=== PATIENT | female | born 2000 | race Caucasian/White ===

== ENCOUNTER 2020-08-06 13:05 | Outpatient (REF) | payer OTHER, SELFPAY ==
[2020-08-06 13:33] LABS: COVID-19 Test Negative (Negative)
== END 2020-08-06 13:06 | disposition home or self-care (01) ==
LOC: HO.LAB 13:05
PROVIDERS: Visit Provider Internal Medicine
DX: Z20.822 Contact with and (suspected) exposure to COVID-19 (principal)
CPT/HCPCS: 36415; 87635; C9803

== ENCOUNTER 2021-03-29 12:24 | Emergency (ER) | payer OTHER, MEDICAID, SELFPAY ==
[2021-03-29 12:41] VITALS: BP 119/76; PULSE 93; RESP 18; TEMP 36.1; O2SAT 98; BMI 22.8
--- NOTE | 2021-03-29 13:44 | ED.EYEPROB ---
HPI - Eye Problem General Chief complaint: Eye Problems Stated complaint: Dermatitis Time Seen by Provider: 03/29/21 13:37 History of Present Illness HPI Narrative: Patient complains of right upper lid redness from a dermatitis She had it more extensively went to a doctor was given prednisone and the redness immediately disappeared then when the prednisone ended it is starting to get a little red and itchy again no fever no pain no eye pain no vision changes Related Data Previous Rx's Medication Instructions Recorded hydrocortisone 1 % topical cream 1 appl TOPICAL TID PRN #28.35 g 03/29/21 mupirocin 2 % topical ointment 1 appl TOPICAL TID 5 Days #15 g 03/29/21 prednisone 20 mg tablet 40 mg PO DAILY 2 Days #4 tab 03/29/21 Allergies Allergy/AdvReac Type Severity Reaction Status Date / Time walnut Allergy Swelling Verified 03/29/21 12:45 Review of Systems Review of Systems: Complaint of right eyelid redness and burning and itching of eyelid Negatives are no fever no chills no dizziness no weakness no eye pain no eye discharge no blurry vision no loss of vision no photophobia no headache no neck pain no stiff neck no difficulty breathing no vomiting Yes all other systems are reviewed and are negative [facility] Past Medical History Source: nursing notes reviewed Medical History (Updated 03/30/21 @ 00:01 by Jarrell Porras) No known health problems Social History Social History Advance Directives: No Advance Directives Information Provided: No Physical Exam Vital Signs: Vital Signs: Last Vital Signs Temp 97.0 F 03/29/21 12:41 Pulse 93 03/29/21 12:41 Resp 18 03/29/21 12:41 BP 119/76 03/29/21 12:41 Pulse Ox 98 03/29/21 12:41 BMI result Body Mass Index 22.8 General appearance is no distress Head is normocephalic atraumatic Eyes visual acuity is 2020 bilateral, pupils equal round reactive to light, extraocular motions intact The right eyelid is red and and it is not tender to the touch it is not warm, conjunctiva are normal no redness or exudate, no photophobia The face there is no other erythema except for the right eyelid, there is no other swelling The neck is supple Respiratory no distress Extremities full range of motion x4 Course Course Course Narrative: Patient has had this before and it cleared up with a very short course of steroids but then came back, there is no pain no fever no surrounding cellulitis no vision changes no eye pain so patient is treated with another course of steroids and some creams and is discharged to follow with primary care Discharge Plan Discharge Clinical Impression: Dermatitis Patient Disposition: Home, Self-Care Additional Instructions: Because steroids work before for this we are doing 3 days a steroids, you got your 1st dose here in the next 2 days are in her prescription from the pharmacy Also apply hydrocortisone cream to the upper lid but not into the eye Just in case it is an infection if it is not improving you could apply mupirocin antibiotic ointment Return any time any worse condition or concerns Prescriptions: New prednisone 20 mg tablet 40 mg PO DAILY 2 Days Qty: 4 RF: 0 hydrocortisone 1 % cream 1 appl topical TID PRN (Reason: rash) Qty: 28.35 RF: 0 mupirocin 2 % ointment 1 appl topical TID 5 Days Qty: 15 RF: 0 Interventions: ED Discharge Assessment Last Done: 03/29/21 14:10 Discharge Date/Time: 03/29/21 14:11
[2021-03-29] MEDS: predniSONE 20 MG TABLET 40 MG PO (14:07)
== END 2021-03-29 14:11 | disposition home or self-care (01) ==
PROVIDERS: Emergency Provider Emergency Medicine
DX: H01.9 Unspecified inflammation of eyelid (principal)
CPT/HCPCS: 99283

== ENCOUNTER 2021-05-22 11:55 | Emergency (ER) | payer OTHER, MEDICAID, SELFPAY ==
--- NOTE | ~2021-05-22 | US_ITS ---
EXAMINATION: US PELVIS TRANSVAGINAL CLINICAL INFORMATION: Left lower quadrant pain. Question ovarian cyst. COMPARISON: None. TECHNIQUE: Transcutaneous and transvaginal pelvic ultrasound. Transvaginal scanning was performed after voiding to better evaluate the endometrium and adnexa. FINDINGS: The uterus measures 8.0 x 3.2 x 5.2 cm. The uterus is anteverted. No suspicious abnormalities region of the cervix. Nabothian cysts present. The uterine contour is smooth. The endometrium measures 0.7 cm. There is fluid seen within the endometrial canal. No abnormal endometrial mass is appreciated. No focal abnormalities within the myometrium. The right ovary measures approximately 3.3 x 2.5 x 2.8 cm. The calculated right ovarian volume is approximately 12.2 mL. There is a 2.2 x 1.9 x 2.2 cm simple appearing cyst. No suspicious adnexal mass. Normal vascular flow. The left ovary measures 2.8 x 1.1 x 1.3 cm. The calculated left ovarian volume is approximately 2.1 mL. No abnormal left adnexal findings. No significant free pelvic fluid. US/US pelvic and transvaginal IMPRESSION: 2.2 cm right ovarian cyst. Some fluid is seen within the endometrial canal.
--- NOTE | ~2021-05-22 | US_ITS ---
EXAMINATION: US RETROPERITONEAL LIMITED (RENAL ONLY) CLINICAL INFORMATION: Left lower quadrant pain, rule out kidney stone. COMPARISON: CT abdomen and pelvis without contrast dated 11/28/2016. TECHNIQUE: Real-time imaging of the kidneys. FINDINGS: RIGHT KIDNEY: 11.8 x 5.9 x 5.0 cm (SAG x AP x TRV). The kidney is normal in size, contour, and echogenicity. Renal cortical thickness is normal. No calculi or focal parenchymal lesions. No hydronephrosis. LEFT KIDNEY: 10.9 x 5.7 x 5.5 cm (SAG x AP x TRV). The kidney is normal in size, contour, and echogenicity. Renal cortical thickness is normal. No calculi or focal parenchymal lesions. No hydronephrosis. US/US renal BI IMPRESSION: Unremarkable renal ultrasound.
--- NOTE | 2021-05-22 13:09 | ED_ITS ---
HPI - Abdominal Pain General Chief Complaint: Abdominal Pain Stated Complaint: Kidney stone Time Seen by Provider: 05/22/21 13:02 Source: patient Mode of arrival: ambulatory Limitations: no limitations History of Present Illness HPI narrative: Patient with history of kidney stone last stone was 10 years ago noticed pain in bilateral lower quadrant for last 2 days got better again got worse today associated with nausea patient has a left-sided no urinary symptoms no hematuria no fever no chills no flank pain Related Data Previous Rx's Medication Instructions Recorded hydrocortisone 1 % topical cream 1 appl TOPICAL TID PRN #28.35 g 03/29/21 mupirocin 2 % topical ointment 1 appl TOPICAL TID 5 Days #15 g 03/29/21 prednisone 20 mg tablet 40 mg PO DAILY 2 Days #4 tab 03/29/21 ibuprofen 600 mg tablet 600 mg PO Q6H PRN #20 tab 05/22/21 Allergies Allergy/AdvReac Type Severity Reaction Status Date / Time walnut Allergy Swelling Verified 03/29/21 12:45 Review of Systems Review of Systems Yes all other systems are reviewed and are negative [facility] Past Medical History Medical History No known health problems Social History Social History Advance Directives: No Advance Directives Information Provided: No Patient : No Physical Exam ED Vital Signs: Vital Signs - 24 hr 05/22/21 13:12 05/22/21 15:40 Temperature 97.9 F 98.0 F Pulse Rate 81 82 Respiratory Rate 16 16 Blood Pressure 125/78 109/58 L Pulse Oximetry 100 100 BMI result Body Mass Index 22.6 Appearance: Alert. Oriented X3. In mild distress ENT: Pharynx normal. Oral Mucosa moist Neck: Normal inspection. Neck supple. CVS: Normal heart rate and rhythm. Pulses normal. Respiratory: No respiratory distress. Equal air entry bilateral, no wheezing/rales/rhonchi Abdomen: Soft dependent at bilateral lower quadrants R>L Bowel sounds are pr esent, no mass palpable, no CVA tenderness Skin: Skin warm and dry. Normal skin color. Normal skin turgor. Extremities: No lower extremity edema. No calf tenderness Neuro: Oriented X 3. MDM - Abdominal Pain MDM Narrative Medical decision making narrative: Patient with right ovarian cyst likely the cause of the pain CBC counts normal UA negative no kidney stone. Discharge patient home on ibuprofen patient felt much better after Toradol Lab Data Attestation: I reviewed the patient's lab results. Result diagrams: 05/22/21 13:30 05/22/21 15:14 Labs: Lab Results 05/22/21 05/22/21 05/22/21 Range/Units 13:30 13:31 13:31 WBC 4.3 L (4.8-10.8) X10*3/uL RBC 4.99 (4.20-5.50) X10*6/uL Hgb 14.5 (12.0-16.0) g/dl Hct 42.9 (37.0-47.0) % MCV 86.0 (80.0-98.0) fL MCH 29.1 (27.0-33.0) pg MCHC 33.8 (31.0-35.0) g/dl RDW 13.0 (11.0-16.0) % Plt Count 245 (160-400) X10*3/uL MPV 9.6 (9.4-12.3) fL Immature Gran % (Auto) 0.0 (0.0-0.4) % Neut % (Auto) 50.8 (45-73) % Lymph % (Auto) 39.2 (20-40) % [place] % (Auto) 7.9 (2-11) % Eos % (Auto) 1.9 (0-4) % Baso % (Auto) 0.2 (0-2) % Lymph # (Auto) 1.7 (1.2-4.9) X10*3/uL [place] # (Auto) 0.3 (0.1-1.2) X10*3/uL Eos # (Auto) 0.1 (0.0-0.4) X10*3/uL Baso # (Auto) 0.0 (0.0-0.2) X10*3/uL Abs Immat Gran (auto) 0.00 (0.00-0.03) X10*3/uL Absolute Neuts (auto) 2.2 (2.0-8.3) x10*3/uL Absolute Nucleated RBC 0.000 (0.0-0.012) X10*3/uL Nucleated RBC % (auto) 0.0 (0.0-0.2) /100WBC Sodium (135-145) mmol/L Potassium (3.3-5.1) mmol/L Chloride (96-108) mmol/L Carbon Dioxide (22-29) mmol/L Anion Gap (12-20) BUN (9-16) mg/dL Creatinine (0.5-1.4) mg/dL Estim Creat Clear Calc Estimated GFR Random Glucose (60-115) mg/dL Calcium (8.4-10.2) mg/dL Urine Color YELLOW Urine Appearance HAZY Urine pH 8.5 H (5.0-8.0) Ur Specific [place] 1.015 (1.005-1.025) Urine Protein NEG (NEG-TRACE) MG/DL Urine Glucose (UA) NEG (NEG) MG/DL Urine Ketones NEG (NEG) MG/DL Urine Blood NEG (NEG) Urine Nitrite NEG (NEG) Ur Leukocyte Esterase NEG (NEG) Urine Test NEGATIVE (NEGATIVE) 05/22/21 Range/Units 15:14 WBC (4.8-10.8) X10*3/uL RBC (4.20-5.50) X10*6/uL Hgb (12.0-16.0) g/dl Hct (37.0-47.0) % MCV (80.0-98.0) fL MCH (27.0-33.0) pg MCHC (31.0-35.0) g/dl RDW (11.0-16.0) % Plt Count (160-400) X10*3/uL MPV (9.4-12.3) fL Immature Gran % (Auto) (0.0-0.4) % Neut % (Auto) (45-73) % Lymph % (Auto) (20-40) % [place] % (Auto) (2-11) % Eos % (Auto) (0-4) % Baso % (Auto) (0-2) % Lymph # (Auto) (1.2-4.9) X10*3/uL [place] # (Auto) (0.1-1.2) X10*3/uL Eos # (Auto) (0.0-0.4) X10*3/uL Baso # (Auto) (0.0-0.2) X10*3/uL Abs Immat Gran (auto) (0.00-0.03) X10*3/uL Absolute Neuts (auto) (2.0-8.3) x10*3/uL Absolute Nucleated RBC (0.0-0.012) X10*3/uL Nucleated RBC % (auto) (0.0-0.2) /100WBC Sodium 141 (135-145) mmol/L Potassium 4.0 (3.3-5.1) mmol/L Chloride 105 (96-108) mmol/L Carbon Dioxide 25 (22-29) mmol/L Anion Gap 15 (12-20) BUN 6 L (9-16) mg/dL Creatinine 0.70 (0.5-1.4) mg/dL Estim Creat Clear Calc 118.0 Estimated GFR > 60 Random Glucose 87 (60-115) mg/dL Calcium 9.4 (8.4-10.2) mg/dL Urine Color Urine Appearance Urine pH (5.0-8.0) Ur Specific [place] (1.005-1.025) Urine Protein (NEG-TRACE) MG/DL Urine Glucose (UA) (NEG) MG/DL Urine Ketones (NEG) MG/DL Urine Blood (NEG) Urine Nitrite (NEG) Ur Leukocyte Esterase (NEG) Urine Test (NEGATIVE) Discharge Plan Discharge Clinical Impression: Ovarian cyst Patient Disposition: Home, Self-Care Instructions: Ovarian Cyst (ED) Additional Instructions: Take ibuprofen for pain 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
[2021-05-22 13:12] VITALS: BP 125/78; PULSE 81; RESP 16; TEMP 36.6; O2SAT 100; BMI 22.6
[2021-05-22] MEDS: 0.9 % Sodium Chloride 1,000 ML 999 ML IV (13:35)
[2021-05-22] MEDS: ondansetron HCL 4 MG/2 ML VIAL IVPUSH (13:37)
[2021-05-22 13:39] LABS: MANUAL DIFF FLAG NO
[2021-05-22] MEDS: Ketorolac Tromethamine 30 MG/ML VIAL IVPUSH (13:39)
[2021-05-22 13:44] LABS: Basophils Percent Auto 0.2 % (0-2); Eosinophils Absolute Auto 0.1 X10*3/uL (0.0-0.4); Eosinophils Percent Auto 1.9 % (0-4); Hematocrit 42.9 % (37.0-47.0); Hemoglobin 14.5 g/dl (12.0-16.0); Lymphocytes Absolute Auto 1.7 X10*3/uL (1.2-4.9); Lymphocytes Percent Auto 39.2 % (20-40); Mean Corpuscular HGB Conc 33.8 g/dl (31.0-35.0); Mean Corpuscular Hemoglobin 29.1 pg (27.0-33.0); Mean Platelet Volume 9.6 fL (9.4-12.3); Monocytes Absolute Auto 0.3 X10*3/uL (0.1-1.2); Monocytes Percent Auto 7.9 % (2-11); Neutrophils Absolute Auto 2.2 x10*3/uL (2.0-8.3); Neutrophils Percent Auto 50.8 % (45-73); Platelet Count 245 X10*3/uL (160-400); Red Blood Count 4.99 X10*6/uL (4.20-5.50); White Blood Count 4.3 X10*3/uL (4.8-10.8)
[2021-05-22 13:44] LABS: Appearance Urine HAZY; Color Urine YELLOW; Glucose Urine UA NEG (NEG); Leukocyte Esterase Urine NEG (NEG); Nitrite Urine NEG (NEG); PH 8.5 (5.0-8.0); Specific Gravity - Urine 1.015 (1.005-1.025); Urine Blood NEG (NEG); Urine Ketones NEG (NEG); Urine Protein NEG (NEG-TRACE)
[2021-05-22 13:46] LABS: UPreg QC Valid YES; Urine Pregnancy NEGATIVE (NEGATIVE)
[2021-05-22 15:33] LABS: Anion Gap 15 (12-20); Blood Urea Nitrogen 6 mg/dL (9-16); Calcium 9.4 mg/dL (8.4-10.2); Carbon Dioxide 25 mmol/L (22-29); Chloride 105 mmol/L (96-108); Estimated Glomerular Filt Rate > 60; Glucose Random 87 mg/dL (60-115); Sodium 141 mmol/L (135-145)
[2021-05-22 15:40] VITALS: BP 109/58; PULSE 82; RESP 16; TEMP 36.7; O2SAT 100
== END 2021-05-22 16:27 | disposition home or self-care (01) ==
PROVIDERS: Emergency Provider Internal Medicine
DX: N83.291 Other ovarian cyst, right side (principal); R10.30 Lower abdominal pain, unspecified
CPT/HCPCS: 36415; 76775; 76830; 76856; 80048; 81003; 81025; 85025; 96361; 96374; 96375; 99284; J1885; J2405

== ENCOUNTER 2023-05-12 08:45 | Emergency (ER) | payer OTHER, MEDICAID, SELFPAY ==
[2023-05-12 08:57] VITALS: BP 135/80; PULSE 78; RESP 18; TEMP 36.4; O2SAT 100; BMI 22.0
[2023-05-12 09:28] LABS: MANUAL DIFF FLAG NO
[2023-05-12 09:29] LABS: Basophils Percent Auto 1.1 % (0-2); Eosinophils Absolute Auto 0.2 X10*3/uL (0.0-0.4); Eosinophils Percent Auto 4.3 % (0-4); Hematocrit 44.1 % (37.0-47.0); Hemoglobin 15.1 g/dl (12.0-16.0); Lymphocytes Absolute Auto 1.6 X10*3/uL (1.2-4.9); Mean Corpuscular HGB Conc 34.2 g/dl (31.0-35.0); Mean Corpuscular Hemoglobin 29.7 pg (27.0-33.0); Mean Corpuscular Volume 86.8 fL (80.0-98.0); Mean Platelet Volume 9.5 fL (9.4-12.3); Monocytes Absolute Auto 0.4 X10*3/uL (0.1-1.2); Monocytes Percent Auto 10.2 % (2-11); Neutrophils Absolute Auto 1.5 x10*3/uL (2.0-8.3); Neutrophils Percent Auto 40.4 % (45-73); Platelet Count 235 X10*3/uL (160-400); Red Blood Count 5.08 X10*6/uL (4.20-5.50); Red Cell Distribution Width 12.6 % (11.0-16.0); White Blood Count 3.7 X10*3/uL (4.8-10.8)
[2023-05-12 09:34] LABS: UPreg QC Valid YES; Urine Pregnancy NEGATIVE (NEGATIVE)
[2023-05-12 09:35] LABS: Appearance Urine Clear; Color Urine Yellow; Glucose Urine UA Negative (Negative); Leukocyte Esterase Urine Negative (Negative); Nitrite Urine Negative (Negative); Urine Blood Negative (Negative); Urine Ketones Negative (Negative); Urine Protein Negative (Neg-Trace)
[2023-05-12 09:52] LABS: Alanine Aminotransferase 7 U/L (0-31); Albumin Level 4.7 g/dL (3.5-5.0); Alkaline Phosphatase 44 U/L (39-117); Anion Gap 13 (12-20); Aspartate Amino Transferase 13 U/L (5-31); Bilirubin Direct 0.4 mg/dL (0.0-0.5); Bilirubin Total 0.8 mg/dL (0.0-1.0); Blood Urea Nitrogen 10 mg/dL (9-16); Calcium 9.5 mg/dL (8.4-10.2); Carbon Dioxide 27 mmol/L (22-29); Chloride 105 mmol/L (96-108); Creatinine Clr Calc Pharmacy 115.9; Estimated Glomerular Filt Rate > 60; Glucose Random 75 mg/dL (60-115); Lipase 15 U/L (8-78); Potassium 3.8 mmol/L (3.3-5.1); Sodium 141 mmol/L (135-145); Total Protein 7.8 g/dL (6.5-8.0)
[2023-05-12 11:50] VITALS: BP 137/76; PULSE 65; RESP 18; TEMP 36.4; O2SAT 98
--- NOTE | 2023-05-12 11:54 | ED_ITS ---
HPI - General Adult General Chief complaint: Abdominal Pain Stated complaint: Blood in urine-kidney problems History of Present Illness HPI narrative: Patient complains of dysuria that has been going on for awhile, she saw her urologist at [facility] and was placed on Macrobid She continues to have some urinary frequency and occasional burning, no fever no abdominal pain no vomiting and is here today because she wants to be rechecked for UTI and make sure her kidneys are functioning Related Data Previous Rx's Medication Instructions Recorded hydrocortisone 1 % topical cream 1 appl topical TID PRN rash #28.35 03/29/21 grams mupirocin 2 % topical ointment 1 appl topical TID 5 days #15 grams 03/29/21 prednisone 20 mg tablet 40 mg (2 x 20 mg) PO DAILY 2 days 03/29/21 #4 tabs ibuprofen 600 mg tablet 600 mg PO Q6H PRN pain #20 tabs 05/22/21 phenazopyridine 200 mg tablet 200 mg PO TID PRN Dysuria 6 doses 05/12/23 (Pyridium) #6 tabs Allergies Allergy/AdvReac Type Severity Reaction Status Date / Time almond Allergy Anaphylaxis Verified 05/12/23 09:02 walnut Allergy Swelling Verified 03/29/21 12:45 [facility] Past Medical History Source: nursing notes reviewed Medical History No known health problems Social History Social History Advance Directives: No Advance Directives Information Provided: No Physical Exam ED Vital Signs: Vital Signs - 24 hr 05/12/23 08:57 05/12/23 11:50 Temperature 97.6 F 97.6 F Pulse Rate 78 65 Respiratory Rate 18 18 Blood Pressure 135/80 137/76 Pulse Oximetry 100 98 Oxygen Delivery Method Room Air Room Air BMI result Body Mass Index 22.0 General appearance is comfortable no acute distress The pharynx clear mucous membranes moist no redness or swelling Neck is supple Respiratory no distress Abdomen soft and nontender The back no CVA tenderness Legs no swelling Course Course Course Narrative: Patient who came today as she continues to have intermittent urinary frequency and sometimes discomfort with urination who was recently treated with Macrobid wanted to be rechecked She has no nausea no vomiting no fever tolerates p.o. Urinalysis negative test negative blood work no acute findings renal function normal Well-appearing patient is discharged and has good follow-up with urologist and primary care Medical Decision Making Lab Data 05/12/23 09:19 05/12/23 09:19 Labs: Lab Results 05/12/23 Range/Units 09:19 WBC 3.7 L (4.8-10.8) X10*3/uL RBC 5.08 (4.20-5.50) X10*6/uL Hgb 15.1 (12.0-16.0) g/dl Hct 44.1 (37.0-47.0) % MCV 86.8 (80.0-98.0) fL MCH 29.7 (27.0-33.0) pg MCHC 34.2 (31.0-35.0) g/dl RDW 12.6 (11.0-16.0) % Plt Count 235 (160-400) X10*3/uL MPV 9.5 (9.4-12.3) fL Immature Gran % (Auto) 0.0 (0.0-0.4) % Neut % (Auto) 40.4 L (45-73) % Lymph % (Auto) 44.0 H (20-40) % [place] % (Auto) 10.2 (2-11) % Eos % (Auto) 4.3 H (0-4) % Baso % (Auto) 1.1 (0-2) % Lymph # (Auto) 1.6 (1.2-4.9) X10*3/uL [place] # (Auto) 0.4 (0.1-1.2) X10*3/uL Eos # (Auto) 0.2 (0.0-0.4) X10*3/uL Baso # (Auto) 0.0 (0.0-0.2) X10*3/uL Abs Immat Gran (auto) 0.00 (0.00-0.03) X10*3/uL Absolute Neuts (auto) 1.5 L (2.0-8.3) x10*3/uL Absolute Nucleated RBC 0.000 (0.0-0.012) X10*3/uL Nucleated RBC % (auto) 0.0 (0.0-0.2) /100WBC Sodium 141 (135-145) mmol/L Potassium 3.8 (3.3-5.1) mmol/L Chloride 105 (96-108) mmol/L Carbon Dioxide 27 (22-29) mmol/L Anion Gap 13 (12-20) BUN 10 (9-16) mg/dL Creatinine 0.70 (0.5-1.4) mg/dL Estim Creat Clear Calc 115.9 Estimated GFR > 60 Random Glucose 75 (60-115) mg/dL Calcium 9.5 (8.4-10.2) mg/dL Total Bilirubin 0.8 (0.0-1.0) mg/dL Direct Bilirubin 0.4 (0.0-0.5) mg/dL AST 13 (5-31) U/L ALT 7 (0-31) U/L Alkaline Phosphatase 44 (39-117) U/L Total Protein 7.8 (6.5-8.0) g/dL Albumin 4.7 (3.5-5.0) g/dL Lipase 15 (8-78) U/L Urine Color Yellow Urine Appearance Clear Urine pH 7.0 (5.0-9.0) Ur Specific [place] 1.020 (1.005-1.025) Urine Protein Negative (Neg-Trace) mg/dL Urine Glucose (UA) Negative (Negative) mg/dL Urine Ketones Negative (Negative) mg/dL Urine Blood Negative (Negative) Urine Nitrite Negative (Negative) Ur Leukocyte Esterase Negative (Negative) Urine Test NEGATIVE (NEGATIVE) Discharge Plan Discharge Clinical Impression: Dysuria Patient Disposition: Home, Self-Care Additional Instructions: Your blood work vital signs and physical exam were all normal No sign of any dangerous or worrisome condition now Follow closely with her doctor and urologist Return any time any worse condition or any concerns Prescriptions: New phenazopyridine [Pyridium] 200 mg tablet 200 mg PO TID PRN (Reason: Dysuria) Qty: 6 0RF No Action prednisone 20 mg tablet 40 mg PO DAILY 2 Days Qty: 4 0RF hydrocortisone 1 % cream 1 appl topical TID PRN (Reason: rash) Qty: 28.35 0RF mupirocin 2 % ointment 1 appl topical TID 5 Days Qty: 15 0RF ibuprofen 600 mg tablet 600 mg PO Q6H PRN (Reason: pain) Qty: 20 0RF Stand Alone Forms: Work/School Release Interventions: ED Discharge Assessment Last Done: 05/12/23 12:17 Discharge Date/Time: 05/12/23 12:18
== END 2023-05-12 12:18 | disposition home or self-care (01) ==
PROVIDERS: Emergency Provider Emergency Medicine Emergency Medical Services
DX: R30.0 Dysuria (principal); R35.0 Frequency of micturition; Z79.899 Other long term (current) drug therapy
CPT/HCPCS: 36415; 80048; 80076; 81003; 81025; 83690; 85025; 99282; 99283

== ENCOUNTER 2023-08-31 15:23 | Outpatient (AMB) | payer OTHER, MEDICAID, SELFPAY ==
--- NOTE | 2023-08-31 15:26 | A.OFFPC_ITS ---
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 Pt is currently . She is in the process of transferring to a different OBGYN. Pt has a hx of asthma. She reports that this is well-controlled with proair. Pt has a hx of PTSD, mood disorder, and anxiety. She is on the waiting list for a therapist. Pt wants to get through her and then discuss meds. Denies any SI and HI. Pt is smoking 4 cigarettes per day. Highly encouraged quitting. REPLACED BY [facility] Medical History No known health problems Surgical History Hx of hernia repair Social History Housing: Apartment Patient Tobacco Use Status: Current everyday Tobacco user Current occupational status: employed Current occupational exposures/hazards: No Cognitive needs: No Hearing needs: No Vision needs: No Questionnaire PHQ-9 Over the last 2 weeks, how often have you been bothered by any of the following problems? 1. Little interest or pleasure in doing things: not at all 2. Feeling down, depressed, or hopeless: not at all 3. Trouble falling or staying asleep, or sleeping too much: several days 4. Feeling tired or having little energy: not at all 5. Poor appetite or overeating: not at all 6. Feeling bad about yourself - or that you are a failure or have let yourself or your family down: not at all 7. Trouble concentrating on things, such as reading the newspaper or watching television: not at all 8. Moving or speaking so slowly that other people could have noticed. Or the opposite - being so fidgety or restless that you have been moving around a lot more than usual: not at all 9. Thoughts that you would be better off or of hurting yourself in some way: not at all Total score: 1 Depression Screening Interpretation: Negative Depression Screening Done: Yes 39945 - PHQ-9 Billing: Yes Source: Developed by Drs. Checo Cheung, Lona Traore, Jose Ramos and colleagues, with an educational harvey from [employer]. Thrive Questionnaire Date Thrive assessed: 08/31/23 I am a: Patient What is your living situation today?: I have a steady place to live Within the past 12 months, did the food you bought not last and you didn't have the money to get more?: Never true Within the past 12 months, did you worry whether your food would run out before you got money to buy more?: Never true Do you have trouble paying for medicines?: No Do you have trouble getting transportation to medical appointments?: No Do you have trouble paying your heating and electricity bill?: No Do you have trouble taking care of your child, family member or friend?: No Do you have trouble with day-to-day activities such as bathing, preparing meals, shopping, managing finances, etc.?: No Are you currently unemployed and looking for a job?: No Are you interested in more education?: No Currently or been in a relationship where the following occur: I choose not to answer this question THRIVE Score: 0 AUDIT C Alcohol Use Questionnaire (AUDIT-C) 1. How often do you have a drink containing alcohol?: Never 3. How often do you have six or more drinks on one occasion?: Never Total Score: 0 Score Reviewed/Action Taken: No GALINA-7 AMB Questionnaire GALINA-7 Date GALINA - 7 assessed: 08/31/23 Feeling nervous, anxious, or on edge: 2 = More than half the days Not being able to stop or control worryin = Nearly every day Worrying too much about different things: 3 = Nearly every day Trouble relaxin = More than half the days Being so restless that it is hard to sit still: 1 = Several days Becoming easily annoyed or irritable: 3 = Nearly every day Feeling afraid as if something awful might happen: 2 = More than half the days Total GALINA-7 score (0-4 normal; 5-9 mild; 10-14 moderate; 15-21 severe): 16 Source: Developed by Drs. Checo Cheung, Lona Traore, Jose Ramos and colleagues, with an educational harvey from [employer]. GALINA-7 Assessment Billing GALINA-7 Assessment Tool: GALINA-7 Assessment [id number] (on waiting list for [facility], denies any si or hi) Review of Systems Const Reports as per HPI Physical exam (Primary Care) Vital Signs: Last Vital Signs Pulse 77 08/31/23 15:35 BP 100/60 08/31/23 15:35 Pulse Ox 100 08/31/23 15:35 Oxygen Delivery Method Room Air 08/31/23 15:35 BMI result Body Mass Index 22.3 Tobacco/Smoking Status: Tobacco use Status Tobacco use date assessed 08/31/23 08/31/23 15:41 Patient Tobacco Use Status Current everyday Tobacco 08/31/23 15:41 PHQ-9: PHQ-9 Score PHQ-9: Total score 1 08/31/23 15:43 Depression Screening Interpretation: Negative Thrive Assessment: Date of Thrive Assessment Date Thrive assessed 08/31/23 08/31/23 15:43 Currently or been in a relationship where the following occur: I choose not to answer this question Const General: cooperative Orientation/consciousness: patient oriented x3 Resp Effort & Inspection: normal respiratory effort Auscultation: clear to auscultation bilaterally Cardio Rate: regular rate Rhythm: regular rhythm Heart sounds: S1 normal heart sound present, S2 normal heart sound present and no murmurs Neuro General: patient oriented x3 Psych Appearance: grossly normal Mental Status: mental status grossly normal Speech and movement: Normal speech and movement present Affect: normal affect Attitude: cooperative Thought process: Normal thought process present Thought content: Normal thought content present Insight: Good insight present (Psych) Judgement: Good judgement present (Psych) Assessment and Plan Assessment & Plan (1) Asthma: Code(s): J45.909 - Unspecified asthma, uncomplicated Plan: using albuterol prn (2) PTSD (post-traumatic stress disorder): Code(s): F43.10 - Post-traumatic stress disorder, unspecified Plan: managed (3) Anxiety: Code(s): F41.9 - Anxiety disorder, unspecified Plan: stable currently (4) Mood disorder: Code(s): F39 - Unspecified mood [affective] disorder Plan: stable currently (5) Smoker: Code(s): F17.200 - Nicotine dependence, unspecified, uncomplicated Plan: encouraged quitting, down to 4 cigs a day currently. Plan The patient agreed to the use of a medical staff credentialing coordinator for this encounter. Scribed for YADIRA Melendez by Diana Ham medical staff credentialing coordinator, on 08/31/2023 at 15:45 EST. Medications: Discontinued hydrocortisone 1% Discontinued Reason: Patient Completed Course 1 appl topical TID PRN 28.35 grams 0RF rash prednisone Discontinued Reason: Patient no longer taking 40 mg (2 x 20 mg) PO DAILY 2 days 4 tabs 0RF ibuprofen Discontinued Reason: Patient no longer taking 600 mg PO Q6H PRN 20 tabs 0RF pain mupirocin 2% Discontinued Reason: Patient no longer taking 1 appl topical TID 5 days 15 grams 0RF phenazopyridine (Pyridium) Discontinued Reason: Patient no longer taking 200 mg PO TID PRN 6 tabs 0RF Dysuria Coding Level of Care Code Est Pt Level 3 (35468) Diagnoses Asthma J45.909 PTSD (post-traumatic stress disorder) F43.10 Anxiety F41.9 Mood disorder F39 Smoker F17.200 Additional Codes GALINA-7 Assessment Billing - GALINA-7 Assessment Tool: GALINA-7 Assessment [id number] ([id number])
[2023-08-31 15:35] VITALS: BP 100/60; PULSE 77; O2SAT 100; BMI 22.3
== END 2023-08-31 16:11 | disposition home or self-care (01) ==
PROVIDERS: Visit Provider Nurse Practitioner Family
DX: J45.909 Unspecified asthma, uncomplicated (principal); F39 Unspecified mood [affective] disorder; F43.10 Post-traumatic stress disorder, unspecified; F41.9 Anxiety disorder, unspecified; F17.200 Nicotine dependence, unspecified, uncomplicated
CPT/HCPCS: 99213

== ENCOUNTER 2023-09-30 11:39 | Outpatient (AMB) | payer OTHER, MEDICAID, SELFPAY ==
--- NOTE | 2023-09-30 12:08 | MHC.OFFWIV ---
Intake Vital Signs 09/30/23 12:09 Height 5 ft 6 in BP 102/66 Blood Pressure Location Rt brachial Position Sitting Pulse 73 Pulse Source Pulse Oximeter Temp 98.0 F Temp Source Oral Pulse Oximetry (%) 98 Intake Visit Reasons: EP ?Strep throat Intake Note: pt is here for swollen tonsils with white spots for 2 days Patient Tobacco Use Status: Current everyday Tobacco user Allergies almond Allergy (Verified 09/30/23 12:13) Anaphylaxis walnut Allergy (Verified 09/30/23 12:13) Swelling Do you need a note to return to daycare/school/sports/work: No HPI HPI Comments History of Present Illness Details Patient is a 23-year-old female of 23 weeks gestation complaining of throat pain x2 days. She states she can see white spots in the back of her throat and it is extremely painful when she swallows and she feels like her neck is swollen. She denies any fevers, cough, ear pain, sinus pain or head congestion or any sick contacts. [facility] Medical History No known health problems Surgical History Hx of hernia repair Social History Housing: Apartment Patient Tobacco Use Status: Current everyday Tobacco user Current occupational status: employed Current occupational exposures/hazards: No Cognitive needs: No Hearing needs: No Vision needs: No Review of Systems Const All systems reviewed & are unremarkable except as noted in HPI and below Physical Exam Vital Signs: Last Vital Signs Temp 98.0 F 09/30/23 12:09 Pulse 73 09/30/23 12:09 BP 102/66 09/30/23 12:09 Pulse Ox 98 09/30/23 12:09 Const General: cooperative, healthy appearing, comfortable and no acute distress Orientation/consciousness: patient oriented x3 Limitations: no limitations HEENT Head: Yes normal to inspection Ears: hearing grossly normal bilaterally, external ears normal and TM's normal bilaterally General nose exam: Normal external nose present, Normal nares present and No nasal discharge present Face and sinus: Yes normal facial exam Mouth: Normal oral and palatal mucosa present and moist mucous membranes Throat: Yes tonsils normal, Yes uvula midline and Yes posterior oropharynx abnormal (Erythema and exudates present) Eyes General: appearance normal, both eyes and all related structures Neck Neck: Yes normal visual inspection Resp Effort & Inspection: normal respiratory effort and able to speak in complete sentences Skin General skin exam: no rashes or lesions noted Neuro General: patient oriented x3 Extrem General: Yes normal to inspection and Yes no clubbing, cyanosis or edema Assessment & Plan Assessment & Plan (1) Strep pharyngitis: Code(s): J02.0 - Streptococcal pharyngitis Plan: We will treat based on presence of exudates and Centor score of 3, patient asked for liquid amoxicillin which I sent to the pharmacy. Plan See above Orders: Orders AMB Rapid Strep Screen Today Z13.9 - Encounter for screening, unspecified Medications: New amoxicillin 500 mg (10 mL) PO BID 200 mL 0RF Coding Level of Care Code Est Pt Level 3 (57773) Diagnoses Strep pharyngitis J02.0
[2023-09-30 12:09] VITALS: BP 102/66; PULSE 73; TEMP 36.7; O2SAT 98
== END 2023-09-30 13:11 | disposition home or self-care (01) ==
PROVIDERS: PCP Nurse Practitioner Primary Care; Visit Provider Physician Assistant
DX: J02.0 Streptococcal pharyngitis (principal)
CPT/HCPCS: 87880; 99213

== ENCOUNTER 2024-02-04 08:17 | Outpatient (AMB) | payer OTHER, MEDICAID, SELFPAY ==
[2024-02-04 08:20] VITALS: BP 96/62; PULSE 90; O2SAT 99; BMI 28.6
--- NOTE | 2024-02-04 08:20 | A.OFFPC_ITS ---
Vital Signs 02/04/24 08:20 Height 5 ft 6 in Weight 177 lb BMI 28.6 BP 96/62 Blood Pressure Location Rt brachial Position Sitting Pulse 90 Pulse Source Pulse Oximeter Pulse Oximetry (%) 99 Oxygen Delivery Method Room Air Intake Visit Reasons: Annual PE Intake Note: Pt is here today for PE. Allergies almond Allergy (Verified 02/04/24 08:23) Anaphylaxis walnut Allergy (Verified 02/04/24 08:23) Swelling Medication List - Last Reviewed 02/04/24 by Em Kidd MA albuterol sulfate 90 mcg/actuation 2 puffs inhalation Q4-6H PRN ferrous sulfate 325 mg PO BID fluticasone propionate 50 mcg/actuation (Flonase Allergy Relief) 1 spray intranasal DAILY hydrocortisone 2.5% appl topical tacrolimus 0.1% 1 appl topical BID tretinoin 0.025% 1 appl topical BEDTIME Tobacco use date assessed: 02/04/24 Dental Screening Dental Screen Date: 02/04/24 Did you have a dental visit in the last 12 months?: Yes Did you have a dental problem in the last 6 months where you did not have access to dental care?: No Was dental information given to patient?: Patient has dentist HPI HPI Comments History of Present Illness0 Details 23 y/o female patient who presents to [facility] for PE. Patient of Lamont Regalado. Pmhx significant for Anemia, Seasonal allergies, PTSD, Anxiety, Mild Asthma and Smoker. Pt just had a baby boy 01/28/24. The was complicated with Placenta retention and Low Hgb and Hypotension. She needed Blood transfusions while in the hospital. Today reports feeling Anxious but denies SI or SA. Discussed medications, but patient wants to think about it. She still smokes 4 cig a day. Discussed Wellbutrin. Currently has UTI and taking Levofloxacin. Pt reports taking medication creams that she needs refills - but does not remember the dosing. [facility] Medical History (Updated 02/04/24 @ 09:43 by Bre Fuller NP) Eczema Iron deficiency anemia No known health problems Surgical History Hx of hernia repair Family History (Updated 02/04/24 @ 08:26 by Gely Hnitecki, RMA) Father No problems noted. Mother No problems noted. Social History Housing: Apartment Patient Tobacco Use Status: Current everyday Tobacco user Current occupational status: employed Current occupational exposures/hazards: No Cognitive needs: No Hearing needs: No Vision needs: No Questionnaire PHQ-9 Over the last 2 weeks, how often have you been bothered by any of the following problems? 1. Little interest or pleasure in doing things: not at all 2. Feeling down, depressed, or hopeless: not at all 3. Trouble falling or staying asleep, or sleeping too much: not at all 4. Feeling tired or having little energy: not at all 5. Poor appetite or overeating: not at all 6. Feeling bad about yourself - or that you are a failure or have let yourself or your family down: not at all 7. Trouble concentrating on things, such as reading the newspaper or watching television: not at all 8. Moving or speaking so slowly that other people could have noticed. Or the opposite - being so fidgety or restless that you have been moving around a lot more than usual: not at all 9. Thoughts that you would be better off or of hurting yourself in some way: not at all Total score: 0 Depression Screening Interpretation: Negative Depression Screening Done: Yes 45680 - PHQ-9 Billing: Yes Source: Developed by Drs. Checo Cheung, Lona Traore, Jose Ramos and colleagues, with an educational harvey from [employer]. Thrive Questionnaire Date Thrive assessed: 02/04/24 I am a: Patient What is your living situation today?: I have a steady place to live Within the past 12 months, did the food you bought not last and you didn't have the money to get more?: Never true Within the past 12 months, did you worry whether your food would run out before you got money to buy more?: Never true Do you have trouble paying for medicines?: No Do you have trouble getting transportation to medical appointments?: No Do you have trouble paying your heating and electricity bill?: No Do you have trouble taking care of your child, family member or friend?: No Do you have trouble with day-to-day activities such as bathing, preparing meals, shopping, managing finances, etc.?: No Are you currently unemployed and looking for a job?: No Are you interested in more education?: I choose not to answer this question Please select the resources that you would like help with: None Currently or been in a relationship where the following occur: No concerns reported THRIVE Score: 0 AUDIT C Alcohol Use Questionnaire (AUDIT-C) 1. How often do you have a drink containing alcohol?: Never 3. How often do you have six or more drinks on one occasion?: Never Total Score: 0 GALINA-7 AMB Questionnaire GALINA-7 Date GALINA - 7 assessed: 02/04/24 Feeling nervous, anxious, or on edge: 0 = Not at all Not being able to stop or control worryin = Not at all Worrying too much about different things: 0 = Not at all Trouble relaxin = Not at all Being so restless that it is hard to sit still: 0 = Not at all Becoming easily annoyed or irritable: 0 = Not at all Feeling afraid as if something awful might happen: 0 = Not at all Total GALINA-7 score (0-4 normal; 5-9 mild; 10-14 moderate; 15-21 severe): 0 Source: Developed by Drs. Checo Cheung, Lona Traore, Jose Ramos and colleagues, with an educational harvey from [employer]. GALINA-7 Assessment Billing GALINA-7 Assessment Tool: GALINA-7 Assessment 49520 Review of Systems Const All systems reviewed & are unremarkable except as noted in HPI and below Physical exam (Primary Care) Vital Signs: Last Vital Signs Pulse 90 02/04/24 08:20 BP 96/62 02/04/24 08:20 Pulse Ox 99 02/04/24 08:20 Oxygen Delivery Method Room Air 02/04/24 08:20 BMI result Body Mass Index 28.6 Tobacco/Smoking Status: Tobacco use Status Tobacco use date assessed 02/04/24 02/04/24 08:26 Patient Tobacco Use Status Current everyday Tobacco 02/04/24 08:26 PHQ-9: PHQ-9 Score PHQ-9: Total score 0 02/04/24 09:16 Depression Screening Interpretation: Negative Thrive Assessment: Date of Thrive Assessment Date Thrive assessed 02/04/24 02/04/24 08:26 Currently or been in a relationship where the following occur: No concerns reported Const General: comfortable and no acute distress Orientation/consciousness: patient oriented x3 HENMT Head: Yes normocephalic Ears: external ears normal and TM's normal bilaterally General nose exam: Normal external nose present Face and sinus: Yes sinuses nontender Mouth: moist mucous membranes Throat: Yes tonsils normal and Yes uvula midline Eyes Pupils: Equal, round and reactive pupils present EOM: EOMs intact bilaterally Direct Ophthalmoscopy: normal light reflex Neck Neck: Yes full ROM and Yes no lymphadenopathy Thyroid: Thyroid normal Resp Effort & Inspection: normal respiratory effort and able to speak in complete sentences Auscultation: clear to auscultation bilaterally, no crackles, no rales, no rhonchi and no wheezes Cardio Heart sounds: S1 normal heart sound present and S2 normal heart sound present GI Inspection: Yes normal to inspection Palpation (GI): Soft to palpation, not firm, nontender, no guarding, not rigid and No hepatosplenomegaly present Percussion: Yes normal to percussion Auscultation: normal bowel sounds Rectal Exam - Female: deferred General: Yes no CVA tenderness and Yes deferred Back/Spine/Pelvis Back: no CVA tenderness Skin General skin exam: no rashes or lesions noted Neuro General: patient oriented x3, gait normal and moves all extremities Cranial nerves: Yes Equal, round and reactive pupils present Motor exam (neuro): 5/5 motor strength present throughout Extrem General: Yes full ROM and Yes capillary refill normal Psych Speech and movement: Normal speech and movement present Coding Level of Care Code Est Pt Prev Care 18-39y(72082) Diagnoses Encounter for routine adult health examination without abnormal findings Z00.00 Smoker F17.200 Anxiety F41.9 Mild intermittent asthma without complication J45.20 Asthma complication type: uncomplicated Asthma persistence: intermittent Asthma severity: mild Other iron deficiency anemia D50.8 Iron deficiency anemia type: other iron deficiency Eczema, unspecified type L30.9 Eczema type: unspecified Additional Codes GALINA-7 Assessment Billing - GALINA-7 Assessment Tool: GALINA-7 Assessment 43171 ([id number]) PHQ-9 - 87037 - PHQ-9 Billing: Yes ([id number]) Assessment & Plan Assessment & Plan (1) Encounter for routine adult health examination without abnormal findings: Code(s): Z00.00 - Encounter for general adult medical examination without abnormal findings Plan: Exam Normal. (2) Smoker: Code(s): F17.200 - Nicotine dependence, unspecified, uncomplicated Category: Social Hx Plan: Discussed Smoking Cessation Discussed starting Wellbutrin (3) Anxiety: Code(s): F41.9 - Anxiety disorder, unspecified Category: Medical Plan: Discussed starting medications today. Pt wants to think about it before starting. (4) Asthma: Code(s): J45.909 - Unspecified asthma, uncomplicated Category: Medical Qualifiers: Asthma complication type: uncomplicated Asthma persistence: intermittent Asthma severity: mild Qualified Code(s): J45.20 - Mild intermittent asthma, uncomplicated Plan: Well managed and controlled on Albuterol PRN (5) Iron deficiency anemia: Code(s): D50.9 - Iron deficiency anemia, unspecified Category: Medical Qualifiers: Iron deficiency anemia type: other iron deficiency Qualified Code(s): D50.8 - Other iron deficiency anemias Plan: Ordered Ferrous Sulfate (6) Eczema: Code(s): L30.9 - Dermatitis, unspecified Category: Medical Qualifiers: Eczema type: unspecified Qualified Code(s): L30.9 - Dermatitis, unspecified Plan: Refilled her medication creams. Medications: New ferrous sulfate 325 mg PO BID 90 tabs 1RF D50.9 - Iron deficiency anemia, unspecified hydrocortisone 2.5% 1 appl topical BID 20 grams 0RF L30.9 - Dermatitis, unspecified tacrolimus 0.1% 1 appl topical BID 30 grams 0RF L30.9 - Dermatitis, unspecified tretinoin 0.025% 1 appl topical BEDTIME 20 grams 0RF L30.9 - Dermatitis, unspecified albuterol sulfate 90 mcg/actuation 2 puffs inhalation Q4-6H PRN 8.5 grams 1RF shortness of breath or wheezing J45.909 - Unspecified asthma, uncomplicated fluticasone propionate 50 mcg/actuation (Flonase Allergy Relief) administer into each nostril 1 spray intranasal DAILY 16 grams 1RF J30.2 - Other seasonal allergic rhinitis Discontinued amoxicillin Discontinued Reason: Patient Completed Course 500 mg (10 mL) PO BID 200 mL 0RF
== END 2024-02-04 11:54 | disposition home or self-care (01) ==
LOC: HO.HMCC 08:18
PROVIDERS: PCP Nurse Practitioner Primary Care; Visit Provider Nurse Practitioner Family
DX: Z00.00 Encounter for general adult medical examination without abnormal findings (principal); F17.200 Nicotine dependence, unspecified, uncomplicated; F41.9 Anxiety disorder, unspecified; J45.20 Mild intermittent asthma, uncomplicated; D50.8 Other iron deficiency anemias; L30.9 Dermatitis, unspecified

== ENCOUNTER → 2024-02-04 08:17 | Outpatient (BNVA) | payer OTHER, MEDICAID, SELFPAY | PROVIDERS: PCP Nurse Practitioner Primary Care; Visit Provider Nurse Practitioner Family | DX: Z00.00 Encounter for general adult medical examination without abnormal findings (principal); F41.9 Anxiety disorder, unspecified; J45.20 Mild intermittent asthma, uncomplicated; D50.8 Other iron deficiency anemias; L30.9 Dermatitis, unspecified; F17.210 Nicotine dependence, cigarettes, uncomplicated | CPT/HCPCS: 96127 ==

== ENCOUNTER 2024-03-15 08:53 | Outpatient (AMB) | payer OTHER, MEDICAID, SELFPAY ==
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
== END 2024-03-15 08:54 | disposition home or self-care (01) ==
LOC: HO.HMCC 08:53
PROVIDERS: PCP Nurse Practitioner Family; Visit Provider Nurse Practitioner Family
DX: F41.9 Anxiety disorder, unspecified (principal); B35.3 Tinea pedis

== ENCOUNTER → 2024-03-15 08:53 | Outpatient (BNVA) | payer OTHER, MEDICAID, SELFPAY | PROVIDERS: PCP Nurse Practitioner Family; Visit Provider Nurse Practitioner Family | DX: F41.9 Anxiety disorder, unspecified (principal); L30.9 Dermatitis, unspecified; B35.3 Tinea pedis ==

== ENCOUNTER 2024-05-25 09:00 | Outpatient (AMB) | payer OTHER, MEDICAID, SELFPAY ==
[2024-05-25 09:14] VITALS: BP 120/80; PULSE 89; TEMP 36.7; O2SAT 97; BMI 25.7
--- NOTE | 2024-05-25 09:14 | MHC.PC.OV ---
Vital Signs 05/25/24 09:14 Height 5 ft 6 in Weight 159 lb 6 oz BMI 25.7 BP 120/80 Blood Pressure Location Lt brachial Position Sitting Pulse 89 Pulse Source Pulse Oximeter Temp 98.1 F Temp Source Oral Pulse Oximetry (%) 97 Oxygen Delivery Method Room Air Intake Visit Reasons: [facility]/Tachycardia Intake Note: Pt is here today for ED follow up from [facility]. Allergies almond Allergy (Verified 05/25/24 09:14) Anaphylaxis walnut Allergy (Verified 05/25/24 09:14) Swelling Medication List - Last Reconciled 05/25/24 by Lamont Regalado [facility] albuterol sulfate 90 mcg/actuation 2 puffs inhalation Q4-6H PRN benzoyl peroxide 10% 1 appl topical DAILY buspirone 15 mg PO BID 30 days ferrous sulfate 325 mg PO BID fluticasone propionate 50 mcg/actuation (Flonase Allergy Relief) 1 spray intranasal DAILY hydrocortisone 2.5% 1 appl topical BID ketoconazole 2% 1 appl topical 2XW ketoconazole 2% 1 appl topical DAILY 14 days tacrolimus 0.1% 1 appl topical BID tretinoin 0.025% 1 appl topical BEDTIME Tobacco use date assessed: 05/25/24 Dental Screening Dental Screen Date: 05/25/24 Did you have a dental visit in the last 12 months?: Yes Did you have a dental problem in the last 6 months where you did not have access to dental care?: No Was dental information given to patient?: Patient has dentist HPI [facility]/Tachycardia HPI Details Chief Complaint Persistent cough with intermittent shortness of breath. History of Present Illness The patient is a 24-year-old female presenting to er on 05/16/2024 with persistent cough and intermittent shortness of breath for follow-up after hospital discharge. Her condition began with a cough, difficulty breathing requiring increased nebulizer treatments, congestion, headache, intermittent pleuritic-type chest discomfort, body aches, and chills. With a history significant for severe anxiety and PTSD, the patient also smokes up to six cigarettes per day. Tachycardia was noted upon initial evaluation, resolving over time. Hospital workup revealed a diagnosis of viral illness, Coronavirus ([id number]), likely contributing to symptomology and increasing her anxiety. Negative diagnostic imaging, including cardiac ultrasound, chest x-ray, and CT angiography, ruled out critical conditions. Dehydration was suspected and addressed with IV fluids administered in the hospital. She continues to experience intermittent shortness of breath and chest tightness related to her breathing issues. Her previous use of prednisone-based inhalers resulted in severe yeast infections (even with rinsing). She has a positive disposition towards consulting with a therapist and psychiatrist in the near future, aiming to manage her pronounced anxiety. Social History - Smokes up to 6 cigarettes per day. - History of severe anxiety and PTSD. - Engages with behavioral health services, coordinating follow-up with a therapist and psychiatrist. Health Maintenance - Referral to pulmonology for evaluation due to persistent respiratory symptoms. - Smoking cessation strongly advised for long-term health improvement. - Continuation of psychotherapy and psychiatric evaluation discussed for anxiety management. Review of Systems - Respiratory: Reports persistent cough, intermittent shortness of breath, and chest tightness. denies any fevers or chills, n/v. - General: Reports body aches and chills. - Psychiatric: Reports severe anxiety but denies suicidal or homicidal ideation. Physical Exam General: Cooperative, healthy appearing, comfortable, no acute distress and well developed Orientation: Patient oriented x3 Limitations: No limitations Head: Normal to inspection Ears: Hearing grossly normal bilaterally Nose: Normal external nose present Face and sinus: Normal facial exam Eyes: Appearance normal, both eyes and all related structures Neck: Normal visual inspection and Yes full ROM Respiratory: Scattered wheezes throughout on exam. Able to speak in complete sentences. moving air bilaterally Cardiovascular: Regular rate and rhythm. Normal S1 and S2. Pulse 89 (no chest pain increase with palpation or turning upper torso side to side) GI: Normal to inspection. Soft to palpation and nontender Skin: No rashes or lesions noted Neuro: Patient oriented x3 Extremities: Normal to inspection Results - Labs: D-dimer low. - Diagnostics: Cardiac ultrasound negative, Chest x-ray negative, CT angiography negative. - Positive result for Coronavirus ([id number]). Plan For her active concerns, management of her viral illness and COPD is pursued through ongoing respiratory therapies, while promissory steps for smoking cessation must be reinforced due to its detrimental impact. EKG and chest x-ray reassessments will aid ongoing evaluations of cardiopulmonary function. Referral to pulmonology will provide a detailed obstruction assessment. Her anxiety and PTSD necessitate increased psychotherapeutic consultation, ensuring continuity in her mental health treatment. Risk mitigation involves smoking cessation and continued abstinence from prednisone-based inhalers, given prior adverse outcomes. Evaluating for allergic contributors may provide insight to her respiratory symptoms, and continuous encouragement of her psychiatric follow-up will address her mental health comprehensively. Discussion Notes During the discussion, I explained the viral illness diagnosis and emphasized symptomatic management. Smoking cessation was discussed as an essential measure for health improvement and symptom reduction. I acknowledged the patient's concerns about prednisone inhalers and assured alternative plan considerations for respiratory management. We discussed the roles of the therapist and psychiatrist in her comprehensive care, outlining the benefits of a multidisciplinary approach. Pulmonology referral was agreed upon to refine her respiratory condition management. Additionally, she was informed about the requirement for chest x-ray and EKG for further evaluation. We highlighted the importance of allergy testing to identify potential environmental triggers of her symptoms and discussed the necessity for ongoing psychiatric support. Patient Instructions - Continue respiratory therapies as prescribed. - Avoid smoking entirely to promote respiratory recovery and reduce symptoms. - Follow up with your new therapist and psychiatrist as planned. - Attend referred pulmonology appointment for detailed respiratory evaluation. - Undergo ordered EKG, chest x-ray, echo. - Report any worsened symptoms or new concerns promptly. - Abstain from prednisone inhalers due to yeast infections previously experienced. - Engage in allergy testing to determine additional potential triggers. -go to the er with any worsening symptoms -increasing buspirone from 10mg bid to 15 bid. [facility] Medical History (Updated 05/25/24 @ 10:16 by YADIRA Navarro) Eczema Iron deficiency anemia No known health problems Surgical History Hx of hernia repair Family History (Updated 02/04/24 @ 08:26 by NOHELIA Arroyo) Father No problems noted. Mother No problems noted. Social History Housing: Apartment Patient Tobacco Use Status: Current everyday Tobacco user e-Cigarette/Vaping Use: Never Used Current occupational status: employed Current occupational exposures/hazards: No Cognitive needs: No Hearing needs: No Vision needs: No Questionnaire Thrive Questionnaire Date Thrive assessed: 05/25/24 AUDIT C Alcohol Use Questionnaire (AUDIT-C) 1. How often do you have a drink containing alcohol?: Never 3. How often do you have six or more drinks on one occasion?: Never Total Score: 0 Score Reviewed/Action Taken: Yes GALINA-7 AMB Questionnaire GALINA-7 Date GALINA - 7 assessed: 02/04/24 Source: Developed by Drs. Checo Cheung, Lona Traore, Jose Ramos and colleagues, with an educational harvey from [employer]. Physical exam (Primary Care) Vital Signs: Last Vital Signs Temp 98.1 F 05/25/24 09:14 Pulse 87 05/25/24 09:14 BP 120/80 05/25/24 09:14 Pulse Ox 100 05/25/24 09:14 Oxygen Delivery Method Room Air 05/25/24 09:14 BMI result Body Mass Index 25.7 Tobacco/Smoking Status: Tobacco use Status Tobacco use date assessed 05/25/24 05/25/24 09:15 Patient Tobacco Use Status Current everyday Tobacco 05/25/24 09:15 e-Cigarette/Vaping Use Never Used 05/25/24 09:15 Thrive Assessment: Date of Thrive Assessment Date Thrive assessed 05/25/24 05/25/24 09:15 Coding Level of Care Code Est Pt Level 4 (85996) Diagnoses Mild intermittent asthma without complication J45.20 Asthma severity: mild Asthma persistence: intermittent Asthma complication type: uncomplicated Chest discomfort R07. Anxiety F41.9 Assessment & Plan Assessment & Plan (1) Asthma: Code(s): J45.909 - Unspecified asthma, uncomplicated Category: Medical Qualifiers: Asthma severity: mild Asthma persistence: intermittent Asthma complication type: uncomplicated Qualified Code(s): J45.20 - Mild intermittent asthma, uncomplicated (2) Chest discomfort: Code(s): R07.89 - Other chest pain Category: Medical (3) Chest discomfort: Code(s): R07.89 - Other chest pain Category: Medical (4) Anxiety: Code(s): F41.9 - Anxiety disorder, unspecified Category: Medical Plan . Orders: Orders Resp Allergy Profile Region I Today J45.20 - Mild intermittent asthma, uncomplicated Immunoglobulin E Today J45.20 - Mild intermittent asthma, uncomplicated CA echo transthoracic complete Today R07.89 - Other chest pain XR chest 2V Today R07.89 - Other chest pain AMB EKG-In Office Today R07.89 - Other chest pain Referrals Pulmonology Referral J45.20 - Mild intermittent asthma, uncomplicated Medications: Changed From buspirone 10 mg PO BID 30 days 60 tabs 2RF To buspirone 15 mg PO BID 30 days 60 tabs 2RF
--- OUTSIDE RECORDS SUMMARY | 2024-05-25 09:51 | XMS_ITS | Data Portability ---
Author Organization JAYSON Bautista s, [address] Address [address] [place] [address] Care Team Providers Care Linux Architect Name Role Phone DAVIDEDEBORA AL Primary Care Provider Assessment No assessment recorded. Plan of Treatment Reminders Order Date Submit Date Provider Last Modified By Organization Details Last Modified Time Details Appointments None recorded. Lab culture, urine 2022 023 SALO [facility]), [facility] [place], [address], 3 20:06:19 vaginal pathogens panel, HENRY+probe, vaginal fluid 2022 023 SALEM [facility]), [address] [place] [address], [address], 3 20:06:18 rapid strep group A, throat 2022 023 [email or web address] _shu [facility], [address] [place] [address], [address], 3 09:04:28 urinalysis , dipstick 2022 023 [email or web address] _shu [facility], [facility] [place], [address], 3 09:04:28 test, urine 2022 023 [email or web address] _shu [facility], [facility] [place], [address], 09:04:28 culture, respirator y [address] [facility], [facility], [place], [address], 16:06:41 Referral None recorded. Procedures None recorded. Surgeries None recorded. Imaging None recorded. Medication Orders Diflucan 150 mg tablet 2022 023 [id number], [address] [place], [address], 16:20:37 miconazole nitrate 2 % topical cream 2022 023 [id number], [address] [place], [address], 16:30:47 Patient TargetsNo targets recorded. Patient Instructions Encounter Date Encounter Id Patient Instructions Last Modified By Organization Details Last Modified Time 05/09/2022 [id number] sore throat: car e instructions Not available 05/09/2022 09:04:28 sore throat: car e instructions Not available 05/09/2022 09:04:28 Reason for Referral None Reported. Results Created Date Observation Date Name Description Value Unit Range Abnormal Flag Note LastModifiedBy Organization Detail LastModifiedTime 05/09/1905/10/2022 NUSWA B VAGIN ITIS PLUS (VG+) atopobium vaginae LOW - 0 score Not Available [facility] ([facility]) [address] [facility], [place], [address], 05/11/2022 20:06:18 05/09/1905/10/2022 NUSWA B VAGIN ITIS PLUS (VG+) bvab 2 LOW - 0 score Not Available [facility] ([facility]) [address] [facility], [place], [address], 05/11/2022 20:06:18 05/09/1905/10/2022 NUSWA B VAGIN ITIS PLUS (VG+) megasphaera 1 LOW - 0 score Calcu late total score by hunter paul the 3 indiv idual bacte rial vagin osis (BV) marke r score s toget her. Total score is inter prete d as follo ws: Total score 0-1: Indic ates the absen ce of BV. Total score 2: Indet ermin ate for BV. Addit ional clini bakari data shoul d be evalu ated to estab hans a diagn osis. Total score 3-6: Indic ates the prese nce of BV. This test was devel oped and its perfo rmanc e sarah cteri stics deter mined by [facility]. It has not been clear ed or appro taj by the Food and Drug Admin istra tion. Not Available [facility] ([facility]) [address] [place], [address], 05/11/2022 20:06:18 05/09/19 23 05/10/2022 NUSWA B VAGIN ITIS PLUS (VG+) mickey albicans, HENRY NEGATI VE negati ve Not Available [facility] ([facility]) [address] [place], [address], 05/11/2022 20:06:18 05/09/19 23 05/10/2022 NUSWA B VAGIN ITIS PLUS (VG+) mickey glabrata, HENRY NEGATI VE negati ve Not Available [facility] ([facility]) [address] [place], [address], 05/11/2022 20:06:18 05/09/19 23 05/11/2022 NUSWA B VAGIN ITIS PLUS (VG+) trich vag by HENRY NEGATI VE negati ve Not Available [facility] ([facility]) [address] [place], [address], 05/11/2022 20:06:18 05/09/19 23 05/11/2022 NUSWA B VAGIN ITIS PLUS (VG+) chlamydia trachomatis, HENRY NEGATI VE negati ve Not Available [facility] ([facility]) [address] [place], [address], 05/11/2022 20:06:18 05/09/19 23 05/11/2022 NUSWA B VAGIN ITIS PLUS (VG+) neisseria gonorrhoeae, HENRY NEGATI VE negati ve Not Available [facility] ([facility]) [address] [place], [address], 05/11/2022 20:06:18 05/09/19 23 05/11/2022 URINE CULTU RE, ROUTI NE urine culture, routine FINAL REPORT Not Available [facility] ([facility]) [address] [place], [address], 05/11/2022 20:06:19 05/09/19 23 05/11/2022 URINE CULTU RE, ROUTI NE result 1 NO GROWTH Not Available [facility] ([facility]) [address] [place], [address], 05/11/2022 20:06:19 05/09/19 23 05/12/2022 UPPER RESPI RATOR Y CULTU RE upper respiratory culture FINAL REPORT Not Available [facility] ([facility]) [address] [place], [address], 05/12/2022 16:06:41 05/09/19 23 05/12/2022 UPPER RESPI RATOR Y CULTU RE result 1 COMMEN T Routi ne respi rator y braeden Not Available [facility] ([facility]) [address] [place], [address], 05/12/2022 16:06:41 05/09/19 23 05/09/2022 urina lysis , dipst ick Unknown Analyte Normal = light yellow Not Available [facility] [address] [place] [address], [place], [address], 05/09/2022 08:44:51 05/09/19 23 05/09/2022 urina lysis , dipst ick Unknown Analyte Dark Yellow Not Available 2099laureen lewis [address], [place], [address], 05/09/2022 08:44:51 05/09/19 23 05/09/2022 urina lysis , dipst ick Unknown Analyte Normal = clear Not Available laureen lewis [address], [place], [address], 05/09/2022 08:44:51 05/09/1905/09/2022 urina lysis , dipst ick Unknown Analyte Slight ly Cloudy Not Available laureen lewis [address], [place], [address], 05/09/2022 08:44:51 05/09/19 23 05/09/2022 urina lysis , dipst ick Unknown Analyte Normal = negati ve Not Available laureen lewis [address], [place], [address], 05/09/2022 08:44:51 05/09/19 23 05/09/2022 urina lysis , dipst ick Unknown Analyte Negati ve Not Available laureen lewis [address], [place], [address], 05/09/2022 08:44:51 05/09/19 23 05/09/2022 urina lysis , dipst ick Unknown Analyte Normal = Negati ve Not Available laureen lewis [address], [place], [address], 05/09/2022 08:44:51 05/09/19 23 05/09/2022 urina lysis , dipst ick Unknown Analyte Negati ve Not Available laureen lewis [address], [place], [address], 05/09/2022 08:44:51 05/09/19 23 05/09/2022 urina lysis , dipst ick Unknown Analyte Normal = Negati ve Not Available [facility] [address], [place], [address], 05/09/2022 08:44:51 05/09/19 23 05/09/2022 urina lysis , dipst ick Unknown Analyte Negati ve Not Available [address], [place], [address], 05/09/2022 08:44:51 05/09/19 23 05/09/2022 urina lysis , dipst ick Unknown Analyte Normal = 1.010, 1.015, 1.020 Not Available [address], [place], [address], 05/09/2022 08:44:51 05/09/19 23 05/09/2022 urina lysis , dipst ick Unknown Analyte 1.020 Not Available [address] [place] [address], [place], [address], 05/09/2022 08:44:51 05/09/19 23 05/09/2022 urina lysis , dipst ick Unknown Analyte Normal = Negati ve Not Available [address], [place], [address], 05/09/2022 08:44:51 05/09/19 23 05/09/2022 urina lysis , dipst ick Unknown Analyte Negati ve Not Available [address] [place] [address], [place], [address], 05/09/2022 08:44:51 05/09/19 23 05/09/2022 urina lysis , dipst ick Unknown Analyte Normal = 6.5, 7.0, 7.5, 8.0 Not Available [address] [place] [address], [place], [address], 05/09/2022 08:44:51 05/09/19 23 05/09/2022 urina lysis , dipst ick Unknown Analyte 7.0 Not Available [address] [place] [address], [place], [address], 05/09/2022 08:44:51 05/09/19 23 05/09/2022 urina lysis , dipst ick Unknown Analyte Normal = Negati ve Not Available [address] [place] [address], [place], [address], 05/09/2022 08:44:51 05/09/19 23 05/09/2022 urina lysis , dipst ick Unknown Analyte Trace Not Available [address] [place] [address], [place], [address], 05/09/2022 08:44:51 05/09/19 23 05/09/2022 urina lysis , dipst ick Unknown Analyte Normal = 0.2, 1.0 Not Available [address] [place] [address], [place], [address], 05/09/2022 08:44:51 05/09/19 23 05/09/2022 urina lysis , dipst ick Unknown Analyte 0.2 E.U./d L Not Available [address] [place] [address], [place], [address], 05/09/2022 08:44:51 05/09/19 23 05/09/2022 urina lysis , dipst ick Unknown Analyte Normal = Negati ve Not Available [address] [place] [address], [place], [address], 05/09/2022 08:44:51 05/09/19 23 05/09/2022 urina lysis , dipst ick Unknown Analyte Negati ve Not Available [address] [place] [address], [place], [address], 05/09/2022 08:44:51 05/09/19 23 05/09/2022 urina lysis , dipst ick Unknown Analyte Normal = Negati ve Not Available [address], [place], [address], 05/09/2022 08:44:51 05/09/1905/09/2022 urina lysis , dipst ick Unknown Analyte Negati ve Not Available [address], [place], [place], [address], 05/09/2022 08:44:51 05/09/19 23 05/09/2022 pregn karo test, urine Unknown Analyte Normal = Negati ve Not Available [address], [place], [address], 05/09/2022 08:44:59 05/09/19 23 05/09/2022 pregn karo test, urine Unknown Analyte negati ve Not Available [address], [place], [address], 05/09/2022 08:44:59 05/09/19 23 05/09/2022 rapid strep group A, throa t Unknown Analyte Normal = Negati ve Not Available [address] [place] [address], [place], [address], 05/09/2022 08:39:39 05/09/19 23 05/09/2022 rapid strep group A, throa t Unknown Analyte negati ve Not Available [address] [place] [address], [place], [address], 05/09/2022 08:39:39 Result Notes None recorded. Problems Name Problem SNOMED Code Status Onset Date Resolution Date Notes Provider Name and Address Organization Details Recorded Time Eczema 24860006 Active 023 Keri jane PA - [facility] 05/09/2022 08:43:40 Anxiety 26146041 Active 023 Keri jane PA - [facility] 05/09/2022 08:44:26 Problem Notes None recorded. Procedures Surgical History Date Name Laterality Status Provider Name and Address Organization Details Recorded Time hernia repair completed Keri Nova PA - [facility] 05/09/2022 08:44:43 Imaging Results None recorded. Procedure Notes None recorded. Medical Equipment None Reported. Allergies No known drug allergies Medications Name Sig Start Date Stop Date Status Note LastModified by Organization Details LastModified Time nystatin 100,000 unit/mL oral suspension SWISH 4 ML OF SOLUTION IN MOUTH FOR A FEW MINUTES, THEN SWALLOW. DO THIS 4 X DAY FOR 14 DAYS. 05/09 completed Not Available Not Available Not Available ketoconazol e 2 % shampoo PLEASE SEE ATTACHED FOR DETAILED DIRECTION S 05/09 completed Not Available Not Available Not Available miconazole nitrate 2 % topical cream APPLY TO THE AFFECTED AREA(S) BY TOPICAL ROUTE 2 TIMES PER DAY IN THEMORNIN G AND EVENING 2022 active Not Available Not Available Not Avai lable tretinoin 0.025 % topical cream PLEASE SEE ATTACHED FOR DETAILED DIRECTION S active Not Available Not Available No t Available ondansetron HCl 4 mg tablet TAKE 1 TABLET BY MOUTH EVERY 8 HOURS 05/09 completed Not Available Not Available Not Available terconazole 0.8 % vaginal cream INSERT 1 APPLICATO RFUL VAGINALLY AT BEDTIME FOR 3 DAYS 05/09 completed Not Available Not Available Not Available Diflucan 150 mg tablet Take 1 tablet by oral route for 1 day. 2022 active Not Available Not Available Not Avai lable tramadol 50 mg tablet TAKE ONE TABLET EVERY FOUR TO SIX HOURS NEEDED FOR PAIN 05/09 completed Not Available Not Available Not Available methenamine hippurate 1 gram tablet TAKE 1 TABLET BY MOUTH AFTER SEXUAL INTERCOUR SE/PERIOD NEEDED active Not Available Not Available No t Available tacrolimus 0.1 % topical ointment APPLY TWICE DAILY TO EYELID DERMATITI S NEEDED 05/09 completed Not Available Not Available Not Available clotrimazol e-betametha sone 1 %-0.05 % topical cream PLEASE SEE ATTACHED FOR DETAILED DIRECTION S 05/09 completed Not Available Not Available Not Available misoprostol 200 mcg tablet PLEASE SEE ATTACHED FOR DETAILED DIRECTION S active Not Available Not Available No t Available clindamycin phosphate 1 % topical swab APPLY TO AFFECTED AREAS ON FACE ONCE EVERY MORNING 05/09 completed Not Available Not Available Not Available betamethaso ne dipropionat e 0.05 % topical cream PLEASE SEE ATTACHED FOR DETAILED DIRECTION S 05/09 completed Not Available Not Available Not Available Senna Laxative 8.6 mg tablet TAKE 2 TABLETS BY MOUTH NIGHTLY FOR 3 DAYS. active Not Available Not Available No t Available hydrocortis one 2.5 % topical cream APPLY TWICE DAILY TO DERMATITI S ON FACE UP TO 2 WEEKS THEN 1 WEEK OFF REPEAT NEEDED active Not Available Not Available No t Available hydroxyzine HCl 25 mg tablet TAKE 1 TABLET BY MOUTH 3 TIMES A DAY NEEDED FOR ANXIETY FOR UP TO 10 DAYS. active Not Available Not Available No t Available triamcinolo ne acetonide 0.1 % lotion PLEASE SEE ATTACHED FOR DETAILED DIRECTION S 05/09 completed Not Available Not Available Not Available ibuprofen 600 mg tablet TAKE 1 TABLET BY MOUTH EVERY 8 HOURS 05/09 completed Not Available Not Available Not Available albuterol sulfate HFA 90 mcg/actuati on aerosol inhaler INHALE 2 PUFFS EVERY 4 HOURS NEEDED FOR WHEEZING OR SHORTNESS OF BREATH active Not Available Not Available No t Available hydrocortis one 2.5 % topical ointment APPLY TOPICALLY TWICE DAILY FOR 1 WEEK,THEN OFF FOR 1 WEEK,THEN USE NEEDED FOR REDNESS/S MORTEZA/ITCH 05/09 completed Not Available Not Available Not Available fluticasone propionate 50 mcg/actuati on nasal spray,suspe nsion SPRAY 1 SPRAY INTO EACH NOSTRIL EVERY DAY active Not Available Not Available No t Available oxycodone 5 mg tablet TAKE 1 TABLET BY MOUTH EVERY 6 HOURS NEEDED FOR PAIN 05/09 completed Not Available Not Available Not Available cyclobenzap rine 5 mg tablet TAKE 1 TABLET BY MOUTH NIGHTLY 05/09 completed Not Available Not Available Not Available Flovent HFA 110 mcg/actuati on aerosol inhaler INHALE 1 PUFF 2 (TWO) TIMES A DAY FOR 14 DAYS. RINSE MOUTH WITH WATER AFTER USE, DO NOT SWALLOW. active Not Available Not Available No t Available Purelax 17 gram/dose oral powder PLEASE SEE ATTACHED FOR DETAILED DIRECTION S 05/09 completed Not Available Not Available Not Available Aftera 1.5 mg tablet TAKE 1 TABLET BY MOUTH ONCE FOR 1 DOSE. 05/09 completed Not Available Not Available Not Available Phexxi 1.8 %-1 %-0.4 % vaginal gel APPLY 1 APPLICATO R VAGINALLY ONCE,BEFO RE OR UP TO 1 HOUR BEFORE INTERCOUR SE 05/09 completed Not Available Not Available Not Available Vitals Date Recorded Body weight Body mass index (BMI) Body height Oxygen saturation Oxygen saturation in Arterial blood by Pulse oximetry Pain severity - 0-10 verbal numeric rating [Score] - Reported Heart rate Respiratory rate Body temperature Systolic blood pressure Diastolic blood pressure Provider Name and Address Organization Details Last Updated DateTime 3 61361.1 9 g 21.3 kg/m2 167.64 cm 96 % 96 % 0 67 /min 18 /min 98.5 [degF] 102 mm[Hg] 64 mm[Hg] Keri Hart [employer] 08:47:05 Social History Question Answer Notes LastModified by Organizat ion Details LastModified Time Tobacco Smoking Status Current Every Day Smoker JAYSON Solis [facility] 05/09/2022 08:44:22 What Is Your Level Of Alcohol Consumption? None Information not available 05/09/2022 Have You Had Direct Contact, Or Contact During Intimacy, With Monkeypox Rash, Scabs, Or Body Fluids From A Person With Monkeypox? No Information not available 05/09/2022 How Much Tobacco Do You Smoke? 0.5 PPD Information not available 05/09/2022 Do You Use Any Illicit Or Recreational Drugs? No Information not available 05/09/2022 Have You Recently Traveled Abroad? No Information not available 05/09/2022 Do You Or Have You Ever Used Any Other Forms Of Tobacco Or Nicotine? No Information not available 05/09/2022 Sex: Unknown Functional Status None recorded. Mental Status None recorded. Family History Relationship Description Onset Age of this Age Resolved Age Notes LastModified by Organization Details LastModified Time Father No current problems or disability Not available 05/09 08:44:13 Mother No current problems or disability Not available 05/09 08:44:13 Medical History No medical history recorded. Gynecological HistoryNo gynecological history recorded. Obstetrics History GPAL:G 0 P 0 0 0 0 Past Encounters Encounter ID Performer Location Encounter Start Date Encounter Closed Date Diagnosis/Indication Diagnosis SNOMED-CT Code Diagnosis ICD10 Code Diagnosis Note [id number] Chun_Ruben Treadwellny carlinr [address] [place] [address] 02/14/2018 13:47:21 02/14/2018 15:00:37 [id number] [address]Ruddy_Ruben gordon[address] [address] 11/25/2018 15:21:28 11/25/2018 16:11:32 [id number] [address] [address] [address] 12/26/2018 15:03:32 12/26/2018 15:29:42 [id number] [facility] [address] [place] [address] 08/29/2020 08:03:19 08/29/2020 08:56:19 [id number] Paolo Bosch DO [facility] [address] [place] [address] 05/09/2022 08:21:02 05/09/2022 09:18:35 Acute pharyngitis 265788097 J02.9 Rapid strep NEGATIVE Likely viral etiology Recommend fluids and restHumidi fied airibu/tyl enol prn pain/fever Salt water gargles recommend that they change toothbrush sterilize anything else that touches their mouth Will send a throat culture and contact patient if culture is positive Patient advised to follow up as needed for worsening symptoms or no improvemen t. Discussed concerning red flags with patient and reasons to follow up in the Emergency Department urgently. Dysuria 90154777 R30.0 UA unrevealin Joelle wnlwill check urine Cx and GC/Chlamyd ia, BV/mickey swab recommend avoid soaps in genital arearecomm end push fluids, water, cranberry juiceavoid holding urinepract ice postcoital urination Patient advised to follow up as needed for worsening symptoms or no improvemen t. Discussed concerning red flags with patient and reasons to follow up in the Emergency Department urgently. Candidiasis of vagina 72 406346 B37.31 Signs, symptoms and PE consistent with candidaRx diflucan and topical antifungal avoid unprotecte d sextreatme nt discussed with patientche ck GC/Chlamyd ia probe and vaginal swabPatien t advised to follow up as needed for worsening symptoms or no improvemen t. Health Concerns Section Related Observation LastModified by Organization Detai ls LastModified Time None Recorded Concern Status LastModified by Organization Details LastModified Time None Recorded Advance Directives Directive None Recorded Payers Encounter Date Sequence Insurance Name Policy Number Policy Clancy Covered Member ID Clancy Member ID Guarantor Name 05/09/2022 1 [facility] [id number] Janett Villagomez [id number] Janett Villagomez 05/09/2022 2 [place]: [facility] Janett Villagomez [id number] Janett Villagomez Notes Date Note Type Note Provider Name and Address Organization Details Recorded Time 05/09/2022 text/html Sore throatRepor krzysztof bypatient.Notes:22 yo female c/o sore throat x 1 d No feverNo chillsNo coughNo difficulty breathing or respiratory distressNo CPNo congestionNo ear painNo sore throatNo Abdominal painNo nauseaNo vomitingNp diarrheaNo myalgiaNo fatigueNo rashNo HANo dizzinessNo recent travelNo known sick contacts Also c/o redness/itchy vaginal area,Has a h/o yeast infections, had gotten fluconazole from scheduling analyst, symptoms not improved+ dysuriano VBno known STD exposureno sores on genitalsno increased frequencyno increased urgencyno incontinenceno pressureno malodorno blood in her urineno back painno rashno feverno nausea or vomitingno MS change Paolo Bosch, DO [address] [place], [address], PA - [facility] 05/09/2022 09:18:05 OBGyn Episode No OBEpisode recorded.
== END 2024-05-25 10:30 | disposition home or self-care (01) ==
PROVIDERS: PCP Nurse Practitioner Family; Visit Provider Nurse Practitioner Family
DX: J45.20 Mild intermittent asthma, uncomplicated (principal); R07.89 Other chest pain; F41.9 Anxiety disorder, unspecified

== ENCOUNTER 2024-06-04 08:08 | Outpatient (REF) | payer OTHER, MEDICAID, SELFPAY ==
--- OUTSIDE RECORDS SUMMARY | 2024-06-04 08:11 | XMS_ITS | Encounter Summary ---
Author Organization [facility] Address [address] [place] [address] Phone Care Team Providers Care Recoating Machine Operator Name Role Phone Elana Ayala NP Primary Care Provider [phone] Encounter Details Date Type Department Care Team (Late st Contact Info) Description 04/27/2014 Conversion Encounter [facility] [address] [place] [address] [place] [address] Social History Tobacco Use Types Packs/Day Years Used Date Smoking Tobacco: Never Assessed Comments Unknown Sex and Gender Information Value Date Recorded Sex Assigned at Not on file Legal Sex Female 6:13 PM EDT Gender Identity Not on file Sexual Orientation Not on file documented as of this encounter Plan of Treatment Not on file documented as of this encounter Visit Diagnoses Not on filedocumented in this encounter Care Teams Recoating Machine Operator Relationship Specialty Start Date End Date Elaan Ayala NP [address] [place] [address] [place] [address] PCP - General Pediatrics 09/17/22 documented as of this encounter
--- OUTSIDE RECORDS SUMMARY | 2024-06-04 08:11 | XMS_ITS | Encounter Summary ---
Author Organization [facility] Address [address] [place] [address] Phone Care Team Providers Care Market Research Coordinator Name Role Phone Elana Ayala NP Primary Care Provider [phone] Reason for Visit * Reason Comments Med Refill Encounter Details Date Type Department Care Team (Late st Contact Info) Description 03/21/2018 Refill [facility] [address] [place] [address] [place] [address] Lizzette Becker DO Anxiety and depression Social History Tobacco Use Types Packs/Day Years Used Date Smoking Tobacco: Every Day Smokeless Tobacco: Never Alcohol Use Standard Drinks/Week Comments No 0 (1 standard drink = 0.6 oz pur e alcohol) Comments No Sex and Gender Information Value Date Recorded Sex Assigned at Not on file Legal Sex Female 6:13 PM EDT Gender Identity Not on file Sexual Orientation Not on file documented as of this encounter Miscellaneous Notes * Telephone Encounter - Nilda Lopez MA - 03/25/2018 9:57 AM EST Patient is on 20mg. No longer on 10mg documented in this encounter Plan of Treatment Not on file documented as of this encounter Visit Diagnoses Diagnosis Anxiety and depression documented in this encounter Care Teams Market Research Coordinator Relationship Specialty Start Date End Date Elana Ayala NP [address] [place] [address] [place] [address] PCP - General Pediatrics 09/17/22 documented as of this encounter
--- OUTSIDE RECORDS SUMMARY | 2024-06-04 08:11 | XMS_ITS | Clinical Summary ---
Author Organization [facility] Address [address] [place] [address] Phone Care Team Providers Care Ldr Nurse Name Role Phone Travis Ayalaica ANGELICA Primary Care Provider [phone] Allergies Active Allergy Reactions Criticality Noted Date Comments [place] (Diagnostic) Food 09/23/2017 [place] Medications mometasone 0.1 % creamIndications :Other atopic dermatitis APPLY TOPICALLY TWICE A DAY NEEDED FOR ECZEMA FLARE. 45 g 1 1 Active clindamycin 1 % lotion 2 Active hydrocortisone 2.5 % ointment APPLY TOPICALLY TWICE DAILY FOR 1 WEEK,THEN OFF FOR 1 WEEK,THEN USE NEEDED FOR REDNESS/SCALE/I TCH 2 Active tretinoin 0.025 % cream 2 Active triamcinolone 0.1 % lotion PLEASE SEE ATTACHED FOR DETAILED DIRECTIONS 2 Active betamethasone dipropionate 0.05 % cream PLEASE SEE ATTACHED FOR DETAILED DIRECTIONS 2 Active fluticasone (Flonase) 50 MCG/ACT nasal sprayIndications :Acute non-recurrent frontal sinusitis Administer 1 spray into each nostril daily. 1 Units 5 3 Active [facility] Purelax 17 GM/SCOOP powder PLEASE SEE ATTACHED FOR DETAILED DIRECTIONS 2 Active tacrolimus 0.1 % ointment APPLY TWICE DAILY TO EYELID DERMATITIS NEEDED 2 Active fluticasone HFA (Flovent HFA) 110 MCG/ACT inhalerIndicatio ns:Moderate persistent extrinsic asthma without complication INHALE 1 PUFF BY MOUTH 2 TIMES A DAY FOR 14 DAYS. RINSE MOUTH WITH WATER AFTER USE, DO NOT SWALLOW. 1 Units 3 Active Benzoyl Peroxide ( Benzoyl Peroxide Wash) 10 % liquidIndication s:Other acne Apply 1 application topically daily. 142 g 3 Active hydrOXYzine 25 MG tabletIndication s:Anxiety Take 1 tablet (25 mg total) by mouth 3 (three) times a day as needed for anxiety for up to 10 days. 20 tablet 3 Active Acetaminophen (Tylenol) 325 MG capsule See Instructions, PRN as needed for pain, 2 capsule (650 mg) taken By Mouth Every 4 hours not to exceed 4000 mg/day, # 60 capsule, 0 Refills, Maintenance, 12/17/22 11:56:00 EDT, Capsule, [facility]/pharmacy #[id number], Partial fill upon patient request if the pr... 3 Active azithromycin 500 MG tablet TAKE 2 TABLETS BY MOUTH FOR 1 DAY, THEN 1 TABLET BY MOUTH DAILY AFTER 3 Active cyclobenzaprine 5 MG tabletIndication s:Acute bilateral low back pain with bilateral sciatica Take 1 tablet (5 mg total) by mouth 2 (two) times a day as needed for muscle spasms for up to 10 days. 20 tablet 3 Active ibuprofen 600 MG tabletIndication s:Acute bilateral low back pain with bilateral sciatica Take 1 tablet (600 mg total) by mouth every 6 (six) hours as needed for mild pain. 100 tablet 3 Active albuterol HFA 108 (90 Base) MCG/ACT inhalerIndicatio ns:Asthma, unspecified asthma severity, unspecified whether complicated, unspecified whether persistent INHALE 2 PUFFS EVERY 4 HOURS NEEDED FOR WHEEZING OR SHORTNESS OF BREATH 6.7 g 4 Active Active Problems Problem Noted Date Diagnosed Date Acute bilateral low back pain with bilateral sci atica 01/12/2023 Assessment & Plan (01/12/2023 8:56 PM EDT): Concerning history. Will treat lower back discomfort with ibuprofen and cyclobenzaprine. She is set up for physical therapy next week. Strain of lumbar region 01/06/2023 Assessment & Plan (01/06/2023 11:29 AM EDT): Begin physical therapy for back and neck pain Need for vaccination 09/17/2022 Assessment & Plan (09/17/2022 4:33 PM EDT): Due for Tdap Unsure if she received this through OB during She will be seeing them next week Can schedule for [place] visit to receive if needed Marijuana dependence 09/17/2022 Assessment & Plan (09/17/2022 4:39 PM EDT): Using daily to manage anxiety Discussed risks and quitting Cigarette nicotine dependence without complicati on 09/17/2022 Assessment & Plan (09/17/2022 4:39 PM EDT): Discussed health risks She is not interested in quitting at this time Strongly encourage she seek medical support when she is ready to quit Sciatic nerve pain 09/17/2022 Assessment & Plan (09/17/2022 4:41 PM EDT): New onset sciatic pain Reviewed etiology No injury Pt given exercises she can do at home Will also refer to PT Scripts provided for topical lidocaine, heating pad, and wipes Suggest scheduling f/u with new PCP Seborrheic dermatitis 05/17/2022 Other acne 07/31/2021 Overview (07/31/2021): Sees Derm. Assessment & Plan (09/17/2022 4:32 PM EDT): Using topical creams as prescribed by derm Abnormal Pap smear of cervix 07/31/2021 Overview (07/31/2021): Seeing Manager [employer] History of recurrent UTIs 07/31/2021 Overview (07/31/2021): Sees Urology Influenza vaccine refused 07/02/2021 Generalized anxiety disorder 08/03/2017 Overview (09/26/2020): Anxiety (300.02) Onset: 08/03/2017 Added by: Lizzette Becker 09/26/2020 review of chart - Appears that patient is seen by an outside office for this and treated with amitriptyline Assessment & Plan (01/06/2023 11:30 AM EDT): Continue hydroxyzine as needed for panic attacks Refer to [facility] to discuss trauma and anxiety response Aware that is short term and given information for penitentiary therapy Assessment & Plan (09/17/2022 4:34 PM EDT): Managing well No medications currently Assessment & Plan (02/15/2018 11:21 AM EST): Started Celexa 10 mg last month. No change in anxiety. Having some headaches but would like to increase to 20 mg. Follow up in 3 weeks. Assessment & Plan (01/02/2018 8:38 PM EDT): Currently taking Lexapro 5 mg. Feels like that dose is ok and does not want an increase at this time. Extrinsic asthma 06/02/2016 Overview (09/26/2020): Asthma (493.00) Onset: 06/02/2016 Added by: Lizzette Becker 09/26/2020 review - PRN albuterol, no controller medications Assessment & Plan (09/17/2022 4:34 PM EDT): Daily flonase, prn albuterol Flared by URI and weather changes Well controlled Other atopic dermatitis 06/02/2016 Overview (01/02/2018): Atopic dermatitis, other (691.8) Onset: 06/02/2016 Added by: Lizzette Becker Assessment & Plan (09/17/2022 4:32 PM EDT): Using topical creams as prescribed by derm Resolved Problems Problem Noted Date Diagnosed Date Resolved Date Concussion with unknown loss of consciousness status 01/06/2023 01/12/2023 Assessment & Plan (01/12/2023 8:57 PM EDT): No further concussion symptoms. Cleared from concussion concerns. OK to return to work. Assessment & Plan (01/06/2023 11:29 AM EDT): Possible concussion vs trauma response Negative CT is reassuring Begin brain rest Follow up in one week or sooner if needed Acute non-recurrent frontal sinusitis 08/30/2020 09/17/2022 Overview (09/26/2020): 09/26/2020 review - Flonase for allergy and sinus issues. Ingrown toenail of left foot 09/27/2019 11/26/2019 Assessment & Plan (09/27/2019 1:46 PM EDT): No concern for current infection of skin. Exam consistent with an ingrown toe nail and irritation of this area with break in skin. Discussed natural history of this issue. Packed with cotton. Recommended soaking foot and repacking regularly. Calculus of kidney 12/04/2016 Overview (01/02/2018): Kidney stone (592.0) Onset: 12/04/2016 Added by: Anna Corona Encounters Date Type Department Care Team Description 05/16/2024 8:26 AM EST - 05/16/2024 4:44 PM [facility] Hospital Encounter [facility] - Patient Ping from Last 3 Months Immunizations Immunization Administration Dates Next Due DTaP 5 05/16/2004, 1,1999, 000,1999 HPV 03/30/2016 HPV Vaccine 9 Valent 06/02/2016 HPV, Quadrivalent 02/02/2014 Hep A, ped/adol 10/04/2015,02/16/2015 Hep B 1999 Hep B, ped/adol 11/12/2003,1999,1999 Hib (PRP-T) 08/05/2000, 0,1999, 000 IPV 05/16/2004, 1,1999, 000 Influenza, injectable, trivalent 05/28/2019 MMR 08/29/2019, 5,08/05/2000, 001 Meningococcal Conj (Menactra) MCV4P 06/02/2016 PPD Test 04/03/2021,05/18/2018 Pneumococcal Conjugate 08/05/2000,04/21/2000, Tdap 02/02/2012 Varicella 02/02/2012,04/21/2000 Family History Medical History Relation Name Comments No Known Problems Father Josh No Known Problems Maternal Grandfather No Known Problems Maternal Grandmother No Known Problems Mother Lashawn Other cancer Paternal Grandfather Breast cancer Paternal Grandmother Relation Name Status Comments Brother Pako Alive Father Josh Alive Maternal Grandfather Maternal Grandmother Mother Lashawn Alive Paternal Grandfather Paternal Grandmother Social History Tobacco Use Types Packs/Day Years Used Date Smoking Tobacco: Every Day Cigarettes 0.5 8 Smokeless Tobacco: Never Tobacco Cessation:Counseling Given: Yes Alcohol Use Standard Drinks/Week Comments No 0 (1 standard drink = 0.6 oz pur e alcohol) Hunger/Food Answer Date Recorded In the last 12 months, did y ou or your family ever eat less than you felt you should because there wasn't enough money for food? No 09/17/2022 Stable Housing Answer Date Recorded Are you worried that in the next 2 months you may not have stable housing? No 09/17/2022 Transportation Concerns Answer Date Rec orded In the last 12 months, have you or your family ever had to go without healthcare because you didn't have a way to get there? No 09/17/2022 Hazards in Home Answer Date Recorded Think about the place you li ve. Do you have problems with any of the following? Pests (mice or roaches), mold, no/not working smoke detectors, water leaks, no window guards. No 2022 Financing Utilities Answer Date Recorde d In the last 12 months, has t he electric, gas, oil, or water company threatened to shut off your services in your home? No 09/17/2022 Safety at Home Answer Date Recorded Are you or your family worried about feeling saf e in your home? No 09/17/2022 Outside Support Answer Date Recorded Do you feel that you need mo re support from other people or programs to help you care for yourself or your family? No 09/17/2022 Understanding Health Concerns Answer Da te Recorded Do you need help understandi ng your or your child's healthcare needs (diagnosis, medications, plan, etc.)? No 09/17/2022 Financing Health Concerns Answer Date R ecorded In the last 12 months, was t here a time when your child needed to see a doctor or get medications or supplies but could not because of cost? No 09/17/2022 Missing School or Work Answer Date Jony rded Did you or your child miss s chool or work because of a health problem that could have been avoided? No 09/17/2022 Comments No Sex and Gender Information Value Date Recorded Sex Assigned at Not on file Legal Sex Female 6:13 PM EDT Gender Identity Not on file Sexual Orientation Not on file Last Filed Vital Signs Vital Sign Reading Time Taken Comments Blood Pressure 116/64 09/17/2022 2:56 PM EDT Pulse 78 02/18/2022 2:46 PM EST Temperature 36.5 ??C (97.7 ??F) 01/12/2023 1:48 PM ED T Respiratory Rate - - Oxygen Saturation - - Inhaled Oxygen Concentration - - Weight 62.9 kg (138 lb 9.6 oz) 01/12/2023 1:48 P M EDT Height 167 cm (5' 5.75 ) 09/17/2022 2:56 PM EDT Body Mass Index 22.54 09/17/2022 2:56 PM EDT Plan of Treatment Health Maintenance Due Date Last Done Comments Varicella Vaccines (2 of 2 - 2-dose childhood series) 09/26/2019 02/02/2012, 04/21/2000 DTaP,Tdap,and Td Vaccines (7 - Td or Tdap) 02/01/2022 02/02/2012, 05/16/2004, 11/11/2000, Additional history exists Influenza Vaccines (#1) 2023 05/28/2019 COVID-19 Vaccine ( - season) 2023 HIB Vaccines Completed 08/05/2000, 09/28, 1999, Additional history exists Pneumococcal Vaccine Completed 08/05/2000, 04/21/2000, 01/20/2000 Hepatitis B Vaccines Completed 11/12/2003, 1999, 1999, Additional history exists IPV Vaccines Completed 05/16/2004, 10/28, 1999, Additional history exists Hepatitis A Vaccines Completed 10/04/2015, 02/17/20 15 HPV Vaccines Completed 06/02/2016, 03/2016, 02/02/2014 Meningococcal Vaccine Completed 06/02/2016 MMR Vaccines Completed 08/29/2019, 04/30, 08/05/2000, Additional history exists Men B Vaccine Aged Out No longer elig ible based on patient's age to complete this topic Procedures * Due to [facility] law, this organization might not be sharing sensitive test results. Procedure Name Priority Date/Time Associated Diagnosis Comments SURESWAB (ADV) VAGINITIS PLUS, TMA Routine 01/05/2023 3:38 PM EDT Vaginal discharge from Last 3 Months or Most Recently Relevant to Health Maintenance Results * Due to [facility] law, this organization might not be sharing sensitive test results. * (ABNORMAL) SureSwab Advanced (TMA)- BV, CT/NG, CV, TV (01/05/2023 3:38 PM EDT) BACTERIAL VAGINOSIS TEST POSITIVE(A) (NEG) [facility] Comment: Bacterial vaginosis targets by PCR detected in this patient's sample. ?? Note: This assay uses real time investment recovery technician-mediated amplification (TMA) for detection and quantification of ribosomal RNA from bacteria associated with bacterial vaginosis (BV), including Lactobacillus (L. gasseri, L. crispatus, and L. jensenii), Gardnerella vaginalis, and Atopobium vaginae. Mickey Species NEGATIVE (NEG) [facility] Comment: No mickey species group (C. albicans, C. tropicalis, C. parapsilosis, C. dubliniensis) targets by PCR detected in this patient's sample. Mickey Glabrata, HENRY NEGATIVE (NEG) [facility] Comment:No Mickey glabrata targets by PCR detected in this patient's sample. SureSwab, T.vaginalis RNA NEGATIVE (NEG) [facility] Comment: No Trichomonas vaginalis targets by PCR detected in this patient's sample. ?? Note: This assay uses real time investment recovery technician-mediated amplification (TMA) for detection and quantification of ribosomal RNA from organisms associated with Mickey species group (C. albicans, C. tropicalis, C. parapsilosis, C. dubliniensis), Mickey glabrata, and Trichomonas vaginalis. Chlamydia Trachomatis, Amplified NEGATIVE (NEG) [facility] Comment: No Chlamydia Trachomatis RNA detected in this patient's sample ? (REFERENCE RANGE/NORMAL VALUE: NOT DETECTED) ? Note: This test uses investment recovery technician- mediated amplification method to detect rRNA from C. Trachomatis N.GONORRHOEAE AMP PROBE NEGATIVE (NEG) [facility] Comment: No Neisseria Gonorrhoeae RNA detected in this patient's sample ? (REFERENCE RANGE/NORMAL VALUE: NOT DETECTED) ? NOTE: This test uses investment recovery technician-mediated amplification method to detect rRNA from N.Gonorrhoeae. A negative result does not preclude infection. In the case of a negative urine result, testing of an endocervical(female) or urethral (male) specimen is recommended if there is high clinical suspicion of infection. Due to very high sensitivity of Nucleic Acid Amplification Test, false positive results may occur. Therefore, specimen handling is extremely important. In patients in whom the disease is unlikely, additional sample for testing should be considered after an initial positive result. The performance characteristics of this test have not been evaluated in children. The Aptima Combo2 assay is not intended for the evaluation of suspected sexual abuse or for other medico-legal indications. The ordering provider should assess if the patient had consensual sex without risk of sexual abuse. Consult the [facility] if needed. Contact phone number . Therapeutic failure or success cannot be determined with the Aptima Combo2 assay since nucleic acid may persist following appropriate antimicrobial therapy. The Centers for Disease Control and Prevention (CDC) recommends confirmatory retesting using culture or a different nucleic acid amplification test when positive results occur, if indicated. Testing performed or reported by [facility], a Service of [facility], [address] [place] [address] Roberto Quinn MD, Carpet Sewing Machine Operator [facility]# [id number] Swab (Vagina) 01/05/2023 3:3 8 PM EDT 01/05/2023 11:10 PM EDT Ban Wendi DELIVERY PROFESSIONAL LAB MICROBIOLOGY - GENERAL ORD ERABLES Final Result AKASH from Last 3 Months or Most Recently Relevant to Health Maintenance Insurance [facility] Address: [address] [place] [address] [phone] [place] [address] NON [facility] [employer] Care Teams Ldr Nurse Relationship Specialty Start Date End Date Elana Ayala NP [address] [place] [address] [place] [address] PCP - General Pediatrics 09/17/22
--- OUTSIDE RECORDS SUMMARY | 2024-06-04 08:12 | XMS_ITS | Encounter Summary ---
Author Organization [facility] Address [address] [place] [phone] Phone Care Team Providers Care Clinical Dietetic Technician Name Role Phone Elana Ayala INSTRUMENT MECHANICS SUPERVISOR Primary Care Provider [phone] Reason for Visit * Reason Onset Date Comments Med Refill 12/24/2022 Encounter Details Date Type Department Care Team (Late st Contact Info) Description 12/24/2022 Refill [facility] [address] [place] [address] [place] [address] Elana Ayala NP [address] [place] [address] [place] [address] Anxiety; Asthma, unspecified asthma severity, unspecified whether complicated, unspecified whether persistent; Acute non-recurrent frontal sinusitis; 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 Its all set now.MQ * Telephone Encounter - Hoa Sorto [place] - 12/25/2022 8:57 AM EDT Pt is in the process of transferring out. Filled out release in last couple weeks. Pt has appt withadult pcp in February but wants to make sure she has enough until seen by new PCP. The creams are for eczema and psoriasis. Pt was seeing Derm but states we took over prescribing because Derm didn't take her MH insurance. MQ * Telephone Encounter - Hoa Sorto [place] - 12/24/2022 3:55 PM EDT Last [facility] with EM 09/17/22 Pt has requested all these meds through [facility] [employer]. 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
--- OUTSIDE RECORDS SUMMARY | 2024-06-04 08:12 | XMS_ITS | Encounter Summary ---
Author Organization [facility] Address [address] [place] [phone] Phone Care Team Providers Care Byproduct Engineer Name Role Phone Elana Ayala NP Primary Care Provider [phone] Reason for Visit * Reason Comments Med Refill Encounter Details Date Type Department Care Team (Late st Contact Info) Description 07/23/2018 Refill [facility] [address] [place] [address] [place] [address] Lizzette Becker, Amenorrhea Social History Tobacco Use Types Packs/Day Years [...] as of this encounter Visit Diagnoses Diagnosis Amenorrhea Absence of menstruation documented in this encounter Care Teams Byproduct Engineer Relationship Specialty Start Date End Date Elana Ayala NP [address] [place] [address] [place] [address] PCP - General Pediatrics 09/17/22 documented as of this encounter
--- OUTSIDE RECORDS SUMMARY | 2024-06-04 08:12 | XMS_ITS | Encounter Summary ---
Author Organization [facility] Address [address] [place] [address] Phone Care Team Providers Care Beef Tagger Name Role Phone Elana Ayala NP Primary Care Provider Reason for Visit * Reason Comments Med Refill Encounter Details Date Type Department Care Team (Late st Contact Info) Description 09/15/2018 Refill [facility] [address] [place] [address] [place] [address] Lizzette Becker, DO Anxiety Social History Tobacco Use Types Packs/Day Years [...] Visit Diagnoses Diagnosis Anxiety Anxiety state, unspecified documented in this encounter Care Teams Beef Tagger Relationship Specialty Start Date End Date Elana Ayala NP [address] [place] [address] [place] [address] PCP - General Pediatrics 09/17/22 documented as of this encounter
--- OUTSIDE RECORDS SUMMARY | 2024-06-04 08:12 | XMS_ITS | Encounter Summary ---
Author Organization [facility] Address [address] [place] [phone] Phone Care Team Providers Care Camp Advisor Name Role Phone Travis Ayalaica ANGELICA Primary Care Provider [phone] Reason for Visit * Reason Comments ED Admission Encounter Details Date Type Department Care Team (Late st Contact Info) Description 05/16/2024 8:26 AM EST - 05/16/2024 4:44 PM [facility] Hospital Encounter [facility] - Patient Ping Social History Tobacco Use Types Packs/Day Years [...] on file documented as of this encounter Medications at Time of Discharge Acetaminophen (Tylenol) 325 MG capsule See Instructions, PRN as needed for pain, 2 capsule (650 mg) taken By Mouth Every 4 hours not to exceed 4000 mg/day, # 60 capsule, 0 Refills, Maintenance, 12/17/22 11:56:00 EDT, Capsule, [id number] Partial fill upon patient request if the pr... 12/17/2022 albuterol HFA 108 (90 Base) MCG/ACT inhalerIndications :Asthma, unspecified asthma severity, unspecified whether complicated, unspecified whether persistent INHALE 2 PUFFS EVERY 4 HOURS NEEDED FOR WHEEZING OR SHORTNESS OF BREATH 6.7 g 04/15/2023 azithromycin 500 MG tablet TAKE 2 TABLETS BY MOUTH FOR 1 DAY, THEN 1 TABLET BY MOUTH DAILY AFTER 10/29/2022 Benzoyl Peroxide ( Benzoyl Peroxide Wash) 10 % liquidIndications: Other acne Apply 1 application topically daily. 142 g 01/05/2023 betamethasone dipropionate 0.05 % cream PLEASE SEE ATTACHED FOR DETAILED DIRECTIONS 08/08/2021 clindamycin 1 % lotion 07/01/2021 [facility] Purelax 17 GM/SCOOP powder PLEASE SEE ATTACHED FOR DETAILED DIRECTIONS 01/01/2022 fluticasone HFA (Flovent HFA) 110 MCG/ACT inhalerIndications :Moderate persistent extrinsic asthma without complication INHALE 1 PUFF BY MOUTH 2 TIMES A DAY FOR 14 DAYS. RINSE MOUTH WITH WATER AFTER USE, DO NOT SWALLOW. 1 Units 09/12/2022 hydrocortisone 2.5 % ointment APPLY TOPICALLY TWICE DAILY FOR 1 WEEK,THEN OFF FOR 1 WEEK,THEN USE NEEDED FOR REDNESS/SCALE/IT CH 05/09/2021 ibuprofen 600 MG tabletIndications: Acute bilateral low back pain with bilateral sciatica Take 1 tablet (600 mg total) by mouth every 6 (six) hours as needed for mild pain. 100 tablet 01/12/2023 mometasone 0.1 % creamIndications:O ther atopic dermatitis APPLY TOPICALLY TWICE A DAY NEEDED FOR ECZEMA FLARE. 45 g 1 04/07/2020 tacrolimus 0.1 % ointment APPLY TWICE DAILY TO EYELID DERMATITIS NEEDED 12/23/2021 tretinoin 0.025 % cream 07/01/2021 triamcinolone 0.1 % lotion PLEASE SEE ATTACHED FOR DETAILED DIRECTIONS 05/09/2021 documented as of this encounter Plan of Treatment Not on file documented as of this encounter Visit Diagnoses Not on filedocumented in this encounter Care Teams Camp Advisor Relationship Specialty Start Date End Date Elana Ayala NP [facility] [facility] [place] [address] PCP - General Pediatrics 09/17/22 documented as of this encounter
--- OUTSIDE RECORDS SUMMARY | 2024-06-04 08:12 | XMS_ITS | Encounter Summary ---
Author Organization [facility] Address [address] [place] [address] Phone Care Team Providers Care Bilingual Instructor Name Role Phone Elana Ayala NP Primary Care Provider [phone] Reason for Visit * Reason Comments Med Refill Encounter Details Date Type Department Care Team (Late st Contact Info) Description 09/11/2018 Refill [facility] [address] [place] [address] [place] [address] Lizzette Becker, Amenorrhea Social History Tobacco Use [...] menstruation documented in this encounter Care Teams Bilingual Instructor Relationship Specialty Start Date End Date Elana Ayala NP [address] [place] [address] [place] [address] PCP - General Pediatrics 09/17/22 documented as of this encounter
--- OUTSIDE RECORDS SUMMARY | 2024-06-04 08:12 | XMS_ITS | Data Portability ---
Author Organization JAYSON Bautista [facility], [facility] Address [address] [place] [address] Care Team Providers Care Engineering Analyst Name Role Phone DAVIDEDEBORA AL Primary Care Provider [phone] Assessment No assessment recorded. Plan of Treatment Reminders Order Date Submit Date Provider Last Modified By Organization Details Last Modified Time Details Appointments None recorded. Lab culture, urine 2022 023 SALO [facility]), [facility] [place], [address], 3 20:06:19 vaginal pathogens panel, HENRY+probe, vaginal fluid 2022 023 HARVEY [facility]), [address] [place] [address], [address], 3 20:06:18 rapid strep group A, throat 2022 023 [email or web address] [facility], [address] [place] [address], [address], 3 09:04:28 urinalysis , dipstick 2022 023 [email or web address] [facility], [facility] [place], [address], 3 09:04:28 test, urine 2022 023 [email or web address] _[facility], [facility] [place], [address], 09:04:28 culture, respirator y [address] [facility], [facility], [place], [address], 16:06:41 Referral None recorded. Procedures None recorded. Surgeries None recorded. Imaging None recorded. Medication Orders Diflucan 150 mg tablet 2022 023 [id number], [address] [place], [address], 16:20:37 miconazole nitrate 2 % topical cream 2022 023 [id number], [address] [place], [address], 16:30:47 Patient TargetsNo targets recorded. Patient Instructions Encounter Date Encounter Id Patient Instructions Last Modified By Organization Details Last Modified Time 05/09/2022 [id number] sore throat: car e instructions Not available 05/09/2022 09:04:28 sore throat: car e instructions Not available 05/09/2022 09:04:28 Reason for Referral None Reported. Results Created Date Observation Date Name Description Value Unit Range Abnormal Flag Note LastModifiedBy Organization Detail LastModifiedTime 05/09/1905/10/2022 NUSWA B VAGIN ITIS PLUS (VG+) atopobium vaginae LOW - 0 score Not Available [facility] ([facility]) [address] [facility], [place], [address], 05/11/2022 20:06:18 05/09/1905/10/2022 NUSWA B VAGIN ITIS PLUS (VG+) bvab 2 LOW - 0 score Not Available [facility] ([facility]) [address] [facility], [place], [address], 05/11/2022 20:06:18 05/09/1905/10/2022 NUSWA B VAGIN ITIS [...] Drug Admin istra tion. Not Available [facility] ([facility]) [address] [place], [address], 05/11/2022 20:06:18 05/09/19 23 05/10/2022 NUSWA B VAGIN ITIS PLUS (VG+) mickey albicans, HENRY NEGATI VE negati ve Not Available [facility] ([facility]) [address] [place], [address], 05/11/2022 20:06:18 05/09/19 23 05/10/2022 NUSWA B VAGIN ITIS PLUS (VG+) mickey glabrata, HENRY NEGATI VE negati ve Not Available [facility] ([facility]) [address] [place], [address], 05/11/2022 20:06:18 05/09/19 23 05/11/2022 NUSWA B VAGIN ITIS PLUS (VG+) trich vag by HENRY NEGATI VE negati ve Not Available [facility] ([facility]) [address] [place], [address], 05/11/2022 20:06:18 05/09/19 23 05/11/2022 NUSWA B VAGIN ITIS PLUS (VG+) chlamydia trachomatis, HENRY NEGATI VE negati ve Not Available [facility] ([facility]) [address] [place], [address], 05/11/2022 20:06:18 05/09/19 23 05/11/2022 NUSWA B VAGIN ITIS PLUS (VG+) neisseria gonorrhoeae, HENRY NEGATI VE negati ve Not Available [facility] ([facility]) [address] [place], [address], 05/11/2022 20:06:18 05/09/19 23 05/11/2022 URINE CULTU RE, ROUTI NE urine culture, routine FINAL REPORT Not Available [facility] ([facility]) [address] [place], [address], 05/11/2022 20:06:19 05/09/19 23 05/11/2022 URINE CULTU RE, ROUTI NE result 1 NO GROWTH Not Available [facility] ([facility]) [address] [place], [address], 05/11/2022 20:06:19 05/09/19 23 05/12/2022 UPPER RESPI RATOR Y CULTU RE upper respiratory culture FINAL REPORT Not Available [facility] ([facility]) [address] [place], [address], 05/12/2022 16:06:41 05/09/19 23 05/12/2022 UPPER RESPI RATOR Y CULTU RE result 1 COMMEN T Routi ne respi rator y braeden Not Available [facility] ([facility]) [address] [place], [address], 05/12/2022 16:06:41 05/09/19 23 05/09/2022 urina lysis , dipst ick Unknown Analyte Normal = light yellow Not Available [facility] [address] [place] [address], [place], [address], 05/09/2022 08:44:51 05/09/19 23 05/09/2022 urina lysis , dipst ick Unknown Analyte Dark Yellow Not Available 2099laureen lewis [address], [place], [address], 05/09/2022 08:44:51 05/09/19 23 05/09/2022 urina lysis , dipst ick Unknown Analyte Normal = clear Not Available laureen lewis [address], [place], [address], 05/09/2022 08:44:51 05/09/1905/09/2022 urina lysis , dipst ick Unknown Analyte Slight ly Cloudy Not Available laureen lewis [address], [place], [address], 05/09/2022 08:44:51 05/09/19 23 05/09/2022 urina lysis , dipst ick Unknown Analyte Normal = negati ve Not Available laureen lewis [address], [place], [address], 05/09/2022 08:44:51 05/09/19 23 05/09/2022 urina lysis , dipst ick Unknown Analyte Negati ve Not Available laureen lewis [address], [place], [address], 05/09/2022 08:44:51 05/09/19 23 05/09/2022 urina lysis , dipst ick Unknown Analyte Normal = Negati ve Not Available laureen lewis [address], [place], [address], 05/09/2022 08:44:51 05/09/19 23 05/09/2022 urina lysis , dipst ick Unknown Analyte Negati ve Not Available laureen lewis [address], [place], [address], 05/09/2022 08:44:51 05/09/19 23 05/09/2022 urina lysis , dipst ick Unknown Analyte Normal = Negati ve Not Available [facility] [address], [place], [address], 05/09/2022 08:44:51 05/09/19 23 05/09/2022 urina lysis , dipst ick Unknown Analyte Negati ve Not Available [address], [place], [address], 05/09/2022 08:44:51 05/09/19 23 05/09/2022 urina lysis , dipst ick Unknown Analyte Normal = 1.010, 1.015, 1.020 Not Available [address], [place], [address], 05/09/2022 08:44:51 05/09/19 23 05/09/2022 urina lysis , dipst ick Unknown Analyte 1.020 Not Available [address] [place] [address], [place], [address], 05/09/2022 08:44:51 05/09/19 23 05/09/2022 urina lysis , dipst ick Unknown Analyte Normal = Negati ve Not Available [address], [place], [address], 05/09/2022 08:44:51 05/09/19 23 05/09/2022 urina lysis , dipst ick Unknown Analyte Negati ve Not Available [address] [place] [address], [place], [address], 05/09/2022 08:44:51 05/09/19 23 05/09/2022 urina lysis , dipst ick Unknown Analyte Normal = 6.5, 7.0, 7.5, 8.0 Not Available [address] [place] [address], [place], [address], 05/09/2022 08:44:51 05/09/19 23 05/09/2022 urina lysis , dipst ick Unknown Analyte 7.0 Not Available [address] [place] [address], [place], [address], 05/09/2022 08:44:51 05/09/19 23 05/09/2022 urina lysis , dipst ick Unknown Analyte Normal = Negati ve Not Available [address] [place] [address], [place], [address], 05/09/2022 08:44:51 05/09/19 23 05/09/2022 urina lysis , dipst ick Unknown Analyte Trace Not Available [address] [place] [address], [place], [address], 05/09/2022 08:44:51 05/09/19 23 05/09/2022 urina lysis , dipst ick Unknown Analyte Normal = 0.2, 1.0 Not Available [address] [place] [address], [place], [address], 05/09/2022 08:44:51 05/09/19 23 05/09/2022 urina lysis , dipst ick Unknown Analyte 0.2 E.U./d L Not Available [address] [place] [address], [place], [address], 05/09/2022 08:44:51 05/09/19 23 05/09/2022 urina lysis , dipst ick Unknown Analyte Normal = Negati ve Not Available [address] [place] [address], [place], [address], 05/09/2022 08:44:51 05/09/19 23 05/09/2022 urina lysis , dipst ick Unknown Analyte Negati ve Not Available [address] [place] [address], [place], [address], 05/09/2022 08:44:51 05/09/19 23 05/09/2022 urina lysis , dipst ick Unknown Analyte Normal = Negati ve Not Available [address], [place], [address], 05/09/2022 08:44:51 05/09/1905/09/2022 urina lysis , dipst ick Unknown Analyte Negati ve Not Available [address], [place], [place], [address], 05/09/2022 08:44:51 05/09/19 23 05/09/2022 pregn karo test, urine Unknown Analyte Normal = Negati ve Not Available [address], [place], [address], 05/09/2022 08:44:59 05/09/19 23 05/09/2022 pregn karo test, urine Unknown Analyte negati ve Not Available [address], [place], [address], 05/09/2022 08:44:59 05/09/19 23 05/09/2022 rapid strep group A, throa t Unknown Analyte Normal = Negati ve Not Available [address] [place] [address], [place], [address], 05/09/2022 08:39:39 05/09/19 23 05/09/2022 rapid strep group A, throa t Unknown Analyte negati ve Not Available [address] [place] [address], [place], [address], 05/09/2022 08:39:39 Result Notes None recorded. Problems Name Problem SNOMED Code Status Onset Date Resolution Date Notes Provider Name and Address Organization Details Recorded Time Eczema 47244344 Active 023 Keri jane PA - [facility] 05/09/2022 08:43:40 Anxiety 89173377 Active 023 Keri jane [facility] - [facility] [...] Address Organization Details Last Updated DateTime 3 18133.1 9 g 21.3 kg/m2 167.64 cm 96 % 96 % 0 67 /min 18 /min 98.5 [degF] 102 mm[Hg] 64 mm[Hg] Keri Hart [facility] 08:47:05 Social History Question Answer Notes LastModified [...] SNOMED-CT Code Diagnosis ICD10 Code Diagnosis Note [id number] Chun_Ruben Treadwellnj carlinr [address] [place] [address] 02/14/2018 13:47:21 02/14/2018 15:00:37 [id number] 2100Ruddy_Ruben gordon[address] [address] 11/25/2018 15:21:28 11/25/2018 16:11:32 [id number] 2[facility] [address] [address] 12/26/2018 15:03:32 12/26/2018 15:29:42 [id number] [facility] [address] [place] [address] 08/29/2020 08:03:19 08/29/2020 08:56:19 [id number] Paolo Bosch DO [facility] [address] [place] [address] 05/09/2022 08:21:02 05/09/2022 09:18:35 Acute pharyngitis 445946790 J02.9 Rapid strep NEGATIVE Likely viral etiology [...] up in the Emergency Department urgently. Dysuria 54541053 R30.0 UA unrevealin Joelle wnlwill check urine [...] Emergency Department urgently. Candidiasis of vagina 72 348245 B37.31 Signs, symptoms and PE consistent with [...] Clancy Member ID Guarantor Name 05/09/2022 1 [facility] ([facility] [id number] Janett Villagomez [id number] Janett Villagomez 05/09/2022 2 MEDICAID-[place]: [facility] Janett Villagomez [id number] Janett Villagomez Notes Date Note Type Note [...] h/o yeast infections, had gotten fluconazole from support service tech, symptoms not improved+ dysuriano VBno known STD exposureno sores on genitalsno increased frequencyno increased urgencyno incontinenceno pressureno malodorno blood in her urineno back painno rashno feverno nausea or vomitingno MS change Paolo Bosch, DO [address] [place], [address], PA - [facility] 05/09/2022 09:18:05 OBGyn Episode No OBEpisode recorded.
--- OUTSIDE RECORDS SUMMARY | 2024-06-04 08:12 | XMS_ITS | Encounter Summary ---
Author Organization [facility] Address [address] [place] [address] Phone Care Team Providers Care Tile Shader Name Role Phone Elana Ayala BUTTER WRAPPER Primary Care Provider [phone] Reason for Visit * Reason Onset Date Comments Med Refill 12/24/2022 Encounter Details Date Type Department Care Team (Late st Contact Info) Description 12/24/2022 Refill [facility] [address] [place] [address] [place] [address] Elana Ayala NP [facility] [facility] [place] [address] Social History Tobacco Use Types Packs/Day Years [...] on filedocumented in this encounter Care Teams Tile Shader Relationship Specialty Start Date End Date Elana Ayala NP [address] [facility] [place] [address] PCP - General Pediatrics 09/17/22 documented as of this encounter
--- OUTSIDE RECORDS SUMMARY | 2024-06-04 08:12 | XMS_ITS | Encounter Summary ---
Author Organization [facility] Address [address] [place] [address] Phone Care Team Providers Care Pbx Technician Name Role Phone Elana Ayala NP Primary Care Provider [phone] Reason for Visit * Reason Onset Date Comments Med Refill Med Refill 07/02/2018 Encounter Details Date Type Department Care Team (Late st Contact Info) Description 06/22/2018 Refill [facility] [address] [place] [address] [place] [address] Lizzette Becker DO Social History Tobacco Use Types Packs/Day Years [...] on filedocumented in this encounter Care Teams Pbx Technician Relationship Specialty Start Date End Date Elana Ayala NP [address] [place] [address] [place] [address] PCP - General Pediatrics 09/17/22 documented as of this encounter
--- OUTSIDE RECORDS SUMMARY | 2024-06-04 08:12 | XMS_ITS | Encounter Summary ---
Author Organization [facility] Address [address] [place] [address] Phone Care Team Providers Care Enrollment Clerk Name Role Phone Elana Ayala NP Primary Care Provider [phone] Reason for Visit * Reason Comments Med Refill Encounter Details Date Type Department Care Team (Late st Contact Info) Description 07/29/2019 Refill [facility] [address] [place] [address] Dr [place] [phone] Lizzette Becker DO Other atopic dermatitis Social History Tobacco Use Types Packs/Day Years Used Date Smoking Tobacco: Every Day Smokeless Tobacco: Never Alcohol Use Standard Drinks/Week Comments No 0 (1 standard drink = 0.6 oz pur e alcohol) Hunger/Food Answer Date Recorded No 08/01/2019 Stable Housing Answer Date Recorded No 08/01/2019 Transportation Concerns Answer Date Rec orded No 08/01/2019 Hazards in Home Answer Date Recorded No 08/01/2019 Financing Utilities Answer Date Recorde d No 08/01/2019 Safety at Home Answer Date Recorded No 08/01/2019 Outside Support Answer Date Recorded No 08/01/2019 Understanding Health Concerns Answer Da te Recorded No 08/01/2019 Financing Health Concerns Answer Date R ecorded No 08/01/2019 Missing School or Work Answer Date Jony rded No 08/01/2019 Comments Yes Sex and Gender Information Value Date Recorded Sex Assigned at Not on file Legal Sex Female 6:13 PM EDT Gender Identity Not on file Sexual Orientation Not on file documented as of this encounter Plan of Treatment Not on file documented as of this encounter Visit Diagnoses Diagnosis Other atopic dermatitis documented in this encounter Care Teams Enrollment Clerk Relationship Specialty Start Date End Date Elana Ayala NP [address] [place] [address] [place] [address] PCP - General Pediatrics 09/17/22 documented as of this encounter
[2024-06-04 11:53] LABS: MANUAL DIFF FLAG NO
[2024-06-04 11:58] LABS: Appearance Urine Clear; Color Urine Yellow; Glucose Urine UA Negative (Negative); Leukocyte Esterase Urine Negative (Negative); Nitrite Urine Negative (Negative); PH 6.5 (5.0-9.0); Urine Blood Negative (Negative); Urine Ketones Negative (Negative); Urine Protein Negative (Neg-Trace)
[2024-06-04 11:59] LABS: Basophils Percent Auto 0.6 % (0-2); Eosinophils Absolute Auto 0.1 X10*3/uL (0.0-0.4); Eosinophils Percent Auto 2.6 % (0-4); Hematocrit 38.6 % (37.0-47.0); Lymphocytes Absolute Auto 1.4 X10*3/uL (1.2-4.9); Lymphocytes Percent Auto 39.7 % (20-40); Mean Corpuscular HGB Conc 33.7 g/dl (31.0-35.0); Mean Corpuscular Hemoglobin 26.5 pg (27.0-33.0); Mean Corpuscular Volume 78.8 fL (80.0-98.0); Monocytes Absolute Auto 0.3 X10*3/uL (0.1-1.2); Monocytes Percent Auto 9.2 % (2-11); Neutrophils Absolute Auto 1.7 x10*3/uL (2.0-8.3); Neutrophils Percent Auto 47.9 % (45-73); Platelet Count 249 X10*3/uL (160-400); Red Cell Distribution Width 14.8 % (11.0-16.0); White Blood Count 3.5 X10*3/uL (4.8-10.8)
[2024-06-04 12:18] LABS: Alanine Aminotransferase 12 U/L (0-31); Albumin Level 4.4 g/dL (3.5-5.0); Alkaline Phosphatase 51 U/L (39-117); Anion Gap 11 (12-20); Aspartate Amino Transferase 17 U/L (5-31); Blood Urea Nitrogen 7 mg/dL (9-16); Calcium 9.4 mg/dL (8.4-10.2); Carbon Dioxide 26 mmol/L (22-29); Chloride 107 mmol/L (96-108); Cholesterol 155 mg/dL (<200); Estimated Glomerular Filt Rate > 60; Glucose Fasting 78 mg/dL (60-99); HDL Cholesterol 54 mg/dL (>40); LDL Cholesterol Calculated 86 mg/dL (<100); Potassium 3.8 mmol/L (3.3-5.1); Sodium 140 mmol/L (135-145); Total Protein 7.7 g/dL (6.5-8.0); Triglycerides 76 mg/dL (<150)
[2024-06-04 12:45] LABS: TSH reflex Free T4 1.27 uIU/mL (0.32-4.0)
[2024-06-15 19:58] LABS: Immunoglobulin E 233 kU/L (<OR=114)
== END 2024-06-04 08:09 | disposition home or self-care (01) ==
LOC: HO.HMGCLDS 08:08
PROVIDERS: PCP Nurse Practitioner Family; Visit Provider Nurse Practitioner Family
DX: F41.9 Anxiety disorder, unspecified (principal); J45.20 Mild intermittent asthma, uncomplicated; Z13.6 Encounter for screening for cardiovascular disorders
CPT/HCPCS: 36415; 80053; 80061; 81003; 82785; 84443; 85025

== ENCOUNTER → 2024-06-08 14:55 | Outpatient (REF) | payer OTHER, MEDICAID, SELFPAY ==
--- NOTE | 2024-06-08 14:57 | CA_ITS ---
Transthoracic Echocardiogram Patient (Last, First, Middle): Janett Villagomez E Gender: Female Date of : 2000 Age: 24 Procedure Date: 06/08/2024 Procedure Type: Transthoracic Echocardiogram Location: OP Height: 167.64 cm Weight: 68.04 kg BSA: 1.77 m2 Heart Rate: bpm BP: 122 / 70 mmHg Welding Machine Operator Electroslag: TO Referring MD: Lamont Regalado [facility] Symptoms: R07.89 - Other chest pain Study Quality: Adequate ECG Rhythm: Sinus Conclusions: - The left ventricular systolic function is normal. The calculated ejection fraction is 56% by biplane method. - No obvious valvular pathology seen on this study. Findings Left Ventricle Normal left ventricular cavity size. There is normal left ventricular wall thickness. The left ventricular systolic function is normal. The calculated ejection fraction is 56% by biplane method. There is no evidence of regional wall motion abnormalities. Diastolic function is normal for age. Right Ventricle Normal right ventricular cavity size and systolic function. Atria Both atria are normal in size. Aortic Valve There is a normal trileaflet aortic valve. There is no aortic valve stenosis. There is no aortic valve regurgitation. Mitral Valve The mitral valve appears normal. There is no mitral valve regurgitation. There is no mitral valve stenosis. Pulmonic Valve The pulmonic valve is likely normal. Tricuspid Valve There is trace tricuspid valve regurgitation. There is no evidence of pulmonary hypertension. Great Vessels The asc aorta is normal in size. Venous The inferior vena cava is mildly dilated and collapses greater than 50% with inspiration. Pericardium/Pleural There is no evidence of pericardial effusion. Prior Study Comparison No prior study available for comparison. Recommendations, Care & Conclusions No obvious valvular pathology seen on this study. Measurements 2D Linear Measurements IVSd: 0.66 0.6-0.9/0.6-1.0 cm LVIDd: 4.65 3.9-5.3/4.2-5.9 cm LVIDd Index: 2.63 2.4-3.2/2.2-3.1 cm/m2 LVIDs: 3.17 2.0-3.6 cm LVPWd: 0.63 0.7-1.1 cm LA Diam: 2.80 2.7-3.8/3.0-4.0 cm LAIDs Index: 1.58 1.5-2.3 cm/m2 LV Mass: 113.62 67-162/88-224 g LV Mass Index: 64.19 43-95/49-115 g/m2 LVOT Diam: 2.20 3.0+(-)1.3 cm 2D Systolic Function EF 4C: 50.60 >55% EF 2C: 60.70 >55% EF BiP: 56.10 >55% Mitral Valve MV Pk E: 0.66 MV PK A: 0.35 MV Decel Time: 232.00 E/A: 1.90 E'Lateral: 13.60 E'Medial: 12.00 E/E' Med: 5.50 E/E' Lat: 4.90 PHT: 68.00 MVA PHT: 3.24 Decel [place]: 2.84 Aortic Valve AoV Pk [place]: 1.31 AoV Mn [place]: 0.79 AoV VTI: 0.23 AoV Pk Grad: 7.00 Aov Mn Grad: 3.00 JAZMIN Cont.VTI: 3.28 LVOT LVOT Pk [place]: 1.02 LVOT Mn [place]: 0.68 LVOT VTI: 0.20 LVOT Pk Grad: 4.00 LVOT Mn Grad: 2.00 LVOT Diam: 2.20 LVOT Area: 3.80 Diastolic Function MV Pk E: 0.66 MV Pk A: 0.35 E/A: 1.90 E'Medial: 12.00 E/E' Med: 5.50 E' Laterial: 13.60 E/E' Lat: 4.90 Right Ventricle TAPSE (mm): 18.80 TVS' Semyour: 11.10 Tricuspid Valve RA Press: 8.00 Great Vessels Aorta Sinus of Valsalva: 2.60 2.0-3.5 cm Ao Asc: 2.30 2.1-3.4 cm Updated in Other Vendor System with Status of Final Nick Zhu MD electronically signed on 06/09/2024 10:03:00 AM with status of Final
--- OUTSIDE RECORDS SUMMARY | 2024-06-08 17:32 | XMS_ITS | Encounter Summary ---
Author Organization [facility] Address [address] [place] [address] Phone Care Team Providers Care Internetworking Technician Name Role Phone Elana Ayala NP Primary Care Provider [phone] Encounter Details Date Type Department Care Team (Late st Contact Info) Description 04/27/2014 Conversion Encounter [facility] [address] [place] [address] [place] [address] Social History Tobacco Use Types Packs/Day Years [...] on filedocumented in this encounter Care Teams Internetworking Technician Relationship Specialty Start Date End Date Elana Ayala NP [address] [place] [address] [place] [address] PCP - General Pediatrics 09/17/22 documented as of this encounter
--- OUTSIDE RECORDS SUMMARY | 2024-06-08 17:32 | XMS_ITS | Encounter Summary ---
Author Organization [facility] Address [address] [place] [address] Phone Care Team Providers Care Fingerprint Expert Name Role Phone Elana Ayala NP Primary Care Provider [phone] Reason for Visit * Reason Onset Date Comments Med Refill Med Refill 07/02/2018 Encounter Details Date Type Department Care Team (Late st Contact Info) Description 06/22/2018 Refill [facility] [address] [place] [address] [place] [address] Lizzette Becker DO Social History Tobacco Use [...] on filedocumented in this encounter Care Teams Fingerprint Expert Relationship Specialty Start Date End Date Elana Ayala NP [address] [place] [address] [place] [address] PCP - General Pediatrics 09/17/22 documented as of this encounter
--- OUTSIDE RECORDS SUMMARY | 2024-06-08 17:32 | XMS_ITS | Encounter Summary ---
Author Organization [facility] Address [address] [place] [address] Phone Care Team Providers Care Photoengraving Finisher Name Role Phone Elana Ayala NP Primary Care Provider [phone] Reason for Visit * Reason Comments Med Refill Encounter Details Date Type Department Care Team (Late st Contact Info) Description 03/21/2018 Refill [facility] [address] [place] [address] [place] [address] Lizzette Becker DO Anxiety and depression Social [...] depression documented in this encounter Care Teams Photoengraving Finisher Relationship Specialty Start Date End Date Elana Ayala NP [address] [place] [address] [place] [address] PCP - General Pediatrics 09/17/22 documented as of this encounter
--- OUTSIDE RECORDS SUMMARY | 2024-06-08 17:32 | XMS_ITS | Encounter Summary ---
Author Organization [facility] Address [address] [place] [address] Phone Care Team Providers Care Control System Computer Scientist Name Role Phone Elana Ayala NP Primary Care Provider [phone] Reason for Visit * Reason Comments Med Refill Encounter Details Date Type Department Care Team (Late st Contact Info) Description 07/23/2018 Refill [facility] [address] [place] [address] [place] [address] Lizzette Becker, Amenorrhea Social History Tobacco Use [...] menstruation documented in this encounter Care Teams Control System Computer Scientist Relationship Specialty Start Date End Date Elana Ayala NP [address] [place] [address] [place] [address] PCP - General Pediatrics 09/17/22 documented as of this encounter
--- OUTSIDE RECORDS SUMMARY | 2024-06-08 17:32 | XMS_ITS | Data Portability ---
Author Organization JAYSON Bautista s, [address] Address [address] [place] [address] Care Team Providers Care Agency Sales Development Associate Name Role Phone DAVIDEDEBORA AL Primary Care Provider Assessment No assessment recorded. Plan of Treatment Reminders Order Date Submit Date Provider Last Modified By Organization Details Last Modified Time Details Appointments None recorded. Lab culture, urine 2022 023 SALO [facility]), [facility] [place], [address], 3 20:06:19 vaginal pathogens panel, HENRY+probe, vaginal fluid 2022 023 LAWSON [facility]), [address] [place] [address], [address], 3 20:06:18 rapid strep group A, throat [email or web address], [address] [place] [address], [address], 3 09:04:28 urinalysis , dipstick [email or web address] [facility], [facility] [place], [address], 3 09:04:28 test, urine [email or web address] [facility], [facility] [place], [address], 09:04:28 culture, respirator y 2022 023 [facility], [facility]7 [facility], [place], [address], 16:06:41 Referral None recorded. Procedures None recorded. Surgeries None recorded. Imaging None recorded. Medication Orders Diflucan 150 mg tablet 2022 023 [facility][id number], [address] [place], [address], 16:20:37 miconazole nitrate 2 % topical cream 2022 023 [facility][id number], [address] [place], [address], 16:30:47 Patient TargetsNo targets recorded. Patient Instructions Encounter Date Encounter Id Patient Instructions Last Modified By Organization Details Last Modified Time 05/09/2022 [id number] sore throat: car e instructions Not available 05/09/2022 09:04:28 sore throat: car e instructions Not available 05/09/2022 09:04:28 Reason for Referral None Reported. Results Created Date Observation Date Name Description Value Unit Range Abnormal Flag Note LastModifiedBy Organization Detail LastModifiedTime 05/09/1905/10/2022 NUSWA B VAGIN ITIS PLUS (VG+) atopobium vaginae LOW - 0 score Not Available [facility] ([facility]) [address] [facility], [place], [address], 05/11/2022 20:06:18 05/09/1905/10/2022 NUSWA B VAGIN ITIS PLUS (VG+) bvab 2 LOW - 0 score Not Available [facility] ([facility]) [address] [facility], [place], [address], 05/11/2022 20:06:18 05/09/1905/10/2022 NUSWA B VAGIN ITIS [...] tion. Not Available [facility] ([facility]) [address] [place], [address], 05/11/2022 20:06:18 05/09/19 23 05/10/2022 NUSWA B VAGIN ITIS PLUS (VG+) mickey albicans, HENRY NEGATI VE negati ve Not Available [facility] ([facility]) [address] [place], [address], 05/11/2022 20:06:18 05/09/19 23 05/10/2022 NUSWA B VAGIN ITIS PLUS (VG+) mickey glabrata, HENRY NEGATI VE negati ve Not Available [facility] ([facility]) [address] [place], [address], 05/11/2022 20:06:18 05/09/19 23 05/11/2022 NUSWA B VAGIN ITIS PLUS (VG+) trich vag by HENRY NEGATI VE negati ve Not Available [facility] ([facility]) [address] [place], [address], 05/11/2022 20:06:18 05/09/19 23 05/11/2022 NUSWA B VAGIN ITIS PLUS (VG+) chlamydia trachomatis, HENRY NEGATI VE negati ve Not Available [facility] ([facility]) [address] [place], [address], 05/11/2022 20:06:18 05/09/19 23 05/11/2022 NUSWA B VAGIN ITIS PLUS (VG+) neisseria gonorrhoeae, HENRY NEGATI VE negati ve Not Available [facility] ([facility]) [address] [place], [address], 05/11/2022 20:06:18 05/09/19 23 05/11/2022 URINE CULTU RE, ROUTI NE urine culture, routine FINAL REPORT Not Available [facility] ([facility]) [address] [place], [address], 05/11/2022 20:06:19 05/09/19 23 05/11/2022 URINE CULTU RE, ROUTI NE result 1 NO GROWTH Not Available [facility] ([facility]) [address] [place], [address], 05/11/2022 20:06:19 05/09/19 23 05/12/2022 UPPER RESPI RATOR Y CULTU RE upper respiratory culture FINAL REPORT Not Available [facility] ([facility]) [address] [place], [address], 05/12/2022 16:06:41 05/09/19 23 05/12/2022 UPPER RESPI RATOR Y CULTU RE result 1 COMMEN T Routi ne respi rator y braeden Not Available [facility] ([facility]) [address] [place], [address], 05/12/2022 16:06:41 05/09/19 23 05/09/2022 urina lysis , dipst ick Unknown Analyte Normal = light yellow Not Available [facility] [address] [place] [address], [place], [address], 05/09/2022 08:44:51 05/09/19 23 05/09/2022 urina lysis , dipst ick Unknown Analyte Dark Yellow Not Available 2099laureen lewis [address], [place], [address], 05/09/2022 08:44:51 05/09/19 23 05/09/2022 urina lysis , dipst ick Unknown Analyte Normal = clear Not Available laureen lewis [address], [place], [address], 05/09/2022 08:44:51 05/09/1905/09/2022 urina lysis , dipst ick Unknown Analyte Slight ly Cloudy Not Available laureen lewis [address], [place], [address], 05/09/2022 08:44:51 05/09/19 23 05/09/2022 urina lysis , dipst ick Unknown Analyte Normal = negati ve Not Available laureen lewis [address], [place], [address], 05/09/2022 08:44:51 05/09/19 23 05/09/2022 urina lysis , dipst ick Unknown Analyte Negati ve Not Available laureen lewis [address], [place], [address], 05/09/2022 08:44:51 05/09/19 23 05/09/2022 urina lysis , dipst ick Unknown Analyte Normal = Negati ve Not Available laureen lewis [address], [place], [address], 05/09/2022 08:44:51 05/09/19 23 05/09/2022 urina lysis , dipst ick Unknown Analyte Negati ve Not Available laureen lewis [address], [place], [address], 05/09/2022 08:44:51 05/09/19 23 05/09/2022 urina lysis , dipst ick Unknown Analyte Normal = Negati ve Not [facility] [address], [place], [address], 05/09/2022 08:44:51 05/09/19 23 05/09/2022 urina lysis , dipst ick Unknown Analyte Negati ve Not Available [address], [place], [address], 05/09/2022 08:44:51 05/09/19 23 05/09/2022 urina lysis , dipst ick Unknown Analyte Normal = 1.010, 1.015, 1.020 Not Available [address], [place], [address], 05/09/2022 08:44:51 05/09/19 23 05/09/2022 urina lysis , dipst ick Unknown Analyte 1.020 Not Available [address] [place] [address], [place], [address], 05/09/2022 08:44:51 05/09/19 23 05/09/2022 urina lysis , dipst ick Unknown Analyte Normal = Negati ve Not Available [address], [place], [address], 05/09/2022 08:44:51 05/09/19 23 05/09/2022 urina lysis , dipst ick Unknown Analyte Negati ve Not Available [address] [place] [address], [place], [address], 05/09/2022 08:44:51 05/09/19 23 05/09/2022 urina lysis , dipst ick Unknown Analyte Normal = 6.5, 7.0, 7.5, 8.0 Not Available [address] [place] [address], [place], [address], 05/09/2022 08:44:51 05/09/19 23 05/09/2022 urina lysis , dipst ick Unknown Analyte 7.0 Not Available [address] [place] [address], [place], [address], 05/09/2022 08:44:51 05/09/19 23 05/09/2022 urina lysis , dipst ick Unknown Analyte Normal = Negati ve Not Available [address] [place] [address], [place], [address], 05/09/2022 08:44:51 05/09/19 23 05/09/2022 urina lysis , dipst ick Unknown Analyte Trace Not Available [address] [place] [address], [place], [address], 05/09/2022 08:44:51 05/09/19 23 05/09/2022 urina lysis , dipst ick Unknown Analyte Normal = 0.2, 1.0 Not Available [address] [place] [address], [place], [address], 05/09/2022 08:44:51 05/09/19 23 05/09/2022 urina lysis , dipst ick Unknown Analyte 0.2 E.U./d L Not Available [address] [place] [address], [place], [address], 05/09/2022 08:44:51 05/09/19 23 05/09/2022 urina lysis , dipst ick Unknown Analyte Normal = Negati ve Not Available [address] [place] [address], [place], [address], 05/09/2022 08:44:51 05/09/19 23 05/09/2022 urina lysis , dipst ick Unknown Analyte Negati ve Not Available [address] [place] [address], [place], [address], 05/09/2022 08:44:51 05/09/19 23 05/09/2022 urina lysis , dipst ick Unknown Analyte Normal = Negati ve Not Available [address], [place], [address], 05/09/2022 08:44:51 05/09/1905/09/2022 urina lysis , dipst ick Unknown Analyte Negati ve Not Available [address], [place], [place], [address], 05/09/2022 08:44:51 05/09/19 23 05/09/2022 pregn karo test, urine Unknown Analyte Normal = Negati ve Not Available [address], [place], [address], 05/09/2022 08:44:59 05/09/19 23 05/09/2022 pregn karo test, urine Unknown Analyte negati ve Not Available [address], [place], [address], 05/09/2022 08:44:59 05/09/19 23 05/09/2022 rapid strep group A, throa t Unknown Analyte Normal = Negati ve Not Available [address] [place] [address], [place], [address], 05/09/2022 08:39:39 05/09/19 23 05/09/2022 rapid strep group A, throa t Unknown Analyte negati ve Not Available [address] [place] [address], [place], [address], 05/09/2022 08:39:39 Result Notes None recorded. Problems Name Problem SNOMED Code Status Onset Date Resolution Date Notes Provider Name and Address Organization Details Recorded Time Eczema 75042860 Active 023 Keri jane PA - [facility] 05/09/2022 08:43:40 Anxiety 05830167 Active 023 Keri jane [facility] - [facility] [...] Address Organization Details Last Updated DateTime 3 63798.1 9 g 21.3 kg/m2 167.64 cm 96 % 96 % 0 67 /min 18 /min 98.5 [degF] 102 mm[Hg] 64 mm[Hg] Keri Hart [employer] 08:47:05 Social History Question Answer Notes LastModified [...] SNOMED-CT Code Diagnosis ICD10 Code Diagnosis Note [id number] Chun_Ruben Treadwellal carlinr [address] [place] [address] 02/14/2018 13:47:21 02/14/2018 15:00:37 [id number] 2100Ruddy_Ruben gordon[address] [address] 11/25/2018 15:21:28 11/25/2018 16:11:32 [id number] 2[facility] heidi[address] [address] 12/26/2018 15:03:32 12/26/2018 15:29:42 [id number] [facility] [address] [place] [address] 08/29/2020 08:03:19 08/29/2020 08:56:19 [id number] Paolo Bosch DO [facility] [address] [place] [address] 05/09/2022 08:21:02 05/09/2022 09:18:35 Acute pharyngitis 687882508 J02.9 Rapid strep NEGATIVE Likely viral etiology [...] up in the Emergency Department urgently. Dysuria 87668367 R30.0 UA unrevealin Joelle wnlwill check urine [...] Emergency Department urgently. Candidiasis of vagina 72 107527 B37.31 Signs, symptoms and PE consistent with [...] Clancy Member ID Guarantor Name 05/09/2022 1 [facility]) [id number] Janett Villagomez [id number] Janett Villagomez 05/09/2022 2 MEDICAID-[place]: [facility] Janett Villagomez [id number] Janett Villagomez Notes Date Note Type Note [...] h/o yeast infections, had gotten fluconazole from history tutor, symptoms not improved+ dysuriano VBno known STD exposureno sores on genitalsno increased frequencyno increased urgencyno incontinenceno pressureno malodorno blood in her urineno back painno rashno feverno nausea or vomitingno MS change Paolo Bosch, DO [address] [place], [address], PA - [facility] 05/09/2022 09:18:05 OBGyn Episode No OBEpisode recorded.
--- OUTSIDE RECORDS SUMMARY | 2024-06-08 17:32 | XMS_ITS | Encounter Summary ---
Author Organization [facility] Address [address] [place] [address] Phone Care Team Providers Care Compliance Professional Name Role Phone Elana Ayala NP Primary Care Provider [phone] Reason for Visit * Reason Comments Med Refill Encounter Details Date Type Department Care Team (Late st Contact Info) Description 09/15/2018 Refill [facility] [address] [place] [address] [place] [address] Lizzette Becker, DO Anxiety Social History Tobacco [...] unspecified documented in this encounter Care Teams Compliance Professional Relationship Specialty Start Date End Date Elana Ayala NP [address] [place] [address] [place] [address] PCP - General Pediatrics 09/17/22 documented as of this encounter
--- OUTSIDE RECORDS SUMMARY | 2024-06-08 17:32 | XMS_ITS | Clinical Summary ---
Author Organization [facility] Address [address] [place] [address] Phone Care Team Providers Care Mechanical Commissioning Engineer Name Role Phone Travis Ayalaica ANGELICA Primary Care Provider [phone] Allergies Active Allergy Reactions Criticality Noted Date Comments [place] (Diagnostic) Food 09/23/2017 [place] Medications mometasone 0.1 % creamIndications :Other atopic [...] 0 Refills, Maintenance, 12/17/22 11:56:00 EDT, Capsule, [facility] #[id number], Partial fill upon patient request if the [...] smear of cervix 07/31/2021 Overview (07/31/2021): Seeing Accounting Specialist History of recurrent UTIs 07/31/2021 Overview (07/31/2021): Sees Urology Influenza vaccine refused 07/02/2021 Generalized anxiety disorder 08/03/2017 Overview (09/26/2020): Anxiety (300.02) Onset: 08/03/2017 Added by: Lizzette Becker 09/26/2020 review of chart - Appears that patient is seen by an outside office for this and treated with amitriptyline Assessment & Plan (01/06/2023 11:30 AM EDT): Continue hydroxyzine as needed for panic attacks Refer to [facility] to discuss trauma and anxiety response Aware that is short term and given information for snf therapy Assessment & Plan (09/17/2022 4:34 PM [...] 8:26 AM EST - 05/16/2024 4:44 PM [facility] Hospital Encounter [facility] - Patient Ping from Last 3 Months [...] complete this topic Procedures * Due to [facility] law, this organization might not be sharing sensitive test results. Procedure Name Priority Date/Time Associated Diagnosis Comments SURESWAB (ADV) VAGINITIS PLUS, TMA Routine 01/05/2023 3:38 PM EDT Vaginal discharge from Last 3 Months or Most Recently Relevant to Health Maintenance Results * Due to [facility] law, this organization might not be sharing sensitive test results. * (ABNORMAL) SureSwab Advanced (TMA)- BV, CT/NG, CV, TV (01/05/2023 3:38 PM EDT) BACTERIAL VAGINOSIS TEST POSITIVE(A) (NEG) [facility] Comment: Bacterial vaginosis targets by PCR detected in this patient's sample. ?? Note: This assay uses real time public health nutritionist-mediated amplification (TMA) for detection and quantification of ribosomal RNA from bacteria associated with bacterial vaginosis (BV), including Lactobacillus (L. gasseri, L. crispatus, and L. jensenii), Gardnerella vaginalis, and Atopobium vaginae. Mickey Species NEGATIVE (NEG) [facility] Comment: No mickey species group (C. albicans, C. tropicalis, C. parapsilosis, C. dubliniensis) targets by PCR detected in this patient's sample. Mickye Glabrata, HENRY NEGATIVE (NEG) [facility] Comment:No Mickey glabrata targets by PCR detected in this patient's sample. SureSwab, T.vaginalis RNA NEGATIVE (NEG) [facility] Comment: No Trichomonas vaginalis targets by PCR detected in this patient's sample. ?? Note: This assay uses real time public health nutritionist-mediated amplification (TMA) for detection and quantification of ribosomal RNA from organisms associated with Mickey species group (C. albicans, C. tropicalis, C. parapsilosis, C. dubliniensis), Mickey glabrata, and Trichomonas vaginalis. Chlamydia Trachomatis, Amplified NEGATIVE (NEG) [facility] Comment: No Chlamydia Trachomatis RNA detected in this patient's sample ? (REFERENCE RANGE/NORMAL VALUE: NOT DETECTED) ? Note: This test uses public health nutritionist- mediated amplification method to detect rRNA from C. Trachomatis N.GONORRHOEAE AMP PROBE NEGATIVE (NEG) [facility] Comment: No Neisseria Gonorrhoeae RNA detected in this patient's sample ? (REFERENCE RANGE/NORMAL VALUE: NOT DETECTED) ? NOTE: This test uses public health nutritionist-mediated amplification method to detect rRNA from N.Gonorrhoeae. [...] without risk of sexual abuse. Consult the [facility] if needed. Contact phone number . Therapeutic failure or success cannot be determined with the Aptima Combo2 assay since nucleic acid may persist following appropriate antimicrobial therapy. The Centers for Disease Control and Prevention (CDC) recommends confirmatory retesting using culture or a different nucleic acid amplification test when positive results occur, if indicated. Testing performed or reported by [facility], a Service of [facility], [address] [place] [address] Roberto Quinn MD, Manager Valuation [facility]# [id number] Swab (Vagina) 01/05/2023 3:3 8 PM EDT 01/05/2023 11:10 PM EDT Ban Wendi DEALER ACCOUNT MANAGER LAB MICROBIOLOGY - GENERAL ORD ERABLES Final Result AKASH from Last 3 Months or Most Recently Relevant to Health Maintenance Insurance [facility] Address: [address] [place] [address] [id number] [place] [address] NON [facility] [employer] Care Teams Mechanical Commissioning Engineer Relationship Specialty Start Date End Date Elana Ayala NP [address] [place] [address] [place] [address] PCP - General Pediatrics 09/17/22
--- OUTSIDE RECORDS SUMMARY | 2024-06-08 17:32 | XMS_ITS | Encounter Summary ---
Author Organization [facility] Address [address] [place] [address] Phone Care Team Providers Care Heel Trimmer Name Role Phone Elana Ayala NP Primary Care Provider [phone] Reason for Visit * Reason Comments Med Refill Encounter Details Date Type Department Care Team (Late st Contact Info) Description 07/29/2019 Refill [facility] [address] [place] [address] [address] [place] [phone] Lizzette Becker DO Other atopic dermatitis Social [...] dermatitis documented in this encounter Care Teams Heel Trimmer Relationship Specialty Start Date End Date Elana Ayala NP [address] [place] [address] [place] [address] PCP - General Pediatrics 09/17/22 documented as of this encounter
--- OUTSIDE RECORDS SUMMARY | 2024-06-08 17:32 | XMS_ITS | Encounter Summary ---
Author Organization [facility] Address [address] [place] [address] Phone Care Team Providers Care Brake Lining Driller Name Role Phone Elana Ayala COOK HOUSE LABORER Primary Care Provider [phone] Reason for Visit * Reason Onset Date Comments Med Refill 12/24/2022 Encounter Details Date Type Department Care Team (Late st Contact Info) Description 12/24/2022 Refill [facility] [address] [place] [address] [place] [address] Elana Ayala NP [facility] [facility] [place] [address] Social History Tobacco Use Types Packs/Day Years [...] on filedocumented in this encounter Care Teams Brake Lining Driller Relationship Specialty Start Date End Date Elana Ayala NP [address] [facility] [place] [address] PCP - General Pediatrics 09/17/22 documented as of this encounter
--- OUTSIDE RECORDS SUMMARY | 2024-06-08 17:32 | XMS_ITS | Encounter Summary ---
Author Organization [facility] Address [address] [place] [address] Phone Care Team Providers Care Elevator Operator Name Role Phone Elana Ayala NP Primary Care Provider [phone] Reason for Visit * Reason Comments Med Refill Encounter Details Date Type Department Care Team (Late st Contact Info) Description 09/11/2018 Refill [facility] [address] [place] [address] [place] [address] Lizzette Becker, Amenorrhea Social History Tobacco Use [...] menstruation documented in this encounter Care Teams Elevator Operator Relationship Specialty Start Date End Date Elana Ayala NP [address] [place] [address] [place] [address] PCP - General Pediatrics 09/17/22 documented as of this encounter
--- OUTSIDE RECORDS SUMMARY | 2024-06-08 17:33 | XMS_ITS | Encounter Summary ---
Author Organization [facility] Address [address] [place] [address] Phone Care Team Providers Care Division Operations Manager Name Role Phone Travis Ayalaica ANGELICA Primary Care Provider [phone] Reason for Visit * Reason Comments ED Admission Encounter Details Date Type Department Care Team (Late st Contact Info) Description 05/16/2024 8:26 AM EST - 05/16/2024 4:44 PM [facility] Hospital Encounter [facility] - Patient Ping Social History Tobacco [...] Refills, Maintenance, 12/17/22 11:56:00 EDT, Capsule, [id number], Partial fill upon patient request if the [...] on filedocumented in this encounter Care Teams Division Operations Manager Relationship Specialty Start Date End Date Elana Ayala NP [facility] [place] [address] PCP - General Pediatrics 09/17/22 documented as of this encounter
--- OUTSIDE RECORDS SUMMARY | 2024-06-08 17:33 | XMS_ITS | Encounter Summary ---
Author Organization [facility] Address [address] [place] [address] Phone Care Team Providers Care Director [employer] Aging Name Role Phone Elana Ayala MEDICAL EDUCATION SPECIALIST Primary Care Provider [phone] Reason for Visit * Reason Onset Date Comments Med Refill 12/24/2022 Encounter Details Date Type Department Care Team (Late st Contact Info) Description 12/24/2022 Refill [facility] [address] [place] [address] [place] [address] Elana Ayala NP [address] [place] [address] [place] [address] Anxiety; Asthma, unspecified asthma severity, unspecified whether [...] MH insurance. MQ * Telephone Encounter - oHa Sorto [place] - 12/24/2022 3:55 PM EDT Last [facility] with EM 09/17/22 Pt has requested all these meds through [employer]. MQ documented in this encounter Plan of Treatment Not on file documented as of this encounter Visit Diagnoses Diagnosis Anxiety Anxiety state, unspecified Asthma, unspecified asthma severity, unspecified whether complicated, unspecified whether persistent Acute non-recurrent frontal sinusitis Moderate persistent extrinsic asthma without complication documented in this encounter Care Teams Director [employer] Aging Relationship Specialty Start Date End Date Elana Ayala NP [address] [facility] [place] [address] PCP - General Pediatrics 09/17/22 documented as of this encounter
== END ==
LOC: HO.CARD 14:55
PROVIDERS: PCP Nurse Practitioner Family; Visit Provider Nurse Practitioner Family
DX: R07.89 Other chest pain (principal)
CPT/HCPCS: 93306

== ENCOUNTER → 2024-06-08 14:57 | Outpatient (BNV) | payer OTHER, MEDICAID, SELFPAY | PROVIDERS: PCP Nurse Practitioner Family; Visit Provider Internal Medicine | DX: R07.9 Chest pain, unspecified (principal) | CPT/HCPCS: 93306 ==

== ENCOUNTER 2024-06-09 08:05 | Outpatient (AMB) | payer OTHER, MEDICAID, SELFPAY ==
--- NOTE | 2024-06-09 08:06 | AM.OFFWIN_ITS ---
Intake Vital Signs 3 06/09/24 08:07 Height 5 ft 6 in Weight 157 lb BMI 25.3 BP 110/70 Blood Pressure Location Rt brachial Position Sitting Pulse 99 Pulse Source Pulse Oximeter Pulse Oximetry (%) 99 Oxygen Delivery Method Room Air Intake Visit Reasons: EP-rt big toe infection Intake Note: Patient here for right big toe infection that has been present for about 2 days, she states she is having difficulty walking and putting pressure on ot. Patient Tobacco Use Status: Current everyday Tobacco user Allergies almond Allergy (Verified 06/09/24 08:17) Anaphylaxis walnut Allergy (Verified 06/09/24 08:17) Swelling Do you need a note to return to daycare/school/sports/work: No HPI HPI Comments 2 History of Present Illness0 Details 24 y/o female patient who presents to hospital for special surgery walk in clinic with c/o right Big Toe pain and infection for 2 days now. Reports yellowish discharge from the Nail, redness and pain. She has been soaking in Epson Salt bath and using Topical Abx for 2 days with minimal relief. Denies fevers, chills, nausea or vomiting. [facility] Medical History (Updated 06/09/24 @ 08:44 by Bre Fuller NP) Paronychia of great toe, right Eczema Iron deficiency anemia No known health problems Surgical History Hx of hernia repair Family History (Updated 02/04/24 @ 08:26 by NOHELIA Arroyo) Father No problems noted. Mother No problems noted. Social History Housing: Apartment Patient Tobacco Use Status: Current everyday Tobacco user e-Cigarette/Vaping Use: Never Used Current occupational status: employed Current occupational exposures/hazards: No Cognitive needs: No Hearing needs: No Vision needs: No Review of Systems Const All systems reviewed & are unremarkable except as noted in HPI and below Physical Exam Vital Signs: Last Vital Signs Pulse 99 06/09/24 08:07 BP 110/70 06/09/24 08:07 Pulse Ox 99 06/09/24 08:07 Oxygen Delivery Method Room Air 06/09/24 08:07 BMI result Body Mass Index 25.3 Const General: cooperative and no acute distress Orientation/consciousness: patient oriented x3 Neuro General: patient oriented x3 Extrem Right lower extremity: foot Details: toes with normal ROM Ankle/foot/toe images: 2 1. Yellowish/Purulent discharge, swelling, redness and TTP right Great Toe Nail. Assessment & Plan Assessment & Plan (1) Paronychia of great toe, right: Code(s): L03.031 - Cellulitis of right toe Plan: Ordered Keflex Continue soaking with warm Epson Salt Bath Medications: New 2 cephalexin 500 mg PO BID 5 days 10 caps 0RF L03.031 - Cellulitis of right toe Coding Level of Care Code Est Pt Level 4 (37817) Diagnoses Paronychia of great toe, right L03.031 Time Spent (min) 20
[2024-06-09 08:07] VITALS: BP 110/70; PULSE 99; O2SAT 99; BMI 25.3
--- OUTSIDE RECORDS SUMMARY | 2024-06-09 08:12 | XMS_ITS | Encounter Summary ---
Author Organization [facility] Address [address] [place] [address] Phone Care Team Providers Care Vocational Horticulture Instructor Name Role Phone Elana Ayala NP Primary Care Provider [phone] Reason for Visit * Reason Comments Med Refill Encounter Details Date Type Department Care Team (Late st Contact Info) Description 03/21/2018 Refill [facility] [address] [place] [address] [place] [address] Lizzette Becker DO Anxiety and depression Social [...] depression documented in this encounter Care Teams Vocational Horticulture Instructor Relationship Specialty Start Date End Date Elana Ayala NP [address] [place] [address] [place] [address] PCP - General Pediatrics 09/17/22 documented as of this encounter
--- OUTSIDE RECORDS SUMMARY | 2024-06-09 08:12 | XMS_ITS | Encounter Summary ---
Author Organization [facility] Address [address] [place] [address] Phone Care Team Providers Care Self Contained Behavior Unit Teacher Name Role Phone Elana Ayala NP Primary Care Provider [phone] Encounter Details Date Type Department Care Team (Late st Contact Info) Description 04/27/2014 Conversion Encounter [facility] [address] [place] [address] [place] [address] Social History Tobacco Use Types Packs/Day Years [...] on filedocumented in this encounter Care Teams Self Contained Behavior Unit Teacher Relationship Specialty Start Date End Date Elana Ayala NP [address] [place] [address] [place] [address] PCP - General Pediatrics 09/17/22 documented as of this encounter
--- OUTSIDE RECORDS SUMMARY | 2024-06-09 08:13 | XMS_ITS | Encounter Summary ---
Author Organization [facility] Address [address] [place] [address] Phone Care Team Providers Care Certified Alcohol And Drug Counselor Name Role Phone Elana Ayala NP Primary Care Provider Reason for Visit * Reason Comments Med Refill Encounter Details Date Type Department Care Team (Late st Contact Info) Description 07/23/2018 Refill [facility] [address] [place] [address] [place] [address] Lizzette Becker, Amenorrhea Social History Tobacco Use [...] menstruation documented in this encounter Care Teams Certified Alcohol And Drug Counselor Relationship Specialty Start Date End Date Ealna Ayala NP [address] [place] [address] [place] [address] PCP - General Pediatrics 09/17/22 documented as of this encounter
--- OUTSIDE RECORDS SUMMARY | 2024-06-09 08:13 | XMS_ITS | Encounter Summary ---
Author Organization [facility] Address [address] [place] [address] Phone Care Team Providers Care Group Counselor Name Role Phone Elana Ayala NP Primary Care Provider [phone] Reason for Visit * Reason Comments Med Refill Encounter Details Date Type Department Care Team (Late st Contact Info) Description 09/11/2018 Refill [facility] [address] [place] [address] [place] [address] Lizzette Becker, Amenorrhea Social History Tobacco Use [...] menstruation documented in this encounter Care Teams Group Counselor Relationship Specialty Start Date End Date Elana Ayala NP [address] [place] [address] [place] [address] PCP - General Pediatrics 09/17/22 documented as of this encounter
--- OUTSIDE RECORDS SUMMARY | 2024-06-09 08:13 | XMS_ITS | Encounter Summary ---
Author Organization [facility] Address [address] [place] [address] Phone Care Team Providers Care Hat Blocking Operator Name Role Phone Elana Ayala WAX PUMPER Primary Care Provider [phone] Reason for Visit * Reason Onset Date Comments Med Refill 12/24/2022 Encounter Details Date Type Department Care Team (Late st Contact Info) Description 12/24/2022 Refill [facility] [address] [place] [address] [place] [address] Elana Ayala NP [facility] [facility] [place] [address] Social History Tobacco Use Types Packs/Day Years [...] on filedocumented in this encounter Care Teams Hat Blocking Operator Relationship Specialty Start Date End Date Elana Ayala NP [address] [facility] [place] [address] PCP - General Pediatrics 09/17/22 documented as of this encounter
--- OUTSIDE RECORDS SUMMARY | 2024-06-09 08:13 | XMS_ITS | Encounter Summary ---
Author Organization [facility] Address [address] [place] [address] Phone Care Team Providers Care Division Director Name Role Phone Elana Ayala NP Primary Care Provider [phone] Reason for Visit * Reason Comments Med Refill Encounter Details Date Type Department Care Team (Late st Contact Info) Description 07/29/2019 Refill [facility] [address] [place] [address] Dr [place] [phone] Lizzette Becker DO Other atopic dermatitis Social [...] dermatitis documented in this encounter Care Teams Division Director Relationship Specialty Start Date End Date Elana Ayala NP [address] [place] [address] [place] [address] PCP - General Pediatrics 09/17/22 documented as of this encounter
--- OUTSIDE RECORDS SUMMARY | 2024-06-09 08:13 | XMS_ITS | Encounter Summary ---
Author Organization [facility] Address [address] [place] [address] Phone Care Team Providers Care Cash Specialist Name Role Phone Elana Ayala NP Primary Care Provider [phone] Reason for Visit * Reason Onset Date Comments Med Refill Med Refill 07/02/2018 Encounter Details Date Type Department Care Team (Late st Contact Info) Description 06/22/2018 Refill [facility] [address] [place] [address] [place] [address] Lizzette Becker DO Social History Tobacco Use [...] on filedocumented in this encounter Care Teams Cash Specialist Relationship Specialty Start Date End Date Elana Ayala NP [address] [place] [address] [place] [address] PCP - General Pediatrics 09/17/22 documented as of this encounter
--- OUTSIDE RECORDS SUMMARY | 2024-06-09 08:13 | XMS_ITS | Clinical Summary ---
Author Organization [facility] Address [address] [place] [address] Phone Care Team Providers Care Client Onboarding Analyst Name Role Phone Travis Ayalaica ANGELICA Primary Care Provider [phone] Allergies Active Allergy Reactions Criticality Noted Date Comments [place] (Diagnostic) Food 09/23/2017 [place] Medications mometasone 0.1 % creamIndications :Other atopic [...] 0 Refills, Maintenance, 12/17/22 11:56:00 EDT, Capsule, [id number], Partial fill upon patient request if the [...] smear of cervix 07/31/2021 Overview (07/31/2021): Seeing Router Tender History of recurrent UTIs 07/31/2021 Overview (07/31/2021): Sees Urology Influenza vaccine refused 07/02/2021 Generalized anxiety disorder 08/03/2017 Overview (09/26/2020): Anxiety (300.02) Onset: 08/03/2017 Added by: Lizzette Becker 09/26/2020 review of chart - Appears that patient is seen by an outside office for this and treated with amitriptyline Assessment & Plan (01/06/2023 11:30 AM EDT): Continue hydroxyzine as needed for panic attacks Refer to [facility] to discuss trauma and anxiety response Aware that is short term and given information for residential therapy Assessment & Plan (09/17/2022 4:34 PM [...] 8:26 AM EST - 05/16/2024 4:44 PM [facility] Hospital Encounter [facility] - Patient Ping from Last [...] complete this topic Procedures * Due to [facility] law, this organization might not be sharing sensitive test results. Procedure Name Priority Date/Time Associated Diagnosis Comments SURESWAB (ADV) VAGINITIS PLUS, TMA Routine 01/05/2023 3:38 PM EDT Vaginal discharge from Last 3 Months or Most Recently Relevant to Health Maintenance Results * Due to [facility] law, this organization might not be sharing sensitive test results. * (ABNORMAL) SureSwab Advanced (TMA)- BV, CT/NG, CV, TV (01/05/2023 3:38 PM EDT) BACTERIAL VAGINOSIS TEST POSITIVE(A) (NEG) [facility] Comment: Bacterial vaginosis targets by PCR detected in this patient's sample. ?? Note: This assay uses real time sheep rancher-mediated amplification (TMA) for detection and quantification of ribosomal RNA from bacteria associated with bacterial vaginosis (BV), including Lactobacillus (L. gasseri, L. crispatus, and L. jensenii), Gardnerella vaginalis, and Atopobium vaginae. Mickey Species NEGATIVE (NEG) [facility] Comment: No mickey species group (C. albicans, C. tropicalis, C. parapsilosis, C. dubliniensis) targets by PCR detected in this patient's sample. Mickey Glabrata, HENRY NEGATIVE (NEG) [facility] Comment:No Mickey glabrata targets by PCR detected in this patient's sample. SureSwab, T.vaginalis RNA NEGATIVE (NEG) [facility] Comment: No Trichomonas vaginalis targets by PCR detected in this patient's sample. ?? Note: This assay uses real time sheep rancher-mediated amplification (TMA) for detection and quantification of ribosomal RNA from organisms associated with Mickey species group (C. albicans, C. tropicalis, C. parapsilosis, C. dubliniensis), Mickey glabrata, and Trichomonas vaginalis. Chlamydia Trachomatis, Amplified NEGATIVE (NEG) [facility] Comment: No Chlamydia Trachomatis RNA detected in this patient's sample ? (REFERENCE RANGE/NORMAL VALUE: NOT DETECTED) ? Note: This test uses sheep rancher- mediated amplification method to detect rRNA from C. Trachomatis N.GONORRHOEAE AMP PROBE NEGATIVE (NEG) [facility] Comment: No Neisseria Gonorrhoeae RNA detected in this patient's sample ? (REFERENCE RANGE/NORMAL VALUE: NOT DETECTED) ? NOTE: This test uses sheep rancher-mediated amplification method to detect rRNA from N.Gonorrhoeae. [...] without risk of sexual abuse. Consult the [facility] if needed. Contact phone number . Therapeutic failure or success cannot be determined with the Aptima Combo2 assay since nucleic acid may persist following appropriate antimicrobial therapy. The Centers for Disease Control and Prevention (CDC) recommends confirmatory retesting using culture or a different nucleic acid amplification test when positive results occur, if indicated. Testing performed or reported by [facility], a Service of [facility], [address] [place] [address] Roberto Quinn MD, Auditor Appraiser [facility]# [id number] Swab (Vagina) 01/05/2023 3:3 8 PM EDT 01/05/2023 11:10 PM EDT Ban Wendi MEDICAL REVIEW COORDINATOR LAB MICROBIOLOGY - GENERAL ORD ERABLES Final Result AKASH from Last 3 Months or Most Recently Relevant to Health Maintenance Insurance [facility] [id number] [place] [address] NON [facility] [employer] Care Teams Client Onboarding Analyst Relationship Specialty Start Date End Date Elana Ayala NP [address] [place] [address] [place] [address] PCP - General Pediatrics 09/17/22
--- OUTSIDE RECORDS SUMMARY | 2024-06-09 08:13 | XMS_ITS | Encounter Summary ---
Author Organization [facility] Address [address] [place] [address] Phone Care Team Providers Care Casting Machine Operator Automatic Name Role Phone Elana Ayala NP Primary Care Provider [phone] Reason for Visit * Reason Comments Med Refill Encounter Details Date Type Department Care Team (Late st Contact Info) Description 09/15/2018 Refill [facility] [address] [place] [address] [place] [address] Lizzette Becker, DO Anxiety Social History Tobacco [...] unspecified documented in this encounter Care Teams Casting Machine Operator Automatic Relationship Specialty Start Date End Date Elana Ayala NP [address] [place] [address] [place] [address] PCP - General Pediatrics 09/17/22 documented as of this encounter
--- OUTSIDE RECORDS SUMMARY | 2024-06-09 08:13 | XMS_ITS | Patient Health Record ---
Author Organization [facility] Address [address] [facility] [place] [address] Care Team Providers Care Automobile Mechanic Name Role Phone Lamont Vieira Primary Care Provider [place] Kennedy Daniels Unavailable [phone] Eugenio DOLizzette Unavailable Unavailable Reason For Referral No Information Medications Medication SIG (Take, Route, Fr equency, Duration) Notes Start Date End Date Status Cephalexin 500 MG 1 tablet Orally Twic e a day for 10 day(s) Active Social History Tobacco Use: Social History Observation Description Date Details (start date - stop date) Current Smoker NA - NA Tobacco Use/Smoking Question Answer Notes Are you a: current smoker Alcohol Screen Question Answer Notes Did you have a drink contain ing alcohol in the past year? Yes How often did you have a dri nk containing alcohol in the past year? Monthly or less (1 point) Points 1 Interpretation Negative Tobacco use other than smoking: Question Answer Notes Are you an other tobacco user? No Plan Of Treatment Pending Test Test Name Order Date 24123 I&D ABSCESS- SIMPLE,SINGLE 020 Next Appt Details Provider Name:Kennedy Daniels , 06/10/2024 12:30:00 PM, [address] [facility], [place], [address], Insurance Providers Payer Name Payer Address Payer Phone Subscriber Number Group Number Insured Name Patient Relationship to Insured Coverage Start Date Coverage End Date [facility] [address] [facility] [place]THE[place] zimmerman [id number] [employer] [place] Child - Insured does not have Financial Responsibility (includes legally adopted child) Medical (General) History Medical History History ICD Code Anxiety asthma Depression Surgical History Surgery Date(Month/Year) Hospitalization History Reason Date(Month/Year) 08/2019
--- OUTSIDE RECORDS SUMMARY | 2024-06-09 08:14 | XMS_ITS | Encounter Summary ---
Author Organization [facility] Address [address] [place] [address] Phone Care Team Providers Care Basin Tender Name Role Phone Travis Ayalaica ANGELICA Primary Care Provider [phone] Reason for Visit * Reason Comments ED Admission Encounter Details Date Type Department Care Team (Late st Contact Info) Description 05/16/2024 8:26 AM EST - 05/16/2024 4:44 PM [facility] Hospital Encounter [facility] - Patient Ping Social History Tobacco [...] Refills, Maintenance, 12/17/22 11:56:00 EDT, Capsule, [id number], Partial fill upon patient request if the [...] on filedocumented in this encounter Care Teams Basin Tender Relationship Specialty Start Date End Date Elana Ayala NP [facility] [facility] [place] [address] PCP - General Pediatrics 09/17/22 documented as of this encounter
--- OUTSIDE RECORDS SUMMARY | 2024-06-09 08:14 | XMS_ITS | Encounter Summary ---
Author Organization [facility] Address [address] [place] [address] Phone Care Team Providers Care Classification Officer Name Role Phone Elana Ayala DOOR TO DOOR SALESMAN Primary Care Provider [phone] Reason for Visit * Reason Onset Date Comments Med Refill 12/24/2022 Encounter Details Date Type Department Care Team (Late st Contact Info) Description 12/24/2022 Refill [facility] [address] [place] [address] [place] [address] Elana Ayala NP [address] [place] [address] [place] [address] Anxiety; Asthma, unspecified asthma severity, unspecified whether [...] [place] - 12/24/2022 3:[address] [facility] with EM 09/17/22 Pt has requested all these meds through [facility] 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 [place] [address] PCP - General Pediatrics 09/17/22 documented as of this encounter
== END 2024-06-09 08:50 | disposition home or self-care (01) ==
PROVIDERS: PCP Nurse Practitioner Family; Visit Provider Nurse Practitioner Family
DX: L03.031 Cellulitis of right toe (principal)

== ENCOUNTER 2024-06-10 21:01 | Emergency (ER) | payer OTHER, MEDICAID, SELFPAY ==
[2024-06-10 21:05] VITALS: BP 124/65; PULSE 86; RESP 16; TEMP 36.8; O2SAT 100; BMI 24.9
[2024-06-10 21:24] LABS: MANUAL DIFF FLAG NO
[2024-06-10 21:25] LABS: Basophils Percent Auto 0.4 % (0-2); Eosinophils Absolute Auto 0.2 X10*3/uL (0.0-0.4); Eosinophils Percent Auto 3.1 % (0-4); Hematocrit 34.1 % (37.0-47.0); Hemoglobin 11.7 g/dl (12.0-16.0); Lymphocytes Absolute Auto 2.3 X10*3/uL (1.2-4.9); Lymphocytes Percent Auto 46.8 % (20-40); Mean Corpuscular HGB Conc 34.3 g/dl (31.0-35.0); Mean Corpuscular Hemoglobin 26.6 pg (27.0-33.0); Mean Corpuscular Volume 77.5 fL (80.0-98.0); Mean Platelet Volume 9.9 fL (9.4-12.3); Monocytes Absolute Auto 0.5 X10*3/uL (0.1-1.2); Monocytes Percent Auto 9.8 % (2-11); Neutrophils Absolute Auto 1.9 x10*3/uL (2.0-8.3); Neutrophils Percent Auto 39.9 % (45-73); Platelet Count 241 X10*3/uL (160-400); Red Cell Distribution Width 15.9 % (11.0-16.0); White Blood Count 4.8 X10*3/uL (4.8-10.8)
[2024-06-10 21:45] LABS: Alanine Aminotransferase 11 U/L (0-31); Albumin Level 4.4 g/dL (3.5-5.0); Alkaline Phosphatase 49 U/L (39-117); Anion Gap 12 (12-20); Aspartate Amino Transferase 17 U/L (5-31); Bilirubin Total 0.8 mg/dL (0.0-1.0); Blood Urea Nitrogen 9 mg/dL (9-16); Calcium 9.2 mg/dL (8.4-10.2); Carbon Dioxide 24 mmol/L (22-29); Chloride 107 mmol/L (96-108); Estimated Glomerular Filt Rate > 60; Glucose Random 101 mg/dL (60-115); Lipase 16 U/L (8-78); Potassium 3.7 mmol/L (3.3-5.1); Sodium 139 mmol/L (135-145); Total Protein 7.7 g/dL (6.5-8.0)
[2024-06-10 22:07] LABS: HCG Quantitative 860 mIU/mL
--- OUTSIDE RECORDS SUMMARY | 2024-06-10 22:39 | XMS_ITS | Encounter Summary ---
Author Organization [facility] Address [address] [place] [address] Phone Care Team Providers Care Cotton Inspector Name Role Phone Elana Ayala NP Primary Care Provider [phone] Encounter Details Date Type Department Care Team (Late st Contact Info) Description 04/27/2014 Conversion Encounter [facility] [address] [address] [place] [address] Social History Tobacco Use Types Packs/Day Years [...] on filedocumented in this encounter Care Teams Cotton Inspector Relationship Specialty Start Date End Date Elana Ayala NP [address] [place] [address] [place] [address] PCP - General Pediatrics 09/17/22 documented as of this encounter
--- OUTSIDE RECORDS SUMMARY | 2024-06-10 22:39 | XMS_ITS | Clinical Summary ---
Author Organization [facility] Address [address] [place] [address] Phone Care Team Providers Care Grain Trimmer Name Role Phone Travis Ayalaica ANGELICA Primary Care Provider [phone] Allergies Active Allergy Reactions Criticality Noted Date Comments [place] (Diagnostic) Food 09/23/2017 [place] Medications mometasone 0.1 % creamIndications :Other atopic [...] 0 Refills, Maintenance, 12/17/22 11:56:00 EDT, Capsule, [id number], Partial fill upon patient request if the [...] smear of cervix 07/31/2021 Overview (07/31/2021): Seeing Porcelain Enamel Sprayer History of recurrent UTIs 07/31/2021 Overview (07/31/2021): Sees Urology Influenza vaccine refused 07/02/2021 Generalized anxiety disorder 08/03/2017 Overview (09/26/2020): Anxiety (300.02) Onset: 08/03/2017 Added by: Lizzette Becker 09/26/2020 review of chart - Appears that patient is seen by an outside office for this and treated with amitriptyline Assessment & Plan (01/06/2023 11:30 AM EDT): Continue hydroxyzine as needed for panic attacks Refer to [facility] to discuss trauma and anxiety response Aware that is short term and given information for [place] [facility] Assessment & Plan (09/17/2022 4:34 PM [...] Encounters Date Type Department Care Team Description 06/10/2024 9:01 PM EDT - Present Hospital Encounter [facility] - Patient Ping 05/16/2024 8:26 AM EST - 05/16/2024 4:44 PM EST Hospital Encounter [facility] - Patient Ping from Last 3 Months [...] Vaccines (#1) 2023 05/28/2019 COVID-19 Vaccine ( season) 2023 HIB Vaccines Completed 08/05/2000, 09/28, [...] age to complete this topic Procedures * The patient is currently admitted. The information in this section might not be complete until the patient is discharged.Due to [facility] law, this organization might not be sharing sensitive test results. Procedure Name Priority Date/Time Associated Diagnosis Comments SURESWAB (ADV) VAGINITIS PLUS, TMA Routine 01/05/2023 3:38 PM EDT Vaginal discharge from Last 3 Months or Most Recently Relevant to Health Maintenance Results * Due to [place] [employer] law, this organization might not be sharing sensitive test results. * (ABNORMAL) SureSwab Advanced (TMA)- BV, CT/NG, CV, TV (01/05/2023 3:38 PM EDT) BACTERIAL VAGINOSIS TEST POSITIVE(A) (NEG) [facility] Comment: Bacterial vaginosis targets by PCR detected in this patient's sample. ?? Note: This assay uses real time railway signalling engineer-mediated amplification (TMA) for detection and quantification of ribosomal RNA from bacteria associated with bacterial vaginosis (BV), including Lactobacillus (L. gasseri, L. crispatus, and L. jensenii), Gardnerella vaginalis, and Atopobium vaginae. Mickey Species NEGATIVE (NEG) [facility] Comment: No mickey species group (C. albicans, C. tropicalis, C. parapsilosis, C. dubliniensis) targets by PCR detected in this patient's sample. Mickey Glabrata, HENRY NEGATIVE (NEG) [facility] Comment:No Mickey glabrata targets by PCR detected in this patient's sample. SureMaryab, T.vaginalis RNA NEGATIVE (NEG) [facility] Comment: No Trichomonas vaginalis targets by PCR detected in this patient's sample. ?? Note: This assay uses real time railway signalling engineer-mediated amplification (TMA) for detection and quantification of ribosomal RNA from organisms associated with Mickey species group (C. albicans, C. tropicalis, C. parapsilosis, C. dubliniensis), Mickey glabrata, and Trichomonas vaginalis. Chlamydia Trachomatis, Amplified NEGATIVE (NEG) [facility] Comment: No Chlamydia Trachomatis RNA detected in this patient's sample ? (REFERENCE RANGE/NORMAL VALUE: NOT DETECTED) ? Note: This test uses railway signalling engineer- mediated amplification method to detect rRNA from C. Trachomatis N.GONORRHOEAE AMP PROBE NEGATIVE (NEG) [facility] Comment: No Neisseria Gonorrhoeae RNA detected in this patient's sample ? (REFERENCE RANGE/NORMAL VALUE: NOT DETECTED) ? NOTE: This test uses railway signalling engineer-mediated amplification method to detect rRNA from N.Gonorrhoeae. [...] without risk of sexual abuse. Consult the [facility] if needed. Contact phone number . Therapeutic failure or success cannot be determined with the Aptima Combo2 assay since nucleic acid may persist following appropriate antimicrobial therapy. The Centers for Disease Control and Prevention (CDC) recommends confirmatory retesting using culture or a different nucleic acid amplification test when positive results occur, if indicated. Testing performed or reported by [facility], a Service of [facility], [address] [place] [address] Roberto Quinn MD, Auto Body Repair Teacher EMILY# [id number] Swab (Vagina) 01/05/2023 3:3 8 PM EDT 01/05/2023 11:10 PM EDT Ban Fosterprafulluisito [facility] MICROBIOLOGY - GENERAL ORD ERABLES Final Result [facility] from Last 3 Months or Most Recently Relevant to Health Maintenance Insurance [facility] [employer] [place] [id number] Care Teams Grain Trimmer Relationship Specialty Start Date End Date Elana Ayala NP [facility] [place] [address] PCP - General Pediatrics 09/17/22
--- OUTSIDE RECORDS SUMMARY | 2024-06-10 22:39 | XMS_ITS | Encounter Summary ---
Author Organization [facility] Address [address] [place] [address] Phone Care Team Providers Care Axle Polisher Name Role Phone Elana Ayala NP Primary Care Provider [phone] Reason for Visit * Reason Comments Med Refill Encounter Details Date Type Department Care Team (Late st Contact Info) Description 03/21/2018 Refill [facility] [address] [place] [address] [place] [address] Lizzette Becker DO Anxiety and depression Social [...] depression documented in this encounter Care Teams Axle Polisher Relationship Specialty Start Date End Date Elana Ayala NP [address] [place] [address] [place] [address] PCP - General Pediatrics 09/17/22 documented as of this encounter
--- OUTSIDE RECORDS SUMMARY | 2024-06-10 22:39 | XMS_ITS | Encounter Summary ---
Author Organization [facility] Address [address] [place] [address] Phone Care Team Providers Care Sales Exhibitor Name Role Phone Elana Ayala NP Primary Care Provider [phone] Reason for Visit * Reason Comments Med Refill Encounter Details Date Type Department Care Team (Late st Contact Info) Description 09/11/2018 Refill [facility] [address] [place] [address] [place] [address] Lizzette Becker, Amenorrhea Social History Tobacco Use [...] menstruation documented in this encounter Care Teams Sales Exhibitor Relationship Specialty Start Date End Date Elana Ayala NP [address] [place] [address] [place] [address] PCP - General Pediatrics 09/17/22 documented as of this encounter
--- OUTSIDE RECORDS SUMMARY | 2024-06-10 22:39 | XMS_ITS | Encounter Summary ---
Author Organization [facility] Address [address] [place] [address] Phone Care Team Providers Care Rivet Machine Operator Name Role Phone Elana Ayala INSIDE SALES DIRECTOR Primary Care Provider [phone] Reason for Visit * Reason Onset Date Comments Med Refill 12/24/2022 Encounter Details Date Type Department Care Team (Late st Contact Info) Description 12/24/2022 Refill [facility] [address] [place] [address] [place] [address] Elana Ayala NP [facility] [place] [address] Social History Tobacco Use Types Packs/Day Years [...] on filedocumented in this encounter Care Teams Rivet Machine Operator Relationship Specialty Start Date End Date Elana Ayala NP [address] [facility] [place] [address] PCP - General Pediatrics 09/17/22 documented as of this encounter
--- OUTSIDE RECORDS SUMMARY | 2024-06-10 22:39 | XMS_ITS | Encounter Summary ---
Author Organization [facility] Address [address] [place] [address] Phone Care Team Providers Care Playground Attendant Name Role Phone Elana Ayala NP Primary Care Provider [phone] Reason for Visit * Reason Comments Med Refill Encounter Details Date Type Department Care Team (Late st Contact Info) Description 07/23/2018 Refill [facility] [address] [place] [address] [place] [address] Lizzette Becker, Amenorrhea Social History Tobacco Use [...] menstruation documented in this encounter Care Teams Playground Attendant Relationship Specialty Start Date End Date Elana Ayala NP [address] [place] [address] [place] [address] PCP - General Pediatrics 09/17/22 documented as of this encounter
--- OUTSIDE RECORDS SUMMARY | 2024-06-10 22:39 | XMS_ITS | Encounter Summary ---
Author Organization [facility] Address [address] [place] [address] Phone Care Team Providers Care Mine Safety Manager Name Role Phone Elana Ayala NP Primary Care Provider [phone] Reason for Visit * Reason Comments Med Refill Encounter Details Date Type Department Care Team (Late st Contact Info) Description 07/29/2019 Refill [facility] [address] [place] [address] [address] [place] [phone] Lizzette Becker DO Other atopic dermatitis Social [...] dermatitis documented in this encounter Care Teams Mine Safety Manager Relationship Specialty Start Date End Date Elana Ayala NP [address] [place] [address] [place] [address] PCP - General Pediatrics 09/17/22 documented as of this encounter
--- OUTSIDE RECORDS SUMMARY | 2024-06-10 22:39 | XMS_ITS | Encounter Summary ---
Author Organization [facility] Address [address] [place] [address] Phone Care Team Providers Care Steward Dishwasher Name Role Phone Elana Ayala NP Primary Care Provider [phone] Reason for Visit * Reason Comments Med Refill Encounter Details Date Type Department Care Team (Late st Contact Info) Description 09/15/2018 Refill [facility] [address] [place] [address] [place] [address] Lizzette Becker, DO Anxiety Social History Tobacco [...] unspecified documented in this encounter Care Teams Steward Dishwasher Relationship Specialty Start Date End Date Elana Ayala NP [address] [place] [address] [place] [address] PCP - General Pediatrics 09/17/22 documented as of this encounter
--- OUTSIDE RECORDS SUMMARY | 2024-06-10 22:39 | XMS_ITS ---
Author [facility] Address [address] [place] [address] Care Team Providers Care Out Of Town Collection Clerk Name Role Phone Lamont Vieira Primary Care Provider Unav ailable Kennedy Daniels Unavailable [phone] Eugenio DO, Lizzette Unavailable Unavailable REASON FOR VISIT ingrown nail with red line Encounters Encounter Location Date Provider Diagnosis [address] [address] 06/09/2024 Kennedy Daniels Plan Of Treatment No Information Progress Notes * Janett VILLAGOMEZ EDOB: [birth year] (24 yo F)Acc No.[id number]:06/09/2024 Patient:?Janett VILLAGOMEZ :2000???Age:24 Y???Sex:Female Address: [place], [address] * true * Date:? Generated for Printi ng/Faleeannag/eTransmitting on:?06/10/2024 10:39 PM EDT
--- OUTSIDE RECORDS SUMMARY | 2024-06-10 22:39 | XMS_ITS | Encounter Summary ---
Author Organization [facility] Address [address] [place] [address] Phone Care Team Providers Care Floor Technician Name Role Phone Elana Ayala NP Primary Care Provider [phone] Reason for Visit * Reason Onset Date Comments Med Refill Med Refill 07/02/2018 Encounter Details Date Type Department Care Team (Late st Contact Info) Description 06/22/2018 Refill [facility] [address] [place] [address] [place] [address] Lizzette Becker DO Social History Tobacco Use [...] on filedocumented in this encounter Care Teams Floor Technician Relationship Specialty Start Date End Date Elana Ayala NP [address] [place] [address] [place] [address] PCP - General Pediatrics 09/17/22 documented as of this encounter
--- OUTSIDE RECORDS SUMMARY | 2024-06-10 22:40 | XMS_ITS ---
Author Organization [facility] Address [address] [place] [address] Care Team Providers Care Corncob Pipes Assembler Name Role Phone Fabricio VILLAVICENCIO, Lamont Primary Care Provider Unav ailable Kennedy Daniels Unavailable [phone] Eugenio DO, Lizzette Unavailable Unavailable Encounters Encounter Location Date Provider Diagnosis [address] [address] 06/10/2024 Kennedy Daniels Plan Of Treatment No Information Progress Notes * Janett VILLAGOMEZ EDOB: [birth year] (24 yo F)Acc No.[id number]:06/10/2024 Progress Notes Patient:?Janett VILLAGOMEZ Provider:?Kennedy Daniels DPM :2000???Age:24 Y???Sex:Female D ate:06/10/2024 Address:[address] [place] [address] [id number] Pcp:SAUD Melendez Subjective: * Chief Complaints: * ??? * Medical History:? Objective: * Vitals:? Assessment: Plan: * Treatment: * Images: * The named appointment provid er may or may not be the originator of this progress note, and it is not deemed complete until electronically signed by the appointment provider. Sign off status: Pending * Provider:?Kennedy Daniels DPM Date:?2024 Generated for Daya knox/Renny/eTransmitting on:?06/10/2024 10:40 PM EDT
--- OUTSIDE RECORDS SUMMARY | 2024-06-10 22:40 | XMS_ITS | Encounter Summary ---
Author Organization [facility] Address [address] [place] [address] Phone Care Team Providers Care Vault Manager Name Role Phone Travis Ayalaica ANGELICA Primary Care Provider [phone] Reason for Visit * Reason Comments ED Admission Encounter Details Date Type Department Care Team (Late st Contact Info) Description 05/16/2024 8:26 AM EST - 05/16/2024 4:44 PM [facility] Hospital Encounter [facility] - Patient Ping Social History Tobacco [...] Refills, Maintenance, 12/17/22 11:56:00 EDT, Capsule, [id number], Partial fill upon patient request if the [...] on filedocumented in this encounter Care Teams Vault Manager Relationship Specialty Start Date End Date Elana Ayala NP [facility] [place] [address] PCP - General Pediatrics 09/17/22 documented as of this encounter
--- OUTSIDE RECORDS SUMMARY | 2024-06-10 22:40 | XMS_ITS | Data Portability ---
Author Organization JAYSON Bautista s, [facility] Address [address] [place] [address] Care Team Providers Care Evaluation Analyst Name Role Phone DAVIDEDEBORA AL Primary Care Provider Assessment No assessment recorded. Plan of Treatment Reminders Order Date Submit Date Provider Last Modified By Organization Details Last Modified Time Details Appointments None recorded. Lab culture, urine 2022 023 SALO [facility]), [facility] [place], [address], 3 20:06:19 vaginal pathogens panel, HENRY+probe, vaginal fluid 2022 023 [place] [facility]), [address] [place] [address], [address], 3 20:06:18 rapid strep group A, throat 2022 023 [email or web address] _shu [facility], [address] [place] [address], [address], 3 09:04:28 urinalysis , dipstick 2022 023 [email or web address] _shu [facility], [facility] [place], [address], 3 09:04:28 test, urine 2022 023 [email or web address] _shu [facility], [facility] [place], [address], 09:04:28 culture, respirator y [address] [facility], [facility], [place], [address], 16:06:41 Referral None recorded. Procedures None recorded. Surgeries None recorded. Imaging None recorded. Medication Orders Diflucan 150 mg tablet 2022 023 [facility][id number], [address] [place], [address], 16:20:37 miconazole nitrate 2 % topical cream 2022 023 [facility] #[id number], [address] [place], [address], 16:30:47 Patient TargetsNo targets recorded. Patient Instructions Encounter Date Encounter Id Patient Instructions Last Modified By Organization Details Last Modified Time 05/09/2022 [id number] sore throat: car e instructions Not available 05/09/2022 09:04:28 sore throat: car e instructions Not available 05/09/2022 09:04:28 Reason for Referral None Reported. Results Created Date Observation Date Name Description Value Unit Range Abnormal Flag Note LastModifiedBy Organization Detail LastModifiedTime 05/09/1905/10/2022 NUSWA B VAGIN ITIS PLUS (VG+) atopobium vaginae LOW - 0 score Not Available [facility] ([facility]) [address] [facility], [place], [address], 05/11/2022 20:06:18 05/09/1905/10/2022 NUSWA B VAGIN ITIS PLUS (VG+) bvab 2 LOW - 0 score Not Available [facility] ([facility]) [address] [facility], [place], [address], 05/11/2022 20:06:18 05/09/1905/10/2022 NUSWA B VAGIN ITIS [...] Drug Admin istra tion. Not Available [facility] ([facility]) [address] [place], [address], 05/11/2022 20:06:18 05/09/19 23 05/10/2022 NUSWA B VAGIN ITIS PLUS (VG+) mickey albicans, HENRY NEGATI VE negati ve Not Available [facility] ([facility]) [address] [place], [address], 05/11/2022 20:06:18 05/09/19 23 05/10/2022 NUSWA B VAGIN ITIS PLUS (VG+) mickey glabrata, HENRY NEGATI VE negati ve Not Available [facility] ([facility]) [address] [place], [address], 05/11/2022 20:06:18 05/09/19 23 05/11/2022 NUSWA B VAGIN ITIS PLUS (VG+) trich vag by HENRY NEGATI VE negati ve Not Available [facility] ([facility]) [address] [place], [address], 05/11/2022 20:06:18 05/09/19 23 05/11/2022 NUSWA B VAGIN ITIS PLUS (VG+) chlamydia trachomatis, HENRY NEGATI VE negati ve Not Available [facility] ([facility]) [address] [place], [address], 05/11/2022 20:06:18 05/09/19 23 05/11/2022 NUSWA B VAGIN ITIS PLUS (VG+) neisseria gonorrhoeae, HENRY NEGATI VE negati ve Not Available [facility] ([facility]) [address] [place], [address], 05/11/2022 20:06:18 05/09/19 23 05/11/2022 URINE CULTU RE, ROUTI NE urine culture, routine FINAL REPORT Not Available [facility] ([facility]) [address] [place], [address], 05/11/2022 20:06:19 05/09/19 23 05/11/2022 URINE CULTU RE, ROUTI NE result 1 NO GROWTH Not Available [facility] ([facility]) [address] [place], [address], 05/11/2022 20:06:19 05/09/19 23 05/12/2022 UPPER RESPI RATOR Y CULTU RE upper respiratory culture FINAL REPORT Not Available [facility] ([facility]) [address] [place], [address], 05/12/2022 16:06:41 05/09/19 23 05/12/2022 UPPER RESPI RATOR Y CULTU RE result 1 COMMEN T Routi ne respi rator y braeden Not Available [facility] ([facility]) [address] [place], [address], 05/12/2022 16:06:41 05/09/19 23 05/09/2022 urina lysis , dipst ick Unknown Analyte Normal = light yellow Not Available [facility] [address] [place] [address], [place], [address], 05/09/2022 08:44:51 05/09/19 23 05/09/2022 urina lysis , dipst ick Unknown Analyte Dark Yellow Not Available 2099laureen lewis [address], [place], [address], 05/09/2022 08:44:51 05/09/19 23 05/09/2022 urina lysis , dipst ick Unknown Analyte Normal = clear Not Available laureen lewis [address], [place], [address], 05/09/2022 08:44:51 05/09/1905/09/2022 urina lysis , dipst ick Unknown Analyte Slight ly Cloudy Not Available laureen lewis [address], [place], [address], 05/09/2022 08:44:51 05/09/19 23 05/09/2022 urina lysis , dipst ick Unknown Analyte Normal = negati ve Not Available laureen lewis [address], [place], [address], 05/09/2022 08:44:51 05/09/19 23 05/09/2022 urina lysis , dipst ick Unknown Analyte Negati ve Not Available laureen lewis [address], [place], [address], 05/09/2022 08:44:51 05/09/19 23 05/09/2022 urina lysis , dipst ick Unknown Analyte Normal = Negati ve Not Available laureen lewis [address], [place], [address], 05/09/2022 08:44:51 05/09/19 23 05/09/2022 urina lysis , dipst ick Unknown Analyte Negati ve Not Available laureen lewis [address], [place], [address], 05/09/2022 08:44:51 05/09/19 23 05/09/2022 urina lysis , dipst ick Unknown Analyte Normal = Negati ve Not [facility] [address], [place], [address], 05/09/2022 08:44:51 05/09/19 23 05/09/2022 urina lysis , dipst ick Unknown Analyte Negati ve Not Available [address], [place], [address], 05/09/2022 08:44:51 05/09/19 23 05/09/2022 urina lysis , dipst ick Unknown Analyte Normal = 1.010, 1.015, 1.020 Not Available [address], [place], [address], 05/09/2022 08:44:51 05/09/19 23 05/09/2022 urina lysis , dipst ick Unknown Analyte 1.020 Not Available [address] [place] [address], [place], [address], 05/09/2022 08:44:51 05/09/19 23 05/09/2022 urina lysis , dipst ick Unknown Analyte Normal = Negati ve Not Available [address], [place], [address], 05/09/2022 08:44:51 05/09/19 23 05/09/2022 urina lysis , dipst ick Unknown Analyte Negati ve Not Available [address] [place] [address], [place], [address], 05/09/2022 08:44:51 05/09/19 23 05/09/2022 urina lysis , dipst ick Unknown Analyte Normal = 6.5, 7.0, 7.5, 8.0 Not Available [address] [place] [address], [place], [address], 05/09/2022 08:44:51 05/09/19 23 05/09/2022 urina lysis , dipst ick Unknown Analyte 7.0 Not Available [address] [place] [address], [place], [address], 05/09/2022 08:44:51 05/09/19 23 05/09/2022 urina lysis , dipst ick Unknown Analyte Normal = Negati ve Not Available [address] [place] [address], [place], [address], 05/09/2022 08:44:51 05/09/19 23 05/09/2022 urina lysis , dipst ick Unknown Analyte Trace Not Available [address] [place] [address], [place], [address], 05/09/2022 08:44:51 05/09/19 23 05/09/2022 urina lysis , dipst ick Unknown Analyte Normal = 0.2, 1.0 Not Available [address] [place] [address], [place], [address], 05/09/2022 08:44:51 05/09/19 23 05/09/2022 urina lysis , dipst ick Unknown Analyte 0.2 E.U./d L Not Available [address] [place] [address], [place], [address], 05/09/2022 08:44:51 05/09/19 23 05/09/2022 urina lysis , dipst ick Unknown Analyte Normal = Negati ve Not Available [address] [place] [address], [place], [address], 05/09/2022 08:44:51 05/09/19 23 05/09/2022 urina lysis , dipst ick Unknown Analyte Negati ve Not Available [address] [place] [address], [place], [address], 05/09/2022 08:44:51 05/09/19 23 05/09/2022 urina lysis , dipst ick Unknown Analyte Normal = Negati ve Not Available [address], [place], [address], 05/09/2022 08:44:51 05/09/1905/09/2022 urina lysis , dipst ick Unknown Analyte Negati ve Not Available [address], [place], [place], [address], 05/09/2022 08:44:51 05/09/19 23 05/09/2022 pregn karo test, urine Unknown Analyte Normal = Negati ve Not Available [address], [place], [address], 05/09/2022 08:44:59 05/09/19 23 05/09/2022 pregn karo test, urine Unknown Analyte negati ve Not Available [address], [place], [address], 05/09/2022 08:44:59 05/09/19 23 05/09/2022 rapid strep group A, throa t Unknown Analyte Normal = Negati ve Not Available [address] [place] [address], [place], [address], 05/09/2022 08:39:39 05/09/19 23 05/09/2022 rapid strep group A, throa t Unknown Analyte negati ve Not Available [address] [place] [address], [place], [address], 05/09/2022 08:39:39 Result Notes None recorded. Problems Name Problem SNOMED Code Status Onset Date Resolution Date Notes Provider Name and Address Organization Details Recorded Time Eczema 45785572 Active 023 Keri jane PA - [facility] 05/09/2022 08:43:40 Anxiety 53789853 Active 023 Keri jane [facility] - [facility] [...] Address Organization Details Last Updated DateTime 3 14603.1 9 g 21.3 kg/m2 167.64 cm 96 % 96 % 0 67 /min 18 /min 98.5 [degF] 102 mm[Hg] 64 mm[Hg] Keri Hart [employer] 08:47:05 Social History Question Answer Notes LastModified [...] SNOMED-CT Code Diagnosis ICD10 Code Diagnosis Note [id number] Chun_Ruben Treadwellco carlinr [address] [place] [address] 02/14/2018 13:47:21 02/14/2018 15:00:37 [id number] 2100Ruddy_Ruben gordon[address] [address] 11/25/2018 15:21:28 11/25/2018 16:11:32 [id number] [facility] heidi[address] [address] 12/26/2018 15:03:32 12/26/2018 15:29:42 [id number] [facility] [address] [place] [address] 08/29/2020 08:03:19 08/29/2020 08:56:19 [id number] Paolo Bosch DO [facility] [address] [place] [address] 05/09/2022 08:21:02 05/09/2022 09:18:35 Acute pharyngitis 499020189 J02.9 Rapid strep NEGATIVE Likely viral etiology [...] up in the Emergency Department urgently. Dysuria [id number] R30.0 UA unrevealin Joelle wnlwill check urine [...] Emergency Department urgently. Candidiasis of vagina 72 [id number] B37.31 Signs, symptoms and PE consistent with [...] Clancy Member ID Guarantor Name 05/09/2022 1 [facility]) [id number] Janett Villagomez [id number] Janett Villagomez 05/09/2022 2 MEDICAID-PA: [facility] Janett Villagomez [id number] Janett Villagomez Notes Date Note Type Note [...] h/o yeast infections, had gotten fluconazole from fund raiser, symptoms not improved+ dysuriano VBno known STD exposureno sores on genitalsno increased frequencyno increased urgencyno incontinenceno pressureno malodorno blood in her urineno back painno rashno feverno nausea or vomitingno MS change Paolo Bosch, DO [address] [place], [address], PA - [facility] 05/09/2022 09:18:05 OBGyn Episode No OBEpisode recorded.
--- OUTSIDE RECORDS SUMMARY | 2024-06-10 22:40 | XMS_ITS | Encounter Summary ---
Author Organization [facility] Address [address] [place] [address] Phone Care Team Providers Care Life Skills Specialist Name Role Phone Travis Ayalaica ANGELICA Primary Care Provider [phone] Reason for Visit * Reason Comments ED Admission Encounter Details Date Type Department Care Team (Late st Contact Info) Description 06/10/2024 9:01 PM EDT - Present Hospital Encounter [facility] - Patient Ping Social History Tobacco Use [...] on filedocumented in this encounter Care Teams Life Skills Specialist Relationship Specialty Start Date End Date Elana Ayala NP [facility] [facility] [place] [address] PCP - General Pediatrics 09/17/22 documented as of this encounter
--- OUTSIDE RECORDS SUMMARY | 2024-06-10 22:40 | XMS_ITS | Encounter Summary ---
Author Organization [facility] Address [address] [place] [address] Phone Care Team Providers Care Tip Bander Name Role Phone Elana Ayala [employer] Primary Care Provider Reason for Visit * Reason Onset Date Comments Med Refill 12/24/2022 Encounter Details Date Type Department Care Team (Late st Contact Info) Description 12/24/2022 Refill [facility] [address] [place] [address] [place] [address] Elana Ayala NP [address] [place] [address] [place] [address] Anxiety; Asthma, unspecified asthma severity, unspecified whether [...] [place] - 12/24/2022 3:55 PM EDT Last [facility] with EM 09/17/22 Pt has requested all these meds through [facility]. MQ documented in this encounter Plan of Treatment Not on file documented as of this encounter Visit Diagnoses Diagnosis Anxiety Anxiety state, unspecified Asthma, unspecified asthma severity, unspecified whether complicated, unspecified whether persistent Acute non-recurrent frontal sinusitis Moderate persistent extrinsic asthma without complication documented in this encounter Care Teams Tip Bander Relationship Specialty Start Date End Date Elana Ayala NP [address] [facility] [place] [address] PCP - General Pediatrics 09/17/22 documented as of this encounter
--- OUTSIDE RECORDS SUMMARY | 2024-06-10 22:40 | XMS_ITS | Patient Health Record ---
Author Organization [facility] Address [address] [facility] [place] [address] Care Team Providers Care Motor Pool Clerk Name Role Phone Lamont Vieira Primary Care Provider Kennedy Thomas Unavailable [phone] Eugenio DOLizzette Unavailable Unavailable Reason For Referral [...] Are you an other tobacco user? No Encounters Encounter Location Date Provider Diagnosis [facility] [address] [place] [address] 06/09/2024 Kennedy Daniels Plan Of Treatment Pending Test Test Name Order Date 87097 I&D ABSCESS- SIMPLE,SINGLE 020 Insurance Providers Payer Name Payer Address Payer Phone Subscriber Number Group Number Insured Name Patient Relationship to Insured Coverage Start Date Coverage End Date [facility] [address] [facility] [place] [id number] [employer] [place] Child - Insured does not have Financial Responsibility (includes legally adopted child) Medical (General) History Medical History History ICD Code Anxiety asthma Depression Surgical History Surgery Date(Month/Year) Hospitalization History Reason Date(Month/Year) 08/2019
[2024-06-10 23:23] VITALS: BP 108/53; PULSE 74; RESP 16; O2SAT 100
[2024-06-10 23:38] LABS: Appearance Urine Clear; Color Urine Dark Yellow; Glucose Urine UA Negative (Negative); Leukocyte Esterase Urine Negative (Negative); Nitrite Urine Negative (Negative); Specific Gravity - Urine >= 1.030 (1.005-1.025); Urine Blood Negative (Negative); Urine Ketones Trace mg/dL (Negative); Urine Protein Trace mg/dL (Neg-Trace)
[2024-06-10 23:43] LABS: Bacteria Urine None Seen (None Seen); Hyaline Casts Urine 0-2 /LPF (0-2); RBC Urine 0-2 /HPF (0-2); WBC Urine 0-5 /HPF (0-5)
--- NOTE | 2024-06-11 00:31 | ED_ITS ---
HPI - Abdominal Pain General Chief Complaint: Abdominal Pain Stated Complaint: abd and back pain Time Seen by Provider: 06/11/24 00:31 Source: patient Mode of arrival: ambulatory Limitations: no limitations History of Present Illness ED Provider: HPI narrative: patient complaining of lower back pain with nausea patient was seen at welfare eligibility interviewer today had a positive test transvaginal ultrasound was done which was negative for IUP patient is not planning to keep the plan for tubal ligation next week patient denied any vaginal discharge or bleed or urinary symptoms Related Data Previous Rx's ?Medication ?Instructions ?Recorded tretinoin 0.025 % topical cream 1 appl topical BEDTIME #20 grams 02/04/24 albuterol sulfate 90 mcg/actuation 2 puff inhalation Q4-6H PRN 03/03/24 aerosol inhaler shortness of breath or wheezing #8.5 grams ferrous sulfate 325 mg (65 mg 325 mg PO BID #90 tabs 03/03/24 iron) tablet,delayed release fluticasone propionate 50 1 spray intranasal DAILY #16 grams 03/03/24 mcg/actuation nasal spray,suspension (Flonase Allergy Relief) hydrocortisone 2.5 % topical cream 1 appl topical BID #20 grams 03/03/24 tacrolimus 0.1 % topical ointment 1 appl topical BID #30 grams 03/03/24 benzoyl peroxide 10 % topical 1 appl topical DAILY #237 grams 03/08/24 cleanser ketoconazole 2 % shampoo 1 appl topical 2XW #120 mL 03/15/24 ketoconazole 2 % topical cream 1 appl topical DAILY 14 days #60 03/15/24 grams buspirone 15 mg tablet 15 mg PO BID 30 days #60 tabs 05/25/24 cephalexin 500 mg capsule 500 mg PO BID 5 days #10 caps 06/09/24 Allergies Allergy/AdvReac Type Severity Reaction Status Date / Time almond Allergy Anaphylaxis Verified 06/10/24 21:08 walnut Allergy Swelling Verified 06/10/24 21:08 Review of Systems Review of Systems Yes all other systems are reviewed and are negative PMFSH Past Medical History Medical History Paronychia of great toe, right Eczema Iron deficiency anemia No known health problems Surgical History Hx of hernia repair Family History Family History Father No problems noted. Mother No problems noted. Social History Social History Housing: Apartment Patient Tobacco Use Status: Current everyday Tobacco user Smoked in Last 30 Days: No e-Cigarette/Vaping Use: Never Used Advance Directives: No Advance Directives Information Provided: No Do you have a plan to hurt others: No Plan Current occupational status: employed Current occupational exposures/hazards: No Cognitive needs: No Hearing needs: No Vision needs: No Physical Exam ED Vital Signs: Vital Signs - 24 hr 06/10/24 23:23 06/11/24 01:22 Temperature 97.9 F Pulse Rate 74 74 Respiratory Rate 16 16 Blood Pressure 108/53 L 108/53 L Pulse Oximetry 100 100 Oxygen Delivery Method Room Air Room Air BMI result Body Mass Index 24.9 Appearance: Alert. Oriented X3. No acute distress. Eyes: PERRLA, No Nystagmus ENT: Pharynx normal. Oral Mucosa moist Neck: Normal inspection. Neck supple. CVS: Normal heart rate and rhythm. Pulses normal. Respiratory: No respiratory distress. Equal air entry bilateral, no wheezing/rales/rhonchi Abdomen: Soft and nontender. Bowel sounds are present, no mass palpable, no CVA tenderness Skin: Skin warm and dry. Normal skin color. Normal skin turgor. Extremities: No lower extremity edema. No calf tenderness back: diffuse tenderness no CVA tenderness Neuro: Oriented X 3. No motor deficit. No sensory deficit.No cerebellar signs , cranial nerves II-XII intact Medical Decision Making Medical Decision Making [facility] Narrative: patient with low back pain with early plan for termination next week no suprapubic pain hCG only 80 60 patient has been be following up welfare eligibility interviewer on Thursday Lab Data [facility] Lab Attestation statement: I reviewed the patient's lab results. 06/10/24 21:14 06/10/24 21:14 Labs: Lab Results 06/10/24 06/10/24 Range/Units 21:14 23:28 WBC 4.8 (4.8-10.8) X10*3/uL RBC 4.40 (4.20-5.50) X10*6/uL Hgb 11.7 L (12.0-16.0) g/dl Hct 34.1 L (37.0-47.0) % MCV 77.5 L (80.0-98.0) fL MCH 26.6 L (27.0-33.0) pg MCHC 34.3 (31.0-35.0) g/dl RDW 15.9 (11.0-16.0) % Plt Count 241 (160-400) X10*3/uL MPV 9.9 (9.4-12.3) fL Immature Gran % (Auto) 0.0 (0.0-0.4) % Neut % (Auto) 39.9 L (45-73) % Lymph % (Auto) 46.8 H (20-40) % [place] % (Auto) 9.8 (2-11) % Eos % (Auto) 3.1 (0-4) % Baso % (Auto) 0.4 (0-2) % Lymph # (Auto) 2.3 (1.2-4.9) X10*3/uL [place] # (Auto) 0.5 (0.1-1.2) X10*3/uL Eos # (Auto) 0.2 (0.0-0.4) X10*3/uL Baso # (Auto) 0.0 (0.0-0.2) X10*3/uL Abs Immat Gran (auto) 0.00 (0.00-0.03) X10*3/uL Absolute Neuts (auto) 1.9 L (2.0-8.3) x10*3/uL Absolute Nucleated RBC 0.000 (0.0-0.012) X10*3/uL Nucleated RBC % (auto) 0.0 (0.0-0.2) /100WBC Sodium 139 (135-145) mmol/L Potassium 3.7 (3.3-5.1) mmol/L Chloride 107 (96-108) mmol/L Carbon Dioxide 24 (22-29) mmol/L Anion Gap 12 (12-20) BUN 9 (9-16) mg/dL Creatinine 0.66 (0.5-1.4) mg/dL Estim Creat Clear Calc 122.0 Estimated GFR > 60 Random Glucose 101 (60-115) mg/dL Calcium 9.2 (8.4-10.2) mg/dL Total Bilirubin 0.8 (0.0-1.0) mg/dL AST 17 (5-31) U/L ALT 11 (0-31) U/L Alkaline Phosphatase 49 (39-117) U/L Total Protein 7.7 (6.5-8.0) g/dL Albumin 4.4 (3.5-5.0) g/dL Lipase 16 (8-78) U/L Beta HCG, Quant 860 mIU/mL Urine Color Dark Yellow Urine Appearance Clear Urine pH 6.0 (5.0-9.0) Ur Specific [place] >= 1.030 H (1.005-1.025) Urine Protein Trace (Neg-Trace) mg/dL Urine Glucose (UA) Negative (Negative) mg/dL Urine Ketones Trace (Negative) mg/dL Urine Blood Negative (Negative) Urine Nitrite Negative (Negative) Ur Leukocyte Esterase Negative (Negative) Urine RBC 0-2 (0-2) /HPF Urine WBC 0-5 (0-5) /HPF Ur Squamous Epith Cells 3-5 (0-2) /HPF Urine Bacteria None Seen (None Seen) Hyaline Casts 0-2 (0-2) /LPF Medications Administered Discontinued Medications Generic Name Dose Route Start Last Admin Trade Name Freq PRN Reason Stop Dose Admin Acetaminophen 650 mg 06/11/24 01:02 06/11/24 01:13 Acetaminophen 325 Mg Tablet PO 06/11/24 01:03 650 mg ONCE ONE Administration Discharge Plan Discharge Clinical Impression: Low back pain, Early stage of Patient Disposition: Home, Self-Care Instructions: (ED), Acute Low Back Pain (ED) Additional Instructions: Drink plenty of fluid Tylenol for pain Follow up with Ob G and as scheduled for repeat hCG level Report to the ER if any pain in the pubic area Prescriptions: No Action albuterol sulfate 90 mcg/actuation HFA aerosol inhaler 2 puff inhalation Q4-6H PRN (Reason: shortness of breath or wheezing) Qty: 8.5 1RF ferrous sulfate 325 mg (65 mg iron) tablet,delayed release (DR/EC) 325 mg PO BID Qty: 90 1RF fluticasone propionate [Flonase Allergy Relief] 50 mcg/actuation spray,suspension 1 spray intranasal DAILY Qty: 16 1RF Rx Instructions: administer into each nostril hydrocortisone 2.5 % cream 1 appl topical BID Qty: 20 0RF tacrolimus 0.1 % ointment 1 appl topical BID Qty: 30 0RF benzoyl peroxide 10 % cleanser 1 appl topical DAILY Qty: 237 5RF Rx Instructions: Apply to the face daily tretinoin 0.025 % cream 1 appl topical BEDTIME Qty: 20 0RF ketoconazole 2 % shampoo 1 appl topical 2XW Qty: 120 5RF Rx Instructions: Apply to scalp twice a week, leave on for 5 min then rinse ketoconazole 2 % cream 1 appl topical DAILY 14 Days Qty: 60 0RF buspirone 15 mg tablet 15 mg PO BID 30 Days Qty: 60 2RF cephalexin 500 mg capsule 500 mg PO BID 5 Days Qty: 10 0RF Interventions: ED Discharge Assessment Last Done: 06/11/24 01:22 Discharge Date/Time: 06/11/24 01:23 Print Language: Armenian
[2024-06-11] MEDS: Acetaminophen 325 MG TABLET 650 MG PO (01:13)
[2024-06-11 01:22] VITALS: BP 108/53; PULSE 74; RESP 16; TEMP 36.6; O2SAT 100
== END 2024-06-11 01:23 | disposition home or self-care (01) ==
PROVIDERS: Emergency Provider Internal Medicine; PCP Nurse Practitioner Family
DX: M54.50 Low back pain, unspecified (principal); R10.2 Pelvic and perineal pain; Z79.899 Other long term (current) drug therapy
CPT/HCPCS: 36415; 80053; 81001; 83690; 84702; 85025; 99283; 99284

== ENCOUNTER 2024-06-17 10:27 | Outpatient (AMB) | payer OTHER, MEDICAID, SELFPAY ==
--- NOTE | 2024-06-17 10:50 | A.OFFVIS_ITS ---
Vital Signs 06/17/24 10:52 Height 5 ft 6 in Weight 158 lb BMI 25.5 BP 110/64 Blood Pressure Location Rt brachial Position Sitting Pulse 91 Pulse Source Pulse Oximeter Pulse Oximetry (%) 99 Oxygen Delivery Method Room Air Intake Visit Reasons: Asthma Pulp Machine Operator Required: No Commissary Worker: Commissary Worker offered & declined Accompanied by: Self / Same As Patient Allergies almond Allergy (Verified 06/17/24 10:56) Anaphylaxis walnut Allergy (Verified 06/17/24 10:56) Swelling Medication List - Last Reconciled 06/17/24 by Consuelo Cleveland LPN albuterol sulfate 90 mcg/actuation 2 puffs inhalation Q4-6H PRN benzoyl peroxide 10% 1 appl topical DAILY buspirone 15 mg PO BID 30 days cephalexin 500 mg PO BID 5 days ferrous sulfate 325 mg PO BID fluticasone propionate 50 mcg/actuation (Flonase Allergy Relief) 1 spray intranasal DAILY gabapentin 300 mg PO BID hydrocortisone 2.5% 1 appl topical BID ketoconazole 2% 1 appl topical 2XW ketoconazole 2% 1 appl topical DAILY 14 days tacrolimus 0.1% 1 appl topical BID tretinoin 0.025% 1 appl topical BEDTIME HPI HPI Asthma: Details: Janett is pleasant 24 year old female, current minimal smoker, with underlying asthma. She was referred by PCP for pulmonary evaluation. She reports worsening asthma symptoms over the last two months with increased wheezing, dyspnea, dry cough and chest tightness. She has been using albuterol MDI multiple times per day with suboptimal effect. Of note, she also reports tachycardia that developed around the same time. CTA negative for PE. She has upcoming Holter and evaluation through cardiology and hematology for persistent leukopenia. She reports asthma dx as a child, never requiring intubation. She reports multiple environmental allergies, previously trialed antihistamines with minimal improvement. She attempted allergen immunotherapy in the past however d/c due to noncompliance. Recent IgE 225. Denies prior use of Singulair. She reports multiple first degree relatives with asthma. She denies any occupational exposures. [facility] Medical History Paronychia of great toe, right Eczema Iron deficiency anemia No known health problems Surgical History Hx of hernia repair Family History Father No problems noted. Mother No problems noted. Social History (Updated 06/17/24 @ 10:58 by Consuelo Cleveland LPN) Housing: Apartment Patient Tobacco Use Status: Current everyday Tobacco user Cigarettes Per Day: 4 e-Cigarette/Vaping Use: Never Used Current occupational status: employed Current occupational exposures/hazards: No Cognitive needs: No Hearing needs: No Vision needs: No Review of Systems Const Denies chills, Denies excessive sweating, Denies fever(s), Denies headache(s) and Denies night sweats Eyes Denies dry eyes, Denies irritation and Reports itchy eyes ENT Reports Normal hearing present, Denies headache(s), Denies nasal congestion, Denies nasal discharge, Denies post nasal drip and Denies sore throat Card Denies chest pain, Denies chest pain at rest, Denies chest pain with activity, Denies claudication, Denies leg edema, Reports dyspnea on exertion, Denies orthopnea and Denies paroxysmal nocturnal dyspnea Resp Denies change in phlegm color, Denies chest congestion, Reports cough, Denies excessive phlegm production, Denies pain on inspiration, Denies pain with cough, Reports dyspnea on exertion, Denies stridor and Reports wheezing Musc Denies myalgias Neuro Reports Normal hearing present and Denies headache(s) Endo Denies excessive sweating Paul/Lymph Denies lymphadenopathy Aller/Immun Reports itchy eyes, Reports seasonal rhinorrhea and Reports wheezing Physical Exam Vital Signs: Last Vital Signs Pulse 91 06/17/24 10:52 BP 110/64 06/17/24 10:52 Pulse Ox 99 06/17/24 10:52 Oxygen Delivery Method Room Air 06/17/24 10:52 BMI result Body Mass Index 25.5 Neuro Cranial nerves: Yes Normal hearing present Assessment & Plan Assessment & Plan (1) Asthma: Code(s): J45.909 - Unspecified asthma, uncomplicated Category: Medical Qualifiers: Asthma severity: moderate Asthma persistence: persistent Asthma complication type: uncomplicated Qualified Code(s): J45.40 - Moderate pers istent asthma, uncomplicated (2) Smoker: Code(s): F17.200 - Nicotine dependence, unspecified, uncomplicated Category: Social Hx (3) Allergic rhinitis: Code(s): J30.9 - Allergic rhinitis, unspecified Category: Medical Plan Janett presents with worsening asthma control. Will empirically send Breo as well as nebulizer for home use, consider singulair in the future. Discussed importance of good oral hygiene. Will send for PFT. All questions were answered and patient is in agreement of plan. Will follow up in 6-8 weeks or sooner if needed. Orders: Orders PFT pulmonary function test Today J45.20 - Mild intermittent asthma, uncomplicated Medications: New fluticasone furoate-vilanterol 100-25 mcg/dose (Breo Ellipta) 1 inh inhalation DAILY 60 ea 3RF albuterol sulfate 2.5 mg (3 mL) inhalation Q4-6H PRN 180 mL 0RF shortness of breath or wheezing Coding Level of Care Code New Pt Level 4 (25235) Diagnoses Moderate persistent asthma without complication J45.40 Asthma severity: moderate Asthma persistence: persistent Asthma complication type: uncomplicated Smoker F17.200 Allergic rhinitis J30.9
[2024-06-17 10:52] VITALS: BP 110/64; PULSE 91; O2SAT 99; BMI 25.5
--- OUTSIDE RECORDS SUMMARY | 2024-06-17 12:30 | XMS_ITS ---
Author Organization [facility] Address [address] [place] [id number] Care Team Providers Care Master Printer Name Role Phone Fabricio VILLAVICENCIO, Lamont Primary Care Provider Unav ailable Kennedy Daniels Unavailable [phone] Eugenio DO, Lizzette Unavailable Unavailable Encounters Encounter Location Date Provider Diagnosis [address] [address] 06/10/2024 Kennedy Daniels Plan Of Treatment No Information Progress Notes * Janett VILLAGOMEZ EDOB: [birth year] (24 yo F)Acc No.[id number]:06/10/2024 Progress Notes Patient:?Janett VILLAGOMEZ Provider:?Kennedy Daniels DPM :2000???Age:24 Y???Sex:Female D ate:06/10/2024 Address:[address] [place] [address] [id number] Pcp:SAUD Melendez Subjective: * Chief Complaints: * ??? * Medical History:? Objective: * Vitals:? Assessment: Plan: * Treatment: * Images: * The named appointment provid er may or may not be the originator of this progress note, and it is not deemed complete until electronically signed by the appointment provider. Sign off status: Pending * Provider:?Kennedy Daniels DPM Date:?2024 Generated for Daya knox/Renny/eTransmitting on:?06/17/2024 12:30 PM EDT
--- OUTSIDE RECORDS SUMMARY | 2024-06-17 12:30 | XMS_ITS | Clinical Summary ---
Author Organization [facility] Address [address] [place] [address] Phone Care Team Providers Care Filling And Packing Supervisor Name Role Phone Travis Ayalaica ANGELICA Primary Care Provider [phone] Allergies Active Allergy Reactions Criticality Noted Date Comments [place] (Diagnostic) Food 09/23/2017 [place] Medications mometasone 0.1 % creamIndications :Other atopic [...] 0 Refills, Maintenance, 12/17/22 11:56:00 EDT, Capsule, [facility]/pharmacy #[id number], Partial fill upon patient request if the [...] smear of cervix 07/31/2021 Overview (07/31/2021): Seeing [facility] History of recurrent UTIs 07/31/2021 Overview (07/31/2021): Sees Urology Influenza vaccine refused 07/02/2021 Generalized anxiety disorder 08/03/2017 Overview (09/26/2020): Anxiety (300.02) Onset: 08/03/2017 Added by: Lizzette Becker 09/26/2020 review of chart - Appears that patient is seen by an outside office for this and treated with amitriptyline Assessment & Plan (01/06/2023 11:30 AM EDT): Continue hydroxyzine as needed for panic attacks Refer to [facility] to discuss trauma and anxiety response Aware that is short term and given information for skilled nursing therapy Assessment & Plan (09/17/2022 4:34 PM [...] Team Description 06/10/2024 9:01 PM EDT - 06/11/2024 1:23 AM EDT Hospital Encounter [facility] - Patient Ping 05/16/2024 8:26 AM EST - 05/16/2024 4:44 PM EST Hospital Encounter [facility] - Patient Ping from Last 3 Months [...] complete this topic Procedures * Due to [place] [employer] law, this organization might not be sharing sensitive test results. Procedure Name Priority Date/Time Associated Diagnosis Comments SURESWAB (ADV) VAGINITIS PLUS, TMA Routine 01/05/2023 3:38 PM EDT Vaginal discharge from Last 3 Months or Most Recently Relevant to Health Maintenance Results * Due to [place] [employer] law, this organization might not be sharing sensitive test results. * (ABNORMAL) SureSwab Advanced (TMA)- BV, CT/NG, CV, TV (01/05/2023 3:38 PM EDT) BACTERIAL VAGINOSIS TEST POSITIVE(A) (NEG) [facility] Comment: Bacterial vaginosis targets by PCR detected in this patient's sample. ?? Note: This assay uses real time green marketing specialist-mediated amplification (TMA) for detection and quantification of ribosomal RNA from bacteria associated with bacterial vaginosis (BV), including Lactobacillus (L. gasseri, L. crispatus, and L. jensenii), Gardnerella vaginalis, and Atopobium vaginae. Mickey Species NEGATIVE (NEG) [facility] Comment: No mickey species group (C. albicans, C. tropicalis, C. parapsilosis, C. dubliniensis) targets by PCR detected in this patient's sample. Mickey Glabrata, HENRY NEGATIVE (NEG) [facility] Comment:No Mickey glabrata targets by PCR detected in this patient's sample. SureSwab, T.vaginalis RNA NEGATIVE (NEG) [facility] Comment: No Trichomonas vaginalis targets by PCR detected in this patient's sample. ?? Note: This assay uses real time green marketing specialist-mediated amplification (TMA) for detection and quantification of ribosomal RNA from organisms associated with Mickey species group (C. albicans, C. tropicalis, C. parapsilosis, C. dubliniensis), Mickey glabrata, and Trichomonas vaginalis. Chlamydia Trachomatis, Amplified NEGATIVE (NEG) [facility] Comment: No Chlamydia Trachomatis RNA detected in this patient's sample ? (REFERENCE RANGE/NORMAL VALUE: NOT DETECTED) ? Note: This test uses green marketing specialist- mediated amplification method to detect rRNA from C. Trachomatis N.GONORRHOEAE AMP PROBE NEGATIVE (NEG) [facility] Comment: No Neisseria Gonorrhoeae RNA detected in this patient's sample ? (REFERENCE RANGE/NORMAL VALUE: NOT DETECTED) ? NOTE: This test uses green marketing specialist-mediated amplification method to detect rRNA from N.Gonorrhoeae. [...] risk of sexual abuse. Consult the [facility] if needed. Contact phone number . Therapeutic failure or success cannot be determined with the Aptima Combo2 assay since nucleic acid may persist following appropriate antimicrobial therapy. The Centers for Disease Control and Prevention (CDC) recommends confirmatory retesting using culture or a different nucleic acid amplification test when positive results occur, if indicated. Testing performed or reported by [facility], a Service of [facility], [facility] [place] [address] Roberto Quinn MD, Shingle Catcher [facility]# [id number] Swab (Vagina) 01/05/2023 3:3 8 PM EDT 01/05/2023 11:10 PM EDT Ban Wendi DISPATCHER [facility] MICROBIOLOGY - GENERAL ORD ERABLES Final Result [facility] from Last 3 Months or Most Recently Relevant to Health Maintenance Insurance [facility] COMMERCIAL [facility] [employer] [place] [id number] Care Teams Filling And Packing Supervisor Relationship Specialty Start Date End Date Elana Ayala NP [address] [place] [address] PCP - General Pediatrics 09/17/22
--- OUTSIDE RECORDS SUMMARY | 2024-06-17 12:30 | XMS_ITS | Encounter Summary ---
Author Organization [facility] Address [address] [place] [address] Phone Care Team Providers Care Mycology Teacher Name Role Phone Elana Ayala NP Primary Care Provider [phone] Reason for Visit * Reason Comments Med Refill Encounter Details Date Type Department Care Team (Late st Contact Info) Description 09/15/2018 Refill [facility] [address] [place] [address] [place] [address] Lizzette Becker, DO Anxiety Social History Tobacco [...] unspecified documented in this encounter Care Teams Mycology Teacher Relationship Specialty Start Date End Date Elana Ayala NP [address] [place] [address] [place] [address] PCP - General Pediatrics 09/17/22 documented as of this encounter
--- OUTSIDE RECORDS SUMMARY | 2024-06-17 12:30 | XMS_ITS | Encounter Summary ---
Author Organization [facility] Address [address] [place] [address] Phone Care Team Providers Care Strip Roller Name Role Phone Travis Ayalaica ANGELICA Primary Care Provider [phone] Reason for Visit * Reason Comments ED Admission Encounter Details Date Type Department Care Team (Late st Contact Info) Description 06/10/2024 9:01 PM EDT - 06/11/2024 1:23 AM EDT Hospital Encounter [facility] - Patient Ping Social History [...] Refills, Maintenance, 12/17/22 11:56:00 EDT, Capsule, [id number], Partial fill upon patient request if the [...] on filedocumented in this encounter Care Teams Strip Roller Relationship Specialty Start Date End Date Elana Ayala NP [address] [place] [address] PCP - General Pediatrics 09/17/22 documented as of this encounter
--- OUTSIDE RECORDS SUMMARY | 2024-06-17 12:30 | XMS_ITS | Encounter Summary ---
Author Organization [facility] Address [address] [place] [address] Phone Care Team Providers Care Coal Washer Name Role Phone Elana Ayala NP Primary Care Provider [phone] Reason for Visit * Reason Comments Med Refill Encounter Details Date Type Department Care Team (Late st Contact Info) Description 09/11/2018 Refill [facility] [address] [place] [address] [place] [address] Lizzette Becker, Amenorrhea Social History Tobacco Use [...] menstruation documented in this encounter Care Teams Coal Washer Relationship Specialty Start Date End Date Elana Ayala NP [address] [place] [address] [place] [address] PCP - General Pediatrics 09/17/22 documented as of this encounter
--- OUTSIDE RECORDS SUMMARY | 2024-06-17 12:30 | XMS_ITS | Encounter Summary ---
Author Organization [facility] Address [address] [place] [address] Phone Care Team Providers Care Wood Machinist Name Role Phone Elana Ayala NP Primary Care Provider [phone] Reason for Visit * Reason Comments Med Refill Encounter Details Date Type Department Care Team (Late st Contact Info) Description 07/29/2019 Refill [facility] [address] [place] [address] [address] [place] [phone] Lizzette Becker DO Other atopic dermatitis Social [...] dermatitis documented in this encounter Care Teams Wood Machinist Relationship Specialty Start Date End Date Elana Ayala NP [address] [place] [address] [place] [address] PCP - General Pediatrics 09/17/22 documented as of this encounter
--- OUTSIDE RECORDS SUMMARY | 2024-06-17 12:30 | XMS_ITS | Encounter Summary ---
Author Organization [facility] Address [address] [place] [address] Phone Care Team Providers Care Security Professionals Name Role Phone Elana Ayala NP Primary Care Provider Reason for Visit * Reason Onset Date Comments Med Refill Med Refill 07/02/2018 Encounter Details Date Type Department Care Team (Late st Contact Info) Description 06/22/2018 Refill [facility] [address] [place] [address] [place] [address] Lizzette Becker DO Social History Tobacco Use [...] on filedocumented in this encounter Care Teams Security Professionals Relationship Specialty Start Date End Date Elana Ayala NP [address] [place] [address] [place] [address] PCP - General Pediatrics 09/17/22 documented as of this encounter
--- OUTSIDE RECORDS SUMMARY | 2024-06-17 12:30 | XMS_ITS | Patient Health Record ---
Author Organization [facility] Address [address] [place] [address] Care Team Providers Care Aircraft Designer Name Role Phone Lamont Vieira Primary Care Provider Kennedy Thomas Unavailable [phone] Eugenio DOLizzette Unavailable Unavailable Reason For Referral [...] No Encounters Encounter Location Date Provider Diagnosis [facility] [address] [place] [address] 06/09/2024 Kennedy Daniels Plan Of Treatment Pending Test Test Name Order Date [address]4030 I&D ABSCESS- SIMPLE,SINGLE 020 Insurance Providers Payer Name Payer Address Payer Phone Subscriber Number Group Number Insured Name Patient Relationship to Insured Coverage Start Date Coverage End Date [facility] [address] [facility] [place] [id number] [employer] [place] Child - Insured does not have Financial Responsibility (includes legally adopted child) Medical (General) History Medical History History ICD Code Anxiety asthma Depression Surgical History Surgery Date(Month/Year) Hospitalization History Reason Date(Month/Year) 08/2019
--- OUTSIDE RECORDS SUMMARY | 2024-06-17 12:30 | XMS_ITS | Data Portability ---
Author Organization JAYSON Bautista s, [facility] Address [address] [place] [address] Care Team Providers Care Swatch Folder Name Role Phone DAVIDEDEBORA AL Primary Care Provider Assessment No assessment recorded. Plan of Treatment Reminders Order Date Submit Date Provider Last Modified By Organization Details Last Modified Time Details Appointments None recorded. Lab culture, urine 2022 023 SALO [facility]), [facility] [place], [address], 3 20:06:19 vaginal pathogens panel, HENRY+probe, vaginal fluid 2022 023 DEPEW [facility]), [address] [place] [address], [address], 3 20:06:18 rapid strep group A, throat 2022 023 [email or web address] [facility], [address] [place] [address], [address], 3 09:04:28 urinalysis , dipstick 2022 023 [email or web address] [facility], [facility] [place], [address], 3 09:04:28 test, urine 2022 023 [email or web address] [facility], [facility] [place], [address], 09:04:28 culture, respirator y 2022 023 [facility], [facility], [place], [address], 16:06:41 Referral None recorded. Procedures None recorded. Surgeries None recorded. Imaging None recorded. Medication Orders Diflucan 150 mg tablet 2022 023 [facility] #[id number], [address] [place], [address], 16:20:37 miconazole nitrate 2 % topical cream 2022 023 [facility] #[id number], [address] [place], [address], 16:30:47 Patient TargetsNo targets recorded. Patient Instructions Encounter Date Encounter Id Patient Instructions Last Modified By Organization Details Last Modified Time 05/09/2022 [id number] sore throat: car e instructions Not available 05/09/2022 09:04:28 sore throat: car e instructions Not available 05/09/2022 09:04:28 Reason for Referral None Reported. Results Created Date Observation Date Name Description Value Unit Range Abnormal Flag Note LastModifiedBy Organization Detail LastModifiedTime 05/09/1905/10/2022 NUSWA B VAGIN ITIS PLUS (VG+) atopobium vaginae LOW - 0 score Not Available [facility] ([facility]) [address] [facility], [place], [address], 05/11/2022 20:06:18 05/09/1905/10/2022 NUSWA B VAGIN ITIS PLUS (VG+) bvab 2 LOW - 0 score Not Available [facility] ([facility]) [address] [facility], [place], [address], 05/11/2022 20:06:18 05/09/1905/10/2022 NUSWA B VAGIN ITIS [...] Drug Admin istra tion. Not Available [facility] ([facility]) [address] [place], [address], 05/11/2022 20:06:18 05/09/19 23 05/10/2022 NUSWA B VAGIN ITIS PLUS (VG+) mickey albicans, HENRY NEGATI VE negati ve Not Available [facility] ([facility]) [address] [place], [address], 05/11/2022 20:06:18 05/09/19 23 05/10/2022 NUSWA B VAGIN ITIS PLUS (VG+) mickey glabrata, HENRY NEGATI VE negati ve Not Available [facility] ([facility]) [address] [place], [address], 05/11/2022 20:06:18 05/09/19 23 05/11/2022 NUSWA B VAGIN ITIS PLUS (VG+) trich vag by HENRY NEGATI VE negati ve Not Available [facility] ([facility]) [address] [place], [address], 05/11/2022 20:06:18 05/09/19 23 05/11/2022 NUSWA B VAGIN ITIS PLUS (VG+) chlamydia trachomatis, HENRY NEGATI VE negati ve Not Available [facility] ([facility]) [address] [place], [address], 05/11/2022 20:06:18 05/09/19 23 05/11/2022 NUSWA B VAGIN ITIS PLUS (VG+) neisseria gonorrhoeae, HENRY NEGATI VE negati ve Not Available [facility] ([facility]) [address] [place], [address], 05/11/2022 20:06:18 05/09/19 23 05/11/2022 URINE CULTU RE, ROUTI NE urine culture, routine FINAL REPORT Not Available [facility] ([facility]) [address] [place], [address], 05/11/2022 20:06:19 05/09/19 23 05/11/2022 URINE CULTU RE, ROUTI NE result 1 NO GROWTH Not Available [facility] ([facility]) [address] [place], [address], 05/11/2022 20:06:19 05/09/19 23 05/12/2022 UPPER RESPI RATOR Y CULTU RE upper respiratory culture FINAL REPORT Not Available [facility] ([facility]) [address] [place], [address], 05/12/2022 16:06:41 05/09/19 23 05/12/2022 UPPER RESPI RATOR Y CULTU RE result 1 COMMEN T Routi ne respi rator y braeden Not Available [facility] ([facility]) [address] [place], [address], 05/12/2022 16:06:41 05/09/19 23 05/09/2022 urina lysis , dipst ick Unknown Analyte Normal = light yellow Not Available [facility] [address] [place] [address], [place], [address], 05/09/2022 08:44:51 05/09/19 23 05/09/2022 urina lysis , dipst ick Unknown Analyte Dark Yellow Not Available 2099laureen lewis [address], [place], [address], 05/09/2022 08:44:51 05/09/19 23 05/09/2022 urina lysis , dipst ick Unknown Analyte Normal = clear Not Available laureen lewis [address], [place], [address], 05/09/2022 08:44:51 05/09/1905/09/2022 urina lysis , dipst ick Unknown Analyte Slight ly Cloudy Not Available laureen lewis [address], [place], [address], 05/09/2022 08:44:51 05/09/19 23 05/09/2022 urina lysis , dipst ick Unknown Analyte Normal = negati ve Not Available laureen lewis [address], [place], [address], 05/09/2022 08:44:51 05/09/19 23 05/09/2022 urina lysis , dipst ick Unknown Analyte Negati ve Not Available laureen lewis [address], [place], [address], 05/09/2022 08:44:51 05/09/19 23 05/09/2022 urina lysis , dipst ick Unknown Analyte Normal = Negati ve Not Available laureen lewis [address], [place], [address], 05/09/2022 08:44:51 05/09/19 23 05/09/2022 urina lysis , dipst ick Unknown Analyte Negati ve Not Available laureen lewis [address], [place], [address], 05/09/2022 08:44:51 05/09/19 23 05/09/2022 urina lysis , dipst ick Unknown Analyte Normal = Negati ve Not Available [facility] [address], [place], [address], 05/09/2022 08:44:51 05/09/19 23 05/09/2022 urina lysis , dipst ick Unknown Analyte Negati ve Not Available [address], [place], [address], 05/09/2022 08:44:51 05/09/19 23 05/09/2022 urina lysis , dipst ick Unknown Analyte Normal = 1.010, 1.015, 1.020 Not Available [address], [place], [address], 05/09/2022 08:44:51 05/09/19 23 05/09/2022 urina lysis , dipst ick Unknown Analyte 1.020 Not Available [address] [place] [address], [place], [address], 05/09/2022 08:44:51 05/09/19 23 05/09/2022 urina lysis , dipst ick Unknown Analyte Normal = Negati ve Not Available [address], [place], [address], 05/09/2022 08:44:51 05/09/19 23 05/09/2022 urina lysis , dipst ick Unknown Analyte Negati ve Not Available [address] [place] [address], [place], [address], 05/09/2022 08:44:51 05/09/19 23 05/09/2022 urina lysis , dipst ick Unknown Analyte Normal = 6.5, 7.0, 7.5, 8.0 Not Available [address] [place] [address], [place], [address], 05/09/2022 08:44:51 05/09/19 23 05/09/2022 urina lysis , dipst ick Unknown Analyte 7.0 Not Available [address] [place] [address], [place], [address], 05/09/2022 08:44:51 05/09/19 23 05/09/2022 urina lysis , dipst ick Unknown Analyte Normal = Negati ve Not Available [address] [place] [address], [place], [address], 05/09/2022 08:44:51 05/09/19 23 05/09/2022 urina lysis , dipst ick Unknown Analyte Trace Not Available [address] [place] [address], [place], [address], 05/09/2022 08:44:51 05/09/19 23 05/09/2022 urina lysis , dipst ick Unknown Analyte Normal = 0.2, 1.0 Not Available [address] [place] [address], [place], [address], 05/09/2022 08:44:51 05/09/19 23 05/09/2022 urina lysis , dipst ick Unknown Analyte 0.2 E.U./d L Not Available [address] [place] [address], [place], [address], 05/09/2022 08:44:51 05/09/19 23 05/09/2022 urina lysis , dipst ick Unknown Analyte Normal = Negati ve Not Available [address] [place] [address], [place], [address], 05/09/2022 08:44:51 05/09/19 23 05/09/2022 urina lysis , dipst ick Unknown Analyte Negati ve Not Available [address] [place] [address], [place], [address], 05/09/2022 08:44:51 05/09/19 23 05/09/2022 urina lysis , dipst ick Unknown Analyte Normal = Negati ve Not Available [address], [place], [address], 05/09/2022 08:44:51 05/09/1905/09/2022 urina lysis , dipst ick Unknown Analyte Negati ve Not Available [address], [place], [place], [address], 05/09/2022 08:44:51 05/09/19 23 05/09/2022 pregn karo test, urine Unknown Analyte Normal = Negati ve Not Available [address], [place], [address], 05/09/2022 08:44:59 05/09/19 23 05/09/2022 pregn karo test, urine Unknown Analyte negati ve Not Available [address], [place], [address], 05/09/2022 08:44:59 05/09/19 23 05/09/2022 rapid strep group A, throa t Unknown Analyte Normal = Negati ve Not Available [address] [place] [address], [place], [address], 05/09/2022 08:39:39 05/09/19 23 05/09/2022 rapid strep group A, throa t Unknown Analyte negati ve Not Available [address] [place] [address], [place], [address], 05/09/2022 08:39:39 Result Notes None recorded. Problems Name Problem SNOMED Code Status Onset Date Resolution Date Notes Provider Name and Address Organization Details Recorded Time Eczema 78032167 Active 023 Keri jane PA - [facility] 05/09/2022 08:43:40 Anxiety 22138378 Active 023 Keri jane [facility] - [facility] [...] Address Organization Details Last Updated DateTime 3 56247.1 9 g 21.3 kg/m2 167.64 cm 96 % 96 % 0 67 /min 18 /min 98.5 [degF] 102 mm[Hg] 64 mm[Hg] Keri Hart [facility] 08:47:05 Social History Question Answer Notes LastModified [...] SNOMED-CT Code Diagnosis ICD10 Code Diagnosis Note [id number] [facility] [address] [place] [address] 02/14/2018 13:47:21 02/14/2018 15:00:37 [id number] 2100[address]_Ruben gordon[address] [address] 11/25/2018 15:21:28 11/25/2018 16:11:32 [id number] 2[facility] heidi[address] [address] 12/26/2018 15:03:32 12/26/2018 15:29:42 [id number] [facility] [address] [place] [address] 08/29/2020 08:03:19 08/29/2020 08:56:19 [id number] Paolo Bosch DO [facility] [address] [place] [address] 05/09/2022 08:21:02 05/09/2022 09:18:35 Acute pharyngitis 247102130 J02.9 Rapid strep NEGATIVE Likely viral etiology [...] up in the Emergency Department urgently. Dysuria 27431046 R30.0 UA unrevealin Joelle wnlwill check urine [...] Emergency Department urgently. Candidiasis of vagina 72 357361 B37.31 Signs, symptoms and PE consistent with [...] Clancy Member ID Guarantor Name 05/09/2022 1 [facility] [id number] Janett Villagomez [id number] Janett Villagomez 05/09/2022 2 [place]: [facility] Janett Villagomez [id number] Janett Villagomez Notes Date Note Type Note [...] h/o yeast infections, had gotten fluconazole from textile technical officer, symptoms not improved+ dysuriano VBno known STD exposureno sores on genitalsno increased frequencyno increased urgencyno incontinenceno pressureno malodorno blood in her urineno back painno rashno feverno nausea or vomitingno MS change Paolo Bosch, DO [address] [place], [address], PA - [facility] 05/09/2022 09:18:05 OBGyn Episode No OBEpisode recorded.
--- OUTSIDE RECORDS SUMMARY | 2024-06-17 12:30 | XMS_ITS | Encounter Summary ---
Author Organization [facility] Address [address] [place] [address] Phone Care Team Providers Care Radio Journalist Name Role Phone Elana Ayala NP Primary Care Provider [phone] Encounter Details Date Type Department Care Team (Late st Contact Info) Description 04/27/2014 Conversion Encounter [facility] [address] [place] [address] [place] [address] Social History Tobacco Use Types Packs/Day Years [...] on filedocumented in this encounter Care Teams Radio Journalist Relationship Specialty Start Date End Date Elana Ayala NP [address] [place] [address] [place] [address] PCP - General Pediatrics 09/17/22 documented as of this encounter
--- OUTSIDE RECORDS SUMMARY | 2024-06-17 12:30 | XMS_ITS | Encounter Summary ---
Author Organization [facility] Address [address] [place] [address] Phone Care Team Providers Care Manager Recruiting Name Role Phone Elana Ayala CHANNEL LIP WETTER Primary Care Provider [phone] Reason for Visit * Reason Onset Date Comments Med Refill 12/24/2022 Encounter Details Date Type Department Care Team (Late st Contact Info) Description 12/24/2022 Refill [facility] [address] [place] [address] [place] [address] Elana Ayala NP [facility] [facility] [place] [address] Social History Tobacco Use Types Packs/Day Years [...] on filedocumented in this encounter Care Teams Manager Recruiting Relationship Specialty Start Date End Date Elana Ayala NP [address] [facility] [place] [address] PCP - General Pediatrics 09/17/22 documented as of this encounter
--- OUTSIDE RECORDS SUMMARY | 2024-06-17 12:30 | XMS_ITS ---
Author Organization [facility] Address [address] [place] [address] Care Team Providers Care Building Estimator Name Role Phone Lamont Vieira Primary Care Provider Unav ailable Kennedy Daniels Unavailable [phone] Eugenio DO, Lizzette Unavailable Unavailable REASON FOR VISIT ingrown nail with red line Encounters Encounter Location Date Provider Diagnosis [address] [address] 06/09/2024 Kennedy Daniels Plan Of Treatment No Information Progress Notes * Janett VILLAGOMEZ EDOB: 0 (24 yo F)Acc No.[id number]:06/09/2024 Patient:?Janett VILLAGOMEZ :2000???Age:24 Y???Sex:Female Address: [place], [address] * true * Date:? Generated for Printi ng/Faleeannag/eTransmitting on:?06/17/2024 12:29 PM EDT
--- OUTSIDE RECORDS SUMMARY | 2024-06-17 12:30 | XMS_ITS | Encounter Summary ---
Author Organization [facility] Address [address] [place] [address] Phone Care Team Providers Care Ad Writer Name Role Phone Elana Ayala RETIREMENT OFFICER Primary Care Provider [phone] Reason for Visit * Reason Onset Date Comments Med Refill 12/24/2022 Encounter Details Date Type Department Care Team (Late st Contact Info) Description 12/24/2022 Refill [facility] [address] [place] [address] [place] [address] Elana Ayala NP [address] [place] [address] [place] [address] Anxiety; Asthma, unspecified asthma severity, unspecified whether [...] MA - 12/24/2022 3:55 PM EDT Last [facility] with EM 09/17/22 Pt has requested all these meds through [employer]. 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
--- OUTSIDE RECORDS SUMMARY | 2024-06-17 12:30 | XMS_ITS | Encounter Summary ---
Author Organization [facility] Address [address] [place] [address] Phone Care Team Providers Care Car Driver Name Role Phone Elana Ayala NP Primary Care Provider [phone] Reason for Visit * Reason Comments Med Refill Encounter Details Date Type Department Care Team (Late st Contact Info) Description 03/21/2018 Refill [facility] [address] [place] [address] [place] [address] Lizzette Becker DO Anxiety and depression Social [...] depression documented in this encounter Care Teams Car Driver Relationship Specialty Start Date End Date Elana Ayala NP [address] [place] [address] [place] [address] PCP - General Pediatrics 09/17/22 documented as of this encounter
--- OUTSIDE RECORDS SUMMARY | 2024-06-17 12:30 | XMS_ITS | Encounter Summary ---
Author Organization [facility] Address [address] [place] [address] Phone Care Team Providers Care Drying Room Supervisor Name Role Phone Elana Ayala NP Primary Care Provider [phone] Reason for Visit * Reason Comments Med Refill Encounter Details Date Type Department Care Team (Late st Contact Info) Description 07/23/2018 Refill [facility] [address] [place] [address] [place] [address] Lizzette Becker, Amenorrhea Social History Tobacco Use [...] menstruation documented in this encounter Care Teams Drying Room Supervisor Relationship Specialty Start Date End Date Elana Ayala NP [address] [place] [address] [place] [address] PCP - General Pediatrics 09/17/22 documented as of this encounter
== END 2024-06-17 11:23 | disposition home or self-care (01) ==
LOC: HO.HPSW 10:28
PROVIDERS: PCP Nurse Practitioner Family; Referring Provider Nurse Practitioner Family; Visit Provider Nurse Practitioner Family
DX: J45.40 Moderate persistent asthma, uncomplicated (principal); F17.200 Nicotine dependence, unspecified, uncomplicated; J30.9 Allergic rhinitis, unspecified
CPT/HCPCS: 99204

== ENCOUNTER → 2024-07-01 08:01 | Outpatient (REF) | payer OTHER, MEDICAID, SELFPAY ==
--- NOTE | 2024-07-01 08:03 | HM_ITS ---
Conclusion: 1. Patient was monitored for total period of 3 days 2. Baseline was normal sinus rhythm with average heart of 75 beats per minute 3. No significant pauses noted 4. Frequent PACs noted with total burden of 11.5% without significant prolonged runs 5. Occasional PVCs noted 6. Patient marked the counter 2 times, correlating with isolated PVCs MTDD
--- OUTSIDE RECORDS SUMMARY | 2024-07-01 08:13 | XMS_ITS | Encounter Summary ---
Author Organization [facility] Address [address] [place] [address] Phone Care Team Providers Care Bore Miner Operator Name Role Phone Elana Ayala NP Primary Care Provider [phone] Reason for Visit * Reason Comments Med Refill Encounter Details Date Type Department Care Team (Late st Contact Info) Description 03/21/2018 Refill [facility] [address] [place] [address] [place] [address] Lizzette Becker DO Anxiety and depression Social [...] depression documented in this encounter Care Teams Bore Miner Operator Relationship Specialty Start Date End Date Elana Ayala NP [address] [place] [address] [place] [address] PCP - General Pediatrics 09/17/22 documented as of this encounter
--- OUTSIDE RECORDS SUMMARY | 2024-07-01 08:13 | XMS_ITS | Encounter Summary ---
Author Organization [facility] Address [address] [place] [address] Phone Care Team Providers Care Organ Pipe Voicer Name Role Phone Elana Ayala NP Primary Care Provider [phone] Reason for Visit * Reason Comments Med Refill Encounter Details Date Type Department Care Team (Late st Contact Info) Description 09/11/2018 Refill [facility] [address] [place] [address] [place] [address] Lizzette Becker, Amenorrhea Social History Tobacco Use [...] menstruation documented in this encounter Care Teams Organ Pipe Voicer Relationship Specialty Start Date End Date Elana Ayala NP [address] [place] [address] [place] [address] PCP - General Pediatrics 09/17/22 documented as of this encounter
--- OUTSIDE RECORDS SUMMARY | 2024-07-01 08:13 | XMS_ITS | Encounter Summary ---
Author Organization [facility] Address [address] [place] [address] Phone Care Team Providers Care Slurry Plant Operator Name Role Phone Elana Ayala NP Primary Care Provider Encounter Details Date Type Department Care Team (Late st Contact Info) Description 04/27/2014 Conversion Encounter [facility] [address] [place] [address] [place] [address] Social History Tobacco Use Types Packs/Day Years [...] on filedocumented in this encounter Care Teams Slurry Plant Operator Relationship Specialty Start Date End Date Elana Ayala NP [address] [place] [address] [place] [address] PCP - General Pediatrics 09/17/22 documented as of this encounter
--- OUTSIDE RECORDS SUMMARY | 2024-07-01 08:13 | XMS_ITS | Encounter Summary ---
Author Organization [facility] Address [address] [place] [address] Phone Care Team Providers Care Leather Production Machine Operator Name Role Phone Elana Ayala HYDRAMATIC SPECIALIST Primary Care Provider Reason for Visit * Reason Onset Date Comments Med Refill 12/24/2022 Encounter Details Date Type Department Care Team (Late st Contact Info) Description 12/24/2022 Refill [facility] [address] [place] [address] [place] [address] Elana Ayala NP [facility] [place] [address] Social History Tobacco Use Types Packs/Day Years [...] on filedocumented in this encounter Care Teams Leather Production Machine Operator Relationship Specialty Start Date End Date Elana Ayala NP [address] [place] [address] PCP - General Pediatrics 09/17/22 documented as of this encounter
--- OUTSIDE RECORDS SUMMARY | 2024-07-01 08:13 | XMS_ITS | Encounter Summary ---
Author Organization [facility] Address [address] [place] [address] Phone Care Team Providers Care Supply Chain Project Manager Name Role Phone Elana Ayala NP Primary Care Provider [phone] Reason for Visit * Reason Comments Med Refill Encounter Details Date Type Department Care Team (Late st Contact Info) Description 07/23/2018 Refill [facility] [address] [place] [address] [place] [address] Lizzette Becker, Amenorrhea Social History Tobacco Use [...] menstruation documented in this encounter Care Teams Supply Chain Project Manager Relationship Specialty Start Date End Date Elana Ayala NP [address] [place] [address] [place] [address] PCP - General Pediatrics 09/17/22 documented as of this encounter
--- OUTSIDE RECORDS SUMMARY | 2024-07-01 08:13 | XMS_ITS | Clinical Summary ---
Author Organization [facility] Address [address] [place] [address] Phone Care Team Providers Care Intelligence Group Supervisor Name Role Phone Travis Ayalaica ANGELICA Primary Care Provider [phone] Allergies Active Allergy Reactions Criticality Noted Date Comments [place] (Diagnostic) Food 09/23/2017 [place] Medications mometasone 0.1 % creamIndications :Other atopic [...] 0 Refills, Maintenance, 12/17/22 11:56:00 EDT, Capsule, [facility]/pharmacy #[id number], Partial fill upon patient request if the [...] smear of cervix 07/31/2021 Overview (07/31/2021): Seeing Client Services Representative History of recurrent UTIs 07/31/2021 Overview (07/31/2021): [...] is short term and given information for shelter therapy Assessment & Plan (09/17/2022 4:34 PM [...] - 05/16/2024 4:44 PM EST Hospital Encounter [facility] - Patient Ping from Last 3 [...] complete this topic Procedures * Due to [place] [employer] law, this organization might not be sharing sensitive test results. Procedure Name Priority Date/Time Associated Diagnosis Comments SURESWAB (ADV) VAGINITIS PLUS, TMA Routine 01/05/2023 3:38 PM EDT Vaginal discharge from Last 3 Months or Most Recently Relevant to Health Maintenance Results * Due to [place] [employer] law, this organization might not be sharing sensitive test results. * (ABNORMAL) SureSwab Advanced (TMA)- BV, CT/NG, CV, TV (01/05/2023 3:38 PM EDT) BACTERIAL VAGINOSIS TEST POSITIVE(A) (NEG) [facility] Comment: Bacterial vaginosis targets by PCR detected in this patient's sample. ?? Note: This assay uses real time top closer-mediated amplification (TMA) for detection and quantification of ribosomal RNA from bacteria associated with bacterial vaginosis (BV), including Lactobacillus (L. gasseri, L. crispatus, and L. jensenii), Gardnerella vaginalis, and Atopobium vaginae. Mickey Species NEGATIVE (NEG) [facility] Comment: No mickey species group (C. albicans, C. tropicalis, C. parapsilosis, C. dubliniensis) targets by PCR detected in this patient's sample. Mickey Glabrata, HENRY NEGATIVE (NEG) [facility] Comment:No Mickey glabrata targets by PCR detected in this patient's sample. SureSwab, T.vaginalis RNA NEGATIVE (NEG) [facility] Comment: No Trichomonas vaginalis targets by PCR detected in this patient's sample. ?? Note: This assay uses real time top closer-mediated amplification (TMA) for detection and quantification of ribosomal RNA from organisms associated with Mickey species group (C. albicans, C. tropicalis, C. parapsilosis, C. dubliniensis), Mickey glabrata, and Trichomonas vaginalis. Chlamydia Trachomatis, Amplified NEGATIVE (NEG) [facility] Comment: No Chlamydia Trachomatis RNA detected in this patient's sample ? (REFERENCE RANGE/NORMAL VALUE: NOT DETECTED) ? Note: This test uses top closer- mediated amplification method to detect rRNA from C. Trachomatis N.GONORRHOEAE AMP PROBE NEGATIVE (NEG) [facility] Comment: No Neisseria Gonorrhoeae RNA detected in this patient's sample ? (REFERENCE RANGE/NORMAL VALUE: NOT DETECTED) ? NOTE: This test uses top closer-mediated amplification method to detect rRNA from N.Gonorrhoeae. [...] without risk of sexual abuse. Consult the [facility] if needed. Contact phone number . Therapeutic failure or success cannot be determined with the Aptima Combo2 assay since nucleic acid may persist following appropriate antimicrobial therapy. The Centers for Disease Control and Prevention (CDC) recommends confirmatory retesting using culture or a different nucleic acid amplification test when positive results occur, if indicated. Testing performed or reported by [facility], a Service of [facility], [facility] [place] [address] Roberto Quinn MD, Enterprise Systems Administrator [facility]# [id number] Swab (Vagina) 01/05/2023 3:3 8 PM EDT 01/05/2023 11:10 PM EDT Ban Wendi AUTO CLUTCH SPECIALIST LAB MICROBIOLOGY - GENERAL ORD ERABLES Final Result [facility] from Last 3 Months or Most Recently Relevant to Health Maintenance Insurance [facility] NON [facility] [place] [employer] [place]RES [id number] Care Teams Intelligence Group Supervisor Relationship Specialty Start Date End Date Elana Ayala NP [address] [place] [address] PCP - General Pediatrics 09/17/22
--- OUTSIDE RECORDS SUMMARY | 2024-07-01 08:13 | XMS_ITS | Encounter Summary ---
Author Organization [facility] Address [address] [place] [address] Phone Care Team Providers Care Induction Brazer Name Role Phone Elana Ayala NP Primary Care Provider [phone] Reason for Visit * Reason Comments Med Refill Encounter Details Date Type Department Care Team (Late st Contact Info) Description 07/29/2019 Refill [facility] [address] [place] [address] [place] [phone] Lizzette Becker DO Other atopic dermatitis Social [...] dermatitis documented in this encounter Care Teams Induction Brazer Relationship Specialty Start Date End Date Elana Ayala NP [address] [place] [address] [place] [address] PCP - General Pediatrics 09/17/22 documented as of this encounter
--- OUTSIDE RECORDS SUMMARY | 2024-07-01 08:13 | XMS_ITS | Encounter Summary ---
Author Organization [facility] Address [address] [place] [address] Phone Care Team Providers Care Chief Safety Officer Name Role Phone Elana Ayala NP Primary Care Provider [phone] Reason for Visit * Reason Comments Med Refill Encounter Details Date Type Department Care Team (Late st Contact Info) Description 09/15/2018 Refill [facility] [address] [place] [address] [place] [address] Lizzette Becker, DO Anxiety Social History Tobacco [...] unspecified documented in this encounter Care Teams Chief Safety Officer Relationship Specialty Start Date End Date Elana Ayala NP [address] [place] [address] [place] [address] PCP - General Pediatrics 09/17/22 documented as of this encounter
--- OUTSIDE RECORDS SUMMARY | 2024-07-01 08:13 | XMS_ITS | Encounter Summary ---
Author Organization [facility] Address [address] [place] [address] Phone Care Team Providers Care Negative Turner Apprentice Name Role Phone Elana Ayala NP Primary Care Provider [phone] Reason for Visit * Reason Onset Date Comments Med Refill Med Refill 07/02/2018 Encounter Details Date Type Department Care Team (Late st Contact Info) Description 06/22/2018 Refill [facility] [address] [place] [address] [place] [address] Lizzette Becker DO Social History Tobacco Use [...] on filedocumented in this encounter Care Teams Negative Turner Apprentice Relationship Specialty Start Date End Date Elana Ayala NP [address] [place] [address] [place] [address] PCP - General Pediatrics 09/17/22 documented as of this encounter
--- OUTSIDE RECORDS SUMMARY | 2024-07-01 08:13 | XMS_ITS ---
Author Organization [facility] Address [address] [place] [address] Care Team Providers Care Project Controller Name Role Phone Lamont Vieira Primary Care Provider Unav ailable Kennedy Daniels Unavailable [phone] Eugenio DO, Lizzette Unavailable Unavailable REASON FOR VISIT ingrown nail with red line Encounters Encounter Location Date Provider Diagnosis [address] [address] 06/09/2024 Kennedy Daniels Plan Of Treatment No Information Progress Notes * Janett VILLAGOMEZ EDOB: 0 (24 yo F)Acc No.[id number]:06/09/2024 Patient:?Janett VILLAGOMEZ :2000???Age:24 Y???Sex:Female Address: [place], [address] * true * Date:? Generated for Printi ng/Faleeannag/eTransmitting on:?07/01/2024 08:13 AM EDT
--- OUTSIDE RECORDS SUMMARY | 2024-07-01 08:14 | XMS_ITS | Encounter Summary ---
Author Organization [facility] Address [address] [place] [address] Phone Care Team Providers Care Drawing Checker Name Role Phone Elana Ayala WEED COOKING OPERATOR Primary Care Provider [phone] Reason for Visit * Reason Onset Date Comments Med Refill 12/24/2022 Encounter Details Date Type Department Care Team (Late st Contact Info) Description 12/24/2022 Refill [facility] [address] [place] [address] [place] [address] Elana Ayala NP [address] [place] [address] [place] [address] Anxiety; Asthma, unspecified asthma severity, unspecified whether [...] MA - 12/24/2022 3:55 PM EDT Last [facility] with EM 09/17/22 Pt has requested all these meds through [employer]. 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
--- OUTSIDE RECORDS SUMMARY | 2024-07-01 08:14 | XMS_ITS ---
Author Organization [facility] Address [address] [place] [address] Care Team Providers Care Regional Ehs Manager Name Role Phone Fabricio VILLAVICENCIO, Lamont Primary Care Provider Unav ailable Kennedy Daniels Unavailable [phone] Eugenio DO, Lizzette Unavailable Unavailable Encounters Encounter Location Date Provider Diagnosis [address] [address] 06/10/2024 Kennedy Daniels Plan Of Treatment No Information Progress Notes * Janett VILLAGOMEZ EDOB: 0 (24 yo F)Acc No.[id number]:06/10/2024 Progress Notes Patient:?Janett VILLAGOMEZ Provider:?Kennedy Daniels DPM :2000???Age:24 Y???Sex:Female D ate:06/10/2024 Address:[address] [place] [address] [id number] Pcp:SAUD Melendez Subjective: * Chief Complaints: * ??? * Medical History:? Objective: * Vitals:? Assessment: Plan: * Treatment: * Images: * The named appointment provid er may or may not be the originator of this progress note, and it is not deemed complete until electronically signed by the appointment provider. Sign off status: Pending * Provider:?Kennedy Daniels DPM Date:?2024 Generated for Daya knox/Renny/eTransmitting on:?07/01/2024 08:13 AM EDT
--- OUTSIDE RECORDS SUMMARY | 2024-07-01 08:14 | XMS_ITS | Clinical Summary ---
Author Organization [address] [place] [address] [facility] Address [address] [place] [address] Phone Care Team Providers Care Dispatcher Maintenance Name Role Phone Lamont Regalado NP Primary Care Provider Social History Tobacco Use Types Packs/Day Years Used Date Smoking Tobacco: Never Assessed Comments Unknown Sex and Gender Information Value Date Recorded Sex Assigned at Not on file Legal Sex Female 7:34 AM EDT Gender Identity Not on file Sexual Orientation Not on file Plan of Treatment Upcoming Encounters Date Type Department Care Team ([facility] Contact Info) Description 08/10/2024 9:00 AM EDT Consult Orthopedic Surgery - [place] [address] [id number] Aquilino Garza, DPM [address] [address] Health Maintenance Due Date Last Done Comments Pneumococcal Vaccine: Pediatrics (0 to 5 Years) and At-Risk Patients (6 to 64 Years) (1 of 1 - PPSV23) 2005 08/05/2000, 04/21/2000, 01/20/2000 Cervical Cancer Screening: Pap Smear 2020 COVID-19 Vaccine ( season) 2023 Depression Screening 06/30/2024 HIV Screening 06/30/2024 Hepatitis C Screening 06/30/2024 Social Influencers of Health Screening 06/30/2024 Influenza Vaccine (Season Ended) 2024 05/28/2019 DTaP,Tdap,and Td Vaccines (8 - Td or Tdap) 11/01/2033 11/02/2023, 02/02/2012, 05/16/2004, Additional history exists HIB Vaccines Completed 08/05/2000, 09/28, 1999, Additional history exists Hepatitis B Vaccines Completed 11/12/2003, 1999, 1999 IPV Vaccines Completed 05/16/2004, 10/28, 1999, Additional history exists Varicella Vaccines Aged Out 02/02/2012, 04/21/2000 No longer eligible based on patient's age to complete this topic Hepatitis A Vaccines Completed 10/04/2015, 02/17/20 15 HPV Vaccines Completed 06/02/2016, 03/2016, 02/02/2014 Meningococcal ACWY Vaccine Completed 06/02/2016 MMR Vaccines Completed 08/29/2019, 04/30, 08/05/2000, Additional history exists Meningococcal B Vacine Aged Out No lo nger eligible based on patient's age to complete this topic RSV Immunization Patients Under 20 months Aged Out No longer eligible based on patient's age to complete this topic Insurance [facility] Care Teams Dispatcher Maintenance Relationship Specialty Start Date End Date Lamont Regalado NP [address] [place] [address] PCP - General Family Medicine 06/30/24
--- OUTSIDE RECORDS SUMMARY | 2024-07-01 08:14 | XMS_ITS | Patient Health Record ---
Author Organization [facility] Address [address] [facility] [place] [address] Care Team Providers Care Filler Sifter Machine Name Role Phone Lamont Vieira Primary Care Provider Kennedy Thomas Unavailable [phone] Eugenio DOLizzette Unavailable Unavailable Reason For Referral [...] No Encounters Encounter Location Date Provider Diagnosis [facility] [address] [place] [address] 06/09/2024 Kennedy Daniels Plan Of Treatment Pending Test Test Name Order Date 05832 I&D ABSCESS- SIMPLE,SINGLE 020 Insurance Providers Payer Name Payer Address Payer Phone Subscriber Number Group Number Insured Name Patient Relationship to Insured Coverage Start Date Coverage End Date [facility] [address] [facility] [place] zimmerman [id number] [employer] [place] Child - Insured does not have Financial Responsibility (includes legally adopted child) Medical (General) History Medical History History ICD Code Anxiety asthma Depression Surgical History Surgery Date(Month/Year) Hospitalization History Reason Date(Month/Year) 08/2019
== END ==
LOC: HO.CARD 08:01
PROVIDERS: PCP Nurse Practitioner Family; Visit Provider Nurse Practitioner Family
DX: R00.0 Tachycardia, unspecified (principal); I49.1 Atrial premature depolarization
CPT/HCPCS: 93242

== ENCOUNTER → 2024-07-01 08:03 | Outpatient (BNV) | payer OTHER, MEDICAID, SELFPAY | PROVIDERS: PCP Nurse Practitioner Family; Visit Provider Internal Medicine Cardiovascular Disease | DX: I49.1 Atrial premature depolarization (principal); I49.3 Ventricular premature depolarization | CPT/HCPCS: 93244 ==

== ENCOUNTER → 2024-07-06 13:07 | Outpatient (BNV) | payer OTHER, MEDICAID, SELFPAY | PROVIDERS: PCP Nurse Practitioner Family; Referring Provider Nurse Practitioner Family; Visit Provider Internal Medicine | DX: D72.819 Decreased white blood cell count, unspecified (principal) | CPT/HCPCS: 99204 ==

== ENCOUNTER 2024-07-20 07:03 | Outpatient (AMB) | payer OTHER, MEDICAID, SELFPAY ==
--- OUTSIDE RECORDS SUMMARY | 2024-07-20 07:06 | XMS_ITS | Encounter Summary ---
Author Organization [facility] Address [address] [place] [address] Phone Care Team Providers Care Backwinder Name Role Phone Elana Ayala NP Primary Care Provider [phone] Encounter Details Date Type Department Care Team (Late st Contact Info) Description 04/27/2014 Conversion Encounter [facility] [address] [place] [address] [place] [address] Social History Tobacco Use Types Packs/Day Years [...] on filedocumented in this encounter Care Teams Backwinder Relationship Specialty Start Date End Date Elana Ayala NP [address] [place] [address] [place] [address] PCP - General Pediatrics 09/17/22 documented as of this encounter
--- OUTSIDE RECORDS SUMMARY | 2024-07-20 07:06 | XMS_ITS | Encounter Summary ---
Author Organization [facility] Address [address] [place] [address] Phone Care Team Providers Care Pathology Laboratory Technologist Name Role Phone Elana Ayala MOLD DRESSER Primary Care Provider [phone] Reason for Visit * Reason Onset Date Comments Med Refill 12/24/2022 Encounter Details Date Type Department Care Team (Late st Contact Info) Description 12/24/2022 Refill [facility] [address] [place] [address] [place] [address] Elana Ayala NP [facility] [place] [address] Social History Tobacco Use Types Packs/Day Years [...] on filedocumented in this encounter Care Teams Pathology Laboratory Technologist Relationship Specialty Start Date End Date Elana Ayala NP [address] [place] [address] PCP - General Pediatrics 09/17/22 documented as of this encounter
--- OUTSIDE RECORDS SUMMARY | 2024-07-20 07:06 | XMS_ITS | Clinical Summary ---
Author Organization [facility] Address [address] [place] [address] Phone Care Team Providers Care Pediatric Physical Therapist Name Role Phone Travis Ayalaica ANGELICA Primary Care Provider [phone] Allergies Active Allergy Reactions Criticality Noted Date Comments [place] (Diagnostic) Food 09/23/2017 [place] Medications mometasone 0.1 % creamIndications :Other atopic [...] 0 Refills, Maintenance, 12/17/22 11:56:00 EDT, Capsule, [facility]/pharmacy #[id number], Partial fill upon patient request if the [...] smear of cervix 07/31/2021 Overview (07/31/2021): Seeing Boiler Washer History of recurrent UTIs 07/31/2021 Overview (07/31/2021): [...] is short term and given information for care home therapy Assessment & Plan (09/17/2022 4:34 PM [...] - 06/11/2024 1:23 AM EDT Hospital Encounter [facility] - Patient Ping 05/16/2024 8:26 AM EST - 05/16/2024 4:44 PM EST Hospital Encounter [facility] - Patient Ping from Last 3 Months [...] complete this topic Procedures * Due to [place] [employer] [place] law, this organization might not be sharing sensitive test results. Procedure Name Priority Date/Time Associated Diagnosis Comments SURESWAB (ADV) VAGINITIS PLUS, TMA Routine 01/05/2023 3:38 PM EDT Vaginal discharge from Last 3 Months or Most Recently Relevant to Health Maintenance Results * Due to [place] [employer] [place] law, this organization might not be sharing sensitive test results. * (ABNORMAL) SureSwab Advanced (TMA)- BV, CT/NG, CV, TV (01/05/2023 3:38 PM EDT) BACTERIAL VAGINOSIS TEST POSITIVE(A) (NEG) [facility] Comment: Bacterial vaginosis targets by PCR detected in this patient's sample. ?? Note: This assay uses real time department of mathematics chair-mediated amplification (TMA) for detection and quantification of ribosomal RNA from bacteria associated with bacterial vaginosis (BV), including Lactobacillus (L. gasseri, L. crispatus, and L. jensenii), Gardnerella vaginalis, and Atopobium vaginae. Mickey Species NEGATIVE (NEG) [facility] Comment: No mickey species group (C. albicans, C. tropicalis, C. parapsilosis, C. dubliniensis) targets by PCR detected in this patient's sample. Mickey Glabrata, HENRY NEGATIVE (NEG) [facility] Comment:No Mickey glabrata targets by PCR detected in this patient's sample. SureSwab, T.vaginalis RNA NEGATIVE (NEG) [facility] Comment: No Trichomonas vaginalis targets by PCR detected in this patient's sample. ?? Note: This assay uses real time department of mathematics chair-mediated amplification (TMA) for detection and quantification of ribosomal RNA from organisms associated with Mickey species group (C. albicans, C. tropicalis, C. parapsilosis, C. dubliniensis), Mickey glabrata, and Trichomonas vaginalis. Chlamydia Trachomatis, Amplified NEGATIVE (NEG) [facility] Comment: No Chlamydia Trachomatis RNA detected in this patient's sample ? (REFERENCE RANGE/NORMAL VALUE: NOT DETECTED) ? Note: This test uses department of mathematics chair- mediated amplification method to detect rRNA from C. Trachomatis N.GONORRHOEAE AMP PROBE NEGATIVE (NEG) [facility] Comment: No Neisseria Gonorrhoeae RNA detected in this patient's sample ? (REFERENCE RANGE/NORMAL VALUE: NOT DETECTED) ? NOTE: This test uses department of mathematics chair-mediated amplification method to detect rRNA from N.Gonorrhoeae. [...] without risk of sexual abuse. Consult the [facility] if needed. [...] indicated. Testing performed or reported by [facility], a Service of [facility], [facility] [place] [address] Roberto Quinn MD, Federal District Clerk [facility]# [id number] Swab (Vagina) 01/05/2023 3:3 8 PM EDT 01/05/2023 11:10 PM EDT Ban Wendi RAIL DETECTOR CAR OPERATOR LAB MICROBIOLOGY - GENERAL ORD ERABLES Final Result [facility] from Last 3 Months or Most Recently Relevant to Health Maintenance Insurance [facility] [employer] [place] [id number] Care Teams Pediatric Physical Therapist Relationship Specialty Start Date End Date Elana Ayala NP [address] [facility] [place] [address] PCP - General Pediatrics 09/17/22
--- OUTSIDE RECORDS SUMMARY | 2024-07-20 07:07 | XMS_ITS | Encounter Summary ---
Author Organization [facility] Address [address] [place] [address] Phone Care Team Providers Care Optimization Consultant Name Role Phone Elana Ayala NP Primary Care Provider [phone] Reason for Visit * Reason Comments Med Refill Encounter Details Date Type Department Care Team (Late st Contact Info) Description 09/15/2018 Refill [facility] [address] [place] [address] [place] [address] Lizzette Becker, DO Anxiety Social History Tobacco [...] unspecified documented in this encounter Care Teams Optimization Consultant Relationship Specialty Start Date End Date Elana Ayala NP [address] [place] [address] [place] [address] PCP - General Pediatrics 09/17/22 documented as of this encounter
--- OUTSIDE RECORDS SUMMARY | 2024-07-20 07:07 | XMS_ITS ---
Author Organization [facility] Address [address] [place] [address] Care Team Providers Care Photo Specialist Name Role Phone Fabricio VILLAVICENCIO, Lamont Primary Care Provider Unav ailable Kennedy Daniels Unavailable [phone] Eugenio DO, Lizzette Unavailable Unavailable Encounters Encounter Location Date Provider Diagnosis [address] [address] 06/10/2024 Kennedy Daniels Plan Of Treatment No Information Progress Notes * Janett VILLAGOMEZ EDOB: 0 (24 yo F)Acc No.[id number]:06/10/2024 Progress Notes Patient:?Janett VILLAGOMEZ Provider:?Kennedy Daniels DPM :2000???Age:24 Y???Sex:Female D ate:06/10/2024 Address:[address] [place] [address] [phone] Pcp:SAUD Melendez Subjective: * Chief Complaints: * ??? * Medical History:? Objective: * Vitals:? Assessment: Plan: * Treatment: * Images: * The named appointment provid er may or may not be the originator of this progress note, and it is not deemed complete until electronically signed by the appointment provider. Sign off status: Pending * Provider:?Kennedy Daniels DPM Date:?2024 Generated for Daya knox/Renny/eTransmitting on:?07/20/2024 07:07 AM EDT
--- OUTSIDE RECORDS SUMMARY | 2024-07-20 07:07 | XMS_ITS | Data Portability ---
Author Organization JAYSON Bautista s, [address] Address [address] [place] [address] Care Team Providers Care Database Administrator Name Role Phone DAVIDEDEBORA AL Primary Care Provider Assessment No assessment recorded. Plan of Treatment Reminders Order Date Submit Date Provider Last Modified By Organization Details Last Modified Time Details Appointments None recorded. Lab culture, urine 2022 023 SALO [facility]), [address] [place] [address], [address], 3 20:06:19 vaginal pathogens panel, HENRY+probe, vaginal fluid 2022 023 BRUNSWICK [facility]), [address] [place] [address], [address], 3 20:06:18 rapid strep group A, throat 2022 023 [email or web address] _[facility], [address] [place] [address], [address], 3 09:04:28 urinalysis , dipstick 2022 023 [email or web address] _[facility], [facility] [place], [address], 3 09:04:28 test, urine 2022 023 [email or web address] _[facility], [facility] [place], [address], 09:04:28 culture, respirator y 2022 023 [facility], [facility], [place], [address], 16:06:41 Referral None recorded. Procedures None recorded. Surgeries None recorded. Imaging None recorded. Medication Orders Diflucan 150 mg tablet 2022 023 [id number], [address] [place], [address], 16:20:37 miconazole nitrate 2 % topical cream 2022 023 [id number], [address] [place], [address], 16:30:47 Patient TargetsNo targets recorded. Patient Instructions Encounter Date Encounter Id Patient Instructions Last Modified By Organization Details Last Modified Time 05/09/2022 [id number] sore throat: car e instructions Not available 05/09/2022 09:04:28 sore throat: car e instructions Not available 05/09/2022 09:04:28 Reason for Referral None Reported. Results Created Date Observation Date Name Description Value Unit Range Abnormal Flag Note LastModifiedBy Organization Detail LastModifiedTime 05/09/1905/10/2022 NUSWA B VAGIN ITIS PLUS (VG+) atopobium vaginae LOW - 0 score Not Available [facility] ([facility]) [address] [facility], [place], [address], 05/11/2022 20:06:18 05/09/1905/10/2022 NUSWA B VAGIN ITIS PLUS (VG+) bvab 2 LOW - 0 score Not Available [facility] ([facility]) [address] [facility], [place], [address], 05/11/2022 20:06:18 05/09/1905/10/2022 NUSWA B VAGIN ITIS [...] Drug Admin istra tion. Not Available [facility] ([facility]) [address] [place], [address], 05/11/2022 20:06:18 05/09/19 23 05/10/2022 NUSWA B VAGIN ITIS PLUS (VG+) mickey albicans, HENRY NEGATI VE negati ve Not Available [facility] ([facility]) [address] [place], [address], 05/11/2022 20:06:18 05/09/19 23 05/10/2022 NUSWA B VAGIN ITIS PLUS (VG+) mickey glabrata, HENRY NEGATI VE negati ve Not Available [facility] ([facility]) [address] [place], [address], 05/11/2022 20:06:18 05/09/19 23 05/11/2022 NUSWA B VAGIN ITIS PLUS (VG+) trich vag by HENRY NEGATI VE negati ve Not Available [facility] ([facility]) [address] [place], [address], 05/11/2022 20:06:18 05/09/19 23 05/11/2022 NUSWA B VAGIN ITIS PLUS (VG+) chlamydia trachomatis, HENRY NEGATI VE negati ve Not Available [facility] ([facility]) [address] [place], [address], 05/11/2022 20:06:18 05/09/19 23 05/11/2022 NUSWA B VAGIN ITIS PLUS (VG+) neisseria gonorrhoeae, HENRY NEGATI VE negati ve Not Available [facility] ([facility]) [address] [place], [address], 05/11/2022 20:06:18 05/09/19 23 05/11/2022 URINE CULTU RE, ROUTI NE urine culture, routine FINAL REPORT Not Available [facility] ([facility]) [address] [place], [address], 05/11/2022 20:06:19 05/09/19 23 05/11/2022 URINE CULTU RE, ROUTI NE result 1 NO GROWTH Not Available [facility] ([facility]) [address] [place], [address], 05/11/2022 20:06:19 05/09/19 23 05/12/2022 UPPER RESPI RATOR Y CULTU RE upper respiratory culture FINAL REPORT Not Available [facility] ([facility]) [address] [place], [address], 05/12/2022 16:06:41 05/09/19 23 05/12/2022 UPPER RESPI RATOR Y CULTU RE result 1 COMMEN T Routi ne respi rator y braeden Not Available [facility] ([facility]) [address] [place], [address], 05/12/2022 16:06:41 05/09/19 23 05/09/2022 urina lysis , dipst ick Unknown Analyte Normal = light yellow Not Available [facility] [address] [place] [address], [place], [address], 05/09/2022 08:44:51 05/09/19 23 05/09/2022 urina lysis , dipst ick Unknown Analyte Dark Yellow Not Available 2099laureen lewis [address], [place], [address], 05/09/2022 08:44:51 05/09/19 23 05/09/2022 urina lysis , dipst ick Unknown Analyte Normal = clear Not Available luareen lewis [address], [place], [address], 05/09/2022 08:44:51 05/09/1905/09/2022 urina lysis , dipst ick Unknown Analyte Slight ly Cloudy Not Available laureen lewis [address], [place], [address], 05/09/2022 08:44:51 05/09/19 23 05/09/2022 urina lysis , dipst ick Unknown Analyte Normal = negati ve Not Available laureen lewis [address], [place], [address], 05/09/2022 08:44:51 05/09/19 23 05/09/2022 urina lysis , dipst ick Unknown Analyte Negati ve Not Available laureen lewis [address], [place], [address], 05/09/2022 08:44:51 05/09/19 23 05/09/2022 urina lysis , dipst ick Unknown Analyte Normal = Negati ve Not Available laureen lewis [address], [place], [address], 05/09/2022 08:44:51 05/09/19 23 05/09/2022 urina lysis , dipst ick Unknown Analyte Negati ve Not Available laureen lewis [address], [place], [address], 05/09/2022 08:44:51 05/09/19 23 05/09/2022 urina lysis , dipst ick Unknown Analyte Normal = Negati ve Not Available [facility] [address], [place], [address], 05/09/2022 08:44:51 05/09/19 23 05/09/2022 urina lysis , dipst ick Unknown Analyte Negati ve Not Available [address], [place], [address], 05/09/2022 08:44:51 05/09/19 23 05/09/2022 urina lysis , dipst ick Unknown Analyte Normal = 1.010, 1.015, 1.020 Not Available [address], [place], [address], 05/09/2022 08:44:51 05/09/19 23 05/09/2022 urina lysis , dipst ick Unknown Analyte 1.020 Not Available [address] [place] [address], [place], [address], 05/09/2022 08:44:51 05/09/19 23 05/09/2022 urina lysis , dipst ick Unknown Analyte Normal = Negati ve Not Available [address], [place], [address], 05/09/2022 08:44:51 05/09/19 23 05/09/2022 urina lysis , dipst ick Unknown Analyte Negati ve Not Available [address] [place] [address], [place], [address], 05/09/2022 08:44:51 05/09/19 23 05/09/2022 urina lysis , dipst ick Unknown Analyte Normal = 6.5, 7.0, 7.5, 8.0 Not Available [address] [place] [address], [place], [address], 05/09/2022 08:44:51 05/09/19 23 05/09/2022 urina lysis , dipst ick Unknown Analyte 7.0 Not Available [address] [place] [address], [place], [address], 05/09/2022 08:44:51 05/09/19 23 05/09/2022 urina lysis , dipst ick Unknown Analyte Normal = Negati ve Not Available [address] [place] [address], [place], [address], 05/09/2022 08:44:51 05/09/19 23 05/09/2022 urina lysis , dipst ick Unknown Analyte Trace Not Available [address] [place] [address], [place], [address], 05/09/2022 08:44:51 05/09/19 23 05/09/2022 urina lysis , dipst ick Unknown Analyte Normal = 0.2, 1.0 Not Available [address] [place] [address], [place], [address], 05/09/2022 08:44:51 05/09/19 23 05/09/2022 urina lysis , dipst ick Unknown Analyte 0.2 E.U./d L Not Available [address] [place] [address], [place], [address], 05/09/2022 08:44:51 05/09/19 23 05/09/2022 urina lysis , dipst ick Unknown Analyte Normal = Negati ve Not Available [address] [place] [address], [place], [address], 05/09/2022 08:44:51 05/09/19 23 05/09/2022 urina lysis , dipst ick Unknown Analyte Negati ve Not Available [address] [place] [address], [place], [address], 05/09/2022 08:44:51 05/09/19 23 05/09/2022 urina lysis , dipst ick Unknown Analyte Normal = Negati ve Not Available [address], [place], [address], 05/09/2022 08:44:51 05/09/1905/09/2022 urina lysis , dipst ick Unknown Analyte Negati ve Not Available [address], [place], [place], [address], 05/09/2022 08:44:51 05/09/19 23 05/09/2022 pregn karo test, urine Unknown Analyte Normal = Negati ve Not Available [address], [place], [address], 05/09/2022 08:44:59 05/09/19 23 05/09/2022 pregn karo test, urine Unknown Analyte negati ve Not Available [address], [place], [address], 05/09/2022 08:44:59 05/09/19 23 05/09/2022 rapid strep group A, throa t Unknown Analyte Normal = Negati ve Not Available [address] [place] [address], [place], [address], 05/09/2022 08:39:39 05/09/19 23 05/09/2022 rapid strep group A, throa t Unknown Analyte negati ve Not Available [address] [place] [address], [place], [address], 05/09/2022 08:39:39 Result Notes None recorded. Problems Name Problem SNOMED Code Status Onset Date Resolution Date Notes Provider Name and Address Organization Details Recorded Time Eczema 25728694 Active 023 Keri jane PA - [facility] 05/09/2022 08:43:40 Anxiety 64438002 Active 023 [facility] jane [facility] - [facility] [...] Address Organization Details Last Updated DateTime 3 84493.1 9 g 21.3 kg/m2 167.64 cm 96 % 96 % 0 67 /min 18 /min 98.5 [degF] 102 mm[Hg] 64 mm[Hg] Keri Hart [facility] 08:47:05 Social History Question Answer Notes LastModified [...] SNOMED-CT Code Diagnosis ICD10 Code Diagnosis Note [id number] [facility] [address] [place] [address] 02/14/2018 13:47:21 02/14/2018 15:00:37 [id number] [address]_Ruben gordon[address] [address] 11/25/2018 15:21:28 11/25/2018 16:11:32 [id number] 21005_[facility] heidi[address] [address] 12/26/2018 15:03:32 12/26/2018 15:29:42 [id number] [facility] [address] [place] [address] 08/29/2020 08:03:19 08/29/2020 08:56:19 [id number] Paolo Bosch DO [facility] [address] [place] [address] 05/09/2022 08:21:02 05/09/2022 09:18:35 Acute pharyngitis 062549838 J02.9 Rapid strep NEGATIVE Likely viral etiology [...] up in the Emergency Department urgently. Dysuria 34185642 R30.0 UA unrevealin Joelle wnlwill check urine [...] Emergency Department urgently. Candidiasis of vagina 72 131667 B37.31 Signs, symptoms and PE consistent with [...] Clancy Member ID Guarantor Name 05/09/2022 1 [facility] [id number] Janett Villagomez [id number] Janett Villagomez 05/09/2022 2 [place] [facility] Janett Villagomez [id number] Janett Villagomez Notes Date Note Type Note [...] h/o yeast infections, had gotten fluconazole from [facility] worker, symptoms not improved+ dysuriano VBno known STD exposureno sores on genitalsno increased frequencyno increased urgencyno incontinenceno pressureno malodorno blood in her urineno back painno rashno feverno nausea or vomitingno MS change Paolo Bosch, DO [address] [place], [address], PA - [facility] 05/09/2022 09:18:05 OBGyn Episode No OBEpisode recorded.
--- OUTSIDE RECORDS SUMMARY | 2024-07-20 07:07 | XMS_ITS | Clinical Summary ---
Author Organization [address] [place] [address] [facility] Address [address] [place] [address] Phone Care Team Providers Care Talent Director Name Role Phone Lamont Regalado NP Primary Care Provider Social History Tobacco Use Types Packs/Day Years Used Date Smoking Tobacco: Never Assessed Comments Unknown Sex and Gender Information Value Date Recorded Sex Assigned at Not on file Legal Sex Female 7:34 AM EDT Gender Identity Not on file Sexual Orientation Not on file Plan of Treatment Upcoming Encounters Date Type Department Care Team ([facility] Contact Info) Description 08/10/2024 9:00 AM EDT Consult Orthopedic Surgery - [place] [address] [address] Aquilino Garza, DPM [address] [address] Health Maintenance Due Date Last Done Comments [...] 04/30, 08/05/2000, Additional history exists Meningococcal B Vaccine Aged Out No l onger eligible based on patient's age to complete this topic RSV Immunization Patients Under 20 months Aged Out No longer eligible based on patient's age to complete this topic Insurance [facility] Care Teams Talent Director Relationship Specialty Start Date End Date Lamont Regalado NP PCP - General Family Medicine 06/30/24
--- OUTSIDE RECORDS SUMMARY | 2024-07-20 07:07 | XMS_ITS | Encounter Summary ---
Author Organization [facility] Address [address] [place] [address] Phone Care Team Providers Care Wedding Day Coordinator Name Role Phone Elana Ayala NP Primary Care Provider [phone] Reason for Visit * Reason Onset Date Comments Med Refill Med Refill 07/02/2018 Encounter Details Date Type Department Care Team (Late st Contact Info) Description 06/22/2018 Refill [facility] [address] [place] [address] [place] [address] Lizzette Becker DO Social History Tobacco Use [...] on filedocumented in this encounter Care Teams Wedding Day Coordinator Relationship Specialty Start Date End Date Elana Ayala NP [address] [place] [address] [place] [address] PCP - General Pediatrics 09/17/22 documented as of this encounter
--- OUTSIDE RECORDS SUMMARY | 2024-07-20 07:07 | XMS_ITS | Encounter Summary ---
Author Organization [facility] Address [address] [place] [address] Phone Care Team Providers Care Risk Control Manager Name Role Phone Elana Ayala JUNIOR DATABASE ADMINISTRATOR Primary Care Provider [phone] Reason for Visit * Reason Onset Date Comments Med Refill 12/24/2022 Encounter Details Date Type Department Care Team (Late st Contact Info) Description 12/24/2022 Refill [facility] [address] [place] [address] [place] [address] Elana Ayala NP [address] [place] [address] [place] [address] Anxiety; Asthma, unspecified asthma severity, unspecified whether [...] [place] - 12/24/2022 3:55 PM EDT Last [facility] with EM 09/17/22 Pt has requested all these meds through [facility]. 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 [place] [address] PCP - General Pediatrics 09/17/22 documented as of this encounter
--- OUTSIDE RECORDS SUMMARY | 2024-07-20 07:07 | XMS_ITS | Patient Health Record ---
Author Organization [facility] Address [address] [facility] [place] [address] Care Team Providers Care Bank Runner Name Role Phone Lamont Vieira Primary Care Provider Kennedy Thomas Unavailable [phone] Eugenio DOLizzette Unavailable Unavailable Reason For Referral [...] No Encounters Encounter Location Date Provider Diagnosis [facility] [address] [place] [address] 06/09/2024 Kennedy Daniels Plan Of Treatment Pending Test Test Name Order Date 44006 I&D ABSCESS- SIMPLE,SINGLE 020 Insurance Providers Payer Name Payer Address Payer Phone Subscriber Number Group Number Insured Name Patient Relationship to Insured Coverage Start Date Coverage End Date [facility] [address] [facility] [place] [id number] [employer] [place] Child - Insured does not have Financial Responsibility (includes legally adopted child) Medical (General) History Medical History History ICD Code Anxiety asthma Depression Surgical History Surgery Date(Month/Year) Hospitalization History Reason Date(Month/Year) 08/2019
--- OUTSIDE RECORDS SUMMARY | 2024-07-20 07:07 | XMS_ITS | Encounter Summary ---
Author Organization [facility] Address [address] [place] [address] Phone Care Team Providers Care Printer Small Print Shop Name Role Phone Elana Ayala NP Primary Care Provider [phone] Reason for Visit * Reason Comments Med Refill Encounter Details Date Type Department Care Team (Late st Contact Info) Description 09/11/2018 Refill [facility] [address] [place] [address] [place] [address] Lizzette Becker, Amenorrhea Social History Tobacco Use [...] menstruation documented in this encounter Care Teams Printer [employer] Print Shop Relationship Specialty Start Date End Date Elana Ayala NP [address] [place] [address] [place] [address] PCP - General Pediatrics 09/17/22 documented as of this encounter
--- OUTSIDE RECORDS SUMMARY | 2024-07-20 07:07 | XMS_ITS | Encounter Summary ---
Author Organization [facility] Address [address] [place] [address] Phone Care Team Providers Care Supervisor Case Loading Name Role Phone Elana Ayala NP Primary Care Provider [phone] Reason for Visit * Reason Comments Med Refill Encounter Details Date Type Department Care Team (Late st Contact Info) Description 07/29/2019 Refill [facility] [address] [place] [address] [address] [place] [phone] Lizzette Becker DO Other atopic dermatitis Social [...] dermatitis documented in this encounter Care Teams Supervisor Case Loading Relationship Specialty Start Date End Date Elana Ayala NP [address] [place] [address] [place] [address] PCP - General Pediatrics 09/17/22 documented as of this encounter
--- OUTSIDE RECORDS SUMMARY | 2024-07-20 07:07 | XMS_ITS ---
Author Organization [facility] Address [address] [place] [address] Care Team Providers Care Crusher Foreman Name Role Phone Lamont Vieira Primary Care Provider Unav ailable Kennedy Daniels Unavailable [phone] Eugenio DO, Lizzette Unavailable Unavailable REASON FOR VISIT ingrown nail with red line Encounters Encounter Location Date Provider Diagnosis [address] [address] 06/09/2024 Kennedy Daniels Plan Of Treatment No Information Progress Notes * Janett VILLAGOMEZ EDOB: 0 (24 yo F)Acc No.[id number]:06/09/2024 Patient:?Janett VILLAGOMEZ :2000???Age:24 Y???Sex:Female Address: [place], [address] * true * Date:? Generated for Printi ng/Faleeannag/eTransmitting on:?07/20/2024 07:06 AM EDT
--- OUTSIDE RECORDS SUMMARY | 2024-07-20 07:07 | XMS_ITS | Encounter Summary ---
Author Organization [facility] Address [address] [place] [address] Phone Care Team Providers Care Heel Molder Name Role Phone Elana Ayala NP Primary Care Provider [phone] Reason for Visit * Reason Comments Med Refill Encounter Details Date Type Department Care Team (Late st Contact Info) Description 07/23/2018 Refill [facility] [address] [place] [address] [place] [address] Lizzette Becker, Amenorrhea Social History Tobacco Use [...] menstruation documented in this encounter Care Teams Heel Molder Relationship Specialty Start Date End Date Elana Ayala NP [address] [place] [address] [place] [address] PCP - General Pediatrics 09/17/22 documented as of this encounter
--- NOTE | 2024-07-20 07:41 | MHC.PC.OV ---
Intake Visit Reasons: neuro referral request Allergies almond Allergy (Verified 06/17/24 10:56) Anaphylaxis walnut Allergy (Verified 06/17/24 10:56) Swelling Medication List - Last Reconciled 07/20/24 by SELVIN NavarroP- albuterol sulfate 2.5 mg (3 mL) inhalation Q4-6H PRN albuterol sulfate 90 mcg/actuation 2 puffs inhalation Q4-6H PRN benzoyl peroxide 10% 1 appl topical DAILY buspirone 15 mg PO BID 30 days cephalexin 500 mg PO BID 5 days ferrous sulfate 325 mg PO BID fluticasone furoate-vilanterol 100-25 mcg/dose (Breo Ellipta) 1 inh inhalation DAILY fluticasone propionate 50 mcg/actuation (Flonase Allergy Relief) 1 spray intranasal DAILY gabapentin 300 mg PO BID hydrocortisone 2.5% 1 appl topical BID ketoconazole 2% 1 appl topical 2XW ketoconazole 2% 1 appl topical DAILY 14 days sumatriptan succinate take 1 tab at onset of headache; if no relief may repeat 1 tab after at least 2 hrs; max = 4 tabs/24 hr PO 10 days tacrolimus 0.1% 1 appl topical BID tretinoin 0.025% 1 appl topical BEDTIME Tobacco use date assessed: 05/25/24 Dental Screening Dental Screen Date: 05/25/24 HPI neuro referral request HPI Details History of Present Illness The patient is a 24-year-old female presenting with new onset headaches with characteristics resembling migraines. The headaches started a few months ago and are predominantly located above her eyes, extending to the forehead and occasionally radiating to the left post-auricular region (pt described). She also reports photophobia and notes that the headaches are especially prominent upon awakening in the morning. Pjgq-fxd-pvgzlra treatments such as Tylenol and Motrin have not provided relief, prompting her to apply heat as a temporary measure, which does not seem to help as well. She denies experiencing nausea or vomiting. There has been no prior brain imaging in relation to these symptoms. Notably, she is under hematological management for leukopenia and has a positive RONEL. Review of Systems - Neurological: Reports headaches, photophobia. Denies nausea, vomiting. - Hematological: Reports ongoing management for leukopenia. - ENT: Reports post-auricular pain. Plan To address the new onset headaches with migraine characteristics, a CT scan of the brain is warranted to exclude any intracranial abnormalities. The initiation of sumatriptan therapy is advised to manage acute migraine symptoms and monitor the response. She will maintain her hematological follow-up for leukopenia. Sumatriptan's advantage is its effectiveness in migraine relief, and the potential risks were communicated effectively. Imaging is prudent due to the recent onset and persistence of her symptoms. Discussion Notes I discussed with the patient that we will pursue a CT scan to help rule out any serious underlying causes of her new migraines due to their sudden appearance. I elaborated on the use of sumatriptan, highlighting its proven effectiveness in treating migraine attacks and the expected outcomes. The possible side effects related to sumatriptan were explained. Continued follow-up with hematology for previously identified leukopenia and positive RONEL results is necessary. We reviewed the importance of coming back in case of worsening symptoms or if the treatment does not resolve her headaches. Patient Instructions - Follow through with the scheduled CT scan. - Begin taking the prescribed sumatriptan as directed. - Continue your hematology appointments. - Apply heat as needed to help with the headaches. - Return for an assessment if headaches worsen or do not improve with treatment. [facility] Medical History Paronychia of great toe, right Eczema Iron deficiency anemia No known health problems Surgical History Hx of hernia repair Family History Father No problems noted. Mother No problems noted. Paternal Aunt Colon cancer Paternal Grandfather Bladder cancer Social History Household Members: Children Housing: Apartment Patient Tobacco Use Status: Current everyday Tobacco user Tobacco use type: Cigarette e-Cigarette/Vaping Use: Never Used service: No Current occupational status: employed Current occupational exposures/hazards: No Cognitive needs: No Hearing needs: No Vision needs: No Questionnaire Thrive Questionnaire Date Thrive assessed: 05/25/24 GALINA-7 AMB Questionnaire GALINA-7 Date GALINA - 7 assessed: 02/04/24 Source: Developed by Drs. Checo Cheung, Lona Traore, Jose Ramos and colleagues, with an educational harvey from [employer]. Physical exam (Primary Care) Tobacco/Smoking Status: Tobacco use Status Tobacco use date assessed 05/25/24 05/25/24 09:15 Patient Tobacco Use Status Current everyday Tobacco 06/17/24 10:58 Tobacco use type Cigarette 07/06/24 13:16 e-Cigarette/Vaping Use Never Used 06/17/24 10:58 Thrive Assessment: Date of Thrive Assessment Date Thrive assessed 05/25/24 05/25/24 09:15 Telehealth Telehealth Telehealth Platform: Socrative Location of provider rendering services: practice address Location of patient: address on file Patient Identification confirmed using: Name, : Yes Telehealth method: video Patient verbally consented to treatment: Yes Patient verbally consented to billing insurance company: Yes Patient informed of any privacy concerns related to visit: Yes Minutes spent on Phone/Video with Pt.: 15 Coding Level of Care Code Tele Est Pt Level 3 (97025) Diagnoses New onset headache R51.9 RONEL positive R76.8 Assessment & Plan Assessment & Plan (1) New onset headache: Code(s): R51.9 - Headache, unspecified Category: Medical (2) RONEL positive: Code(s): R76.8 - Other specified abnormal immunological findings in serum Category: Medical Plan . Orders: Orders CT head/brain wo IV con Today R51.9 - Headache, unspecified Medications: New sumatriptan succinate take 1 tab at onset of headache; if no relief may repeat 1 tab after at least 2 hrs; max = 4 tabs/24 hr PO 14 tabs 0RF 10 days
== END 2024-07-20 09:43 | disposition home or self-care (01) ==
LOC: HO.HMCC 07:04
PROVIDERS: PCP Nurse Practitioner Family; Visit Provider Nurse Practitioner Family
DX: R51.9 Headache, unspecified (principal); R76.8 Other specified abnormal immunological findings in serum

== ENCOUNTER → 2024-07-20 07:03 | Outpatient (BNVA) | payer OTHER, MEDICAID, SELFPAY | PROVIDERS: PCP Nurse Practitioner Family; Visit Provider Nurse Practitioner Family ==

== ENCOUNTER 2024-08-05 08:20 | Outpatient (REF) | payer OTHER, MEDICAID, SELFPAY ==
--- NOTE | ~2024-08-05 | XR_ITS ---
EXAMINATION: XR CHEST 2 VIEWS HISTORY: R07.89 - Other chest pain COMPARISON: There are no prior studies for comparison. FINDINGS: PA and lateral views of the chest are submitted. The lungs are expanded and clear. There is no pleural effusion, pneumothorax, or pulmonary vascular congestion. The heart is normal in size. The bones are intact. XR/XR chest 2V IMPRESSION: Normal examination of the chest. Electronically signed by: Checo Oconnor MD 08/05/2024 08:56 AM EDT
--- OUTSIDE RECORDS SUMMARY | 2024-08-05 08:25 | XMS_ITS | Clinical Summary ---
Author Organization [facility] Address [address] [place] [address] Phone Care Team Providers Care Dietetic Technician Name Role Phone Travis Ayalaica ANGELICA Primary Care Provider [phone] Allergies Active Allergy Reactions Criticality Noted Date Comments [place] (Diagnostic) Food 09/23/2017 Clay Medications mometasone 0.1 % creamIndications :Other atopic [...] 0 Refills, Maintenance, 12/17/22 11:56:00 EDT, Capsule, [facility]/pharmacy #[id number], Partial fill upon patient request if the [...] smear of cervix 07/31/2021 Overview (07/31/2021): 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 Procedure Name Priority Date/Time Associated Diagnosis Comments SURESWAB (ADV) VAGINITIS PLUS, TMA Routine 01/05/2023 3:38 PM EDT Vaginal discharge from Last 3 Months or Most Recently Relevant to Health Maintenance Results * Due to [place] [employer] law, this organization might not be sharing sensitive test results. * (ABNORMAL) SureSwab Advanced (TMA)- BV, CT/NG, CV, TV (01/05/2023 3:38 PM EDT) BACTERIAL VAGINOSIS TEST POSITIVE(A) (NEG) [facility] Comment: Bacterial vaginosis targets by PCR detected in this patient's sample. ?? Note: This assay uses real time sweatband flanger-mediated amplification (TMA) for detection and quantification of ribosomal RNA from bacteria associated with bacterial vaginosis (BV), including Lactobacillus (L. gasseri, L. crispatus, and L. jensenii), Gardnerella vaginalis, and Atopobium vaginae. Mickey Species NEGATIVE (NEG) [facility] Comment: No mickey species group (C. albicans, C. tropicalis, C. parapsilosis, C. dubliniensis) targets by PCR detected in this patient's sample. Mickey Glabrata, HENRY NEGATIVE (NEG) [facility] Comment:No Mickey glabrata targets by PCR detected in this patient's sample. SureSwab, T.vaginalis RNA NEGATIVE (NEG) [facility] Comment: No Trichomonas vaginalis targets by PCR detected in this patient's sample. ?? Note: This assay uses real time sweatband flanger-mediated amplification (TMA) for detection and quantification of ribosomal RNA from organisms associated with Mickey species group (C. albicans, C. tropicalis, C. parapsilosis, C. dubliniensis), Mickey glabrata, and Trichomonas vaginalis. Chlamydia Trachomatis, Amplified NEGATIVE (NEG) [facility] Comment: No Chlamydia Trachomatis RNA detected in this patient's sample ? (REFERENCE RANGE/NORMAL VALUE: NOT DETECTED) ? Note: This test uses sweatband flanger- mediated amplification method to detect rRNA from C. Trachomatis N.GONORRHOEAE AMP PROBE NEGATIVE (NEG) [facility] Comment: No Neisseria Gonorrhoeae RNA detected in this patient's sample ? (REFERENCE RANGE/NORMAL VALUE: NOT DETECTED) ? NOTE: This test uses sweatband flanger-mediated amplification method to detect rRNA from N.Gonorrhoeae. [...] without risk of sexual abuse. Consult the [facility] if needed. Contact phone number . Therapeutic failure or success cannot be determined with the Aptima Combo2 assay since nucleic acid may persist following appropriate antimicrobial therapy. The Centers for Disease Control and Prevention (CDC) recommends confirmatory retesting using culture or a different nucleic acid amplification test when positive results occur, if indicated. Testing performed or reported by [facility], a Service of [facility], [facility] [address], [place] [address] Roberto Quinn MD, Design Supervisor [facility]# [id number] Swab (Vagina) 01/05/2023 3:3 8 PM EDT 01/05/2023 11:10 PM EDT Ban Wendi DOMINGUEZ [facility] MICROBIOLOGY - GENERAL ORD ERABLES Final Result [facility] from Last 3 Months or Most Recently Relevant to Health Maintenance Insurance [facility] Address: [address] [place] [id number] [facility] NON [facility] [employer] [place] TORRES [phone] Care Teams Dietetic Technician Relationship Specialty Start Date End Date Elana Ayala NP [facility] [facility] [place] [address] PCP - General Pediatrics 09/17/22
--- OUTSIDE RECORDS SUMMARY | 2024-08-05 08:25 | XMS_ITS | Encounter Summary ---
Author Organization [facility] Address [address] [place] [address] Phone Care Team Providers Care Smoking Tobacco Packing Machine Hand Name Role Phone Elana Ayala CLOTH BLEACHING RANGE OPERATOR CHIEF Primary Care Provider [phone] Reason for Visit * Reason Onset Date Comments Med Refill 12/24/2022 Encounter Details Date Type Department Care Team (Late st Contact Info) Description 12/24/2022 Refill [facility] [address] [place] [address] [place] [address] Elana Ayala NP [facility] [place] [address] Social History Tobacco Use Types Packs/Day Years [...] on filedocumented in this encounter Care Teams Smoking Tobacco Packing Machine Hand Relationship Specialty Start Date End Date Elana Ayala NP [address] [facility] [place] [address] PCP - General Pediatrics 09/17/22 documented as of this encounter
--- OUTSIDE RECORDS SUMMARY | 2024-08-05 08:25 | XMS_ITS | Encounter Summary ---
Author Organization [facility] Address [address] [place] [address] Phone Care Team Providers Care General Agent Name Role Phone Elana Ayala NP Primary Care Provider [phone] Reason for Visit * Reason Comments Med Refill Encounter Details Date Type Department Care Team (Late st Contact Info) Description 07/29/2019 Refill [facility] [address] [place] [address] [address] [place] [phone] Lizzette Becker DO Other atopic dermatitis Social [...] dermatitis documented in this encounter Care Teams General Agent Relationship Specialty Start Date End Date Elana Ayala NP [address] [place] [address] [place] [address] PCP - General Pediatrics 09/17/22 documented as of this encounter
--- OUTSIDE RECORDS SUMMARY | 2024-08-05 08:25 | XMS_ITS | Encounter Summary ---
Author Organization [facility] Address [address] [place] [address] Phone Care Team Providers Care Promotions Firm Accounts Manager Name Role Phone Elana Ayala NP Primary Care Provider [phone] Reason for Visit * Reason Onset Date Comments Med Refill Med Refill 07/02/2018 Encounter Details Date Type Department Care Team (Late st Contact Info) Description 06/22/2018 Refill [facility] [address] [place] [address] [place] [address] Lizzette Becker DO Social History Tobacco Use [...] on filedocumented in this encounter Care Teams Promotions Firm Accounts Manager Relationship Specialty Start Date End Date Elana Ayala NP [address] [place] [address] [place] [address] PCP - General Pediatrics 09/17/22 documented as of this encounter
--- OUTSIDE RECORDS SUMMARY | 2024-08-05 08:25 | XMS_ITS | Encounter Summary ---
Author Organization [facility] Address [address] [place] [address] Phone Care Team Providers Care Cotton Roll Packer Name Role Phone Elana Ayala NP Primary Care Provider [phone] Reason for Visit * Reason Comments Med Refill Encounter Details Date Type Department Care Team (Late st Contact Info) Description 09/15/2018 Refill [facility] [address] [place] [address] [place] [address] Lizzette Becker, DO Anxiety Social History Tobacco [...] unspecified documented in this encounter Care Teams Cotton Roll Packer Relationship Specialty Start Date End Date Elana Ayala NP [address] [place] [address] [place] [address] PCP - General Pediatrics 09/17/22 documented as of this encounter
--- OUTSIDE RECORDS SUMMARY | 2024-08-05 08:25 | XMS_ITS | Encounter Summary ---
Author Organization [facility] Address [address] [place] [address] Phone Care Team Providers Care Apprise Counselor Name Role Phone Elana Ayala NP Primary Care Provider [phone] Encounter Details Date Type Department Care Team (Late st Contact Info) Description 04/27/2014 Conversion Encounter [facility] [address] [place] [address] [place] [address] Social History Tobacco Use Types Packs/Day Years [...] on filedocumented in this encounter Care Teams Apprise Counselor Relationship Specialty Start Date End Date Elana Ayala NP [address] [place] [address] [place] [address] PCP - General Pediatrics 09/17/22 documented as of this encounter
--- OUTSIDE RECORDS SUMMARY | 2024-08-05 08:25 | XMS_ITS ---
Author Organization [facility] Address [address] [place] [phone] Care Team Providers Care Polisher Eyeglass Frames Name Role Phone Lamont Vieira Primary Care Provider Unav ailable Kennedy Daniels Unavailable [phone] Eugenio DO, Lizzette Unavailable Unavailable REASON FOR VISIT ingrown nail with red line Encounters Encounter Location Date Provider Diagnosis [address] [address] 06/09/2024 Kennedy Daniels Plan Of Treatment No Information Progress Notes * aJnett VILLAGOMEZ EDOB: [birth year] (24 yo F)Acc No.[id number]:06/09/2024 Patient:?Janett VILLAGOMEZ :2000???Age:24 Y???Sex:Female Address: [place], [address] * true * Date:? Generated for Printi ng/Faleeannag/eTransmitting on:?08/05/2024 08:25 AM EDT
--- OUTSIDE RECORDS SUMMARY | 2024-08-05 08:25 | XMS_ITS | Encounter Summary ---
Author Organization [facility] Address [address] [place] [address] Phone Care Team Providers Care Heat Sealing Machine Operator Name Role Phone Elana Ayala NP Primary Care Provider [phone] Reason for Visit * Reason Comments Med Refill Encounter Details Date Type Department Care Team (Late st Contact Info) Description 07/23/2018 Refill [facility] [address] [place] [address] [place] [address] Lizzette Becker, Amenorrhea Social History Tobacco Use [...] menstruation documented in this encounter Care Teams Heat Sealing Machine Operator Relationship Specialty Start Date End Date Elana Ayala NP [address] [place] [address] [place] [address] PCP - General Pediatrics 09/17/22 documented as of this encounter
--- OUTSIDE RECORDS SUMMARY | 2024-08-05 08:25 | XMS_ITS | Encounter Summary ---
Author Organization [facility] Address [address] [place] [address] Phone Care Team Providers Care Regional Branch Manager Name Role Phone Elana Ayala NP Primary Care Provider [phone] Reason for Visit * Reason Comments Med Refill Encounter Details Date Type Department Care Team (Late st Contact Info) Description 03/21/2018 Refill [facility] [address] [place] [address] [place] [address] Lizzette Becker DO Anxiety and depression Social [...] depression documented in this encounter Care Teams Regional Branch Manager Relationship Specialty Start Date End Date Elana Ayala NP [address] [place] [address] [place] [address] PCP - General Pediatrics 09/17/22 documented as of this encounter
--- OUTSIDE RECORDS SUMMARY | 2024-08-05 08:25 | XMS_ITS | Encounter Summary ---
Author Organization [facility] Address [address] [place] [address] Phone Care Team Providers Care Pricer Name Role Phone Elana Ayala NP Primary Care Provider [phone] Reason for Visit * Reason Comments Med Refill Encounter Details Date Type Department Care Team (Late st Contact Info) Description 09/11/2018 Refill [facility] [address] [place] [address] [place] [address] Lizzette Becker, Amenorrhea Social History Tobacco Use [...] menstruation documented in this encounter Care Teams Pricer Relationship Specialty Start Date End Date Elana Ayala NP [address] [place] [address] [place] [address] PCP - General Pediatrics 09/17/22 documented as of this encounter
--- OUTSIDE RECORDS SUMMARY | 2024-08-05 08:26 | XMS_ITS | Clinical Summary ---
Author Organization [address] [place] [address] [facility] Address [address] [place] [address] Phone Care Team Providers Care Molecular Modeler Name Role Phone Lamont Regalado NP Primary Care Provider [phone] Social History Tobacco Use Types Packs/Day Years Used Date Smoking Tobacco: Never Assessed Comments Unknown Sex and Gender Information Value Date Recorded Sex Assigned at Not on file Legal Sex Female 7:34 AM EDT Gender Identity Not on file Sexual Orientation Not on file Plan of Treatment Upcoming Encounters Date Type Department Care Team ([facility] Contact Info) Description 08/10/2024 9:00 AM EDT Consult Orthopedic Surgery - [place] [phone] [address] Aquilino Garza, DPM [address] [address] Health Maintenance Due Date Last Done Comments [...] topic Insurance [facility] Care Teams Molecular Modeler Relationship Specialty Start Date End Date Lamont Regalado NP PCP - General Family Medicine 06/30/24
--- OUTSIDE RECORDS SUMMARY | 2024-08-05 08:26 | XMS_ITS | Data Portability ---
Author Organization JAYSON Bautista s, [facility] Address [address] [place] [address] Care Team Providers Care Chief Controller Tower Name Role Phone DAVIDEDEBORA AL Primary Care Provider Assessment No assessment recorded. Plan of Treatment Reminders Order Date Submit Date Provider Last Modified By Organization Details Last Modified Time Details Appointments None recorded. Lab culture, urine 2022 023 SALO [facility]), [address] [place] [address], [address], 3 20:06:19 vaginal pathogens panel, HENRY+probe, vaginal fluid 2022 023 LINCOLN [facility]), [address] [place] [address], [address], 3 20:06:18 rapid strep group A, throat 2022 023 [email or web address] [facility], [address] [place] [address], [address], 3 09:04:28 urinalysis , dipstick 2022 023 [email or web address] _[facility], [facility] [place], [address], 3 09:04:28 test, urine 2022 023 [email or web address] _[facility], [facility] [place], [address], 09:04:28 culture, respirator y 2022 023 [facility], [facility], [place], [address], 16:06:41 Referral None recorded. Procedures None recorded. Surgeries None recorded. Imaging None recorded. Medication Orders Diflucan 150 mg tablet 2022 023 [id number], [address] [place], [address], 16:20:37 miconazole nitrate 2 % topical cream 2022 023 [id number], [address] [place], [address], 16:30:47 Patient TargetsNo targets recorded. Patient Instructions Encounter Date Encounter Id Patient Instructions Last Modified By Organization Details Last Modified Time 05/09/2022 [id number] sore throat: car e instructions Not available 05/09/2022 09:04:28 sore throat: car e instructions Not available 05/09/2022 09:04:28 Reason for Referral None Reported. Results Created Date Observation Date Name Description Value Unit Range Abnormal Flag Note LastModifiedBy Organization Detail LastModifiedTime 05/09/1905/10/2022 NUSWA B VAGIN ITIS PLUS (VG+) atopobium vaginae LOW - 0 score Not Available [facility] ([facility]) [address] [facility], [place], [address], 05/11/2022 20:06:18 05/09/1905/10/2022 NUSWA B VAGIN ITIS PLUS (VG+) bvab 2 LOW - 0 score Not Available [facility] ([facility]) [address] [facility], [place], [address], 05/11/2022 20:06:18 05/09/1905/10/2022 NUSWA B VAGIN ITIS [...] Drug Admin istra tion. Not Available [facility] ([facility]) [address] [place], [address], 05/11/2022 20:06:18 05/09/19 23 05/10/2022 NUSWA B VAGIN ITIS PLUS (VG+) mickey albicans, HENRY NEGATI VE negati ve Not Available [facility] ([facility]) [address] [place], [address], 05/11/2022 20:06:18 05/09/19 23 05/10/2022 NUSWA B VAGIN ITIS PLUS (VG+) mickey glabrata, HENRY NEGATI VE negati ve Not Available [facility] ([facility]) [address] [place], [address], 05/11/2022 20:06:18 05/09/19 23 05/11/2022 NUSWA B VAGIN ITIS PLUS (VG+) trich vag by HENRY NEGATI VE negati ve Not Available [facility] ([facility]) [address] [place], [address], 05/11/2022 20:06:18 05/09/19 23 05/11/2022 NUSWA B VAGIN ITIS PLUS (VG+) chlamydia trachomatis, HENRY NEGATI VE negati ve Not Available [facility] ([facility]) [address] [place], [address], 05/11/2022 20:06:18 05/09/19 23 05/11/2022 NUSWA B VAGIN ITIS PLUS (VG+) neisseria gonorrhoeae, HENRY NEGATI VE negati ve Not Available [facility] ([facility]) [address] [place], [address], 05/11/2022 20:06:18 05/09/19 23 05/11/2022 URINE CULTU RE, ROUTI NE urine culture, routine FINAL REPORT Not Available [facility] ([facility]) [address] [place], [address], 05/11/2022 20:06:19 05/09/19 23 05/11/2022 URINE CULTU RE, ROUTI NE result 1 NO GROWTH Not Available [facility] ([facility]) [address] [place], [address], 05/11/2022 20:06:19 05/09/19 23 05/12/2022 UPPER RESPI RATOR Y CULTU RE upper respiratory culture FINAL REPORT Not Available [facility] ([facility]) [address] [place], [address], 05/12/2022 16:06:41 05/09/19 23 05/12/2022 UPPER RESPI RATOR Y CULTU RE result 1 COMMEN T Routi ne respi rator y braeden Not Available [facility] ([facility]) [address] [place], [address], 05/12/2022 16:06:41 05/09/19 23 05/09/2022 urina lysis , dipst ick Unknown Analyte Normal = light yellow Not Available [facility] [address] [place] [address], [place], [address], 05/09/2022 08:44:51 05/09/19 23 05/09/2022 urina lysis , dipst ick Unknown Analyte Dark Yellow Not Available 2099laureen lewis [address], [place], [address], 05/09/2022 08:44:51 05/09/19 23 05/09/2022 urina lysis , dipst ick Unknown Analyte Normal = clear Not Available laureen lewis [address], [place], [address], 05/09/2022 08:44:51 05/09/1905/09/2022 urina lysis , dipst ick Unknown Analyte Slight ly Cloudy Not Available laureen lewis [address], [place], [address], 05/09/2022 08:44:51 05/09/19 23 05/09/2022 urina lysis , dipst ick Unknown Analyte Normal = negati ve Not Available laureen lewis [address], [place], [address], 05/09/2022 08:44:51 05/09/19 23 05/09/2022 urina lysis , dipst ick Unknown Analyte Negati ve Not Available laureen lewis [address], [place], [address], 05/09/2022 08:44:51 05/09/19 23 05/09/2022 urina lysis , dipst ick Unknown Analyte Normal = Negati ve Not Available laureen lewis [address], [place], [address], 05/09/2022 08:44:51 05/09/19 23 05/09/2022 urina lysis , dipst ick Unknown Analyte Negati ve Not Available laureen lewis [address], [place], [address], 05/09/2022 08:44:51 05/09/19 23 05/09/2022 urina lysis , dipst ick Unknown Analyte Normal = Negati ve Not Available [facility] [address], [place], [address], 05/09/2022 08:44:51 05/09/19 23 05/09/2022 urina lysis , dipst ick Unknown Analyte Negati ve Not Available [address], [place], [address], 05/09/2022 08:44:51 05/09/19 23 05/09/2022 urina lysis , dipst ick Unknown Analyte Normal = 1.010, 1.015, 1.020 Not Available [address], [place], [address], 05/09/2022 08:44:51 05/09/19 23 05/09/2022 urina lysis , dipst ick Unknown Analyte 1.020 Not Available [address] [place] [address], [place], [address], 05/09/2022 08:44:51 05/09/19 23 05/09/2022 urina lysis , dipst ick Unknown Analyte Normal = Negati ve Not Available [address], [place], [address], 05/09/2022 08:44:51 05/09/19 23 05/09/2022 urina lysis , dipst ick Unknown Analyte Negati ve Not Available [address] [place] [address], [place], [address], 05/09/2022 08:44:51 05/09/19 23 05/09/2022 urina lysis , dipst ick Unknown Analyte Normal = 6.5, 7.0, 7.5, 8.0 Not Available [address] [place] [address], [place], [address], 05/09/2022 08:44:51 05/09/19 23 05/09/2022 urina lysis , dipst ick Unknown Analyte 7.0 Not Available [address] [place] [address], [place], [address], 05/09/2022 08:44:51 05/09/19 23 05/09/2022 urina lysis , dipst ick Unknown Analyte Normal = Negati ve Not Available [address] [place] [address], [place], [address], 05/09/2022 08:44:51 05/09/19 23 05/09/2022 urina lysis , dipst ick Unknown Analyte Trace Not Available [address] [place] [address], [place], [address], 05/09/2022 08:44:51 05/09/19 23 05/09/2022 urina lysis , dipst ick Unknown Analyte Normal = 0.2, 1.0 Not Available [address] [place] [address], [place], [address], 05/09/2022 08:44:51 05/09/19 23 05/09/2022 urina lysis , dipst ick Unknown Analyte 0.2 E.U./d L Not Available [address] [place] [address], [place], [address], 05/09/2022 08:44:51 05/09/19 23 05/09/2022 urina lysis , dipst ick Unknown Analyte Normal = Negati ve Not Available [address] [place] [address], [place], [address], 05/09/2022 08:44:51 05/09/19 23 05/09/2022 urina lysis , dipst ick Unknown Analyte Negati ve Not Available [address] [place] [address], [place], [address], 05/09/2022 08:44:51 05/09/19 23 05/09/2022 urina lysis , dipst ick Unknown Analyte Normal = Negati ve Not Available [address], [place], [address], 05/09/2022 08:44:51 05/09/1905/09/2022 urina lysis , dipst ick Unknown Analyte Negati ve Not Available [address], [place], [place], [address], 05/09/2022 08:44:51 05/09/19 23 05/09/2022 pregn karo test, urine Unknown Analyte Normal = Negati ve Not Available [address], [place], [address], 05/09/2022 08:44:59 05/09/19 23 05/09/2022 pregn karo test, urine Unknown Analyte negati ve Not Available [address], [place], [address], 05/09/2022 08:44:59 05/09/19 23 05/09/2022 rapid strep group A, throa t Unknown Analyte Normal = Negati ve Not Available [address] [place] [address], [place], [address], 05/09/2022 08:39:39 05/09/19 23 05/09/2022 rapid strep group A, throa t Unknown Analyte negati ve Not Available [address] [place] [address], [place], [address], 05/09/2022 08:39:39 Result Notes None recorded. Problems Name Problem SNOMED Code Status Onset Date Resolution Date Notes Provider Name and Address Organization Details Recorded Time Eczema 91308391 Active 023 Keri jane PA - [facility] 05/09/2022 08:43:40 Anxiety 05628689 Active 023 [facility] - [facility] [...] Address Organization Details Last Updated DateTime 3 63015.1 9 g 21.3 kg/m2 167.64 cm 96 % 96 % 0 67 /min 18 /min 98.5 [degF] 102 mm[Hg] 64 mm[Hg] Keri Hart Naroomi 08:47:05 Social History Question Answer Notes LastModified [...] SNOMED-CT Code Diagnosis ICD10 Code Diagnosis Note [id number] [facility] [address] [place] [address] 02/14/2018 13:47:21 02/14/2018 15:00:37 [id number] [facility] [address] [place] [address] 11/25/2018 15:21:28 11/25/2018 16:11:32 [id number] [facility] [address] [place] [address] 12/26/2018 15:03:32 12/26/2018 15:29:42 [id number] [facility] [address] [place] [address] 08/29/2020 08:03:19 08/29/2020 08:56:19 [id number] Paolo Bosch DO [facility] [address] [place] [address] 05/09/2022 08:21:02 05/09/2022 09:18:35 Acute pharyngitis 613878268 J02.9 Rapid strep NEGATIVE Likely viral etiology [...] up in the Emergency Department urgently. Dysuria 32163706 R30.0 UA unrevealin Joelle wnlwill check urine [...] Emergency Department urgently. Candidiasis of vagina 72 289522 B37.31 Signs, symptoms and PE consistent with [...] Recorded Advance Directives Directive None Recorded Payers Insurance Date Sequence Insurance Name Policy Number Policy Clancy Covered Member ID Clancy Member ID Guarantor Name 05/13/2022 1 [facility] [id number] Janett Villagomez [id number] Janett Villagomez 05/13/2022 2 [place] [facility] Janett Villagomez [id number] Janett Villagomez Notes Date Note Type Note [...] h/o yeast infections, had gotten fluconazole from aluminum pourer, symptoms not improved+ dysuriano VBno known STD exposureno sores on genitalsno increased frequencyno increased urgencyno incontinenceno pressureno malodorno blood in her urineno back painno rashno feverno nausea or vomitingno MS change Paolo Bosch, DO [address] [place], [address], PA - [facility] 05/09/2022 09:18:05 OBGyn Episode No OBEpisode recorded.
--- OUTSIDE RECORDS SUMMARY | 2024-08-05 08:26 | XMS_ITS | Encounter Summary ---
Author Organization [facility] Address [address] [place] [address] Phone Care Team Providers Care Hat Finisher Name Role Phone Elana Ayala PROCEDURE TECH Primary Care Provider [phone] Reason for Visit * Reason Onset Date Comments Med Refill 12/24/2022 Encounter Details Date Type Department Care Team (Late st Contact Info) Description 12/24/2022 Refill [facility] [address] [place] [address] [place] [address] Elana Ayala NP [address] [place] [address] [place] [address] Anxiety; Asthma, unspecified asthma severity, unspecified whether [...] - 12/24/2022 3:[address] [facility] with EM 09/17/22 Pt has requested all these meds through Android App Review Source. 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
--- OUTSIDE RECORDS SUMMARY | 2024-08-05 08:26 | XMS_ITS | Patient Health Record ---
Author Organization [facility] Address [address] [facility] [place] [address] Care Team Providers Care Power Press Operator Name Role Phone Lamont Vieira Primary Care Provider Kennedy Thomas Unavailable [phone] Eugenio DOLizzette Unavailable Unavailable Reason For Referral [...] No Encounters Encounter Location Date Provider Diagnosis [facility] [address] [place] [address] 06/09/2024 Kennedy Daniels Plan Of Treatment Pending Test Test Name Order Date 10638 I&D ABSCESS- SIMPLE,SINGLE 020 Insurance Providers Payer Name Payer Address Payer Phone Subscriber Number Group Number Insured Name Patient Relationship to Insured Coverage Start Date Coverage End Date [facility] [address] [facility] [place] [phone] [id number] [employer] [place] Child - Insured does not have Financial Responsibility (includes legally adopted child) Medical (General) History Medical History History ICD Code Anxiety asthma Depression Surgical History Surgery Date(Month/Year) Hospitalization History Reason Date(Month/Year) 08/2019
--- OUTSIDE RECORDS SUMMARY | 2024-08-05 08:27 | XMS_ITS ---
Author Organization [facility] Address [address] [place] [address] Care Team Providers Care Steel Welder Name Role Phone Fabricio VILLAVICENCIO, Lamont Primary Care Provider Unav ailable Kennedy Daniels Unavailable [phone] Eugenio DO, Lizzette Unavailable Unavailable Encounters Encounter Location Date Provider Diagnosis [address] [address] 06/10/2024 Kennedy Daniels Plan Of Treatment No Information Progress Notes * Janett VILLAGOMEZ EDOB: 0 (24 yo F)Acc No.[id number]:06/10/2024 Progress Notes Patient:?Janett VILLAGOMEZ Provider:?Kennedy Daniels DPM :2000???Age:24 Y???Sex:Female D ate:06/10/2024 Address:[address] [place] [address] [place]-[address] Pcp:SAUD Melendez Subjective: * Chief Complaints: * ??? * Medical History:? Objective: * Vitals:? Assessment: Plan: * Treatment: * Images: * The named appointment provid er may or may not be the originator of this progress note, and it is not deemed complete until electronically signed by the appointment provider. Sign off status: Pending * Provider:?Kennedy Daniels DPM Date:?2024 Generated for Daya knox/Renny/eTransmitting on:?08/05/2024 08:26 AM EDT
== END 2024-08-05 08:21 | disposition home or self-care (01) ==
LOC: HO.HMGCX 08:20
PROVIDERS: PCP Nurse Practitioner Family; Visit Provider Nurse Practitioner Family
DX: R07.89 Other chest pain (principal)
CPT/HCPCS: 71046

== ENCOUNTER → 2024-08-05 08:35 | Outpatient (BNV) | payer OTHER, MEDICAID, SELFPAY | PROVIDERS: PCP Nurse Practitioner Family; Visit Provider Radiology Diagnostic Radiology | DX: R07.89 Other chest pain (principal) | CPT/HCPCS: 71046 ==

== ENCOUNTER 2024-08-19 16:26 | Outpatient (REF) | payer OTHER, MEDICAID, SELFPAY ==
--- NOTE | ~2024-08-19 | CT_ITS ---
CLINICAL HISTORY: R51.9 - Headache, unspecified CT head without contrast Comparison: None Findings: No intra-axial mass, midline shift, hydrocephalus, or acute hemorrhage. There is no sinus or mastoid fluid. The orbits are unremarkable. There is no acute fracture. IMPRESSION: Unremarkable exam. This document has been electronically signed by: Pattie Zapata MD on 08/23/2024 11:20:39
--- OUTSIDE RECORDS SUMMARY | 2024-08-19 16:28 | XMS_ITS | Encounter Summary ---
Author Organization [facility] Address [address] [place] [address] Phone Care Team Providers Care Mixed Livestock Farmer Name Role Phone Elana Ayala NP Primary Care Provider [phone] Reason for Visit * Reason Comments Med Refill Encounter Details Date Type Department Care Team (Late st Contact Info) Description 03/21/2018 Refill [facility] [address] [place] [address] [place] [address] Lizzette Becker DO Anxiety and depression Social [...] depression documented in this encounter Care Teams Mixed Livestock Farmer Relationship Specialty Start Date End Date Elana Ayala NP [address] [place] [address] [place] [address] PCP - General Pediatrics 09/17/22 documented as of this encounter
== END 2024-08-19 16:27 | disposition home or self-care (01) ==
LOC: HO.CT 16:26
PROVIDERS: PCP Nurse Practitioner Family; Visit Provider Nurse Practitioner Family
DX: R51.9 Headache, unspecified (principal)
CPT/HCPCS: 70450

== ENCOUNTER → 2024-08-19 16:27 | Outpatient (BNV) | payer OTHER, MEDICAID, SELFPAY | PROVIDERS: PCP Nurse Practitioner Family; Visit Provider Radiology Diagnostic Radiology | DX: R51.9 Headache, unspecified (principal) | CPT/HCPCS: 70450 ==

== ENCOUNTER 2024-08-30 08:11 | Outpatient (AMB) | payer OTHER, MEDICAID, SELFPAY ==
[2024-08-30 08:19] VITALS: BP 110/60; PULSE 93; O2SAT 100; BMI 23.7
--- NOTE | 2024-08-30 08:19 | A.OFFPC_ITS ---
Vital Signs 08/30/24 08:19 Height 5 ft 6 in Weight 147 lb BMI 23.7 BP 110/60 Blood Pressure Location Rt brachial Position Sitting Pulse 93 Pulse Source Pulse Oximeter Pulse Oximetry (%) 100 Oxygen Delivery Method Room Air Intake Visit Reasons: 3m follow up Bed Spring Maker Required: No Accompanied by: Self / Same As Patient Allergies almond Allergy (Verified 08/30/24 08:19) Anaphylaxis walnut Allergy (Verified 08/30/24 08:19) Swelling Tobacco use date assessed: 05/25/24 Dental Screening Dental Screen Date: 05/25/24 HPI 3m follow up HPI Details Chief Complaint The patient presents for the management of headaches. History of Present Illness The patient is a 24-year-old female presenting with headaches. She has been managing these episodes with sumatriptan, which provides relief for some of the acute occurrences. During the conversation, she reported no blurred vision, chest pain, or shortness of breath associated with the headaches, and her blood pressure has remained stable. A CT scan of the head previously performed was normal, which was noted as reassuring. Social History - Employment, housing, education, family status, substance use, exercise, nutritional intake, and weight management were not discussed. Health Maintenance Review of Systems - Neurological: Reports headaches. - Ophthalmologic: Denies blurred vision. - Cardiovascular: Denies chest pain. - Respiratory: Denies shortness of breat h. Physical Exam General: Cooperative, healthy appearing, comfortable, no acute distress and well developed Orientation: Patient oriented x3 Limitations: No limitations Head: Normal to inspection Ears: Hearing grossly normal bilaterally Nose: Normal external nose present Face and sinus: Normal facial exam Eyes: Appearance normal, both eyes and all related structures Neck: Normal visual inspection and Yes full ROM Respiratory: Normal respiratory effort and able to speak in complete sentences. Clear to auscultation bilaterally Cardiovascular: Regular rate and rhythm. Normal S1 and S2 GI: Normal to inspection. Soft to palpation and nontender Skin: No rashes or lesions noted Neuro: Patient oriented x3 Extremities: Normal to inspection Results - Imaging: Head CT scan was negative. Plan The management of the patient's headaches will continue with the administration of sumatriptan for acute episodes. In addition, to aid in prevention, I have prescribed vitamin B2 (riboflavin) for morning use and magnesium oxide at night. These measures are intended to support ongoing treatment and potentially decrease the headache frequency. Continued neurological follow-up has been scheduled in the coming months for further evaluation. Discussion Notes During today's visit, I discussed the management of the patient's headaches, emphasizing the continuing use of sumatriptan for acute relief. We addressed the addition of vitamin B2 and magnesium oxide to her regimen as preventative measures. I highlighted the benefits of these supplements in mitigating the frequency of headache episodes. We also discussed that her blood pressure remains stable, and there should be no concerns over immediate serious complications given the normal CT scan results. I advised a follow-up with neurology in a few months and confirmed her understanding and agreement with the plan of care. Patient Instructions - Continue taking sumatriptan as needed for acute headache relief. - Start taking vitamin B2 (riboflavin) i n the morning. - Take magnesium oxide at night. - Attend follow-up appointment with neur ology as scheduled. - Monitor for any new symptoms or change s in headache patterns and report if they occur. [facility] Medical History Paronychia of great toe, right Eczema Iron deficiency anemia No known health problems Surgical History History of bilateral salpingectomy Hx of hernia repair Family History Father No problems noted. Mother No problems noted. Paternal Aunt Colon cancer Paternal Grandfather Bladder cancer Social History Household Members: Children Housing: Apartment Patient Tobacco Use Status: Current everyday Tobacco user Tobacco use type: Cigarette e-Cigarette/Vaping Use: Never Used service: No Current occupational status: employed Current occupational exposures/hazards: No Cognitive needs: No Hearing needs: No Vision needs: No Questionnaire PHQ-9 Over the last 2 weeks, how often have you been bothered by any of the following problems? 1. Little interest or pleasure in doing things: not at all 2. Feeling down, depressed, or hopeless: not at all 3. Trouble falling or staying asleep, or sleeping too much: several days 4. Feeling tired or having little energy: several days 5. Poor appetite or overeating: not at all 6. Feeling bad about yourself - or that you are a failure or have let yourself or your family down: not at all 7. Trouble concentrating on things, such as reading the newspaper or watching television: not at all 8. Moving or speaking so slowly that other people could have noticed. Or the opposite - being so fidgety or restless that you have been moving around a lot more than usual: not at all 9. Thoughts that you would be better off or of hurting yourself in some way: not at all Total score: 2 Depression Screening Interpretation: Negative Depression Screening Done: Yes 63565 - PHQ-9 Billing: Yes Source: Developed by Drs. Checo Cheung, Lona Traore, Jose Ramos and colleagues, with an educational harvey from [employer]. Thrive Questionnaire Date Thrive assessed: 08/30/24 I am a: Patient What is your living situation today?: I have a steady place to live Within the past 12 months, did the food you bought not last and you didn't have the money to get more?: Never true Within the past 12 months, did you worry whether your food would run out before you got money to buy more?: Never true Do you have trouble paying for medicines?: No Do you have trouble getting transportation to medical appointments?: No Do you have trouble paying your heating and electricity bill?: No Do you have trouble taking care of your child, family member or friend?: No Do you have trouble with day-to-day activities such as bathing, preparing meals, shopping, managing finances, etc.?: No Are you currently unemployed and looking for a job?: No Are you interested in more education?: No Please select the resources that you would like help with: None Currently or been in a relationship where the following occur: No concerns repor krzysztof THRIVE Score: 0 AUDIT C Alcohol Use Questionnaire (AUDIT-C) 1. How often do you have a drink containing alcohol?: Never 3. How often do you have six or more drinks on one occasion?: Never Total Score: 0 Score Reviewed/Action Taken: Yes GALINA-7 AMB Questionnaire GALINA-7 Date GALINA - 7 assessed: 08/30/24 Feeling nervous, anxious, or on edge: 1 = Several days Not being able to stop or control worryin = Several days Worrying too much about different things: 1 = Several days Trouble relaxin = Several days Being so restless that it is hard to sit still: 0 = Not at all Becoming easily annoyed or irritable: 1 = Several days Feeling afraid as if something awful might happen: 0 = Not at all Total GALINA-7 score (0-4 normal; 5-9 mild; 10-14 moderate; 15-21 severe): 5 Source: Developed by Drs. Checo Cheung, Lona Traore, Jose Ramos and colleagues, with an educational harvey from [employer]. GALINA-7 Assessment Billing GALINA-7 Assessment Tool: GALINA-7 Assessment 70752 Physical exam (Primary Care) Vital Signs: Last Vital Signs Pulse 93 08/30/24 08:19 BP 110/60 08/30/24 08:19 Pulse Ox 100 08/30/24 08:19 Oxygen Delivery Method Room Air 08/30/24 08:19 BMI result Body Mass Index 23.7 Tobacco/Smoking Status: Tobacco use Status Tobacco use date assessed 05/25/24 08/30/24 08:20 Patient Tobacco Use Status Current everyday Tobacco 08/30/24 08:20 Tobacco use type Cigarette 08/30/24 08:20 e-Cigarette/Vaping Use Never Used 08/30/24 08:20 PHQ-9: PHQ-9 Score PHQ-9: Total score 2 08/30/24 08:34 Depression Screening Interpretation: Negative Thrive Assessment: Date of Thrive Assessment Date Thrive assessed 08/30/24 08/30/24 08:20 Currently or been in a relationship where the following occur: No concerns reported Coding Level of Care Code Est Pt Level 3 (31028) Diagnoses Migraines G43.909 Additional Codes GALINA-7 Assessment Billing - GALINA-7 Assessment Tool: GALINA-7 Assessment 94409 ([id number]) PHQ-9 - 26087 - PHQ-9 Billing: Yes ([id number]) Assessment & Plan Assessment & Plan (1) Migraines: Code(s): G43.909 - Migraine, unspecified, not intractable, without status migrainosus Category: Medical Plan .
== END 2024-08-30 09:06 | disposition home or self-care (01) ==
LOC: HO.HMCC 08:12
PROVIDERS: PCP Nurse Practitioner Family; Visit Provider Nurse Practitioner Family
DX: G43.909 Migraine, unspecified, not intractable, without status migrainosus (principal)

== ENCOUNTER → 2024-08-30 08:11 | Outpatient (BNVA) | payer OTHER, MEDICAID, SELFPAY | PROVIDERS: PCP Nurse Practitioner Family; Visit Provider Nurse Practitioner Family | DX: G43.909 Migraine, unspecified, not intractable, without status migrainosus (principal) | CPT/HCPCS: 96127 ==

== ENCOUNTER 2024-11-16 13:04 | Outpatient (REF) | payer OTHER, MEDICAID, SELFPAY ==
[2024-11-16 17:17] LABS: MANUAL DIFF FLAG NO
[2024-11-16 17:43] LABS: Hematocrit 37.6 % (37.0-47.0); Hemoglobin 12.4 g/dl (12.0-16.0); Imm Gran Abs Auto 0.01 X10*3/uL (0.00-0.03); Imm Gran Pct Auto 0.2 % (0.0-0.4); Lymphocytes Absolute Auto 1.7 X10*3/uL (1.2-4.9); Mean Corpuscular HGB Conc 33.0 g/dl (31.0-35.0); Mean Corpuscular Hemoglobin 28.2 pg (27.0-33.0); Mean Corpuscular Volume 85.5 fL (80.0-98.0); NRBC Abs Auto 0.000 X10*3/uL (0.0-0.012); NRBC Pct Auto 0.0 /100WBC (0.0-0.2); Platelet Count 229 X10*3/uL (160-400); Red Blood Count 4.40 X10*6/uL (4.20-5.50); White Blood Count 4.7 X10*3/uL (4.8-10.8)
[2024-11-16 18:07] LABS: Alanine Aminotransferase 18 U/L (0-31); Albumin Level 4.8 g/dL (3.5-5.0); Alkaline Phosphatase 43 U/L (39-117); Anion Gap 11 (12-20); Aspartate Amino Transferase 22 U/L (5-31); Blood Urea Nitrogen 10 mg/dL (9-16); Calcium 9.2 mg/dL (8.4-10.2); Carbon Dioxide 27 mmol/L (22-29); Chloride 107 mmol/L (96-108); Estimated Glomerular Filt Rate > 60; Potassium 3.4 mmol/L (3.3-5.1); Sodium 142 mmol/L (135-145); Total Protein 7.3 g/dL (6.5-8.0)
== END 2024-11-16 13:05 | disposition home or self-care (01) ==
LOC: HO.HMGCLDS 13:04
PROVIDERS: PCP Nurse Practitioner Family; Visit Provider Physician Assistant
DX: R10.11 Right upper quadrant pain (principal); Z98.51 Tubal ligation status
CPT/HCPCS: 36415; 80053; 85025

== ENCOUNTER 2024-11-16 13:04 | Outpatient (AMB) | payer OTHER, MEDICAID, SELFPAY ==
[2024-11-16 13:18] VITALS: BP 102/60; PULSE 100; TEMP 36.6; O2SAT 99; BMI 22.6
--- NOTE | 2024-11-16 13:18 | MHC.OFFWIV ---
Intake Vital Signs 11/16/24 13:18 Height 5 ft 6 in Weight 140 lb BMI 22.6 BP 102/60 Blood Pressure Location Lt brachial Position Sitting Pulse 100 Pulse Source Pulse Oximeter Temp 97.9 F Temp Source Oral Pulse Oximetry (%) 99 Oxygen Delivery Method Room Air Intake Visit Reasons: EP Swelling/pain rt side stomach Intake Note: presents with right mid abdominal swelling and pain with palpation for about a week- pain induces vomiting Patient Tobacco Use Status: Current everyday Tobacco user Allergies almond Allergy (Verified 11/16/24 13:22) Anaphylaxis walnut Allergy (Verified 11/16/24 13:22) Swelling Do you need a note to return to daycare/school/sports/work: No HPI HPI Comments History of Present Illness Details Patient is a 24yo F who presents with R sided abdominal pain She denies trauma or injury Noticed swelling r lower abdomen x 1 week She said she feels like R side of abdomen upper and lower is still swollen SHe put pressure on the R side of her abdomen earlier today that caused slight pain and nausea/one episode of vomiting SHe is urinating normally She admits to increased appetite; otherwise no nausea or vomiting She noticed cramping lower abdomen and eating improves symptoms She is 10 months post and had a tubal ligation 2 months ago both sides. Normal bowel movements Normal urination; dysuria, freuqnecy, hematuria No vaginal bleeding. + menstruating again, last cycle was 3.5 weeks ago and worse post tubal ligation; no breast feeding. sttates pain with intercourse post tubal Dr. Jan SOLORZANO through [facility] PCP is Lamont Pt has tried warm compress which helps Pain level just sitting is 3/10 PFSH Medical History Paronychia of great toe, right Eczema Iron deficiency anemia No known health problems Surgical History History of bilateral salpingectomy Hx of hernia repair Family History Father No problems noted. Mother No problems noted. Paternal Aunt Colon cancer Paternal Grandfather Bladder cancer Paternal Grandmother Lupus (systemic lupus erythematosus) Family/Other Lupus (systemic lupus erythematosus) Paternal Aunt Lupus (systemic lupus erythematosus) Social History Household Members: Children Housing: Apartment Patient Tobacco Use Status: Current everyday Tobacco user Tobacco use type: Cigarette e-Cigarette/Vaping Use: Never Used service: No Current occupational status: employed Current occupational exposures/hazards: No Cognitive needs: No Hearing needs: No Vision needs: No Review of Systems Const Denies chills, Denies fatigue, Denies fever(s), Reports increased appetite and Denies poor appetite ENT Denies dizziness Card Denies chest pain and Denies dyspnea Resp Denies cough and Denies dyspnea GI Reports abdominal pain, Reports bloating (R side of abdomen), Denies change in bowel habits, Denies constipation, Denies diarrhea, Reports nausea and Denies vomiting Denies hematuria, Denies difficulty voiding, Reports dyspareunia, Reports dysmenorrhea, Denies urinary incontinence, Denies urinary hesitancy and Denies urinary urgency Musc Denies back pain and Denies myalgias Skin/Breast Denies rash, Denies skin pain and Denies sores Neuro Denies dizziness Endo Denies fatigue Physical Exam Exam Exam: General: Non-toxic, NAD. Speaking full sentences. Skin: Warm dry throughout Eye: PERRL, EOMI HENT: Airway patent. Uvula midline. No pharyngeal erythema or edema. No HEMSTITCHING MACHINE OPERATOR. Bilateral canals clear. TM non-erythematous, non-bulging. No TM perforation or hemotympanum noted. Respiratory: CTA bilaterally. No wheezes, rales or rhonchi Cardiac: RRR. No murmur Abdominal: BS present. Non-tender throughout with light palpation. No rebound or guarding. Negative Woodburn sign. No palpable masses or hernias. No abdominal distention or pusatile mass. MSK: Full ROM extremities. Neurology: Alert. No aphasia or facial droop. Gait without abnormality Psych: Good mood and affect Vital Signs: Last Vital Signs Temp 97.9 F 11/16/24 13:18 Pulse 100 11/16/24 13:18 BP 102/60 11/16/24 13:18 Pulse Ox 99 11/16/24 13:18 Oxygen Delivery Method Room Air 11/16/24 13:18 BMI result Body Mass Index 22.6 Assessment & Plan Assessment & Plan (1) Abdominal pain: Code(s): R10.9 - Unspecified abdominal pain Qualifiers: Abdominal location: right upper quadrant Qualified Code(s): R10.11 - Right upper quadrant pain Plan: Patient seen and evaluated. Vitals stable Pt non-toxic appearing No acute abdomen on exam Discussed need to start with labs; CBC and CMP ordered Declined U/A in office Discussed ER s/s that warrant immediate eval Should f/u with Lamont for further evaluation Patient gave verbal understanding and had no additional questions or concerns at time of discharge All questions answered Orders: Orders Complete Blood Count Auto Diff Today R10.9 - Unspecified abdominal pain Comprehensive Met. Panel Today R10.9 - Unspecified abdominal pain Medications: New ondansetron 4 mg PO Q8H PRN 10 tabs 0RF nausea and vomiting ibuprofen 600 mg PO Q8H PRN 20 tabs 0RF pain Coding Level of Care Code Est Pt Level 4 (75692) Diagnoses Right upper quadrant abdominal pain R10.11 Abdominal location: right upper quadrant
--- OUTSIDE RECORDS SUMMARY | 2024-11-16 13:57 | XMS_ITS | Patient Health Record ---
Author Organization [facility] Address [address] [facility] [place] [address] Care Team Providers Care Piece Meat Trimmer Name Role Phone Lamont Vieira Primary Care Provider Kennedy Thomas Unavailable [phone] Eugenio DOLizzette Unavailable Unavailable Reason For Referral No Information Medications Medication SIG (Take, Route, Fr equency, Duration) Notes Start Date End Date Status Cephalexin 500 MG 1 tablet Orally Twic e a day; Duration: 10 day(s) Active Social History Tobacco Use: [...] No Encounters Encounter Location Date Provider Diagnosis [facility] [address] [place] [address] 06/09/2024 Kennedy Daniels Plan Of Treatment Pending Test Test Name Order Date 49473 I&D ABSCESS- SIMPLE,SINGLE 020 Insurance Providers Payer Name Payer Address Payer Phone Subscriber Number Group Number Insured Name Patient Relationship to Insured Coverage Start Date Coverage End Date [facility] [address] [place] [address] [id number] [employer] [place] Child - Insured does not have Financial Responsibility (includes legally adopted child) Medical (General) History Medical History History ICD Code Anxiety asthma Depression Surgical History Surgery Date(Month/Year) Hospitalization History Reason Date(Month/Year) 08/2019
--- OUTSIDE RECORDS SUMMARY | 2024-11-16 13:57 | XMS_ITS | Encounter Summary ---
Author Organization [facility] Address [address] [place] [id number] Phone Care Team Providers Care Lacquer Dipping Machine Operator Name Role Phone Elana Ayala NP Primary Care Provider [phone] Reason for Visit * Reason Comments Med Refill Encounter Details Date Type Department Care Team (Late st Contact Info) Description 03/21/2018 Refill [facility] [address] [place] [address] [place] [address] Lizzette Becker DO Anxiety and depression Social [...] depression documented in this encounter Care Teams Lacquer Dipping Machine Operator Relationship Specialty Start Date End Date Elana Ayala NP [address] [place] [address] [place] [address] PCP - General Pediatrics 09/17/22 documented as of this encounter
== END 2024-11-16 14:00 | disposition home or self-care (01) ==
PROVIDERS: PCP Nurse Practitioner Family; Visit Provider Physician Assistant
DX: R10.11 Right upper quadrant pain (principal)

== ENCOUNTER 2024-11-30 09:36 | Outpatient (AMB) | payer OTHER, MEDICAID, SELFPAY ==
--- OUTSIDE RECORDS SUMMARY | 2024-06-10 08:30 | XMS_ITS ---
Author Organization [facility] Address [address] [place] [address] Care Team Providers Care Speech Communication Instructor Name Role Phone Fabricio VILLAVICENCIO, Lamont Primary Care Provider Unav ailable Kennedy Daniels Unavailable [phone] Eugenio DO, Lizzette Unavailable Unavailable Encounters Encounter Location Date Provider Diagnosis [address] [address] 06/10/2024 Kennedy Daniels Plan Of Treatment No Information Progress Notes * Janett VILLAGOMEZ EDOB: 0 (24 yo F)Acc No.[id number]:06/10/2024 Progress Notes Patient: Eugenia LIM Janett Whipple Provider: Sarabjit Daniels DPM :2000 A ge:24 Y S ex:Female Date:06/10/2024 Address:[address] [place] [address] [place] Pope [id number] Pcp:SAUD Melendez Subjective: * Chief Complaints: * [...] Date: 06/10/2024 Generated for Nicholasi ng/Faxing/eTransmitting on: 11/30/2024 10:30 AM EDT
--- NOTE | 2024-11-30 09:48 | AM.OFFWIN_ITS ---
Intake Vital Signs 11/30/24 10:00 Height 5 ft 6 in Weight 144 lb BMI 23.2 BP 92/60 Blood Pressure Location Lt brachial Position Sitting Pulse 92 Pulse Source Pulse Oximeter Temp 98.1 F Temp Source Oral Pulse Oximetry (%) 98 Oxygen Delivery Method Room Air Intake Visit Reasons: EP-bladder issues Intake Note: pt presents with blood in urine, low back pain, stomach pain, headache,urine frequency and burning Patient Tobacco Use Status: Current everyday Tobacco user Allergies almond Allergy (Verified 11/30/24 10:02) Anaphylaxis walnut Allergy (Verified 11/30/24 10:02) Swelling Do you need a note to return to daycare/school/sports/work: No HPI HPI Comments History of Present Illness Details History - The patient is a 24-year-old female pr esenting with symptoms suggestive of a urinary tract infection x few days. - She reports back pain, nausea, anorexi a, and bloating. - pain with urination is present with ur inary frequency, approximately 15 times per hour. - reports bloody discharge during urinat ion. - The patient has a history of recurrent urinary tract infections and is under the care of a urologist. - She typically takes cefuroxime for the se infections Physical Exam General: Cooperative, healthy appearing, comfortable and no acute distress Orientation/consciousness: Patient oriented x3 Limitations: No limitations Head: Normal to inspection Ears: Hearing grossly normal bilaterally Face and sinus: Normal facial exam Eyes: Appearance normal, both eyes and all related structures Neck: Normal visual inspection, full ROM Respiratory: Normal respiratory effort, able to speak in complete sentences Skin: No rashes or lesions noted Neuro: Patient oriented x3 Extremities: Normal to inspection and Yes no clubbing, cyanosis or edema PFSH Medical History Paronychia of great toe, right Eczema Iron deficiency anemia No known health problems Surgical History History of bilateral salpingectomy Hx of hernia repair Family History Father No problems noted. Mother No problems noted. Paternal Aunt Colon cancer Paternal Grandfather Bladder cancer Paternal Grandmother Lupus (systemic lupus erythematosus) Family/Other Lupus (systemic lupus erythematosus) Paternal Aunt Lupus (systemic lupus erythematosus) Social History Household Members: Children Housing: Apartment Patient Tobacco Use Status: Current everyday Tobacco user Tobacco use type: Cigarette e-Cigarette/Vaping Use: Never Used service: No Current occupational status: employed Current occupational exposures/hazards: No Cognitive needs: No Hearing needs: No Vision needs: No Review of Systems Const All systems reviewed & are unremarkable except as noted in HPI and below Physical Exam Vital Signs: Last Vital Signs Temp 98.1 F 11/30/24 10:00 Pulse 92 11/30/24 10:00 BP 92/60 11/30/24 10:00 Pulse Ox 98 11/30/24 10:00 Oxygen Delivery Method Room Air 11/30/24 10:00 BMI result Body Mass Index 23.2 Results AMB Urinalysis, Automated UA Leukoctes 70 Fady/uL Last Edit by Dottie Wheeler CMA on 11/30/24 10:15 UA Nitrite Negative Last Edit by Dottie Wheeler CMA on 11/30/24 10:15 UA Urobilinogen 0.2 mg/dL Last Edit by Dottie Wheeler CMA on 11/30/24 10:15 UA Protein 30 mg/dL Last Edit by Dottie Wheeler CMA on 11/30/24 10:15 UA pH 6.0 Last Edit by Dottie Wheeler CMA on 11/30/24 10:15 UA Blood 200 Kalyan/uL Last Edit by Dottie Wheeler CMA on 11/30/24 10:15 UA Specific [place] 1.020 Last Edit by Dottie Wheeler CMA on 11/30/24 10:15 UA Ketone Negative Last Edit by Dottie Wheeler CMA on 11/30/24 10:15 UA Bilirubin 0 mg/dL Last Edit by Dottie Wheeler CMA on 11/30/24 10:15 UA Glucose 0 mg/dL Last Edit by Dottie Wheeler CMA on 11/30/24 10:15 Results Reviewed Results Reviewed: Laboratory Last Values Urine pH (Auto) 6.0 11/30/24 10:12 Specific [place] (Auto) 1.020 11/30/24 10:12 Urine Protein (Auto) 30 mg/dL 11/30/24 10:12 Glucose (UA)(Auto) 0 mg/dL 11/30/24 10:12 Urine Ketones (Auto) Negative 11/30/24 10:12 Urine Blood (Auto) 200 Kalyan/uL 11/30/24 10:12 Urine Nitrite (Auto) Negative 11/30/24 10:12 Urine Bilirubin (Auto) 0 mg/dL 11/30/24 10:12 Urine Urobilinogen (Auto) 0.2 mg/dL 11/30/24 10:12 Leukocyte Esterase (Auto) 70 Fady/uL 11/30/24 10:12 Assessment & Plan Assessment & Plan (1) UTI (urinary tract infection): Code(s): N39.0 - Urinary tract infection, site not specified Qualifiers: Urinary tract infection type: acute cystitis Hematuria presence: with hematuria Qualified Code(s): N30.01 - Acute cystitis with hematuria Plan: Patient was informed and verbally consented to the use of an ambient scribe for clinic note documentation during this visit Urinary Tract Infection (Uti) - UA + leuks, + protein, + blood - Initiate treatment with cefuroxime as it provides good coverage for the infection. - Monitor for resolution of symptoms; if symptoms persist, consider urine culture. - Advise the patient to report any development of fever to her healthcare provider. Orders: Orders AMB Urinalysis Automated Today Hoa Vivas PA-C Z13.9 - Encounter for screening, unspecified Medications: New cefuroxime axetil 500 mg PO Q12H 10 tabs 0RF Elizabeth Ruff PA-C phenazopyridine 200 mg (2 x 100 mg) PO Q8H PRN 6 tabs 0RF Pain Elizabeth Ruff PA-C Coding Level of Care Code Est Pt Level 3 (80302) Diagnoses Acute cystitis with hematuria N30.01 Urinary tract infection type: acute cystitis Hematuria presence: with hematuria
[2024-11-30 10:00] VITALS: BP 92/60; PULSE 92; TEMP 36.7; O2SAT 98; BMI 23.2
--- OUTSIDE RECORDS SUMMARY | 2024-11-30 10:29 | XMS_ITS | Encounter Summary ---
Author Organization [facility] Address [address] [place] [address] Phone Care Team Providers Care Melter Loader Name Role Phone Elana Ayala NP Primary Care Provider [phone] Reason for Visit * Reason Comments Med Refill Encounter Details Date Type Department Care Team (Late st Contact Info) Description 03/21/2018 Refill [facility] [address] [place] [address] [place] [address] Lizzette Becker DO Anxiety and depression Social [...] depression documented in this encounter Care Teams Melter Loader Relationship Specialty Start Date End Date Elana Ayala NP [address] [place] [address] [place] [address] PCP - General Pediatrics 09/17/22 documented as of this encounter
--- OUTSIDE RECORDS SUMMARY | 2024-11-30 10:29 | XMS_ITS | Encounter Summary ---
Author Organization [facility] Address [address] [place] [phone] Phone Care Team Providers Care Sane Rn Name Role Phone Elana Ayala NP Primary Care Provider [phone] Encounter Details Date Type Department Care Team (Late st Contact Info) Description 04/27/2014 Conversion Encounter [facility] [address] [place] [address] [place] [phone] Social History Tobacco Use Types Packs/Day Years [...] on filedocumented in this encounter Care Teams Sane Rn Relationship Specialty Start Date End Date Elana Ayala NP [address] [place] [address] [place] [address] PCP - General Pediatrics 09/17/22 documented as of this encounter
--- OUTSIDE RECORDS SUMMARY | 2024-11-30 10:30 | XMS_ITS | Encounter Summary ---
Author Organization [facility] Address [address] [place] [address] Phone Care Team Providers Care Biztalk Architect Name Role Phone Elana Ayala NP Primary Care Provider [phone] Reason for Visit * Reason Comments Med Refill Encounter Details Date Type Department Care Team (Late st Contact Info) Description 09/11/2018 Refill [facility] [address] [place] [address] [place] [address] Lizzette Becker, Amenorrhea Social History Tobacco Use [...] menstruation documented in this encounter Care Teams Biztalk Architect Relationship Specialty Start Date End Date Elana Ayala NP [address] [place] [address] [place] [address] PCP - General Pediatrics 09/17/22 documented as of this encounter
--- OUTSIDE RECORDS SUMMARY | 2024-11-30 10:30 | XMS_ITS | Encounter Summary ---
Author Organization [facility] Address [address] [place] [address] Phone Care Team Providers Care Vault Maker Name Role Phone Elana Ayala MANAGER REGIONAL SALES Primary Care Provider [phone] Reason for Visit * Reason Onset Date Comments Med Refill 12/24/2022 Encounter Details Date Type Department Care Team (Late st Contact Info) Description 12/24/2022 Refill [facility] [address] [place] [address] [place] [address] Elana Ayala NP [facility] [place] [address] Social History Tobacco Use Types Packs/Day Years [...] filedocumented in this encounter Care Teams Vault Maker Relationship Specialty Start Date End Date Elana Ayala NP [address] [place] [address] PCP - General Pediatrics 09/17/22 documented as of this encounter
--- OUTSIDE RECORDS SUMMARY | 2024-11-30 10:30 | XMS_ITS | Encounter Summary ---
Author Organization [facility] Address [address] [place] [address] Phone Care Team Providers Care Door Liner Helper Name Role Phone Elana Ayala NP Primary Care Provider [phone] Reason for Visit * Reason Comments Med Refill Encounter Details Date Type Department Care Team (Late st Contact Info) Description 09/15/2018 Refill [facility] [address] [place] [address] [place] [address] Lizzette Becker, DO Anxiety Social History Tobacco [...] unspecified documented in this encounter Care Teams Door Liner Helper Relationship Specialty Start Date End Date Elana Ayala NP [address] [place] [address] [place] [address] PCP - General Pediatrics 09/17/22 documented as of this encounter
--- OUTSIDE RECORDS SUMMARY | 2024-11-30 10:30 | XMS_ITS | Encounter Summary ---
Author Organization [facility] Address [address] [place] [address] Phone Care Team Providers Care Plate Shop Helper Name Role Phone Elana Ayala ALUMINUM SHINGLE ROOFER Primary Care Provider [phone] Reason for Visit * Reason Onset Date Comments Med Refill 12/24/2022 Encounter Details Date Type Department Care Team (Late st Contact Info) Description 12/24/2022 Refill [facility] [address] [place] [address] [place] [address] Elana Ayala NP [address] [place] [address] [place] [address] Anxiety; Asthma, unspecified asthma severity, unspecified whether [...] MA - 12/24/2022 3:55 PM EDT Last [facility] with EM 09/17/22 Pt has requested all these meds through [email or web address]. 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
--- OUTSIDE RECORDS SUMMARY | 2024-11-30 10:30 | XMS_ITS | Encounter Summary ---
Author Organization [facility] Address [address] [place] [address] Phone Care Team Providers Care Office Worker Name Role Phone Elana Ayala NP Primary Care Provider [phone] Reason for Visit * Reason Comments Med Refill Encounter Details Date Type Department Care Team (Late st Contact Info) Description 07/23/2018 Refill [facility] [address] [place] [address] [place] [address] Lizzette Becker, Amenorrhea Social History Tobacco Use [...] menstruation documented in this encounter Care Teams Office Worker Relationship Specialty Start Date End Date Elana Ayala NP [address] [place] [address] [place] [address] PCP - General Pediatrics 09/17/22 documented as of this encounter
--- OUTSIDE RECORDS SUMMARY | 2024-11-30 10:30 | XMS_ITS | Clinical Summary ---
Author Organization [facility] Address [address] [place] [address] Phone Care Team Providers Care Civil Engineering Specialist Name Role Phone Travis Ayalaica ANGELICA Primary Care Provider [phone] Allergies Active Allergy Reactions Criticality Noted Date Comments [place] (Diagnostic) Food 09/23/2017 [place] Medications mometasone 0.1 % creamIndications :Other atopic [...] 0 Refills, Maintenance, 12/17/22 11:56:00 EDT, Capsule, [facility]/pharmacy #[id number], Partial fill upon patient request if the [...] smear of cervix 07/31/2021 Overview (07/31/2021): Seeing Digital Research Analyst History of recurrent UTIs 07/31/2021 Overview (07/31/2021): [...] needed for panic attacks Refer to [facility] to discuss trauma and anxiety [...] (592.0) Onset: 12/04/2016 Added by: Anna Corona Immunizations Immunization Administration Dates Next Due DTaP [...] 77 02/18/2022 2:46 PM EST Temperature 36.5 C (97.7 F) 01/12/2023 1:48 PM EDT Respiratory Rate - - Oxygen Saturation - [...] 11/11/2000, Additional history exists Influenza Vaccines (#1) 2024 05/28/2019 COVID-19 Vaccine ( season) 2024 HIB Vaccines Completed 08/05/2000, 09/28, 1999, Additional [...] complete this topic Procedures * Due to [place] [employer] law, this organization might not be sharing sensitive test results. Procedure Name Priority Date/Time Associated Diagnosis Comments SURESWAB (ADV) VAGINITIS PLUS, TMA Routine 01/05/2023 3:38 PM EDT Vaginal discharge from Last 3 Months or Most Recently Relevant to Health Maintenance Results * Due to [place] [employer] law, this organization might not be sharing sensitive test results. * (ABNORMAL) SureSwab Advanced (TMA)- BV, CT/NG, CV, TV (01/05/2023 3:38 PM EDT) BACTERIAL VAGINOSIS TEST POSITIVE(A) (NEG) [facility] Comment: Bacterial vaginosis targets by PCR detected in this patient's sample. Note: This assay uses real time swimming pool maintenance-mediated amplification (TMA) for detection and quantification of ribosomal RNA from bacteria associated with bacterial vaginosis (BV), including Lactobacillus (L. gasseri, L. crispatus, and L. jensenii), Gardnerella vaginalis, and Atopobium vaginae. Mickey Species NEGATIVE (NEG) [facility] Comment: No mickey species group (C. albicans, C. tropicalis, C. parapsilosis, C. dubliniensis) targets by PCR detected in this patient's sample. Mickey Glabrata, HENRY NEGATIVE (NEG) [facility] Comment:No Mickey glabrata targets by PCR detected in this patient's sample. SureSwab, T.vaginalis RNA NEGATIVE (NEG) [facility] Comment: No Trichomonas vaginalis targets by PCR detected in this patient's sample. Note: This assay uses real time swimming pool maintenance-mediated amplification (TMA) for detection and quantification of ribosomal RNA from organisms associated with Mickey species group (C. albicans, C. tropicalis, C. parapsilosis, C. dubliniensis), Mickey glabrata, and Trichomonas vaginalis. Chlamydia Trachomatis, Amplified NEGATIVE (NEG) [facility] Comment: No Chlamydia Trachomatis RNA detected in this patient's sample (REFERENCE RANGE/NORMAL VALUE: NOT DETECTED) Note: This test uses swimming pool maintenance- mediated amplification method to detect rRNA from C. Trachomatis N.GONORRHOEAE AMP PROBE NEGATIVE (NEG) [facility] Comment: No Neisseria Gonorrhoeae RNA detected in this patient's sample (REFERENCE RANGE/NORMAL VALUE: NOT DETECTED) NOTE: This test uses swimming pool maintenance-mediated amplification method to detect rRNA from N.Gonorrhoeae. [...] if indicated. Testing performed or reported by [facility], a Service of [facility], [address] [place] [address] [place] [address] Roberto Quinn MD, Pump Assembler [facility]# [id number] Swab (Vagina) 01/05/2023 3:3 8 PM EDT 01/05/2023 11:10 PM EDT us Ban Adame NP LAB MICROBIOLOGY - GENERAL ORD ERABLES Final Result [facility] from Last 3 Months or Most Recently Relevant to Health Maintenance Insurance [facility] NON PCC [employer] Care Teams Civil Engineering Specialist Relationship Specialty Start Date End Date Elana Ayala NP [facility] [facility] [place] [address] PCP - General Pediatrics 09/17/22
--- OUTSIDE RECORDS SUMMARY | 2024-11-30 10:30 | XMS_ITS | Encounter Summary ---
Author Organization [facility] Address [address] [place] [address] Phone Care Team Providers Care Manual Winder Name Role Phone Elana Ayala NP Primary Care Provider [phone] Reason for Visit * Reason Onset Date Comments Med Refill Med Refill 07/02/2018 Encounter Details Date Type Department Care Team (Late st Contact Info) Description 06/22/2018 Refill [facility] [address] [place] [address] [place] [address] Lizzette Becker DO Social History Tobacco Use [...] on filedocumented in this encounter Care Teams Manual Winder Relationship Specialty Start Date End Date Elana Ayala NP [address] [place] [address] [place] [address] PCP - General Pediatrics 09/17/22 documented as of this encounter
--- OUTSIDE RECORDS SUMMARY | 2024-11-30 10:30 | XMS_ITS | Patient Health Record ---
Author Organization [facility] Address [address] [facility] [place] [address] Care Team Providers Care Plumber Gasfitter Name Role Phone Lamont Vieira Primary Care Provider Kennedy Thomas Unavailable [phone] Eugenio DOLizzette Unavailable Unavailable Reason For Referral [...] No Encounters Encounter Location Date Provider Diagnosis [facility] [address] [place] [address] 06/09/2024 Kennedy Daniels Plan Of Treatment Pending Test Test Name Order Date 25458 I&D ABSCESS- SIMPLE,SINGLE 020 Insurance Providers Payer Name Payer Address Payer Phone Subscriber Number Group Number Insured Name Patient Relationship to Insured Coverage Start Date Coverage End Date [facility] [address] [place] [address] [id number] [employer] [place] Child - Insured does not have Financial Responsibility (includes legally adopted child) Medical (General) History Medical History History ICD Code Anxiety asthma Depression Surgical History Surgery Date(Month/Year) Hospitalization History Reason Date(Month/Year) 08/2019
--- OUTSIDE RECORDS SUMMARY | 2024-11-30 10:30 | XMS_ITS | Encounter Summary ---
Author Organization [facility] Address [address] [place] [address] Phone Care Team Providers Care Technical Delivery Manager Name Role Phone Elana Ayala NP Primary Care Provider [phone] Reason for Visit * Reason Comments Med Refill Encounter Details Date Type Department Care Team (Late st Contact Info) Description 07/29/2019 Refill [facility] [address] [place] [address] [address] [place] [id number] Lizzette Becker DO Other atopic dermatitis Social [...] dermatitis documented in this encounter Care Teams Technical Delivery Manager Relationship Specialty Start Date End Date Elana Ayala NP [address] [place] [address] [place] [address] PCP - General Pediatrics 09/17/22 documented as of this encounter
== END 2024-11-30 10:42 | disposition home or self-care (01) ==
PROVIDERS: PCP Nurse Practitioner Family; Visit Provider Physician Assistant
DX: Z13.9 Encounter for screening, unspecified (principal); N30.01 Acute cystitis with hematuria

== ENCOUNTER → 2024-11-30 09:36 | Outpatient (BNVA) | payer OTHER, MEDICAID, SELFPAY | PROVIDERS: PCP Nurse Practitioner Family; Visit Provider Physician Assistant | DX: N30.01 Acute cystitis with hematuria (principal); M54.9 Dorsalgia, unspecified; R63.0 Anorexia; R14.0 Abdominal distension (gaseous) | CPT/HCPCS: 81003 ==

== ENCOUNTER 2024-12-08 08:43 | Outpatient (AMB) | payer OTHER, MEDICAID, SELFPAY ==
--- OUTSIDE RECORDS SUMMARY | 2024-06-10 08:30 | XMS_ITS ---
Author Organization [facility] Address [address] [place] [address] Care Team Providers Care Hardness Inspector Name Role Phone Fabricio VILLAVICENCIO, Lamont Primary Care Provider Unav ailable Kennedy Daniels Unavailable [phone] Eugenio DO, Lizzette Unavailable Unavailable Encounters Encounter Location Date Provider Diagnosis [address] [address] 06/10/2024 Kennedy Daniels Plan Of Treatment No Information Progress Notes * Janett VILLAGOMEZ EDOB: 0 (24 yo F)Acc No.[id number]:06/10/2024 Progress Notes Patient: Eugenia LIM Janett Whipple Provider: Sarabjit Daniels DPM :2000 A ge:24 Y S ex:Female Date:06/10/2024 Address:[address] [place] [address] [id number] Pcp:SAUD Melendez Subjective: * Chief Complaints: * * Medical History: Objective: * Vitals: Assessment: Plan: * Treatment: * Images: * The named appointment provid er may or may not be the originator of this progress note, and it is not deemed complete until electronically signed by the appointment provider. Sign off status: Pending * Provider: Sarabjit Daniels DPM Date: 06/10/2024 Generated for Nicholasi ng/Faxing/eTransmitting on: 0 12/08/2024 09:46 AM EDT
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
[2024-12-08 08:46] VITALS: BP 110/64; PULSE 72; O2SAT 100; BMI 22.6
--- OUTSIDE RECORDS SUMMARY | 2024-12-08 09:46 | XMS_ITS | Encounter Summary ---
Author Organization [facility] Address [address] [place] [address] Phone Care Team Providers Care Section Crews Activities Clerk Name Role Phone Elana Ayala NP Primary Care Provider [phone] Encounter Details Date Type Department Care Team (Late st Contact Info) Description 04/27/2014 Conversion Encounter [facility] [address] [place] [address] [place] [address] Social History Tobacco Use Types Packs/Day Years [...] on filedocumented in this encounter Care Teams Section Crews Activities Clerk Relationship Specialty Start Date End Date Elana Ayala NP [address] [place] [address] [place] [address] PCP - General Pediatrics 09/17/22 documented as of this encounter
--- OUTSIDE RECORDS SUMMARY | 2024-12-08 09:46 | XMS_ITS | Encounter Summary ---
Author Organization [facility] Address [address] [place] [address] Phone Care Team Providers Care Food Service Kitchen Supervisor Name Role Phone Elana Ayala NP Primary Care Provider [phone] Reason for Visit * Reason Comments Med Refill Encounter Details Date Type Department Care Team (Late st Contact Info) Description 03/21/2018 Refill [facility] [address] [place] [address] [place] [address] Lizzette Becker DO Anxiety and depression Social [...] depression documented in this encounter Care Teams Food Service Kitchen Supervisor Relationship Specialty Start Date End Date Elana Ayala NP [address] [place] [address] [place] [address] PCP - General Pediatrics 09/17/22 documented as of this encounter
--- OUTSIDE RECORDS SUMMARY | 2024-12-08 09:47 | XMS_ITS | Encounter Summary ---
Author Organization [facility] Address [address] [place] [address] Phone Care Team Providers Care Carpet Floor Layer Apprentice Name Role Phone Elana Ayala NP Primary Care Provider [phone] Reason for Visit * Reason Comments Med Refill Encounter Details Date Type Department Care Team (Late st Contact Info) Description 09/11/2018 Refill [facility] [address] [place] [address] [place] [address] Lizzette Becker, Amenorrhea Social History Tobacco Use [...] menstruation documented in this encounter Care Teams Carpet Floor Layer Apprentice Relationship Specialty Start Date End Date Elana Ayala NP [address] [place] [address] [place] [address] PCP - General Pediatrics 09/17/22 documented as of this encounter
--- OUTSIDE RECORDS SUMMARY | 2024-12-08 09:47 | XMS_ITS | Encounter Summary ---
Author Organization [facility] Address [address] [place] [address] Phone Care Team Providers Care Lodging Facilities Manager Name Role Phone Elana Ayala NP Primary Care Provider [phone] Reason for Visit * Reason Comments Med Refill Encounter Details Date Type Department Care Team (Late st Contact Info) Description 07/29/2019 Refill [facility] [address] [place] [address] Dr [place] [phone] Lizzette Becker DO Other atopic dermatitis Social [...] dermatitis documented in this encounter Care Teams Lodging Facilities Manager Relationship Specialty Start Date End Date Elana Ayala NP [address] [place] [address] [place] [address] PCP - General Pediatrics 09/17/22 documented as of this encounter
--- OUTSIDE RECORDS SUMMARY | 2024-12-08 09:47 | XMS_ITS | Encounter Summary ---
Author Organization [facility] Address [address] [place] [address] Phone Care Team Providers Care Oil Tank Car Cleaner Name Role Phone Elana Ayala NP Primary Care Provider [phone] Reason for Visit * Reason Onset Date Comments Med Refill Med Refill 07/02/2018 Encounter Details Date Type Department Care Team (Late st Contact Info) Description 06/22/2018 Refill [facility] [address] [place] [address] [place] [address] Lizzette Becker DO Social History Tobacco Use [...] on filedocumented in this encounter Care Teams Oil Tank Car Cleaner Relationship Specialty Start Date End Date Elana Ayala NP [address] [place] [address] [place] [address] PCP - General Pediatrics 09/17/22 documented as of this encounter
--- OUTSIDE RECORDS SUMMARY | 2024-12-08 09:47 | XMS_ITS | Encounter Summary ---
Author Organization [facility] Address [address] [place] [address] Phone Care Team Providers Care Fitter And Turner Name Role Phone Elana Ayala NP Primary Care Provider [phone] Reason for Visit * Reason Comments Med Refill Encounter Details Date Type Department Care Team (Late st Contact Info) Description 09/15/2018 Refill [facility] [address] [place] [address] [place] [address] Lizzette Becker, DO Anxiety Social History Tobacco [...] unspecified documented in this encounter Care Teams Fitter And Turner Relationship Specialty Start Date End Date Elana Ayala NP [address] [place] [address] [place] [address] PCP - General Pediatrics 09/17/22 documented as of this encounter
--- OUTSIDE RECORDS SUMMARY | 2024-12-08 09:47 | XMS_ITS | Encounter Summary ---
Author Organization [facility] Address [address] [place] [address] Phone Care Team Providers Care Php Website Developer Name Role Phone Elana Ayala NP Primary Care Provider [phone] Reason for Visit * Reason Comments Med Refill Encounter Details Date Type Department Care Team (Late st Contact Info) Description 07/23/2018 Refill [facility] [address] [place] [address] [place] [address] Lizzette Becker, Amenorrhea Social History Tobacco Use [...] menstruation documented in this encounter Care Teams Php Website Developer Relationship Specialty Start Date End Date Elana Ayala NP [address] [place] [address] [place] [address] PCP - General Pediatrics 09/17/22 documented as of this encounter
--- OUTSIDE RECORDS SUMMARY | 2024-12-08 09:47 | XMS_ITS | Clinical Summary ---
Author Organization [facility] Address [address] [place] [address] Phone Care Team Providers Care Pig Caster Name Role Phone Travis Ayalaica ANGELICA Primary Care Provider [phone] Allergies Active Allergy Reactions Criticality Noted Date Comments [place] (Diagnostic) Food 09/23/2017 [place] Medications mometasone 0.1 % creamIndications :Other atopic [...] 0 Refills, Maintenance, 12/17/22 11:56:00 EDT, Capsule, [facility]/pharmacy #[id number], Partial fill upon patient request if the [...] smear of cervix 07/31/2021 Overview (07/31/2021): 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 Procedure Name Priority Date/Time Associated Diagnosis Comments SURESWAB (ADV) VAGINITIS PLUS, TMA Routine 01/05/2023 3:38 PM EDT Vaginal discharge from Last 3 Months or Most Recently Relevant to Health Maintenance Results * Due to [place] [employer] law, this organization might not be sharing sensitive test results. * (ABNORMAL) SureSwab Advanced (TMA)- BV, CT/NG, CV, TV (01/05/2023 3:38 PM EDT) BACTERIAL VAGINOSIS TEST POSITIVE(A) (NEG) [facility] Comment: Bacterial vaginosis targets by PCR detected in this patient's sample. Note: This assay uses real time laydown machine operator-mediated amplification (TMA) for detection and quantification of ribosomal RNA from bacteria associated with bacterial vaginosis (BV), including Lactobacillus (L. gasseri, L. crispatus, and L. jensenii), Gardnerella vaginalis, and Atopobium vaginae. Mickey Species NEGATIVE (NEG) [facility] Comment: No mickey species group (C. albicans, C. tropicalis, C. parapsilosis, C. dubliniensis) targets by PCR detected in this patient's sample. Mickey Glabrata, HENRY NEGATIVE (NEG) [facility] Comment:No Mickey glabrata targets by PCR detected in this patient's sample. SureSwab, T.vaginalis RNA NEGATIVE (NEG) [facility] Comment: No Trichomonas vaginalis targets by PCR detected in this patient's sample. Note: This assay uses real time laydown machine operator-mediated amplification (TMA) for detection and quantification of ribosomal RNA from organisms associated with Mickey species group (C. albicans, C. tropicalis, C. parapsilosis, C. dubliniensis), Mickey glabrata, and Trichomonas vaginalis. Chlamydia Trachomatis, Amplified NEGATIVE (NEG) [facility] Comment: No Chlamydia Trachomatis RNA detected in this patient's sample (REFERENCE RANGE/NORMAL VALUE: NOT DETECTED) Note: This test uses laydown machine operator- mediated amplification method to detect rRNA from C. Trachomatis N.GONORRHOEAE AMP PROBE NEGATIVE (NEG) [facility] Comment: No Neisseria Gonorrhoeae RNA detected in this patient's sample (REFERENCE RANGE/NORMAL VALUE: NOT DETECTED) NOTE: This test uses laydown machine operator-mediated amplification method to detect rRNA from N.Gonorrhoeae. [...] without risk of sexual abuse. Consult the [facility] if needed. Contact phone number . Therapeutic failure or success cannot be determined with the Aptima Combo2 assay since nucleic acid may persist following appropriate antimicrobial therapy. The Centers for Disease Control and Prevention (CDC) recommends confirmatory retesting using culture or a different nucleic acid amplification test when positive results occur, if indicated. Testing performed or reported by [facility], a Service of [facility], [address] [place] [address] [place] [address] Roberto Quinn MD, Wastewater Plant Civil Engineer [facility]# [id number] Swab (Vagina) 01/05/2023 3:3 8 PM EDT 01/05/2023 11:10 PM EDT us Ban Adame NP LAB MICROBIOLOGY - GENERAL ORD ERABLES Final Result [facility] from Last 3 Months or Most Recently Relevant to Health Maintenance Insurance [facility] Address: [address] [place] [phone] [facility] NON PCC [employer] Care Teams Pig Caster Relationship Specialty Start Date End Date Elana Ayala NP [facility] [place] [address] PCP - General Pediatrics 09/17/22
--- OUTSIDE RECORDS SUMMARY | 2024-12-08 09:47 | XMS_ITS | Patient Health Record ---
Author Organization [facility] Address [address] [facility] [place] [address] Care Team Providers Care Subcontracts Manager Name Role Phone Lamont Vieira Primary Care Provider Kennedy Thomas Unavailable [phone] Eugenio DOLizzette Unavailable Unavailable Reason For Referral [...] No Encounters Encounter Location Date Provider Diagnosis [facility] [address] [place] [address] 06/09/2024 Kennedy Daniels Plan Of Treatment Pending Test Test Name Order Date 38805 I&D ABSCESS- SIMPLE,SINGLE 020 Insurance Providers Payer Name Payer Address Payer Phone Subscriber Number Group Number Insured Name Patient Relationship to Insured Coverage Start Date Coverage End Date [facility] [address] [place] [address] [phone] [id number] [employer] Child - Insured does not have Financial Responsibility (includes legally adopted child) Medical (General) History Medical History History ICD Code Anxiety asthma Depression Surgical History Surgery Date(Month/Year) Hospitalization History Reason Date(Month/Year) 08/2019
--- OUTSIDE RECORDS SUMMARY | 2024-12-08 09:47 | XMS_ITS | Encounter Summary ---
Author Organization [facility] Address [address] [place] [address] Phone Care Team Providers Care Pathology Teacher Name Role Phone Elana Ayala SEMI CONDUCTOR ASSEMBLER Primary Care Provider [phone] Reason for Visit * Reason Onset Date Comments Med Refill 12/24/2022 Encounter Details Date Type Department Care Team (Late st Contact Info) Description 12/24/2022 Refill [facility] [address] [place] [address] [place] [address] Elana Ayala NP [address] [place] [address] [place] [address] Anxiety; Asthma, unspecified asthma severity, unspecified whether [...] [place] - 12/24/2022 3:55 PM EDT Last [facility] with EM 09/17/22 Pt has requested all these meds through [employer]. 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
--- OUTSIDE RECORDS SUMMARY | 2024-12-08 09:47 | XMS_ITS | Encounter Summary ---
Author Organization [facility] Address [address] [place] [address] Phone Care Team Providers Care Vehicle Fuel Systems Converter Name Role Phone Elana Ayala PHOTO PRODUCER Primary Care Provider [phone] Reason for Visit * Reason Onset Date Comments Med Refill 12/24/2022 Encounter Details Date Type Department Care Team (Late st Contact Info) Description 12/24/2022 Refill [facility] [address] [place] [address] [place] [address] Elana Ayala NP [facility] [place] [address] Social History Tobacco Use Types Packs/Day Years [...] on filedocumented in this encounter Care Teams Vehicle Fuel Systems Converter Relationship Specialty Start Date End Date Elana Ayala NP [address] [facility] [place] [address] PCP - General Pediatrics 09/17/22 documented as of this encounter
== END 2024-12-08 10:10 | disposition home or self-care (01) ==
LOC: HO.HSMS 08:44
PROVIDERS: PCP Nurse Practitioner Family; Visit Provider Nurse Practitioner Family
DX: R51.9 Headache, unspecified (principal); G40.109 Localization-related (focal) (partial) symptomatic epilepsy and epileptic syndromes with simple partial seizures, not intractable, without status epilepticus; G44.009 Cluster headache syndrome, unspecified, not intractable; G43.909 Migraine, unspecified, not intractable, without status migrainosus
CPT/HCPCS: 99204

== ENCOUNTER 2024-12-23 13:54 | Outpatient (REF) | payer OTHER, MEDICAID, SELFPAY ==
--- OUTSIDE RECORDS SUMMARY | 2024-06-10 08:30 | XMS_ITS ---
Author Organization [facility] Address [address] [place] [address] Care Team Providers Care Mannequin Mounter Name Role Phone Fabricio VILLAVICENCIO, Lamont Primary Care Provider Unav ailable Kennedy Daniels Unavailable [phone] Eugenio DO, Lizzette Unavailable Unavailable Encounters Encounter Location Date Provider Diagnosis [address] [address] 06/10/2024 Kennedy Daniels Plan Of Treatment No Information Progress Notes * Janett VILLAGOMEZ EDOB: 0 (24 yo F)Acc No.[id number]:06/10/2024 Progress Notes Patient: Eugenia LIM Janett Whipple Provider: Sarabjit Daniels DPM :2000 A ge:24 Y S ex:Female Date:06/10/2024 Address:[address] [place] [address] [place] Pope [id number] Pcp:SAUD Melendez Subjective: * Chief Complaints: * * Medical History: Objective: * Vitals: Assessment: Plan: * Treatment: * Images: * The named appointment provid er may or may not be the originator of this progress note, and it is not deemed complete until electronically signed by the appointment provider. Sign off status: Pending * Provider: Sarabjit Daniels DPM Date: 06/10/2024 Generated for Printi ng/Faxing/eTransmitting on: 12/23/2024 03:03 PM EDT
--- NOTE | 2024-12-23 13:56 | PFT_ITS ---
Flows: FEV1: 107 % of predicted at 3.72 L FVC: 110 % of predicted at 4.50 L FEV1/FVC: 83 % Bronchodilator response: Absent Volumes: Total lung capacity: 114 % of predicted at 6.18 L Residual volume: 157 % of predicted at 1.88 L Slow vital capacity: 103 % of predicted at 4.29 L Expiratory reserve volume: 120 % of predicted at 1.67 L Diffusion capacity: Normal Impression: No obstructive or restrictive ventilatory defect. No bronchodilator response. Increased residual volume suggests air trapping. MTDD
[2024-12-23 14:39] VITALS: PULSE 77; O2SAT 99
--- OUTSIDE RECORDS SUMMARY | 2024-12-23 15:03 | XMS_ITS | Patient Health Record ---
Author Organization [facility] Address [address] [facility] [place] [address] Care Team Providers Care Mapping Pilot Name Role Phone Lamont Vieira Primary Care Provider Kennedy Thomas Unavailable [phone] Eugenio DOLizzette Unavailable Unavailable Reason For Referral [...] No Encounters Encounter Location Date Provider Diagnosis [facility] [address] [place] [address] 06/09/2024 Kennedy Daniels Plan Of Treatment Pending Test Test Name Order Date [id number] I&D ABSCESS- SIMPLE,SINGLE 020 Insurance Providers Payer Name Payer Address Payer Phone Subscriber Number Group Number Insured Name Patient Relationship to Insured Coverage Start Date Coverage End Date [facility] [address] [place] [address] [phone] [id number] [employer] Child - Insured does not have Financial Responsibility (includes legally adopted child) Medical (General) History Medical History History ICD Code Anxiety asthma Depression Surgical History Surgery Date(Month/Year) Hospitalization History Reason Date(Month/Year) 08/2019
--- OUTSIDE RECORDS SUMMARY | 2024-12-23 15:03 | XMS_ITS | Encounter Summary ---
Author Organization [facility] Address [address] [place] [address] Phone Care Team Providers Care Spool Maker Name Role Phone Elana Ayala NP Primary Care Provider [phone] Reason for Visit * Reason Comments Med Refill Encounter Details Date Type Department Care Team (Late st Contact Info) Description 07/29/2019 Refill [facility] [address] [place] [address] [address] [place] [phone] Lizzette Becker DO Other atopic dermatitis Social [...] dermatitis documented in this encounter Care Teams Spool Maker Relationship Specialty Start Date End Date Elana Ayala NP [address] [place] [address] [place] [address] PCP - General Pediatrics 09/17/22 documented as of this encounter
--- OUTSIDE RECORDS SUMMARY | 2024-12-23 15:03 | XMS_ITS | Encounter Summary ---
Author Organization [facility] Address [address] [place] [address] Phone Care Team Providers Care Senior Pharmacy Technician Name Role Phone Elana Ayala MONITORING ANALYST Primary Care Provider [phone] Reason for Visit * Reason Onset Date Comments Med Refill 12/24/2022 Encounter Details Date Type Department Care Team (Late st Contact Info) Description 12/24/2022 Refill [facility] [address] [place] [address] [place] [address] Elana Ayala NP [address] [place] [address] [place] [address] Anxiety; Asthma, unspecified asthma severity, unspecified whether [...] [place] - 12/24/2022 3:55 PM EDT Last [facility] with EM 09/17/22 Pt has requested all these meds through [employer] 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
--- OUTSIDE RECORDS SUMMARY | 2024-12-23 15:03 | XMS_ITS | Encounter Summary ---
Author Organization [facility] Address [address] [place] [address] Phone Care Team Providers Care Inside Account Executive Name Role Phone Elana Ayaal NP Primary Care Provider [phone] Encounter Details Date Type Department Care Team (Late st Contact Info) Description 04/27/2014 Conversion Encounter [facility] [address] [place] [address] [place] [address] Social History Tobacco Use Types Packs/Day Years [...] on filedocumented in this encounter Care Teams Inside Account Executive Relationship Specialty Start Date End Date Elana Ayala NP [address] [place] [address] [place] [address] PCP - General Pediatrics 09/17/22 documented as of this encounter
--- OUTSIDE RECORDS SUMMARY | 2024-12-23 15:03 | XMS_ITS | Encounter Summary ---
Author Organization [facility] Address [address] [place] [address] Phone Care Team Providers Care Trucksmith Name Role Phone Elana Ayala NP Primary Care Provider [phone] Reason for Visit * Reason Comments Med Refill Encounter Details Date Type Department Care Team (Late st Contact Info) Description 03/21/2018 Refill [facility] [address] [place] [address] [place] [address] Lizzette Becker DO Anxiety and depression Social [...] depression documented in this encounter Care Teams Trucksmith Relationship Specialty Start Date End Date Elana Ayala NP [address] [place] [address] [place] [address] PCP - General Pediatrics 09/17/22 documented as of this encounter
--- OUTSIDE RECORDS SUMMARY | 2024-12-23 15:03 | XMS_ITS | Encounter Summary ---
Author Organization [facility] Address [address] [place] [address] Phone Care Team Providers Care Director Of Services Name Role Phone Elana Ayala NP Primary Care Provider [phone] Reason for Visit * Reason Comments Med Refill Encounter Details Date Type Department Care Team (Late st Contact Info) Description 09/11/2018 Refill [facility] [address] [place] [address] [place] [address] Lizzette Becker, Amenorrhea Social History Tobacco Use [...] menstruation documented in this encounter Care Teams Director Of Services Relationship Specialty Start Date End Date Elana Ayala NP [address] [place] [address] [place] [address] PCP - General Pediatrics 09/17/22 documented as of this encounter
--- OUTSIDE RECORDS SUMMARY | 2024-12-23 15:03 | XMS_ITS | Encounter Summary ---
Author Organization [facility] Address [address] [place] [address] Phone Care Team Providers Care Dishwasher Name Role Phone Elana Ayala NP Primary Care Provider [phone] Reason for Visit * Reason Comments Med Refill Encounter Details Date Type Department Care Team (Late st Contact Info) Description 07/23/2018 Refill [facility] [address] [place] [address] [place] [address] Lizzette Becker, Amenorrhea Social History Tobacco Use [...] menstruation documented in this encounter Care Teams Dishwasher Relationship Specialty Start Date End Date Elana Ayala NP [address] [place] [address] [place] [address] PCP - General Pediatrics 09/17/22 documented as of this encounter
--- OUTSIDE RECORDS SUMMARY | 2024-12-23 15:03 | XMS_ITS | Encounter Summary ---
Author Organization [facility] Address [address] [place] [address] Phone Care Team Providers Care State Editor Name Role Phone Elana Ayala TACTICAL RESPONSE GROUP OFFICER Primary Care Provider [phone] Reason for Visit * Reason Onset Date Comments Med Refill 12/24/2022 Encounter Details Date Type Department Care Team (Late st Contact Info) Description 12/24/2022 Refill [facility] [address] [place] [address] [place] [address] Elana Ayala NP [facility] [place] [address] Social History Tobacco Use Types Packs/Day Years [...] on filedocumented in this encounter Care Teams State Editor Relationship Specialty Start Date End Date Elana Ayala NP [address] [facility] [place] [address] PCP - General Pediatrics 09/17/22 documented as of this encounter
--- OUTSIDE RECORDS SUMMARY | 2024-12-23 15:03 | XMS_ITS | Encounter Summary ---
Author Organization [facility] Address [address] [place] [address] Phone Care Team Providers Care Legal Researcher Name Role Phone Elana Ayala NP Primary Care Provider [phone] Reason for Visit * Reason Onset Date Comments Med Refill Med Refill 07/02/2018 Encounter Details Date Type Department Care Team (Late st Contact Info) Description 06/22/2018 Refill [facility] [address] [place] [address] [place] [address] Lizzette Becker DO Social History Tobacco Use [...] on filedocumented in this encounter Care Teams Legal Researcher Relationship Specialty Start Date End Date Elana Ayala NP [address] [place] [address] [place] [address] PCP - General Pediatrics 09/17/22 documented as of this encounter
--- OUTSIDE RECORDS SUMMARY | 2024-12-23 15:03 | XMS_ITS | Clinical Summary ---
Author Organization [facility] Address [address] [place] [address] Phone Care Team Providers Care Transportation Clerk Name Role Phone Travis Ayalaica ANGELICA Primary Care Provider [phone] Allergies Active Allergy Reactions Criticality Noted Date Comments [place] (Diagnostic) Food 09/23/2017 [place] Medications mometasone 0.1 % creamIndications :Other atopic [...] Refills, Maintenance, 12/17/22 11:56:00 EDT, Capsule, [facility]/pharmacy #[id number], Partial fill upon patient request if the [...] smear of cervix 07/31/2021 Overview (07/31/2021): 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 Fork 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 Truck 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 History of recurrent UTIs 07/31/2021 Overview (07/31/2021): Sees Urology Influenza vaccine refused 07/02/2021 Generalized anxiety disorder 08/03/2017 Overview (09/26/2020): Anxiety (300.02) Onset: 08/03/2017 Added by: Lizzette Becker 09/26/2020 review of chart - Appears that patient is seen by an outside office for this and treated with amitriptyline Assessment & Plan (01/06/2023 11:30 AM EDT): Continue hydroxyzine as needed for panic attacks Refer to [facility] to discuss trauma and anxiety response Aware that is short term and given information for rn long term care therapy Assessment & Plan (09/17/2022 4:34 PM [...] complete this topic Procedures * Due to [place] [employer] law, this organization might not be sharing sensitive test results. Procedure Name Priority Date/Time Associated Diagnosis Comments SURESWAB (ADV) VAGINITIS PLUS, TMA Routine 01/05/2023 3:38 PM EDT Vaginal discharge from Last 3 Months or Most Recently Relevant to Health Maintenance Results * Due to [place] [employer] law, this organization might not be sharing sensitive test results. * (ABNORMAL) SureSwab Advanced (TMA)- BV, CT/NG, CV, TV (01/05/2023 3:38 PM EDT) BACTERIAL VAGINOSIS TEST POSITIVE(A) (NEG) [facility] Comment: Bacterial vaginosis targets by PCR detected in this patient's sample. Note: This assay uses real time auto body technician-mediated amplification (TMA) for detection and quantification of ribosomal RNA from bacteria associated with bacterial vaginosis (BV), including Lactobacillus (L. gasseri, L. crispatus, and L. jensenii), Gardnerella vaginalis, and Atopobium vaginae. Mickey Species NEGATIVE (NEG) [facility] Comment: No mickey species group (C. albicans, C. tropicalis, C. parapsilosis, C. dubliniensis) targets by PCR detected in this patient's sample. Mickey Glabrata, HENRY NEGATIVE (NEG) [facility] Comment:No Mickey glabrata targets by PCR detected in this patient's sample. SureSwab, T.vaginalis RNA NEGATIVE (NEG) [facility] Comment: No Trichomonas vaginalis targets by PCR detected in this patient's sample. Note: This assay uses real time auto body technician-mediated amplification (TMA) for detection and quantification of ribosomal RNA from organisms associated with Mickey species group (C. albicans, C. tropicalis, C. parapsilosis, C. dubliniensis), Mickey glabrata, and Trichomonas vaginalis. Chlamydia Trachomatis, Amplified NEGATIVE (NEG) [facility] Comment: No Chlamydia Trachomatis RNA detected in this patient's sample (REFERENCE RANGE/NORMAL VALUE: NOT DETECTED) Note: This test uses auto body technician- mediated amplification method to detect rRNA from C. Trachomatis N.GONORRHOEAE AMP PROBE NEGATIVE (NEG) [facility] Comment: No Neisseria Gonorrhoeae RNA detected in this patient's sample (REFERENCE RANGE/NORMAL VALUE: NOT DETECTED) NOTE: This test uses auto body technician-mediated amplification method to detect rRNA from [...] without risk of sexual abuse. Consult the [facility] if needed. Contact phone number . Therapeutic failure or success cannot be determined with the Aptima Combo2 assay since nucleic acid may persist following appropriate antimicrobial therapy. The Centers for Disease Control and Prevention (CDC) recommends confirmatory retesting using culture or a different nucleic acid amplification test when positive results occur, if indicated. Testing performed or reported by [facility], a Service of [facility], [address] [place] [address] [place] [address] Roberto Quinn MD, Independent Contractor [facility]# [id number] Swab (Vagina) 01/05/2023 3:3 8 PM EDT 01/05/2023 11:10 PM EDT us Ban Adame NP LAB MICROBIOLOGY - GENERAL ORD ERABLES Final Result [facility] from Last 3 Months or Most Recently Relevant to Health Maintenance Insurance [facility] NON PCC [employer] Care Teams Transportation Clerk Relationship Specialty Start Date End Date Elana Ayala NP [facility] [facility] [address] PCP - General Pediatrics 09/17/22
--- OUTSIDE RECORDS SUMMARY | 2024-12-23 15:03 | XMS_ITS | Encounter Summary ---
Author Organization [facility] Address [address] [place] [address] Phone Care Team Providers Care Autopsy Pathologist Name Role Phone Elana Ayala NP Primary Care Provider [phone] Reason for Visit * Reason Comments Med Refill Encounter Details Date Type Department Care Team (Late st Contact Info) Description 09/15/2018 Refill [facility] [address] [place] [address] [place] [address] Lizzette Becker, DO Anxiety Social History Tobacco [...] unspecified documented in this encounter Care Teams Autopsy Pathologist Relationship Specialty Start Date End Date Elana Ayala NP [address] [place] [address] [place] [address] PCP - General Pediatrics 09/17/22 documented as of this encounter
== END 2024-12-23 13:55 | disposition home or self-care (01) ==
LOC: HO.RESP 13:54
PROVIDERS: PCP Nurse Practitioner Family; Visit Provider Nurse Practitioner Family
DX: J45.20 Mild intermittent asthma, uncomplicated (principal); F17.210 Nicotine dependence, cigarettes, uncomplicated
CPT/HCPCS: 94010; 94640; 94727; 94729

== ENCOUNTER → 2024-12-23 13:56 | Outpatient (BNV) | payer OTHER, MEDICAID, SELFPAY | PROVIDERS: PCP Nurse Practitioner Family; Visit Provider Internal Medicine Pulmonary Disease | DX: J45.20 Mild intermittent asthma, uncomplicated (principal) | CPT/HCPCS: 94060; 94727; 94729 ==

== ENCOUNTER → 2025-01-11 10:49 | Outpatient (BNV) | payer OTHER, MEDICAID, SELFPAY | PROVIDERS: PCP Nurse Practitioner Family; Visit Provider Radiology Diagnostic Radiology | DX: R51.9 Headache, unspecified (principal) | CPT/HCPCS: 70546; 70553 ==

== ENCOUNTER 2025-01-11 10:55 | Outpatient (REF) | payer OTHER, MEDICAID, SELFPAY ==
--- NOTE | ~2025-01-11 | MR_ITS ---
EXAMINATION: MR BRAIN VENOGRAM WITH CONTRAST. CLINICAL INFORMATION: Headache. TECHNIQUE: Coronal 2-D [id number] post contrast. Maximum intensity projections main cerebral veins and sinuses. COMPARISON: None FINDINGS: Superior sagittal sinuses, internal cerebral veins, vein of Gary, straight sinus, torcula, transverse venous and sigmoid venous sinuses and internal jugular bulbs demonstrated normal patency without intraluminal filling defects. There is slight dominant right transverse and sigmoid venous sinuses. MR/MR venography head wo/w con IMPRESSION: Normal MRV brain. Electronically signed by: Indra Baez MD 01/11/2025 12:16 PM EDT
--- NOTE | ~2025-01-11 | MR_ITS ---
EXAMINATION: MR BRAIN WITHOUT AND WITH CONTRAST CLINICAL INFORMATION: Headache. COMPARISON: Correlated to CT dated August 19, 2024. TECHNIQUE: Multiplanar, multisequence MRI of the brain was obtained before and after the intravenous administration of 10 mL gadolinium based (Gadavist) without reported immediate complications.. FINDINGS: No restricted diffusion. No acute intracranial hemorrhage, mass effect, midline shift, hydrocephalus or herniation. Osorio-white matter differentiation is normal. Posterior cranial fossa contents are normal. Normal position of the cerebellar tonsils. Sellar/suprasellar region is normal. Flow-void signal within the main cerebral vessels is normal. No abnormal enhancement within the intra-axial or the extra-axial compartment of the cranium. No air-fluid levels in the paranasal sinuses. MR/MR head/brain wo/w con IMPRESSION: No acute or structural brain abnormality. No abnormal enhancement. Electronically signed by: Indra Baez MD 01/11/2025 12:12 PM EDT
== END 2025-01-11 10:56 | disposition home or self-care (01) ==
LOC: HO.MRI 10:55
PROVIDERS: PCP Nurse Practitioner Family; Visit Provider Nurse Practitioner Family
DX: R51.9 Headache, unspecified (principal); G40.109 Localization-related (focal) (partial) symptomatic epilepsy and epileptic syndromes with simple partial seizures, not intractable, without status epilepticus; F17.200 Nicotine dependence, unspecified, uncomplicated
CPT/HCPCS: 70546; 70553; A9585

== ENCOUNTER 2025-01-31 11:11 | Outpatient (AMB) | payer OTHER, MEDICAID, SELFPAY ==
[2025-01-31 11:19] VITALS: BP 100/62; PULSE 89; TEMP 36.7; O2SAT 99; BMI 21.9
--- NOTE | 2025-01-31 11:19 | A.OFFPC_ITS ---
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: No Accompanied by: Self / Same As Patient Allergies almond Allergy (Verified 12/08/24 08:45) Anaphylaxis walnut Allergy (Verified 12/08/24 08:45) Swelling Medication List - Last Reconciled 01/31/25 by Lamont Regalado, DIGITAL SALES MANAGER- acetaminophen 650 mg PO Q4H PRN albuterol sulfate 2.5 mg (3 mL) inhalation Q4-6H PRN albuterol sulfate 90 mcg/actuation 2 puffs inhalation Q4-6H PRN benzoyl peroxide 10% 1 appl topical DAILY buspirone 30 mg (2 x 15 mg) PO BID 30 days clindamycin phosphate 1% topical QAM fluticasone furoate-vilanterol 100-25 mcg/dose (Breo Ellipta) 1 inh inhalation DAILY fluticasone propionate 50 mcg/actuation (Flonase Allergy Relief) 1 spray intranasal DAILY gabapentin 300 mg PO BID heating pads Apply to the head and neck for 15-20 minutes every 1-2 hours as needed for headache and neck pain hot/cold therapy aids (Multi-Purpose Ice and Heat Wrap pads) Apply to the head and neck for 15-20 minutes every 1-2 hours as needed for headache and neck pain hydrocortisone 2.5% 1 appl topical BID ibuprofen 600 mg PO Q8H PRN ketoconazole 2% 1 appl topical 2XW ketoconazole 2% 1 appl topical DAILY 14 days Oxygen Home Use Start home O2 at 15-25 L/min via non-rebreather facemask x's 15- 20 minutes at onset of cluster headache attack. Patient will require both M tanks and E tanks. sumatriptan succinate 6 mg subcutaneously At onset of severe migraine attack with nausea, may repeat in 1 hour, max of 2 doses per day PRN; 30 days sumatriptan succinate 50 - 100 mg orally at onset of headache, may repeat in 2 hrs PRN; max 2 tabs per day or 4 tabs/week (may take with naproxen) 30 days tacrolimus 0.1% 1 appl topical BID tretinoin 0.025% 1 appl topical BEDTIME verapamil ER 100 mg PO BEDTIME 30 days Tobacco use date assessed: 01/31/25 Dental Screening Dental Screen Date: 01/31/25 Did you have a dental visit in the last 12 months?: Yes Did you have a dental problem in the last 6 months where you did not have access to dental care?: No Was dental information given to patient?: Patient has dentist HPI 6 month f/u HPI Details History of Present Illness The patient is a 24-year-old female presenting for a physical exam. She denies any chest pain, shortness of breath, abdominal pain, constipation, diarrhea, or suicidal/homicidal ideation. The patient has a history of ongoing cluster headaches which occur almost daily and is being managed by a neurologist. She reports that sumatriptan helps a little, but verapamil has not been very effective. Previous brain imaging has been negative. 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 Social History Review of Systems - Cardiovascular: Denies chest pain. - Respiratory: Denies shortness of breat h. - Gastrointestinal: Denies abdominal jael n, constipation, or diarrhea. - Neurological: Reports ongoing, almost daily cluster headaches. - Psychiatric: Denies suicidal or homici susana ideation. Physical Exam General: Cooperative, healthy appearing, comfortable, no acute distress and well developed Orientation: Patient oriented x3 Limitations: No limitations Head: Normal to inspection Ears: Hearing grossly normal bilaterally Nose: Normal external nose present Face and sinus: Normal facial exam Eyes: Appearance normal, both eyes and all related structures Neck: Normal visual inspection and Yes full ROM Respiratory: Normal respiratory effort and able to speak in complete sentences. Clear to auscultation bilaterally Cardiovascular: Regular rate and rhythm. Normal S1 and S2 GI: Normal to inspection. Soft to palpation and nontender Skin: No rashes or lesions noted Neuro: Patient oriented x3. Working with neurologist for ongoing cluster headaches Extremities: Normal to inspection Results - Imaging: Brain imaging has been negati ve. Plan 1. Cluster Headaches The patient is under the care of a neurologist for ongoing cluster headaches. She reports some benefit from sumatriptan, while verapamil has not been helpful. The plan is for her to continue to follow up with her neurologist for ongoing management. Discussion Notes I confirmed that my physical exam was benign. We discussed her ongoing cluster headaches, which are being managed by her neurologist. The patient confirmed she will continue to follow up with them. We also discussed vaccinations, which she declined at this time. Patient Instructions - Continue to follow up with your neurol ogist for management of your cluster headaches. [facility] Medical History Paronychia of great toe, right Eczema Iron deficiency anemia No known health problems Surgical History History of bilateral salpingectomy Hx of hernia repair Family History Father No problems noted. Mother No problems noted. Paternal Aunt Colon cancer Paternal Grandfather Bladder cancer Paternal Grandmother Lupus (systemic lupus erythematosus) Family/Other Lupus (systemic lupus erythematosus) Paternal Aunt Lupus (systemic lupus erythematosus) Social History Household Members: Children Housing: Apartment Patient Tobacco Use Status: Current everyday Tobacco user Tobacco use type: Cigarette e-Cigarette/Vaping Use: Never Used service: No Current occupational status: employed Current occupational exposures/hazards: No Cognitive needs: No Hearing needs: No Vision needs: No Questionnaire Thrive Questionnaire Date Thrive assessed: 08/30/24 GALINA-7 AMB Questionnaire GALINA-7 Date GALINA - 7 assessed: 08/30/24 Source: Developed by Drs. Checo Cheung, Lona Traore, Jose Ramos and colleagues, with an educational harvey from [employer]. Physical exam (Primary Care) Vital Signs: Last Vital Signs Temp 98.1 F 01/31/25 11:19 Pulse 89 01/31/25 11:19 BP 100/62 01/31/25 11:19 Pulse Ox 99 01/31/25 11:19 Oxygen Delivery Method Room Air 01/31/25 11:19 BMI result Body Mass Index 21.9 Tobacco/Smoking Status: Tobacco use Status Tobacco use date assessed 01/31/25 01/31/25 11:26 Patient Tobacco Use Status Current everyday Tobacco 01/31/25 11:26 Tobacco use type Cigarette 01/31/25 11:26 e-Cigarette/Vaping Use Never Used 01/31/25 11:26 Thrive Assessment: Date of Thrive Assessment Date Thrive assessed 08/30/24 01/31/25 11:26 Coding Level of Care Code Est Pt Level 3 (30892) Diagnoses Physical exam Z00.00 Vitamin D deficiency E55.9 Assessment & Plan Assessment & Plan (1) Physical exam: Code(s): Z00.00 - Encounter for general adult medical examination without abnormal findings Category: Medical (2) Vitamin D deficiency: Code(s): E55.9 - Vitamin D deficiency, unspecified Category: Medical Plan . Orders: Orders Complete Blood Count Auto Diff Today Z00.00 - Encounter for general adult medical examination without abnormal findings Comprehensive [place]. Panel Fast Today Z00.00 - Encounter for general adult medical examination without abnormal findings Lipid Panel Today Z00.00 - Encounter for general adult medical examination without abnormal findings TSH reflex Free T4 Today Z00.00 - Encounter for general adult medical examination without abnormal findings UA CC w/rflx Micro + Cult Today Z00.00 - Encounter for general adult medical examination without abnormal findings Vitamin D 25-OH Total Today E55.9 - Vitamin D deficiency, unspecified
--- OUTSIDE RECORDS SUMMARY | 2025-01-31 13:41 | XMS_ITS | Data Portability ---
Author Organization JAYSON Bautista s, [address] Address [address] [place] [address] Care Team Providers Care Handy Man Name Role Phone RICARDA DEBORA Primary Care Provider Assessment No assessment recorded. Plan of Treatment Reminders Order Date Submit Date Provider Last Modified By Organization Details Last Modified Time Details Appointments None recorded. Lab culture, urine 2022 023 [facility] [place], [address], 3 20:06:19 vaginal pathogens panel, HENRY+probe, vaginal fluid 2022 023 [facility] [place], [address], 3 20:06:18 rapid strep group A, throat 2022 023 [email or web address] [facility], [address] [place] [address], [address], 3 09:04:28 urinalysis , dipstick 2022 023 [email or web address] _[facility], [address] [place] [address], [address], 3 09:04:28 test, urine 2022 023 [email or web address] [facility], [address] [place] [address], [address], 09:04:28 culture, respirator y 2022 023 [facility], [address] [facility], [place], [address], 16:06:41 Referral None recorded. Procedures None recorded. Surgeries None recorded. Imaging None recorded. Medication Orders Diflucan 150 mg tablet 2022 023 [id number], [address] [place], [address], 16:20:37 miconazole nitrate 2 % topical cream 2022 023 [id number], [address] [place], [address], 16:30:47 Patient TargetsNo targets recorded. Patient Instructions Encounter Date Encounter Id Patient Instructions Last Modified By Organization Details Last Modified Time 05/09/2022 [id number] sore throat: car e instructions Not available 05/09/2022 09:04:28 sore throat: car e instructions Not available 05/09/2022 09:04:28 Reason for Referral None Reported. Results Created Date Observation Date Name Description Value Unit Range Abnormal Flag Note LastModifiedBy Organization Detail LastModifiedTime 05/09/1905/10/2022 NUSWA B VAGIN ITIS PLUS (VG+) atopobium vaginae LOW - 0 score Not Available [facility] ([facility]) [address] [facility], [place], [address], 05/11/2022 20:06:18 05/09/1905/10/2022 NUSWA B VAGIN ITIS PLUS (VG+) bvab 2 LOW - 0 score Not Available [facility] ([facility]) [address] [facility], [place], [address], 05/11/2022 20:06:18 05/09/1905/10/2022 NUSWA B VAGIN ITIS [...] e sarah cteri stics deter mined by [employer]. It has not been clear ed or appro taj by the Food and Drug Admin istra tion. Not Available [facility] ([facility]) [address] [place], [address], 05/11/2022 20:06:18 05/09/19 23 05/10/2022 NUSWA B VAGIN ITIS PLUS (VG+) mickey albicans, HENRY NEGATI VE negati ve Not Available [facility] ([facility]) [address] [place], [address], 05/11/2022 20:06:18 05/09/19 23 05/10/2022 NUSWA B VAGIN ITIS PLUS (VG+) mickey glabrata, HENRY NEGATI VE negati ve Not Available [facility] ([facility]) [address] [place], [address], 05/11/2022 20:06:18 05/09/19 23 05/11/2022 NUSWA B VAGIN ITIS PLUS (VG+) trich vag by HENRY NEGATI VE negati ve Not Available [facility] ([facility]) [address] [place], [address], 05/11/2022 20:06:18 05/09/19 23 05/11/2022 NUSWA B VAGIN ITIS PLUS (VG+) chlamydia trachomatis, HENRY NEGATI VE negati ve Not Available [facility] ([facility]) [address] [facility], [place], [address], 05/11/2022 20:06:18 05/09/19 23 05/11/2022 NUA B VAGIN ITIS PLUS (VG+) neisseria gonorrhoeae, HENRY NEGATI VE negati ve Not Available [facility] ([facility]) [address] [facility], [place], [address], 05/11/2022 20:06:18 05/09/19 23 05/11/2022 URINE CULTU RE, ROUTI NE urine culture, routine FINAL REPORT Not Available [facility] ([facility]) [address] [facility], [place], [address], 05/11/2022 20:06:19 05/09/19 23 05/11/2022 URINE CULTU RE, ROUTI NE result 1 NO GROWTH Not Available [facility] ([facility]) [address] [facility], [place], [address], 05/11/2022 20:06:19 05/09/19 23 05/12/2022 UPPER RESPI RATOR Y CULTU RE upper respiratory culture FINAL REPORT Not Available [facility] ([facility]) [address] [facility], [place], [address], 05/12/2022 16:06:41 05/09/19 23 05/12/2022 UPPER RESPI RATOR Y CULTU RE result 1 COMMEN T Routi ne respi rator y braeden Not Available [facility] ([facility]) [address] [place], [address], 05/12/2022 16:06:41 05/09/19 23 05/09/2022 urina lysis , dipst ick Unknown Analyte Normal = light yellow Not Available [address] [place] [address], [place], [address], 05/09/2022 08:44:51 05/09/19 23 05/09/2022 urina lysis , dipst ick Unknown Analyte Dark Yellow Not Available laureen lewis [address], [place], [address], 05/09/2022 08:44:51 05/09/19 23 05/09/2022 urina lysis , dipst ick Unknown Analyte Normal = clear Not Available laureen lewis [address], [place], [address], 05/09/2022 08:44:51 05/09/1905/09/2022 urina lysis , dipst ick Unknown Analyte Slight ly Cloudy Not Available laureen lewis [address], [place], [address], 05/09/2022 08:44:51 05/09/19 23 05/09/2022 urina lysis , dipst ick Unknown Analyte Normal = negati ve Not Available laureen lewis [address], [place], [address], 05/09/2022 08:44:51 05/09/19 23 05/09/2022 urina lysis , dipst ick Unknown Analyte Negati ve Not Available laureen lewis [address], [place], [address], 05/09/2022 08:44:51 05/09/19 23 05/09/2022 urina lysis , dipst ick Unknown Analyte Normal = Negati ve Not Available laureen lewis [address], [place], [address], 05/09/2022 08:44:51 05/09/19 23 05/09/2022 urina lysis , dipst ick Unknown Analyte Negati ve Not Available laureen lewis [address], [place], [address], 05/09/2022 08:44:51 05/09/1905/09/2022 urina lysis , dipst ick Unknown Analyte Normal = Negati ve Not Available [address]la[facility]en lewis [address], [place], [address], 05/09/2022 08:44:51 05/09/1905/09/2022 urina lysis , dipst ick Unknown Analyte Negati ve Not Available [address], [place], [address], 05/09/2022 08:44:51 05/09/1905/09/2022 urina lysis , dipst ick Unknown Analyte Normal = 1.010, 1.015, 1.020 Not Available [address], [place], [address], 05/09/2022 08:44:51 05/09/19 23 05/09/2022 urina lysis , dipst ick Unknown Analyte 1.020 Not Available [address] [place] [address], [place], [address], 05/09/2022 08:44:51 05/09/19 23 05/09/2022 urina lysis , dipst ick Unknown Analyte Normal = Negati ve Not Available [address], [place], [address], 05/09/2022 08:44:51 05/09/1905/09/2022 urina lysis , dipst ick Unknown Analyte Negati ve Not Available [address], [place], [address], 05/09/2022 08:44:51 05/09/19 23 05/09/2022 urina lysis , dipst ick Unknown Analyte Normal = 6.5, 7.0, 7.5, 8.0 Not Available laureen lewis [address], [place], [address], 05/09/2022 08:44:51 05/09/19 23 05/09/2022 urina lysis , dipst ick Unknown Analyte 7.0 Not Available [address], [place], [address], 05/09/2022 08:44:51 05/09/19 23 05/09/2022 urina lysis , dipst ick Unknown Analyte Normal = Negati ve Not Available [facility] [address], [place], [address], 05/09/2022 08:44:51 05/09/19 23 05/09/2022 urina lysis , dipst ick Unknown Analyte Trace Not Available [address], [place], [address], 05/09/2022 08:44:51 05/09/19 23 05/09/2022 urina lysis , dipst ick Unknown Analyte Normal = 0.2, 1.0 Not Available [address], [place], [address], 05/09/2022 08:44:51 05/09/19 23 05/09/2022 urina lysis , dipst ick Unknown Analyte 0.2 E.U./d L Not Available [address], [place], [address], 05/09/2022 08:44:51 05/09/19 23 05/09/2022 urina lysis , dipst ick Unknown Analyte Normal = Negati ve Not Available [address] [place] [address], [place], [address], 05/09/2022 08:44:51 05/09/19 23 05/09/2022 urina lysis , dipst ick Unknown Analyte Negati ve Not Available [address], [place], [address], 05/09/2022 08:44:51 05/09/19 23 05/09/2022 urina lysis , dipst ick Unknown Analyte Normal = Negati ve Not Available [address], [place], [address], 05/09/2022 08:44:51 05/09/19 23 05/09/2022 urina lysis , dipst ick Unknown Analyte Negati ve Not Available [address], [place], [address], 05/09/2022 08:44:51 05/09/19 23 05/09/2022 pregn karo test, urine Unknown Analyte Normal = Negati ve Not Available [address], [place], [address], 05/09/2022 08:44:59 05/09/19 23 05/09/2022 pregn karo test, urine Unknown Analyte negati ve Not Available [address], [place], [address], 05/09/2022 08:44:59 05/09/19 23 05/09/2022 rapid strep group A, throa t Unknown Analyte Normal = Negati ve Not Available [address], [place], [address], 05/09/2022 08:39:39 05/09/19 23 05/09/2022 rapid strep group A, throa t Unknown Analyte negati ve Not Available [address], [place], [address], 05/09/2022 08:39:39 Result Notes None recorded. Problems Name Problem SNOMED Code Status Onset Date Resolution Date Notes Provider Name and Address Organization Details Recorded Time Eczema 03630774 Active 023 Keri jane PA - [facility] 05/09/2022 08:43:40 Anxiety 94416378 Active 023 [facility] [...] Heart rate Respiratory rate Body temperature Systolic And Diastolic Provider Name and Address Organization Details Last Updated DateTime 3 67133.1 9 g 21.3 kg/m2 167.64 cm 96 % 96 % 0 67 /min 18 /min 98.5 [degF] 102/64 mm[Hg] Keri Hart [employer] 08:47:05 Social History Question Answer Notes LastModified by [employer] Details LastModified Time Tobacco Smoking Status Current Every Day Smoker JAYSON Solis [facility] 05/09/2022 08:44:22 Have You Had Direct Contact, Or Contact During Intimacy, With Monkeypox Rash, Scabs, Or Body Fluids From A Person With Monkeypox? No Information not available 05/09/2022 How Much Tobacco Do You Smoke? 0.5 PPD Information not available 05/09/2022 Have You Recently Traveled Abroad? No Information not available 05/09/2022 Sex: Unknown Functional Status Question Answer Note LastModified by [employer] Details LastModified Time Do you use any illicit or recreational drugs? No Information not available 05/09/2022 Do you or have you ever used any other forms of tobacco or nicotine? No Information not available 05/09/2022 What is your level of alcohol consumption? None Information not available 05/09/2022 Mental Status None recorded. Family History Relationship [...] Diagnosis SNOMED-CT Code Diagnosis ICD10 Code Diagnosis IMO Codes Diagnosis Note [id number] [facility] [address] [address] [place] [address] 02/14/2018 13:47:21 02/14/2018 15:00:37 [id number] [facility] [address] [address] [place] [address] 11/25/2018 15:21:28 11/25/2018 16:11:32 [id number] [facility] [facility] [address] [place] [address] 12/26/2018 15:03:32 12/26/2018 15:29:42 [id number] [address] [facility] [address] [place] [address] 08/29/2020 08:03:19 08/29/2020 08:56:19 [id number] Paolo Bosch DO [address] [place] [address] 05/09/2022 08:21:02 05/09/2022 09:18:35 Acute pharyngitis 875195766 J02.9 Rapid strep NEGATIVE Likely viral etiology [...] up in the Emergency Department urgently. Dysuria 57672574 R30.0 UA unrevealin Joelle wnlwill check urine [...] Emergency Department urgently. Candidiasis of vagina 72 041909 B37.31 Signs, symptoms and PE consistent with [...] Clancy Member ID Guarantor Name 05/13/2022 1 [facility] ([facility]) [id number] Janett Villagomez [id number] Janett Villagomez 05/13/2022 2 [place] [facility] Janett Villagomez [id number] Janett Villagomez Notes Date Note Type Note Provider Name and Address Organization Details Recorded Time 05/09/2022 text/html Sore throatRepor krzysztof by [email or web address] yo female c/o sore throat x 1 d No feverNo chillsNo coughNo difficulty breathing or respiratory distressNo CPNo congestionNo ear painNo sore throatNo Abdominal painNo nauseaNo vomitingNp diarrheaNo myalgiaNo fatigueNo rashNo HANo dizzinessNo recent travelNo known sick contacts Also c/o redness/itchy vaginal area,Has a h/o yeast infections, had gotten fluconazole from pulmonologist intensivist, symptoms not improved+ dysuriano VBno known STD exposureno sores on genitalsno increased frequencyno increased urgencyno incontinenceno pressureno malodorno blood in her urineno back painno rashno feverno nausea or vomitingno MS changeROS as noted in the HPI Paolo Bosch, DO [address] [place], [address], PA - [facility] 05/09/2022 09:18:05 OBGyn Episode No OBEpisode recorded.
== END 2025-01-31 11:52 | disposition home or self-care (01) ==
LOC: HO.HMCC 11:11
PROVIDERS: PCP Nurse Practitioner Family; Visit Provider Nurse Practitioner Family
DX: Z00.00 Encounter for general adult medical examination without abnormal findings (principal); E55.9 Vitamin D deficiency, unspecified

== ENCOUNTER 2025-03-08 13:51 | Outpatient (REF) | payer OTHER, MEDICAID, SELFPAY ==
--- OUTSIDE RECORDS SUMMARY | 2024-06-10 07:30 | XMS_ITS ---
Author Organization [facility] Address [address] [place] [address] Care Team Providers Care Brazer Assembler Name Role Phone Fabricio VILLAVICENCIO, Lamont Primary Care Provider Unav ailable Kennedy Daniels Unavailable [phone] Eugenio DO, Lizzette Unavailable Unavailable Encounters Encounter Location Date Provider Diagnosis [address] [address] 06/10/2024 Kennedy Daniels Plan Of Treatment No Information Progress Notes * Janett VILLAGOMEZ EDOB: 0 (24 yo F)Acc No.[id number]:06/10/2024 Progress Notes Patient: Eugenia PRESTONGILLIAN Janett Whipple Provider: Sarabjit Daniels DPM :2000 A ge:24 Y S ex:Female Date:06/10/2024 Address:[address] [place] [address] [id number] Pcp:SAUD Melendez Subjective: * Chief Complaints: * * Medical History: Objective: * Vitals: Assessment: Plan: * Treatment: * Images: * The named appointment provid er may or may not be the originator of this progress note, and it is not deemed complete until electronically signed by the appointment provider. Sign off status: Pending * Provider: Sarabjit Daniels DPM Date: 0 06/10/2024 Generated for Nicholasi ng/Faxing/eTransmitting on: 1 05/09/2024 09:29 PM EST
[2025-03-08 16:20] LABS: MANUAL DIFF FLAG NO
[2025-03-08 16:30] LABS: Hematocrit 39.7 % (37.0-47.0); Hemoglobin 13.1 g/dl (12.0-16.0); Imm Gran Abs Auto 0.02 X10*3/uL (0.00-0.03); Imm Gran Pct Auto 0.4 % (0.0-0.4); Lymphocytes Absolute Auto 1.9 X10*3/uL (1.2-4.9); Mean Corpuscular HGB Conc 33.0 g/dl (31.0-35.0); Mean Corpuscular Hemoglobin 28.4 pg (27.0-33.0); Mean Corpuscular Volume 85.9 fL (80.0-98.0); NRBC Abs Auto 0.000 X10*3/uL (0.0-0.012); NRBC Pct Auto 0.0 /100WBC (0.0-0.2); Platelet Count 227 X10*3/uL (160-400); Red Blood Count 4.62 X10*6/uL (4.20-5.50); White Blood Count 4.8 X10*3/uL (4.8-10.8)
[2025-03-08 17:01] LABS: Alanine Aminotransferase 22 U/L (0-31); Albumin Level 4.8 g/dL (3.5-5.0); Alkaline Phosphatase 43 U/L (39-117); Anion Gap 11 (12-20); Aspartate Amino Transferase 23 U/L (5-31); Blood Urea Nitrogen 8 mg/dL (9-16); Calcium 9.1 mg/dL (8.4-10.2); Carbon Dioxide 26 mmol/L (22-29); Chloride 107 mmol/L (96-108); Cholesterol 148 mg/dL (<200); Estimated Glomerular Filt Rate > 60; HDL Cholesterol 54 mg/dL (>40); Potassium 3.4 mmol/L (3.3-5.1); Sodium 141 mmol/L (135-145); Total Protein 7.4 g/dL (6.5-8.0); Triglycerides 100 mg/dL (<150)
[2025-03-08 17:22] LABS: Appearance Urine Clear; Glucose Urine UA Negative (Negative); PH 6.0 (5.0-9.0); Specific Gravity - Urine 1.025 (1.005-1.025)
--- OUTSIDE RECORDS SUMMARY | 2025-03-08 21:28 | XMS_ITS | Data Portability ---
Author Organization JAYSON Bautista s, [address] Address [address] [place] [address] Care Team Providers Care Senior Copywriter Name Role Phone RICARDA DEBORA Primary Care Provider [phone] Assessment No assessment recorded. Plan of Treatment Reminders Order Date Submit Date Provider Last Modified By Organization Details Last Modified Time Details Appointments None recorded. Lab culture, urine 2022 023 [facility] [place], [address], 3 20:06:19 vaginal pathogens panel, HENRY+probe, vaginal fluid 2022 023 [facility] [place], [address], 3 20:06:18 rapid strep group A, throat 2022 023 [email or web address] _[facility], [address] [place] [address], [address], 3 09:04:28 urinalysis , dipstick 2022 023 [email or web address] _[facility], [address] [place] [address], [address], 3 09:04:28 test, urine 2022 023 [email or web address] _[facility], [address] [place] [address], [address], 09:04:28 culture, respirator y 2022 023 [facility], [address] [facility], [place], [address], 16:06:41 Referral None recorded. Procedures None recorded. Surgeries None recorded. Imaging None recorded. Medication Orders Diflucan 150 mg tablet 2022 023 [facility]armacy #[id number], [address] [place], [address], 16:20:37 miconazole nitrate 2 % topical cream 2022 023 [facility] #[id number], [address] [place], [address], 16:30:47 Patient TargetsNo targets recorded. Patient Instructions Encounter Date Encounter Id Patient Instructions Last Modified By Organization Details Last Modified Time 05/09/2022 [id number] sore throat: car e instructions Not available 05/09/2022 09:04:28 sore throat: car e instructions Not available 05/09/2022 09:04:28 Reason for Referral None Reported. Results Created Date Observation Date Name Description Value Unit Range Abnormal Flag Note LastModifiedBy Organization Detail LastModifiedTime 05/09/1905/10/2022 NUSWA B VAGIN ITIS PLUS (VG+) atopobium vaginae LOW - 0 score Not Available [facility] ([facility]) [address] [facility], [place], [address], 05/11/2022 20:06:18 05/09/1905/10/2022 NUSWA B VAGIN ITIS PLUS (VG+) bvab 2 LOW - 0 score Not Available [facility] ([facility]) [address] [facility], [place], [address], 05/11/2022 20:06:18 05/09/1905/10/2022 NUSWA B VAGIN ITIS [...] e sarah cteri stics deter mined by [employer]. It has not been clear ed or appro taj by the Food and Drug Admin istra tion. Not Available [facility] ([facility]) [address] [place], [address], 05/11/2022 20:06:18 05/09/19 23 05/10/2022 NUSWA B VAGIN ITIS PLUS (VG+) mickey albicans, HENRY NEGATI VE negati ve Not Available [facility] ([facility]) [address] [place], [address], 05/11/2022 20:06:18 05/09/19 23 05/10/2022 NUSWA B VAGIN ITIS PLUS (VG+) mickey glabrata, HENRY NEGATI VE negati ve Not Available [facility] ([facility]) [address] [place], [address], 05/11/2022 20:06:18 05/09/19 23 05/11/2022 NUSWA B VAGIN ITIS PLUS (VG+) trich vag by HENRY NEGATI VE negati ve Not Available [facility] ([facility]) [address] [place], [address], 05/11/2022 20:06:18 05/09/19 23 05/11/2022 NUSWA B VAGIN ITIS PLUS (VG+) chlamydia trachomatis, HENRY NEGATI VE negati ve Not Available [facility] ([facility]) [address] [facility], [place], [address], 05/11/2022 20:06:18 05/09/19 23 05/11/2022 NUA B VAGIN ITIS PLUS (VG+) neisseria gonorrhoeae, HENRY NEGATI VE negati ve Not Available [facility] ([facility]) [address] [facility], [place], [address], 05/11/2022 20:06:18 05/09/19 23 05/11/2022 URINE CULTU RE, ROUTI NE urine culture, routine FINAL REPORT Not Available [facility] ([facility]) [address] [facility], [place], [address], 05/11/2022 20:06:19 05/09/19 23 05/11/2022 URINE CULTU RE, ROUTI NE result 1 NO GROWTH Not Available [facility] ([facility]) [address] [facility], [place], [address], 05/11/2022 20:06:19 05/09/19 23 05/12/2022 UPPER RESPI RATOR Y CULTU RE upper respiratory culture FINAL REPORT Not Available [facility] ([facility]) [address] [facility], [place], [address], 05/12/2022 16:06:41 05/09/19 23 05/12/2022 UPPER RESPI RATOR Y CULTU RE result 1 COMMEN T Routi ne respi rator y braeden Not Available [facility] ([facility]) [address] [place], [address], 05/12/2022 16:06:41 05/09/19 23 05/09/2022 urina lysis , dipst ick Unknown Analyte Normal = light yellow Not Available [address] [address] [place] [address], [place], [address], 05/09/2022 08:44:51 05/09/19 23 05/09/2022 urina lysis , dipst ick Unknown Analyte Dark Yellow Not Available laureen lewis [address], [place], [address], 05/09/2022 08:44:51 05/09/19 23 05/09/2022 urina lysis , dipst ick Unknown Analyte Normal = clear Not Available laureen lewis [address], [place], [address], 05/09/2022 08:44:51 05/09/1905/09/2022 urina lysis , dipst ick Unknown Analyte Slight ly Cloudy Not Available laureen lewis [address], [place], [address], 05/09/2022 08:44:51 05/09/19 23 05/09/2022 urina lysis , dipst ick Unknown Analyte Normal = negati ve Not Available laureen lewis [address], [place], [address], 05/09/2022 08:44:51 05/09/19 23 05/09/2022 urina lysis , dipst ick Unknown Analyte Negati ve Not Available laureen lewis [address], [place], [address], 05/09/2022 08:44:51 05/09/19 23 05/09/2022 urina lysis , dipst ick Unknown Analyte Normal = Negati ve Not Available laureen lewis [address], [place], [address], 05/09/2022 08:44:51 05/09/19 23 05/09/2022 urina lysis , dipst ick Unknown Analyte Negati ve Not Available laureen lewis [address], [place], [address], 05/09/2022 08:44:51 05/09/1905/09/2022 urina lysis , dipst ick Unknown Analyte Normal = Negati ve Not Available 2099laureen lewis [address], [place], [address], 05/09/2022 08:44:51 05/09/1905/09/2022 urina lysis , dipst ick Unknown Analyte Negati ve Not Available [address], [place], [address], 05/09/2022 08:44:51 05/09/1905/09/2022 urina lysis , dipst ick Unknown Analyte Normal = 1.010, 1.015, 1.020 Not Available [address], [place], [address], 05/09/2022 08:44:51 05/09/19 23 05/09/2022 urina lysis , dipst ick Unknown Analyte 1.020 Not Available [address] [place] [address], [place], [address], 05/09/2022 08:44:51 05/09/19 23 05/09/2022 urina lysis , dipst ick Unknown Analyte Normal = Negati ve Not Available [address], [place], [address], 05/09/2022 08:44:51 05/09/1905/09/2022 urina lysis , dipst ick Unknown Analyte Negati ve Not Available [address], [place], [address], 05/09/2022 08:44:51 05/09/19 23 05/09/2022 urina lysis , dipst ick Unknown Analyte Normal = 6.5, 7.0, 7.5, 8.0 Not Available laureen lewis [address], [place], [address], 05/09/2022 08:44:51 05/09/19 23 05/09/2022 urina lysis , dipst ick Unknown Analyte 7.0 Not Available [address], [place], [address], 05/09/2022 08:44:51 05/09/19 23 05/09/2022 urina lysis , dipst ick Unknown Analyte Normal = Negati ve Not Available [facility] [address], [place], [address], 05/09/2022 08:44:51 05/09/19 23 05/09/2022 urina lysis , dipst ick Unknown Analyte Trace Not Available [address], [place], [address], 05/09/2022 08:44:51 05/09/19 23 05/09/2022 urina lysis , dipst ick Unknown Analyte Normal = 0.2, 1.0 Not Available [address], [place], [address], 05/09/2022 08:44:51 05/09/19 23 05/09/2022 urina lysis , dipst ick Unknown Analyte 0.2 E.U./d L Not Available [address], [place], [address], 05/09/2022 08:44:51 05/09/19 23 05/09/2022 urina lysis , dipst ick Unknown Analyte Normal = Negati ve Not Available [address] [place] [address], [place], [address], 05/09/2022 08:44:51 05/09/19 23 05/09/2022 urina lysis , dipst ick Unknown Analyte Negati ve Not Available [address], [place], [address], 05/09/2022 08:44:51 05/09/19 23 05/09/2022 urina lysis , dipst ick Unknown Analyte Normal = Negati ve Not Available [address], [place], [address], 05/09/2022 08:44:51 05/09/19 23 05/09/2022 urina lysis , dipst ick Unknown Analyte Negati ve Not Available [address], [place], [address], 05/09/2022 08:44:51 05/09/19 23 05/09/2022 pregn karo test, urine Unknown Analyte Normal = Negati ve Not Available [address], [place], [address], 05/09/2022 08:44:59 05/09/19 23 05/09/2022 pregn karo test, urine Unknown Analyte negati ve Not Available [address], [place], [address], 05/09/2022 08:44:59 05/09/19 23 05/09/2022 rapid strep group A, throa t Unknown Analyte Normal = Negati ve Not Available [address], [place], [address], 05/09/2022 08:39:39 05/09/19 23 05/09/2022 rapid strep group A, throa t Unknown Analyte negati ve Not Available [address], [place], [address], 05/09/2022 08:39:39 Result Notes None recorded. Problems Name Problem SNOMED Code Status Onset Date Resolution Date Notes Provider Name and Address Organization Details Recorded Time Eczema 60290221 Active 023 Keri jane PA - [facility] 05/09/2022 08:43:40 Anxiety 32257679 Active 023 [facility] jane [facility] - [facility] [...] mass index (BMI) Body height Oxygen saturation Pain severity - 0-10 verbal numeric rating [Score] - Reported Heart rate Respiratory rate Body temperature Systolic And Diastolic Provider Name and Address Organization Details Last Updated DateTime 3 76751.1 9 g 21.3 kg/m2 167.64 cm 96 % 0 67 /min 18 /min 98.5 [degF] 102/64 mm[Hg] Keri TYLER [employer] 08:47:05 Social History Question Answer Notes LastModified by [employer] Details LastModified Time Tobacco Smoking Status Current Every Day Smoker Keri jane PA [employer] [facility] 05/09/2022 08:44:22 Have You Had Direct Contact, Or Contact During Intimacy, With Monkeypox Rash, Scabs, Or Body Fluids From A Person With Monkeypox? No Information not available 05/09/2022 How Much Tobacco Do You Smoke? 0.5 PPD Information not available 05/09/2022 Have You Recently Traveled Abroad? No Information not available 05/09/2022 Sex: Unknown Functional Status Question Answer Note LastModified by [employer] Details LastModified Time Do you use any [...] ICD10 Code Diagnosis IMO Codes Diagnosis Note [id number] [facility] [address] [place] [address] 02/14/2018 13:47:21 02/14/2018 15:00:37 [id number] [facility] [address] [place] [address] 11/25/2018 15:21:28 11/25/2018 16:11:32 [id number] [facility] [address] [place] [address] 12/26/2018 15:03:32 12/26/2018 15:29:42 [id number] [facility] [address] [place] [address] 08/29/2020 08:03:19 08/29/2020 08:56:19 [id number] Paolo Bosch DO [facility] [address] [place] [address] 05/09/2022 08:21:02 05/09/2022 09:18:35 Acute pharyngitis 898798276 J02.9 Rapid strep NEGATIVE Likely viral etiology [...] up in the Emergency Department urgently. Dysuria 28484224 R30.0 UA unrevealin Joelle wnlwill check urine [...] Emergency Department urgently. Candidiasis of vagina 72 064672 B37.31 Signs, symptoms and PE consistent with [...] Clancy Member ID Guarantor Name 05/13/2022 1 [facility] [id number] Janett Villagomez [id number] Janett Villagomez 05/13/2022 2 [place] [facility] Janett Villagomez [id number] Janett Villagomez Notes Date Note Type Note Provider Name and Address Organization Details Recorded Time 05/09/2022 text/html Sore throatRepor krzysztof by [email or web address] yo female c/o sore throat x 1 d No feverNo chillsNo coughNo difficulty breathing or respiratory distressNo CPNo congestionNo ear painNo sore throatNo Abdominal painNo nauseaNo vomitingNp diarrheaNo myalgiaNo fatigueNo rashNo HANo dizzinessNo recent travelNo known sick contacts Also c/o redness/itchy vaginal area,Has a h/o yeast infections, had gotten fluconazole from assembler product, symptoms not improved+ dysuriano VBno known STD exposureno sores on genitalsno increased frequencyno increased urgencyno incontinenceno pressureno malodorno blood in her urineno back painno rashno feverno nausea or vomitingno MS changeROS as noted in the HPI Paolo Bosch DO [address] [place], [address], PA - [facility] 05/09/2022 09:18:05 OBGyn Episode No OBEpisode recorded.
--- OUTSIDE RECORDS SUMMARY | 2025-03-08 21:28 | XMS_ITS | Encounter Summary ---
Author Organization [facility] Address [address] [place] [address] Phone Care Team Providers Care Supervisor Coffee Name Role Phone Elana Ayala NP Primary Care Provider Reason for Visit * Reason Comments Med Refill Encounter Details Date Type Department Care Team (Late st Contact Info) Description 03/21/2018 Refill [facility] [address] [place] [address] [place] [address] Lizzette Becker DO Anxiety and depression Social [...] depression documented in this encounter Care Teams Supervisor Coffee Relationship Specialty Start Date End Date Elana Ayala NP [address] [place] [address] [place] [address] PCP - General Pediatrics 09/17/22 documented as of this encounter
--- OUTSIDE RECORDS SUMMARY | 2025-03-08 21:28 | XMS_ITS | Encounter Summary ---
Author Organization [facility] Address [address] [place] [address] Phone Care Team Providers Care Hydrodynamicist Name Role Phone Elana Ayala NP Primary Care Provider [phone] Reason for Visit * Reason Comments Med Refill Encounter Details Date Type Department Care Team (Late st Contact Info) Description 07/29/2019 Refill [facility] [address] [place] [address] [address] [place] [phone] Lizzette Becker DO Other atopic dermatitis Social [...] dermatitis documented in this encounter Care Teams Hydrodynamicist Relationship Specialty Start Date End Date Elana Ayala NP [address] [place] [address] [place] [address] PCP - General Pediatrics 09/17/22 documented as of this encounter
--- OUTSIDE RECORDS SUMMARY | 2025-03-08 21:28 | XMS_ITS | Encounter Summary ---
Author Organization [facility] Address [address] [place] [address] Phone Care Team Providers Care Director Of Hotel Name Role Phone Elana Ayala NP Primary Care Provider [phone] Encounter Details Date Type Department Care Team (Late st Contact Info) Description 04/27/2014 Conversion Encounter [facility] [address] [place] [address] [place] [address] Social History Tobacco Use Types Packs/Day Years [...] on filedocumented in this encounter Care Teams Director Of Hotel Relationship Specialty Start Date End Date Elana Ayala NP [address] [place] [address] [place] [address] PCP - General Pediatrics 09/17/22 documented as of this encounter
--- OUTSIDE RECORDS SUMMARY | 2025-03-08 21:29 | XMS_ITS | Clinical Summary ---
Author Organization [facility] Address [address] [place] [address] Phone Care Team Providers Care Radiology Scheduler Name Role Phone Travis Ayalaica ANGELICA Primary Care Provider [phone] Allergies Active Allergy Reactions Criticality Noted Date Comments [place] (Diagnostic) Food 09/23/2017 [place] Medications mometasone 0.1 % creamIndications :Other atopic [...] 0 Refills, Maintenance, 12/17/22 11:56:00 EDT, Capsule, [facility]/pharmacy #[id number], Partial fill upon patient request if the [...] smear of cervix 07/31/2021 Overview (07/31/2021): Seeing Field Professional History of recurrent UTIs 07/31/2021 Overview (07/31/2021): [...] needed for panic attacks Refer to [facility] to discuss trauma and anxiety response Aware that is short term and given information for assisted therapy Assessment & Plan (09/17/2022 4:34 PM [...] this topic Procedures * Due to [place] SingleHop law, this organization might not be sharing sensitive test results. Procedure Name Priority Date/Time Associated Diagnosis Comments SURESWAB (ADV) VAGINITIS PLUS, TMA Routine 01/05/2023 3:38 PM EDT Vaginal discharge from Last 3 Months or Most Recently Relevant to Health Maintenance Results * Due to [place] SingleHop law, this organization might not be sharing sensitive test results. * (ABNORMAL) SureSwab Advanced (TMA)- BV, CT/NG, CV, TV (01/05/2023 3:38 PM EDT) BACTERIAL VAGINOSIS TEST POSITIVE(A) (NEG) [facility] Comment: Bacterial vaginosis targets by PCR detected in this patient's sample. Note: This assay uses real time etl informatica architect-mediated amplification (TMA) for detection and quantification of [...] sample. Note: This assay uses real time etl informatica architect-mediated amplification (TMA) for detection and quantification of ribosomal RNA from organisms associated with Mickey species group (C. albicans, C. tropicalis, C. parapsilosis, C. dubliniensis), Mickey glabrata, and Trichomonas vaginalis. Chlamydia Trachomatis, Amplified NEGATIVE (NEG) [facility] Comment: No Chlamydia Trachomatis RNA detected in this patient's sample (REFERENCE RANGE/NORMAL VALUE: NOT DETECTED) Note: This test uses etl informatica architect- mediated amplification method to detect rRNA from C. Trachomatis N.GONORRHOEAE AMP PROBE NEGATIVE (NEG) [facility] Comment: No Neisseria Gonorrhoeae RNA detected in this patient's sample (REFERENCE RANGE/NORMAL VALUE: NOT DETECTED) NOTE: This test uses etl informatica architect-mediated amplification method to detect rRNA from N.Gonorrhoeae. [...] if indicated. Testing performed or reported by [facility], a Service of [facility], [address] [place] [address] [place] [address] Roberto Quinn MD, Boom Pump Operator [facility]# [id number] Swab (Vagina) 01/05/2023 3:3 8 PM EDT 01/05/2023 11:10 PM EDT us Ban Adame NP LAB MICROBIOLOGY - GENERAL ORD ERABLES Final Result [facility] from Last 3 Months or Most Recently Relevant to Health Maintenance Insurance [facility] COMM[facility] NON [employer] Care Teams Radiology Scheduler Relationship Specialty Start Date End Date Elana Ayala NP [facility] [place] [address] PCP - General Pediatrics 09/17/22
--- OUTSIDE RECORDS SUMMARY | 2025-03-08 21:29 | XMS_ITS | Encounter Summary ---
Author Organization [facility] Address [address] [place] [address] Phone Care Team Providers Care Window Shade Ring Coverer Name Role Phone Elana Ayala RESEARCH MANAGER Primary Care Provider Reason for Visit * Reason Onset Date Comments Med Refill 12/24/2022 Encounter Details Date Type Department Care Team (Late st Contact Info) Description 12/24/2022 Refill [facility] [address] [place] [address] [place] [address] Elana Ayala NP [facility] [place] [address] Social History Tobacco Use Types Packs/Day Years [...] on filedocumented in this encounter Care Teams Window Shade Ring Coverer Relationship Specialty Start Date End Date Elana Ayala NP [address] [facility] [place] [address] PCP - General Pediatrics 09/17/22 documented as of this encounter
--- OUTSIDE RECORDS SUMMARY | 2025-03-08 21:29 | XMS_ITS | Encounter Summary ---
Author Organization [facility] Address [address] [place] [address] Phone Care Team Providers Care Clinical Unit Educator Name Role Phone Elana Ayala NP Primary Care Provider [phone] Reason for Visit * Reason Onset Date Comments Med Refill Med Refill 07/02/2018 Encounter Details Date Type Department Care Team (Late st Contact Info) Description 06/22/2018 Refill [facility] [address] [place] [address] [place] [address] Lizzette Becker DO Social History Tobacco Use [...] on filedocumented in this encounter Care Teams Clinical Unit Educator Relationship Specialty Start Date End Date Elana Ayala NP [address] [place] [address] [place] [address] PCP - General Pediatrics 09/17/22 documented as of this encounter
--- OUTSIDE RECORDS SUMMARY | 2025-03-08 21:29 | XMS_ITS | Encounter Summary ---
Author Organization [facility] Address [address] [place] [address] Phone Care Team Providers Care Christian Counselor Name Role Phone Elana Ayala NP Primary Care Provider Reason for Visit * Reason Comments Med Refill Encounter Details Date Type Department Care Team (Late st Contact Info) Description 09/15/2018 Refill [facility] [address] [place] [address] [place] [address] Lizzette Becker, DO Anxiety Social History Tobacco [...] unspecified documented in this encounter Care Teams Christian Counselor Relationship Specialty Start Date End Date Elana Ayala NP [address] [place] [address] [place] [address] PCP - General Pediatrics 09/17/22 documented as of this encounter
--- OUTSIDE RECORDS SUMMARY | 2025-03-08 21:29 | XMS_ITS | Encounter Summary ---
Author Organization [facility] Address [address] [place] [address] Phone Care Team Providers Care Port Warden Name Role Phone Elana Ayala NP Primary Care Provider [phone] Reason for Visit * Reason Comments Med Refill Encounter Details Date Type Department Care Team (Late st Contact Info) Description 09/11/2018 Refill [facility] [address] [place] [address] [place] [address] Lizzette Becker, Amenorrhea Social History Tobacco Use [...] menstruation documented in this encounter Care Teams Port Warden Relationship Specialty Start Date End Date Elana Ayala NP [address] [place] [address] [place] [address] PCP - General Pediatrics 09/17/22 documented as of this encounter
--- OUTSIDE RECORDS SUMMARY | 2025-03-08 21:29 | XMS_ITS | Patient Health Record ---
Author Organization [facility] Address [address] [facility] [place] [address] Care Team Providers Care Hat Brusher Machine Name Role Phone Lamont Vieira Primary Care Provider Kennedy Thomas Unavailable [phone] Eugenio DOLizzette Unavailable Unavailable Reason For Referral [...] No Encounters Encounter Location Date Provider Diagnosis [facility] [address] [place] [address] 06/09/2024 Kennedy Daniels Plan Of Treatment Pending Test Test Name Order Date 27242 I&D ABSCESS- SIMPLE,SINGLE 020 Insurance Providers Payer Name Payer Address Payer Phone Subscriber Number Group Number Insured Name Patient Relationship to Insured Coverage Start Date Coverage End Date [facility] [address] [place] [address] [phone] [id number] [employer] [place] Child - Insured does not have Financial Responsibility (includes legally adopted child) Medical (General) History Medical History History ICD Code Anxiety asthma Depression Surgical History Surgery Date(Month/Year) Hospitalization History Reason Date(Month/Year) 08/2019
--- OUTSIDE RECORDS SUMMARY | 2025-03-08 21:29 | XMS_ITS | Encounter Summary ---
Author Organization [facility] Address [address] [place] [id number] Phone Care Team Providers Care Entry Level Assistant Manager Name Role Phone Elana Ayala LABORATORY CHEMICAL ASSISTANT Primary Care Provider [phone] Reason for Visit * Reason Onset Date Comments Med Refill 12/24/2022 Encounter Details Date Type Department Care Team (Late st Contact Info) Description 12/24/2022 Refill [facility] [address] [place] [address] [place] [id number] Elana Ayala NP [address] [place] [address] [place] [id number] Anxiety; Asthma, unspecified asthma severity, unspecified whether [...] MA - 12/24/2022 3:55 PM EDT Last [facility] with EM 09/17/22 Pt has requested all these meds through [facility]. 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
--- OUTSIDE RECORDS SUMMARY | 2025-03-08 21:29 | XMS_ITS | Encounter Summary ---
Author Organization [facility] Address [address] [place] [id number] Phone Care Team Providers Care Uniformer Name Role Phone Elana Ayala NP Primary Care Provider [phone] Reason for Visit * Reason Comments Med Refill Encounter Details Date Type Department Care Team (Late st Contact Info) Description 07/23/2018 Refill [facility] [address] [place] [address] [place] [id number] Lizzette Becker, Amenorrhea Social History Tobacco Use [...] menstruation documented in this encounter Care Teams Uniformer Relationship Specialty Start Date End Date Elana Ayala NP [address] [place] [address] [place] [address] PCP - General Pediatrics 09/17/22 documented as of this encounter
== END 2025-03-08 13:52 | disposition home or self-care (01) ==
LOC: HO.HMGCLDS 13:51
PROVIDERS: PCP Nurse Practitioner Family; Visit Provider Nurse Practitioner Family
DX: Z00.00 Encounter for general adult medical examination without abnormal findings (principal); Z13.29 Encounter for screening for other suspected endocrine disorder; Z13.6 Encounter for screening for cardiovascular disorders; E55.9 Vitamin D deficiency, unspecified
CPT/HCPCS: 36415; 80053; 80061; 81003; 82306; 84443; 85025